=== PATIENT | female | born 1955 | race Caucasian/White ===

== ENCOUNTER 2016-05-19 16:46 | Observation (INO) | payer MEDICARE, MEDICAID ==
[~2016-05-19] VITALS: Ht 160 cm; Wt 57.5 kg
[~2016-05-19 16:46] MED LIST: AMLO10TA2 PO; CITA40TA4 PO; CYCL10TA PO; D 1010004 PO; DITR5TAB PO; FOLI1TAB2 PO; GABA-279 PO; HYDR-3713 PO; HYDR-3719 PO; HYDR25T PO; HYDR25TAB PO; K-TA10TA2 PO; LEVO75TA4 PO; LYRI100C10 PO; LYRI75CA PO; MELO15TA4 PO; NAPR500T2 PO; OMEP20CA3 PO; OXYC20TA2 PO; PROA1AER IN; ROBA750T4 PO; SIMV20TA2 PO; SIMV40TA2 PO; SYMB80INH INH; THIA100T PO; TIZA4CAP3 PO; TRAZ100T4 PO
[2016-05-19] MEDS ORDERED: ONDANSETRON 4MG/2ML VIAL (J2405) As Ordered ONE (17:46)
[2016-05-19] MEDS ORDERED: MORPHINE 2 MG/ML 1ML SYRINGE As Ordered ONE ×6 (17:47→21:12)
--- NOTE | 2016-05-19 17:56 | ECGEPIP ---
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
[2016-05-19 18:04] LABS: BASO % 0.4 % (0.0-1.0); EOS % 0.9 % (0.0-3.0); LARGE UNSTAINED CELL # 0.2 K/mm3 (0.0-0.4); LARGE UNSTAINED CELL % 2.5 % (0.0-4.0); LYMPH # 1.2 K/mm3 (1.5-4.5); LYMPH % 20.9 % (24.0-44.0); MEAN CORPUSCULAR HEMOGLOBIN 30.4 pg (27.0-33.0); MEAN CORPUSCULAR HGB CONC 33.8 g/dl (32.0-36.5); MEAN CORPUSCULAR VOLUME 89.9 fl (80.0-96.0); MONO # 0.4 K/mm3 (0.0-0.8); MONO % 7.4 % (0.0-5.0); NEUTROPHILS % 67.9 % (36.0-66.0); PLATELET COUNT, AUTOMATED 173 k/mm3 (150-450); WHITE BLOOD COUNT 5.9 K/mm3 (4.0-10.0)
[2016-05-19 18:05] LABS: INR 0.9
[2016-05-19 18:23] LABS: ALBUMIN/GLOBULIN RATIO 1.21 (1.00-1.93); ALKALINE PHOSPHATASE 92 U/L (45-117); ALT/SGPT 31 U/L (12-78); AMYLASE 39 U/L (25-115); ANION GAP 12 MEQ/L (8-16); AST/SGOT 33 U/L (15-37); BILIRUBIN,DIRECT 0.1 MG/DL (0.0-0.2); BILIRUBIN,TOTAL 0.5 MG/DL (0.2-1.0); BLOOD UREA NITROGEN 11 MG/DL (7-18); CALCIUM LEVEL 9.2 MG/DL (8.8-10.2); CARBON DIOXIDE LEVEL 22 MEQ/L (21-32); CHLORIDE LEVEL 105 MEQ/L (98-107); CREATININE FOR GFR 0.68 MG/DL (0.55-1.02); GLOMERULAR FILTRATION RATE > 60.0 (>45); GLUCOSE, FASTING 88 MG/DL (80-110); POTASSIUM SERUM 3.7 MEQ/L (3.5-5.1); SODIUM LEVEL 139 MEQ/L (136-145); TOTAL PROTEIN 7.3 GM/DL (6.4-8.2)
--- NOTE | 2016-05-19 18:35 | REP ---
CHEST, ONE VIEW: HISTORY: Shortness of breath. COMPARISON: 02/15/2016 A minimal increase in interstitial markings is present lower lobes consistent with chronic interstitial fibrosis. The heart is normal in size. The pulmonary vasculature is normal in appearance. IMPRESSION: Bibasilar chronic interstitial fibrosis. Signed by Nikunj Felipe MD 05/19/2016 06:41 P
[2016-05-19] MEDS ORDERED: ISOVUE-370 76% 100ML VIAL (Q9967) As Ordered ONE (18:52)
[2016-05-19] MEDS ORDERED: ASPIRIN 81 MG CHEW TABLET As Ordered ONE (18:55)
--- NOTE | 2016-05-19 20:00 | REPUSA ---
CT of the abdomen and pelvis with contrast Clinical statement: Pain. Technique: Multiple axial CT images were obtained from the base of the lungs through the floor of the pelvis utilizing 5 mm axial slices after administration of oral and nonionic intravenous contrast. C oronal and sagittal reconstructions were also obtained. Comparison: 02/18/2016. Findings: Chest: The visualized lung bases are clear. Abdomen: The spleen, pancreas, kidneys, and adrenal glands are unremarkable. Diffuse low attenuation of the liver is appreciated. The patient is status post cholecystectomy. The aorta is within normal l imits. There is no evidence of abdominal lymphadenopathy or ascites. Pelvis: The bowel is unremarkable, with no obstructive or inflammatory changes. The urinary bladder i s within normal limits. The other pelvic structures appear grossly intact. There is no evidence of pe lvic lymphadenopathy or ascites. Bones: There are no suspicious osseous abnormalities seen. Moderate degenerative disc disease is appr eciated at L5/S1. Impression: 1. No acute findings to explain the patient's pain. 2. No obstructive or inflammatory bowel changes. 3. New fatty infiltration of the liver. 4. Moderate degenerative disc disease at L5/S1.
--- NOTE | 2016-05-19 20:10 | REPUSA ---
CT angiogram of the chest Clinical statement: Chest pain and shortness of breath. Technique: Multiple axial CT images were obtained from the thoracic inlet through the upper abdomen a fter a bolus administration of nonionic intravenous contrast. Coronal and sagittal reconstructions we re also obtained. No comparison is available. Findings: The pulmonary arteries are well-opacified with contrast, with no intraluminal filling defec ts to suggest embolism. The thoracic aorta is unremarkable. Thyroid gland is within normal limits. Th ere is no thoracic lymphadenopathy. There are no pericardial or pleural effusions. The lungs are eli r. Limited imaging of the upper abdomen is unremarkable. There are no suspicious osseous lesions. Impression: Unremarkable CT examination of the chest. No evidence of pulmonary embolism.
[2016-05-19] MEDS ORDERED: AMLO10TA2 PO (20:19)
[2016-05-19] MEDS ORDERED: PREG50CA PO (20:19)
[2016-05-19] MEDS ORDERED: ALBU17IN INH (20:19)
[2016-05-19] MEDS ORDERED: FERA1TAB PO (20:19)
--- NOTE | 2016-05-19 22:08 | ECGEPIP ---
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
[2016-05-19] MEDS ORDERED: ALBUTEROL 90 MCG/ACT 8GM HFA INHALER INH PRN (22:45)
[2016-05-20] VITALS (8 sets, daily range): BP systolic 90–146; BP diastolic 58–75; PULSE 54–87
[2016-05-20] MEDS ORDERED: tiZANidine 4 MG TAB As Ordered ONE (00:23)
[2016-05-20] MEDS ORDERED: traZODone 50 MG TAB As Ordered ONE (00:23)
[2016-05-20] MEDS ORDERED: OMEPRAZOLE 20 MG CAP As Ordered ONE (00:23)
[2016-05-20] MEDS ORDERED: oxyCODONE 5MG TAB As Ordered ONE ×2 (00:23→09:34)
[2016-05-20] MEDS ORDERED: ONDANSETRON 4MG/2ML VIAL (J2405) As Ordered ONE ×4 (00:23→17:01)
[2016-05-20] MEDS: SIMVASTATIN 20 MG TAB PO SCH ×2 (00:29→21:19)
[2016-05-20] MEDS: OMEPRAZOLE 20 MG CAP PO SCH ×4 (00:29→21:20)
[2016-05-20] MEDS: PREGABALIN 50 MG CAP (LYRICA) PO SCH ×4 (00:29→21:19)
[2016-05-20] MEDS: tiZANidine 4 MG TAB PO SCH ×2 (00:29→21:20)
[2016-05-20] MEDS: ONDANSETRON 4MG/2ML VIAL (J2405) IV SCH ×5 (00:30→23:02)
[2016-05-20] MEDS: oxyCODONE 5MG TAB PO PRN ×3 (00:30→18:30)
[2016-05-20] MEDS ORDERED: traZODone 100 MG TAB As Ordered ONE (00:32)
[2016-05-20] MEDS: traZODone 100 MG TAB PO SCH ×2 (00:35→23:02)
--- NOTE | 2016-05-20 00:46 | HPEPDOC ---
General Date of Admission May 19, 2016 at 22:39 Chief Complaint The patient is a 61-year-old female admitted with a reason for visit of Elevated Troponin. Source: Patient Exam Limitations: No limitations History of Present Illness Ms. Dumont is a 61-year-old female who presented to the ED with complaints of left-sided chest pain, abdominal pain, and black stools for the past few days. In the emergency department her cardiac enzymes were noted to be elevated, Dr. Flowers was called, and he recommended waiting until a repeat set of labs, and if they worsened she should be sent to [facility] for cardiac catheterization, if there remain the same she should stay for observation. Her enzymes upon repeat were essentially the same, therefore we will keep her here. She states that her left-sided chest pain has been present since Thursday, and it is worse when palpated, but otherwise nothing has really made the pain better or worse. EKG in the ED shows sinus rhythm with nonspecific ST and T wave changes, unchanged from prior EKG. Upon further questioning it appears that her abdominal pain is chronic in nature , and not significantly worse than usual. She did have a colonoscopy and EGD performed by Dr. Pearce 02/18/2016 which were essentially unremarkable, a small polyp was snared during the colonoscopy. As regarding her black stools, she is taking iron supplementation for her chronic iron deficiency anemia. She remarks that she knows that iron can make her stools looked black, but she thinks that they look a little bit different now. Her blood pressure is stable , she is not anemic, we will check a repeat stool occult for blood. Of note, she ordered and ate Kyler Salo while here in the ED. Home Medications Scheduled (Ferate) 27 Mg Tab 27 MG PO DAILY (Reported) Amlodipine Besylate (Amlodipine Besylate) 10 Mg Tab 10 MG PO DAILY (Reported) Budesonide/Formoterol (Symbicort 80-4.5 Mcg/Act) 60 Puff/Inhaler Aers 2 PUFF INH BID (Reported) Cholecalciferol (D 1000) 1,000 Unit Cap 1,000 UNIT PO DAILY (Reported) Citalopram Hydrobromide (Citalopram Hydrobromide) 40 Mg Tab 40 MG PO DAILY ( Reported) Folic Acid (Folic Acid) 1 Mg Tab 1 MG PO DAILY (Reported) Hydroxyzine HCl (Hydroxyzine HCl) 25 Mg Tab 25 MG PO DAILY (Reported) Levothyroxine Sodium (Synthroid) 75 Mcg Tab 75 MCG PO DAILY (Reported) Omeprazole (Omeprazole) 20 Mg Cap 20 MG PO BID (Reported) Oxybutynin Chloride (Ditropan Xl) 5 Mg Tab 5 MG PO DAILY (Reported) Pregabalin (Lyrica) 50 Mg Cap 50 MG PO TID (Reported) Simvastatin (Simvastatin) 20 Mg Tab 20 MG PO QHS (Reported) Thiamine HCl (Thiamine HCl) 100 Mg Tab 100 MG PO DAILY (Reported) Tizanidine Hydrochloride (Tizanidine HCl) 4 Mg Cap 4 MG PO QHS (Reported) Trazodone HCl (Trazodone HCl) 100 Mg Tab 100 MG PO QHS (Reported) Scheduled PRN Albuterol Sulfate (Ventolin Hfa) 200 Puff/8 Gm Aers 2 PUFF INH Q4H PRN PRN SHORTNESS OF BREATH (Reported) Oxycodone Hcl (Oxycodone HCl) 20 Mg Tab 20 MG PO Q8H PRN PRN PAIN (Reported) Allergies Coded Allergies: Codeine (Verified Allergy, Unknown, 07/27/12) Propoxyphene (Verified Allergy, Unknown, 07/27/12) Sulfa Drugs (Verified Allergy, Unknown, 07/27/12) Sulfa Drugs Cross Reactors (Verified Allergy, Unknown, 07/27/12) Tetracyclines (Verified Allergy, Unknown, 07/27/12) Past Medical History Medical History COPD Chronic bronchitis Chronic abdominal pain Hyperlipidemia Hypertension Vitamin D deficiency Anxiety and depression Hypothyroidism Surgical History Cholecystectomy Tonsillectomy Hysterectomy Carpal tunnel repair Meniscus bilateral repair Neck surgery Knee arthroscopic bilateral Family History Significant Family History: No pertinent family hx Social History * Smoker: current smoker (about one pack per day) Alcohol: denies Drugs: denies Recent Travel/Sick Contacts: Denies: Recent travel Review of Symptoms Constitutional: Denies: Chills, Fever, Night Sweats ENT: Denies: Dysphagia, Ear Pain, Head Aches Skin: Denies: Breakdown, Lesions, Rash Pulmonary: Denies: Cough, Dyspnea Cardiovascular: Reports: Chest Pain, Denies: Edema, Lt Headedness, Orthopnea, Palpitations, Paroxysmal Noc. Dyspnea Gastrointestinal: Reports: Abdominal Pain, Constipation (chronic), Melena (as described in the HPI), Nausea, Denies: Diarrhea, Vomiting Genitourinary: Denies: Dysuria, Frequency, Incontinence, Retention Hematologic: Denies: Bleeding Excessively, Bruising Neurological: Denies: Change in speech, Confusion, Numbness, Weakness Psych: Reports: Mood Normal, Denies: Depression, Memory Issues Physical Examination General Exam: Positive: Alert, Cooperative, No Acute Distress Eye Exam: Positive: Conjunctiva & lids normal, EOMI, Negative: Sclera icteric ENT Exam: Positive: Atraumatic, Mucous membr. moist/pink, Pharynx Normal Neck Exam: Positive: Supple, Negative: JVD, thyromegaly Chest Exam: Positive: Clear to auscultation, Normal air movement Heart Exam: Positive: Normal S1, Normal S2, Rate Normal, Regular Rhythm, Negative: Murmurs, Rubs Telemetry: Positive: No significant arrhythmia Abdomen Exam: Positive: Normal bowel sounds, Soft, Tenderness (throughout, even to soft palpation), Negative: Hepatospenomegaly Female Exam: Negative: Discharge, Lesions, Odor, Tenderness Extremity Exam: Positive: Normal pulses, Negative: Clubbing, Cyanosis, Edema Skin Exam: Positive: Nl turgor and temperature, Negative: Breakdown, Lesion Psych Exam: Positive: Memory Intact, Mental status NL, Mood NL, Oriented x 3, Negative: Anxiety Vital Signs Blood pressure 125/65, pulse 82, respirations 16, temperature 98.8, pulse ox 98 % on room air, weight 56 kg, height 5 feet 3 inches, BMI 22 Laboratory Data Labs 24H Laboratory Tests 2 05/19/16 17:31: Activated Partial Thromboplast Time 26.9, Aspartate Amino Transf (AST/SGOT) 33, Alanine Aminotransferase (ALT/SGPT) 31, Alkaline Phosphatase 92, Total Bilirubin 0.5, Direct Bilirubin 0.1, Albumin 4.0, Albumin/Globulin Ratio 1.21, Amylase Level 39, Anion Gap 12, White Blood Count 5.9, Red Blood Count 5.02, Hemoglobin 15.2, Hematocrit 45.1, Mean Corpuscular Volume 89.9, Mean Corpuscular Hemoglobin 30.4, Mean Corpuscular Hemoglobin Concent 33.8, Red Cell Distribution Width 18.0H, Platelet Count 173, Neutrophils (%) (Auto) 67.9H, Lymphocytes (%) (Auto) 20.9L, Monocytes (%) (Auto) 7.4H, Eosinophils (%) (Auto) 0.9, Basophils (%) (Auto) 0.4, Neutrophils # (Auto) 4.0, Lymphocytes # (Auto) 1.2L, Monocytes # (Auto) 0.4, Eosinophils # (Auto) 0.0, Basophils # (Auto) 0.0, Calcium Level 9.2, Creatine Kinase MB 2.9, Creatine Kinase MB Relative Index 4.20H, Glomerular Filtration Rate > 60.0, Large Unclassified Cells # 0.2, Large Unclassified Cells % 2.5, Lipase 178, Prothromb Time International Ratio 0.90, Prothrombin Time 12.3, Total Creatine Kinase 69, Total Protein 7.3, Troponin I 0.46H 05/19/16 21:25: Creatine Kinase MB 3.5, Creatine Kinase MB Relative Index 4.48H, Total Creatine Kinase 78, Troponin I 0.55H CBC/BMP Laboratory Tests 05/19/16 17:31 Red Blood Count 5.02, Mean Corpuscular Volume 89.9, Mean Corpuscular Hemoglobin 30.4, Mean Corpuscular Hemoglobin Concent 33.8, Red Cell Distribution Width 18.0 H, Neutrophils (%) (Auto) 67.9 H, Lymphocytes (%) (Auto) 20.9 L, Monocytes (%) (Auto) 7.4 H, Eosinophils (%) (Auto) 0.9, Basophils (%) (Auto) 0.4, Neutrophils # (Auto) 4.0, Lymphocytes # (Auto) 1.2 L, Monocytes # (Auto) 0.4, Eosinophils # (Auto) 0.0, Basophils # (Auto) 0.0 Assessment/Plan Problems: (1) Elevated troponin Status: Acute (2) Chest pain Status: Acute (3) Abdominal pain Status: Chronic (4) Iron deficiency anemia Status: Chronic (5) Hypertension Status: Chronic (6) Vitamin D deficiency Status: Chronic (7) Anxiety Status: Chronic (8) Depression Status: Chronic (9) Hypothyroidism Status: Chronic (10) COPD (chronic obstructive pulmonary disease) Status: Chronic Plan / VTE VTE Prophylaxis Ordered?: Yes (Lovenox) Plan Plan We will admit the patient for observation as the patient does have an elevated troponins and chest pain. She has had multiple cardiac marker panel also ordered in the past, all of which have been within normal limits, therefore this is a change from her baseline, she does not have any history of heart disease, and she does not have any evidence of acute kidney injury. Her chest pain has been present since last Thursday, and it is worse when palpating along the left side of her sternum, and she has no EKG changes at this time, and her repeat troponins are approximately the same as her first, therefore we will keep her here at [facility] rather than transferring at this time. She has had no events on monitor thus far, and she has had 2 EKGs in the ED both of which showing sinus rhythm. We will continue to cycle her cardiac enzymes, order a repeat EKG in the morning, and perform an echocardiogram. Regarding her abdominal pain, we will continue her on her usual home regimen, it appears that it is sufficiently under control as she has ordered food from [email or web address] at this time that her family brought her in the ED. A stool for fecal occult and a UA has been ordered. CT of the abdomen and pelvis with contrast shows no acute findings to explain her pain, nonobstructive or inflammatory bowel changes, but she may have some new fatty infiltration of the liver and moderate degenerative disc disease L5/S1. Otherwise, we will continue her on her usual regimen of home medications for her chronic conditions. LAMONT CADENA DO May 20, 2016 00:46
[2016-05-20] MEDS: LEVOTHYROXINE 0.075 MG TAB (75 MCG) PO SCH (06:15)
[2016-05-20 07:55] LABS: MEAN CORPUSCULAR HEMOGLOBIN 29.5 pg (27.0-33.0); MEAN CORPUSCULAR VOLUME 92.1 fl (80.0-96.0); RED CELL DISTRIBUTION WIDTH 17.7 % (11.5-14.5); WHITE BLOOD COUNT 5.6 K/mm3 (4.0-10.0)
[2016-05-20 08:09] LABS: ANION GAP 7 MEQ/L (8-16); BLOOD UREA NITROGEN 11 MG/DL (7-18); CALCIUM LEVEL 8.8 MG/DL (8.8-10.2); CARBON DIOXIDE LEVEL 27 MEQ/L (21-32); CHLORIDE LEVEL 107 MEQ/L (98-107); CREATININE FOR GFR 0.76 MG/DL (0.55-1.02); GLOMERULAR FILTRATION RATE > 60.0 (>45); GLUCOSE, FASTING 82 MG/DL (80-110); SODIUM LEVEL 141 MEQ/L (136-145)
[2016-05-20] MEDS ORDERED: amLODIPine 10 MG TAB PO SCH (09:00)
[2016-05-20] MEDS: NICOTINE 7 MG/24 HR TRANSDERMAL TD SCH (09:00)
[2016-05-20] MEDS ORDERED: ENTER DRUG NAME HERE (PATIENT'S OWN MED) PO SCH (09:00)
[2016-05-20] MEDS ORDERED: ENOXAPARIN 40 MG/0.4 ML SYRINGE (J1650) As Ordered ONE (09:39)
[2016-05-20] MEDS: CitaloPRAM (CeleXA) 20 MG TAB PO SCH (09:42)
[2016-05-20] MEDS: hydrOXYzine 25 MG TAB PO SCH (09:42)
[2016-05-20] MEDS: ENOXAPARIN 40 MG/0.4 ML SYRINGE (J1650) SC SCH (09:42)
[2016-05-20] MEDS: THIAMINE 100 MG TAB PO SCH (09:43)
[2016-05-20] MEDS: oxyBUTYnin *DITROPAN XL* 5 MG TABCR PO SCH (09:43)
[2016-05-20] MEDS: FOLIC ACID 1 MG TAB PO SCH (09:43)
[2016-05-20] MEDS: VITAMIN D 1,000 INTERNATIONAL UNITS TABLET PO SCH (09:43)
[2016-05-20] MEDS: SYMBICORT 80/4.5MCG INHALER 6GM INH SCH ×2 (10:19→20:59)
[2016-05-20] MEDS ORDERED: NITROGLYCERIN 0.4 MG SUBL TABLET SL PRN (11:45)
[2016-05-20] MEDS ORDERED: GI COCKTAIL 50ML BTL(HYOSCYAMINE/MAALOX/LIDOCAINE VISCOUS)(1:3:1) PO ONE (12:00)
--- NOTE | 2016-05-20 12:22 | IPN ---
DATE: 05/20/2016 Patient seen and examined at the bedside. Chart reviewed. This morning patient continues to complain of left-sided chest pain radiating to her neck. No diaphoresis, palpitations, lightheadedness, shortness of breath. Describes it as sharp with radiation on and off and constant since 2 days ago. No bright red blood per rectum, melena, or coffee ground emesis. Pleuritic in nature. CT chest shows no pulmonary embolism. Lungs are clear. No other issues per nursing. Vital signs: Temperature 97.7, pulse 57, respiratory rate 18, blood pressure 90/58 to 120/70. Patient's cardiovascular risk factors include hypertension, hyperlipidemia, active smoking, perimenopausal state, increase in psychosocial issues, patient had a recent stressor at home and states "I was very upset and fighting at home." VITAL SIGNS: Temperature 97.8, pulse 61, respiratory rate 18, blood pressure 120/70, 95% on room air. LUNGS: Clear to auscultation. No wheezing, rales, or rhonchi. HEART: S1, S2, sinus rhythm. ABDOMEN: Soft, nontender, nondistended. Normoactive bowel sounds. EXTREMITIES: No cyanosis, clubbing, or pitting edema. EKG sinus rhythm, ventricular rate of 72, HI interval 162, QT 419, QTc 459. LABORATORY DATA: Has been reviewed. CBC: White count 5.6, hemoglobin 13, hematocrit 43, platelet count 173. Sodium 141, potassium 4, chloride 107, bicarbonate 27, BUN 11, creatinine 0.76, glucose 82, troponin 0.23 from previous 0.55, relative index 4.1, total CK 95. ASSESSMENT AND PLAN: This is a 61-year-old female with history of hypertension, hyperlipidemia, active smoking, chronic obstructive pulmonary disease (COPD), chronic bronchitis, vitamin D deficiency, anxiety, depression, hypothyroidism, presented to the emergency room with ongoing chest pain since Thursday. Patient's troponin has remained elevated. CURRENT ISSUES: 1. Chest pain with positive troponins. Patient troponin has not increased but has decreased. She will be provided with supportive care with aspirin, tobacco cessation counseling, nitroglycerin. Patient's blood pressure does not permit beta blockade. She will be started on statins. CT chest was negative for pulmonary embolism (PE), pleural effusion, consolidation, infiltrate, pneumonia. Check a 12-lead EKG and continue with full supportive care. Carafate for atypical chest pain. Continue with proton pump inhibitor (PPI), changed to twice a day dosing at 40 mg. 2. History of healed duodenal ulcer. No active gastrointestinal (GI) bleed. No acute indication for red blood cell transfusion. Changed to Prilosec 40 twice a day, Carafate, and gastrointestinal (GI) cocktail. 3. Hypertension. Current blood pressure was 100 at the highest. 4. Hyperlipidemia. Start on Lipitor. 5. History of anxiety and depression, chronic. 6. Deep venous thrombosis (DVT) prophylaxis with compression stockings and Lovenox. MTDD
[2016-05-20] MEDS ORDERED: ASPIRIN 81 MG CHEW TABLET As Ordered ONE (12:32)
[2016-05-20] MEDS ORDERED: GI COCKTAIL 50ML BTL(HYOSCYAMINE/MAALOX/LIDOCAINE VISCOUS)(1:3:1) As Ordered ONE (12:32)
[2016-05-20] MEDS: ASPIRIN 81 MG CHEW TABLET PO SCH (12:39)
[2016-05-20] MEDS: NS 1,000 ML IV SCH ×2 (12:40→21:20)
[2016-05-20] MEDS: SUCRALFATE SUSP 1GM/10ML UD PO SCH ×3 (14:49→21:19)
[2016-05-20] MEDS ORDERED: PREGABALIN 25 MG CAP (LYRICA) As Ordered ONE (17:00)
[2016-05-20] MEDS ORDERED: GI COCKTAIL 50ML BTL(HYOSCYAMINE/MAALOX/LIDOCAINE VISCOUS)(1:3:1) PO PRN (18:00)
--- NOTE | 2016-05-20 18:04 | EDDOCDS ---
Physician Documentation [facility] Name: Gauri Dumont Age: 61 yrs Sex: Female : 1955 Arrival Date: 05/19/2016 Time: 16:46 Bed Admit Hold Private MD: Disposition: 05/19/16 20:52 Hospitalization ordered by Lico Herzog for Inpatient Admission. Preliminary diagnosis are Abdominal and pelvic pain, Chest pain, unspecified. - Bed requested for PCU. - Status is Inpatient Admission. aa3 - Condition is Stable. - Problem is an ongoing problem. - Symptoms have improved. Historical: - Allergies: Erythromycin; TETRACYCLINES; SULFA (SULFONAMIDES); - Home Meds: 1. albuterol sulfate 90 mcg/actuation Inhl HFAA 2 puffs as needed 2. amlodipine 10 mg Oral tab 1 tab once daily 3. cholecalciferol (vitamin D3) 2,000 unit oral cap 4. citalopram 40 mg Oral tab 1 tab once daily 5. hydroxyzine HCl 25 mg Oral tab 1 tab daily 6. levothyroxine 75 mcg Oral tab 1 tab once daily 7. folic acid 1 mg Oral tab 1 tab once daily 8. oxybutynin chloride 5 mg Oral tr24 1 tab once daily 9. Lyrica 75 mg Oral 1 cap 3 times per day 10. omeprazole 20 mg Oral cpDR 1 cap 2 times per day 11. oxycodone 20 mg Oral tab every 8 hours 12. Symbicort 160-4.5 mcg/actuation inhalation HFAA 2 puffs 2 times per day 13. simvastatin 40 mg Oral tab 0.5 tab nightly 14. thiamine HCl 100 mg Oral tab daily 15. tizanidine 4 mg oral tab 1 tab nightly 16. trazodone 100 mg Oral tab 1 tab daily 17. albuterol sulfate 90 mcg/actuation Inhl HFAA 2 puffs as needed - PMHx: Hypothyroidism; Hypertension; Hypercholesterolemia; Depression; GERD; Anxiety; COPD; - PSHx: Tonsillectomy; meniscus repair bilaterally; carpal tunnel repair bilateral; Hysterectomy; teeth extraction; Cholecystectomy; knee arthroscopy bilateral; - Social history: No barriers to communication noted, The patient speaks fluent [place]er, Speaks appropriately for age, Smoking status: Patient uses tobacco products, current every day smoker. - Family history: Not pertinent. - : The pt / caregiver states he / she is not on anticoagulants. Home medication list is obtained from the patient, [employer] import data. - Exposure Risk Screening:: None identified. Vital Signs: 05/19 17:09 Resp 18; Temp 98.8(TE); Weight 56.25 kg / 124.01 lbs (R); Height 5 ft. 3 in. (160.02 ead cm) (R); Pain 9/10; 17:19 BP 134 / 85 (auto/); ead 17:19 Pulse 84 MON; Pulse Ox 97% ; ead 17:34 Pulse 104 MON; Pulse Ox 97% ; cf2 17:34 BP 126 / 77 (auto/); cf2 17:49 Pulse 82 MON; Pulse Ox 97% ; cf2 17:49 BP 113 / 72 (auto/); cf2 18:04 Pulse 82 MON; Pulse Ox 95% ; cf2 18:04 BP 113 / 74 (auto/); cf2 18:30 BP 125 / 65; Pulse 82; Resp 16; Pulse Ox 98% on R/A; Pain 8/10; rs3 18:33 Pulse 82 MON; Pulse Ox 96% ; cf2 18:34 BP 121 / 79 (auto/); cf2 18:35 Pulse 80 MON; Pulse Ox 96% ; cf2 18:38 Pulse 74 MON; Pulse Ox 96% ; cf2 18:41 Pulse 70 MON; Pulse Ox 96% ; cf2 18:45 Pulse 98 MON; Pulse Ox 94% ; cf2 18:48 Pulse 82 MON; Pulse Ox 95% ; cf2 17:09 Body Mass Index 21.97 (56.25 kg, 160.02 cm) ead MDM: 17:05 ECG WITH READING ER PHYS+CARDIAG ordered. EDMS 17:16 IV Saline Lock ordered. ml 17:16 Bolt Cutter/Pulse Ox/q 15 min VS ordered. ml 17:16 Rhythm Strip to chart ordered. ml 17:16 Vital Signs ordered. ml 17:17 CBC with Diff Ordered. EDMS 17:17 MED Profile Ordered. EDMS 17:17 NS 0.9% 1000 ml IV at 250 mL/hr continuous ordered. ml 17:17 Ondansetron 4 mg IVP once ordered. ml 17:17 morphine 2 mg IVP once ordered. ml 17:17 CIP Ordered. EDMS 17:17 Troponin Ordered. EDMS 17:17 Liver Profile Ordered. EDMS 17:17 Lipase Ordered. EDMS 17:17 Amylase Ordered. EDMS 17:17 PT/INR Ordered. EDMS 17:17 PTT Ordered. EDMS 17:17 Type & Screen Ordered. EDMS 17:17 Chest, 1 View Ordered. EDMS 18:43 CBC with Diff Reviewed. ml 18:43 CIP Reviewed. ml 18:43 Troponin Reviewed. ml 18:43 MED Profile Reviewed. ml 18:43 Liver Profile Reviewed. ml 18:43 Lipase Reviewed. ml 18:43 Amylase Reviewed. ml 18:43 Type & Screen Reviewed. ml 18:43 PT/INR Reviewed. ml 18:43 PTT Reviewed. ml 18:43 EKG-ADULT Reviewed. ml 18:46 CT ABD & PELVIS: IV Contrast Only Ordered. EDMS 18:46 CT Chest Angio R/O PE Ordered. EDMS 18:54 morphine 2 mg IVP once ordered. rs3 18:54 Aspirin 324 mg PO once ordered. rs3 18:58 morphine 2 mg IVP every 5 minutes; Document pain score/vitals after each dose (Hold if ml SBP < 90mmHg) x5 ordered. 19:19 Chest, 1 View Reviewed. ml 19:40 Repeat EKG (put time details section) ordered. ml 19:40 Redraw CIP &Troponin (put time in details section) ordered. ml 19:42 BED REQUEST+ADM ordered. EDMS 19:48 Redraw CIP &Troponin (put time in details section) complete. tmm1 19:48 Repeat EKG (put time details section) complete. tmm1 19:48 CARDIAC MARKER PANEL Ordered. EDMS 19:49 ECG WITH READING ER PHYS ordered. EDMS 19:58 Financial registration complete. zo 20:24 [facility] [place] Agreement was scanned into [employer] and attached to record. zo 20:48 CT ABD & PELVIS: IV Contrast Only Reviewed. cs11 20:48 CT Chest Angio R/O PE Reviewed. cs11 22:14 CARDIAC MARKER PANEL Reviewed. dm18 22:41 Admission / Observation Status ordered. EDMS 22:55 ECHOCARD,DOPPLER/COLOR FLOW ordered. EDMS 22:55 ELECTROCARDIOGRAM ADULT ordered. EDMS 22:55 REGULAR DIET ordered. EDMS 22:56 URINALYSIS Ordered. EDMS 22:56 BASIC METABOLIC PROFILE Ordered. EDMS 22:56 COMPLETE BLOOD COUNT Ordered. EDMS 22:56 CARDIAC MARKER PANEL Ordered. EDMS 22:56 CARDIAC MARKER PANEL Ordered. EDMS 22:56 CARDIAC MARKER PANEL Ordered. EDMS 05/20 07:41 Attending Doctor Change: ordered. EDMS 09:30 T-Sheet-- Draft Copy was scanned into [employer] and attached to record. gb 09:30 ECG/EKG was scanned into [employer] and attached to record. gb 11:15 REGULAR DIET ordered. EDMS 11:44 ELECTROCARDIOGRAM ADULT ordered. EDMS Administered Medications: 05/19 17:54 Drug: morphine 2 mg [morphine 2 mg/mL intravenous cartridge (1 mL)] Route: IVP; Site: rs3 left antecubital; 18:30 Follow up: BP 125 / 65; Pulse 82 bpm; Resp 16 bpm; Pulse Ox 98% RA; Pain 8/10 Adult rs3 17:55 Drug: NS 0.9% 1000 ml [sodium chloride 0.9 % intravenous solution] Route: IV; Rate: 250 rs3 mL/hr; Site: left antecubital; 17:55 Drug: Ondansetron 4 mg [ondansetron HCl 2 mg/mL intravenous solution (2 mL)] Route: rs3 IVP; Site: left antecubital; 19:00 Not Given (Duplicate Order): morphine 2 mg IVP once rs3 19:00 Drug: Aspirin 324 mg [aspirin 81 mg chewable tablet (4 tabs)] Route: PO; rs3 19:00 Drug: morphine 2 mg [morphine 2 mg/mL intravenous cartridge (1 mL)] Route: IVP; Site: rs3 left antecubital; 19:20 Drug: morphine 2 mg [morphine 2 mg/mL intravenous cartridge (1 mL)] Route: IVP; Site: cf2 left antecubital; 20:00 Drug: morphine 2 mg [morphine 2 mg/mL intravenous cartridge (1 mL)] Route: IVP; Site: cf2 left antecubital; 20:37 Drug: morphine 2 mg [morphine 2 mg/mL intravenous cartridge (1 mL)] Route: IVP; Site: cf2 left antecubital; 21:09 Drug: morphine 2 mg [morphine 2 mg/mL intravenous cartridge (1 mL)] Route: IVP; Site: cf2 left antecubital; Signatures: Dispatcher [facility]WA Jose Shahid MD MD ml Barnhardt, Gloria, Reg Reg gb Irving, Medina Jennings,RN RN rs3 Addison Nunez, DO DO cs11 McLear, Monica, LOGGING EQUIPMENT MECHANIC LOGGING EQUIPMENT MECHANIC tmm1 Emeli Abraham,RN RN aa3 Brittani BrownRN RN Ankur Wiseman, DO DO dm18 Alyssa Spencer,RN RN cf2 The chart was reviewed and I authenticate all verbal orders and agree with the evaluation and treatment provided.Corrections: (The following items were deleted from the chart) 17:38 17:34 Home Meds: hydrochlorothiazide 25 mg Oral tab 1 tab once daily; ead ead 17:38 17:34 Home Meds: potassium chloride 10 mEq Oral cpER 1 cap once daily; ead ead Attachments: 20:24 [facility] Payment Agreement zo 05/20 09:30 T-Sheet-- Draft Copy gb 09:30 ECG/EKG gb MTDD
--- NOTE | 2016-05-20 18:04 | EDDOCDS ---
Nurse's Notes [facility] Name: Stephan Dickinson Age: 61 yrs Sex: Female : 1955 Arrival Date: 05/19/2016 Time: 16:46 Bed Admit Hold Private MD: Diagnosis: Abdominal and pelvic pain;Chest pain, unspecified Presentation: 05/19 17:00 Presenting complaint: Patient states: Pt c/o RLQ pain and epigastric pain. Pt rating at ead 9/10. Pt reported to EMS black, loose stools over the weekend. Pt also c/o left sided chest pain, 5/10. Presenting complaint: EMS states: 20 gauge to left AC per EMS. Transition of care: patient was not received from another setting of care. Care prior to arrival: See EMS report. Saline lock initiated. Glucose check. 91. 17:00 Acuity: ANGIE Level 3 ead 17:00 Method Of Arrival: Ambulance ead 23:20 Adult Sepsis Screening: The patient does not have new or worsening altered mentation. cf2 Patient's respiratory rate is less than 22. Systolic blood pressure is greater than 100. Patient has a qSOFA score of 0- Negative Sepsis Screen. Suicide/Homicide risk assessment- the patient denies having any suicidal and/or homicidal ideations and does not present with any other emotional, behavioral or mental health complaints. Status: Patient is not a immigration services officer or dependent. Triage Assessment: 17:08 General: Appears in no apparent distress, Behavior is appropriate for age, cooperative. ead Pain: Location: chest and abdomen Pain currently is 9 out of 10 on a pain scale. HIV screening NA for this visit Offered previously. The patient is triaged at the bedside. See Assessment in Nurses Notes section of ED record. Neurological: Level of Consciousness is awake, alert, Oriented to person, place, time. Cardiovascular: Chest pain is described as Pain is 5 out of 10 on a pain scale. Respiratory: Airway is patent Respiratory effort is even, unlabored. GI: Reports lower abdominal pain. Derm: Skin is pink, warm & dry. Historical: - Allergies: Erythromycin; TETRACYCLINES; SULFA (SULFONAMIDES); - Home Meds: 1. albuterol sulfate 90 mcg/actuation Inhl HFAA 2 puffs as needed 2. amlodipine 10 mg Oral tab 1 tab once daily 3. cholecalciferol (vitamin D3) 2,000 unit oral cap 4. citalopram 40 mg Oral tab 1 tab once daily 5. hydroxyzine HCl 25 mg Oral tab 1 tab daily 6. levothyroxine 75 mcg Oral tab 1 tab once daily 7. folic acid 1 mg Oral tab 1 tab once daily 8. oxybutynin chloride 5 mg Oral tr24 1 tab once daily 9. Lyrica 75 mg Oral 1 cap 3 times per day 10. omeprazole 20 mg Oral cpDR 1 cap 2 times per day 11. oxycodone 20 mg Oral tab every 8 hours 12. Symbicort 160-4.5 mcg/actuation inhalation HFAA 2 puffs 2 times per day 13. simvastatin 40 mg Oral tab 0.5 tab nightly 14. thiamine HCl 100 mg Oral tab daily 15. tizanidine 4 mg oral tab 1 tab nightly 16. trazodone 100 mg Oral tab 1 tab daily 17. albuterol sulfate 90 mcg/actuation Inhl HFAA 2 puffs as needed - PMHx: Hypothyroidism; Hypertension; Hypercholesterolemia; Depression; GERD; Anxiety; COPD; - PSHx: Tonsillectomy; meniscus repair bilaterally; carpal tunnel repair bilateral; Hysterectomy; teeth extraction; Cholecystectomy; knee arthroscopy bilateral; - Social history: No barriers to communication noted, The patient speaks fluent Setswana, Speaks appropriately for age, Smoking status: Patient uses tobacco products, current every day smoker. - Family history: Not pertinent. - : The pt / caregiver states he / she is not on anticoagulants. Home medication list is obtained from the patient, Close import data. - Exposure Risk Screening:: None identified. Screenin:47 Infection Control. deg 17:34 Screening information is obtained from the patient. Fall risk: No risks identified. cf2 Assistance ADL's: requires no assistance with activities of daily living. Abuse/DV Screen: The patient / caregiver reports he/she is: not in a situation that causes fear, pain or injury. Nutritional screening: No deficits noted. Advance Directives: Further advance directive information is declined. home support is adequate. Assessment: 16:48 General: see triage assessment. rs3 17:55 General: Appears in no apparent distress, Behavior is appropriate for age, cooperative, rs3 ordered pain medicine given. Pain: Location: abdomen and chest. Neurological: Level of Consciousness is awake, alert, Oriented to person, place, time. Cardiovascular: Capillary refill < 3 seconds Heart tones S1 S2 present. Respiratory: Airway is patent Respiratory effort is even, unlabored. GI: Abdomen is non- distended Bowel sounds present X 4 quads. Abd is soft and non tender X 4 quads. Derm: Skin is pink, warm & dry. 18:40 General: Appears in no apparent distress, Behavior is appropriate for age, cooperative, rs3 attending provider with patient. L side chest pain 8/10. ordered pain med given. Vital Signs: 17:09 Resp 18; Temp 98.8(TE); Weight 56.25 kg (R); Height 5 ft. 3 in. (160.02 cm) (R); Pain ead 9/10; 17:19 BP 134 / 85 (auto/); ead 17:19 Pulse 84 MON; Pulse Ox 97% ; ead 17:34 Pulse 104 MON; Pulse Ox 97% ; cf2 17:34 BP 126 / 77 (auto/); cf2 17:49 Pulse 82 MON; Pulse Ox 97% ; cf2 17:49 BP 113 / 72 (auto/); cf2 18:04 Pulse 82 MON; Pulse Ox 95% ; cf2 18:04 BP 113 / 74 (auto/); cf2 18:30 BP 125 / 65; Pulse 82; Resp 16; Pulse Ox 98% on R/A; Pain 8/10; rs3 18:33 Pulse 82 MON; Pulse Ox 96% ; cf2 18:34 BP 121 / 79 (auto/); cf2 18:35 Pulse 80 MON; Pulse Ox 96% ; cf2 18:38 Pulse 74 MON; Pulse Ox 96% ; cf2 18:41 Pulse 70 MON; Pulse Ox 96% ; cf2 18:45 Pulse 98 MON; Pulse Ox 94% ; cf2 18:48 Pulse 82 MON; Pulse Ox 95% ; cf2 17:09 Body Mass Index 21.97 (56.25 kg, 160.02 cm) ead Vitals: 16:46 Log In Time N/A - ambulance arrival. ead ED Course: 16:47 Patient visited by Geri Roa, [employer]. deg 16:47 Patient moved to Waiting deg 16:48 Medina Ann,RN is Primary Nurse. deg 16:48 Patient moved to 7 deg 17:03 Triage Initiated ead 17:06 Jose Shahid MD is Attending Physician. ml 17:06 Patient visited by Jose Shahid MD. ml 17:21 EKG done. (by ED staff). Reviewed by Jose Shahid MD. ct3 17:23 Patient visited by Lissa Miller PCA. ct3 17:34 The patient / caregiver is instructed regarding the plan of care and ED course. Patient cf2 has correct armband on for positive identification. Placed in gown. Bed in low position. Call light in reach. Side rails up X 1. Side rails up X2. Adult w/ patient. radiation monitor on. Pulse ox on. NIBP on. Property :Personal belongings accompany Pt. Door closed. Noise minimized. Visitors limited. Lights dimmed. Moved to private room. Verbal reassurance given. Warm blanket given. Pillow given. Head of bed elevated. Diet: Patient is NPO. Patient given ice chips. 17:34 No procedures done that require assistance. cf2 17:39 Patient visited by Brittani Brown RN. ead 17:57 Maintain field IV. Dressing intact. Good blood return noted. Site clean & dry. rs3 18:11 Patient visited by Landon Kiser PCA. jlf 18:31 EKG-ADULT Returned. EDMS 18:53 Patient visited by Medina Ann RN. rs3 19:16 Chest, 1 View Returned. EDMS 19:26 Primary Nurse role handed off by Medina Ann RN cf2 19:26 Alyssa Spencer,NATE is Primary Nurse. cf2 19:26 Patient visited by Alyssa Spencer,NATE. cf2 19:33 Patient visited by Alyssa Spencer,NATE. cf2 19:45 Attending Physician role handed off by Jose Shahid MD cs11 19:45 Addison Nunez DO is Attending Physician. cs11 20:09 Patient visited by Alyssa Spencer,NATE. cf2 20:16 Patient visited by Alyssa Spencer,NAET. cf2 20:24 [facility] Payment Agreement was scanned into [employer] and attached to record. zo 20:34 Patient visited by Alyssa Spencer RN. cf2 20:36 Patient visited by Alyssa Spencer RN. cf2 20:41 CT ABD & PELVIS: IV Contrast Only Returned. EDMS 20:41 CT Chest Angio R/O PE Returned. EDMS 20:42 Patient visited by Alyssa Spencer RN. cf2 20:52 Lico Herzog MD is Hospitalizing Provider. cs11 20:57 Patient moved to Admit Hold tmm1 21:07 Patient visited by Bethany Sanchez PCA. marilynn 21:07 EKG done. (by ED staff). Reviewed by Addison Nunez DO. marilynn 22:01 Patient visited by Alyssa Spencer RN. cf2 22:56 Patient visited by Alyssa Spencer RN. cf2 22:56 ECG WITH READING ER PHYS Returned. EDMS 23:16 Patient visited by Alyssa Spencer RN. cf2 23:23 Patient visited by Alyssa Spencer RN. cf2 23:24 Patient visited by Alyssa Spencer RN. cf2 05/20 09:30 T-Sheet-- Draft Copy was scanned into [employer] and attached to record. gb 09:30 ECG/EKG was scanned into [employer] and attached to record. gb Administered Medications: 05/19 17:54 Drug: morphine 2 mg [morphine 2 mg/mL intravenous cartridge (1 mL)] Route: IVP; Site: rs3 left antecubital; 18:30 Follow up: BP 125 / 65; Pulse 82 bpm; Resp 16 bpm; Pulse Ox 98% RA; Pain 8/10 Adult rs3 17:55 Drug: NS 0.9% 1000 ml [sodium chloride 0.9 % intravenous solution] Route: IV; Rate: 250 rs3 mL/hr; Site: left antecubital; 17:55 Drug: Ondansetron 4 mg [ondansetron HCl 2 mg/mL intravenous solution (2 mL)] Route: rs3 IVP; Site: left antecubital; 19:00 Not Given (Duplicate Order): morphine 2 mg IVP once rs3 19:00 Drug: Aspirin 324 mg [aspirin 81 mg chewable tablet (4 tabs)] Route: PO; rs3 19:00 Drug: morphine 2 mg [morphine 2 mg/mL intravenous cartridge (1 mL)] Route: IVP; Site: rs3 left antecubital; 19:20 Drug: morphine 2 mg [morphine 2 mg/mL intravenous cartridge (1 mL)] Route: IVP; Site: cf2 left antecubital; 20:00 Drug: morphine 2 mg [morphine 2 mg/mL intravenous cartridge (1 mL)] Route: IVP; Site: cf2 left antecubital; 20:37 Drug: morphine 2 mg [morphine 2 mg/mL intravenous cartridge (1 mL)] Route: IVP; Site: cf2 left antecubital; 21:09 Drug: morphine 2 mg [morphine 2 mg/mL intravenous cartridge (1 mL)] Route: IVP; Site: cf2 left antecubital; Order Results: Lab Order: CBC with Diff; SPEC'M 05/19/16 17:31 Test: WHITE BLOOD COUNT; Value: 5.9; Range: 4.0-10.0; Units: K/mm3; Status: F Test: RED BLOOD COUNT; Value: 5.02; Range: 4.00-5.40; Units: M/mm3; Status: F Test: HEMOGLOBIN; Value: 15.2; Range: 12.0-16.0; Units: g/dl; Status: F Test: HEMATOCRIT; Value: 45.1; Range: 36.0-47.0; Units: %; Status: F Test: MEAN CORPUSCULAR VOLUME; Value: 89.9; Range: 80.0-96.0; Units: fl; Status: F Test: MEAN CORPUSCULAR HEMOGLOBIN; Value: 30.4; Range: 27.0-33.0; Units: pg; Status: F Test: MEAN CORPUSCULAR HGB CONC; Value: 33.8; Range: 32.0-36.5; Units: g/dl; Status: F Test: RED CELL DISTRIBUTION WIDTH; Value: 18.0; Range: 11.5-14.5; Abnormal: Above high normal; Units: %; Status: F Test: PLATELET COUNT, AUTOMATED; Value: 173; Range: 150-450; Units: k/mm3; Status: F Test: NEUTROPHILS %; Value: 67.9; Range: 36.0-66.0; Abnormal: Above high normal; Units: %; Status: F Test: LYMPH %; Value: 20.9; Range: 24.0-44.0; Abnormal: Below low normal; Units: %; Status: F Test: MONO %; Value: 7.4; Range: 0.0-5.0; Abnormal: Above high normal; Units: %; Status: F Test: EOS %; Value: 0.9; Range: 0.0-3.0; Units: %; Status: F Test: BASO %; Value: 0.4; Range: 0.0-1.0; Units: %; Status: F Test: LARGE UNSTAINED CELL %; Value: 2.5; Range: 0.0-4.0; Units: %; Status: F Test: NEUTROPHILS #; Value: 4.0; Range: 1.8-7.7; Units: K/mm3; Status: F Test: LYMPH #; Value: 1.2; Range: 1.5-4.5; Abnormal: Below low normal; Units: K/mm3; Status: F Test: MONO #; Value: 0.4; Range: 0.0-0.8; Units: K/mm3; Status: F Test: EOS #; Value: 0.0; Range: 0.0-0.50; Units: K/mm3; Status: F Test: BASO #; Value: 0.0; Range: 0.0-0.2; Units: K/mm3; Status: F Test: LARGE UNSTAINED CELL #; Value: 0.2; Range: 0.0-0.4; Units: K/mm3; Status: F Lab Order: [facility]; SPEC'M 05/19/16 17:31 Test: GLUCOSE, FASTING; Value: 88; Range: 80-110; Units: MG/DL; Status: F Test: BLOOD UREA NITROGEN; Value: 11; Range: 7-18; Units: MG/DL; Status: F Test: CREATININE FOR GFR; Value: 0.68; Range: 0.55-1.02; Units: MG/DL; Status: F Test: GLOMERULAR FILTRATION RATE; Value: > 60.0; Range: >45; Status: F Test: SODIUM LEVEL; Value: 139; Range: 136-145; Units: MEQ/L; Status: F Test: POTASSIUM SERUM; Value: 3.7; Range: 3.5-5.1; Units: MEQ/L; Status: F Test: CHLORIDE LEVEL; Value: 105; Range: 98-107; Units: MEQ/L; Status: F Test: CARBON DIOXIDE LEVEL; Value: 22; Range: 21-32; Units: MEQ/L; Status: F Test: ANION GAP; Value: 12; Range: 8-16; Units: MEQ/L; Status: F Test: CALCIUM LEVEL; Value: 9.2; Range: 8.8-10.2; Units: MG/DL; Status: F Test Note: ; Units are mL/min/1.73 m2 Chronic Kidney Disease Staging per NKF: Stage I & II GFR >=60 Normal to Mildly Decreased Stage III GFR 30-59 Moderately Decreased Stage IV GFR 15-29 Severely Decreased Stage V GFR <15 Very Little GFR Left ESRD GFR <15 on MILLINERY TEACHER Lab Order: CIP; SPEC'M 05/19/16 17:31 Test: CPK CREATINE PHOSPHOKINASE; Value: 69; Range: 26-192; Units: U/L; Status: F Test: CK-MB VALUE MASS; Value: 2.9; Range: 0.0-3.6; Units: NG/ML; Status: F Test: MB/CK RELATIVE INDEX; Value: 4.20; Range: < OR =4; Abnormal: Above high normal; Status: F Test Note: ; DIAGNOSIS CRITERIA MMB ng/ml Relative Index (RI) NON-AMI < or = 5 N/A SORIANO ZONE > 5 < or = 4 AMI > 5 > 4 Lab Order: Troponin; SPEC'M 05/19/16 17:31 Test: TROPONIN I; Value: 0.46; Range: < 0.10; Abnormal: Above high normal; Units: NG/ML; Status: F Test Note: ; Troponin I Reference Interval for Confabb LOCI: 99th Percentile= 0.00-0.045 ng/ml Risk Stratification: <= 0.10 ng/ml Decreased Risk for Adverse Clinical Events. 0.10-1.50 ng/ml Increased Risk for Adverse Clinical Events. Evaluation of additional criterion and/or repeat testing in 2-6 hours is suggested to rule out myocardial damage. >= 1.50 ng/ml Indicative of Myocardial Injury. Lab Order: Liver Profile; SPEC'M 05/19/16 17:31 Test: AST/SGOT; Value: 33; Range: 15-37; Units: U/L; Status: F Test: ALT/SGPT; Value: 31; Range: 12-78; Units: U/L; Status: F Test: ALKALINE PHOSPHATASE; Value: 92; Range: 45-117; Units: U/L; Status: F Test: BILIRUBIN,TOTAL; Value: 0.5; Range: 0.2-1.0; Units: MG/DL; Status: F Test: BILIRUBIN,DIRECT; Value: 0.1; Range: 0.0-0.2; Units: MG/DL; Status: F Test: TOTAL PROTEIN; Value: 7.3; Range: 6.4-8.2; Units: GM/DL; Status: F Test: ALBUMIN; Value: 4.0; Range: 3.2-5.2; Units: GM/DL; Status: F Test: ALBUMIN/GLOBULIN RATIO; Value: 1.21; Range: 1.00-1.93; Status: F Lab Order: Lipase; [facility] 05/19/16 17:31 Test: LIPASE; Value: 178; Range: 73-393; Units: U/L; Status: F Lab Order: Amylase; [facility] 05/19/16 17:31 Test: AMYLASE; Value: 39; Range: 25-115; Units: U/L; Status: F Lab Order: Type & Screen; [facility] 05/19/16 17: Test: BLOOD TYPE; Value: A POS; Status: F Test: AB SCREEN (INDIRECT HOLLIE)GEL; Value: NEGATIVE; Status: F Lab Order: PT/INR; [facility] 05/19/16 17:31 Test: PROTHROMBIN TIME; Value: 12.3; Range: 12.3-14.5; Units: SECONDS; Status: F Test: INR; Value: 0.90; Status: F Test Note: ; THERAPUTIC HUMAN INR VALUES INDICATIONS NORMAL RANGES PROPHYLAXIS/TREATMENT OF: VENOUS THROMBOSIS 2.0-3.0 PULMONARY EMBOLISM 2.0-3.0 PREVENTION OF SYSTEMIC EMBOLISM FROM: TISSUE HEART VALVES 2.0-3.0 ACUTE MYOCARDIAL INFARCTION 2.0-3.0 VALVULAR HEART DISEASE 2.0-3.0 ATRIAL FIBRILLATION 2.0-3.0 MECHANICAL VALVES(HIGH RISK) 2.5-3.5 RECURRENT MYOCARDIAL INFARCTION 2.5-3.5 Lab Order: PTT; [facility] 05/19/16 17:31 Test: PARTIAL THROMBOPLASTIN TIME; Value: 26.9; Range: 26.6-37.1; Units: SECONDS; Status: F Lab Order: CARDIAC MARKER PANEL; [facility] 05/19/16 21:25 Test: CPK CREATINE PHOSPHOKINASE; Value: 78; Range: 26-192; Units: U/L; Status: F Test: CK-MB VALUE MASS; Value: 3.5; Range: 0.0-3.6; Units: NG/ML; Status: F Test: MB/CK RELATIVE INDEX; Value: 4.48; Range: < OR =4; Abnormal: Above high normal; Status: F Test: TROPONIN I; Value: 0.55; Range: < 0.10; Abnormal: Above high normal; Units: NG/ML; Status: F Test Note: ; DIAGNOSIS CRITERIA MMB ng/ml Relative Index (RI) NON-AMI < or = 5 N/A SORIANO ZONE > 5 < or = 4 AMI > 5 > 4 Lab Order: BASIC METABOLIC PROFILE; [facility] 05/20/16 07:28 Test: GLUCOSE, FASTING; Value: 82; Range: 80-110; Units: MG/DL; Status: F Test: BLOOD UREA NITROGEN; Value: 11; Range: 7-18; Units: MG/DL; Status: F Test: CREATININE FOR GFR; Value: 0.76; Range: 0.55-1.02; Units: MG/DL; Status: F Test: GLOMERULAR FILTRATION RATE; Value: > 60.0; Range: >45; Status: F Test: SODIUM LEVEL; Value: 141; Range: 136-145; Units: MEQ/L; Status: F Test: POTASSIUM SERUM; Value: 4.0; Range: 3.5-5.1; Units: MEQ/L; Status: F Test: CHLORIDE LEVEL; Value: 107; Range: 98-107; Units: MEQ/L; Status: F Test: CARBON DIOXIDE LEVEL; Value: 27; Range: 21-32; Units: MEQ/L; Status: F Test: ANION GAP; Value: 7; Range: 8-16; Abnormal: Below low normal; Units: MEQ/L; Status: F Test: CALCIUM LEVEL; Value: 8.8; Range: 8.8-10.2; Units: MG/DL; Status: F Test Note: ; Units are mL/min/1.73 m2 Chronic Kidney Disease Staging per NKF: Stage I & II GFR >=60 Normal to Mildly Decreased Stage III GFR 30-59 Moderately Decreased Stage IV GFR 15-29 Severely Decreased Stage V GFR <15 Very Little GFR Left ESRD GFR <15 on [employer]IN[employer] TEACHER Lab Order: COMPLETE BLOOD COUNT; SPEC'05/20/16 07:28 Test: WHITE BLOOD COUNT; Value: 5.6; Range: 4.0-10.0; Units: K/mm3; Status: F Test: RED BLOOD COUNT; Value: 4.67; Range: 4.00-5.40; Units: M/mm3; Status: F Test: HEMOGLOBIN; Value: 13.8; Range: 12.0-16.0; Units: g/dl; Status: F Test: HEMATOCRIT; Value: 43.0; Range: 36.0-47.0; Units: %; Status: F Test: MEAN CORPUSCULAR VOLUME; Value: 92.1; Range: 80.0-96.0; Units: fl; Status: F Test: MEAN CORPUSCULAR HEMOGLOBIN; Value: 29.5; Range: 27.0-33.0; Units: pg; Status: F Test: MEAN CORPUSCULAR HGB CONC; Value: 32.0; Range: 32.0-36.5; Units: g/dl; Status: F Test: RED CELL DISTRIBUTION WIDTH; Value: 17.7; Range: 11.5-14.5; Abnormal: Above high normal; Units: %; Status: F Test: PLATELET COUNT, AUTOMATED; Value: 173; Range: 150-450; Units: k/mm3; Status: F Lab Order: CARDIAC MARKER PANEL; SPEC05/20/16 07:28 Test: CPK CREATINE PHOSPHOKINASE; Value: 95; Range: 26-192; Units: U/L; Status: F Test: CK-MB VALUE MASS; Value: 3.9; Range: 0.0-3.6; Abnormal: Above high normal; Units: NG/ML; Status: F Test: MB/CK RELATIVE INDEX; Value: 4.10; Range: < OR =4; Abnormal: Above high normal; Status: F Test: TROPONIN I; Value: 0.23; Range: < 0.10; Abnormal: High; Units: NG/ML; Status: F Test Note: ; DIAGNOSIS CRITERIA MMB ng/ml Relative Index (RI) NON-AMI < or = 5 N/A SORIANO ZONE > 5 < or = 4 AMI > 5 > 4 Lab Order: CARDIAC MARKER PANEL; SPEC'M 05/20/16 13:51 Test: CPK CREATINE PHOSPHOKINASE; Value: 88; Range: 26-192; Units: U/L; Status: F Test: CK-MB VALUE MASS; Value: 3.6; Range: 0.0-3.6; Units: NG/ML; Status: F Test: MB/CK RELATIVE INDEX; Value: 4.09; Range: < OR =4; Abnormal: Above high normal; Status: F Test: TROPONIN I; Value: 0.15; Range: < 0.10; Abnormal: High; Units: NG/ML; Status: F Test Note: ; DIAGNOSIS CRITERIA MMB ng/ml Relative Index (RI) NON-AMI < or = 5 N/A SORIANO ZONE > 5 < or = 4 AMI > 5 > 4 Radiology Order: EKG-ADULT Test: EKG-ADULT REASON FOR EXAMINATION: Chest Pain; Stationary ECG Study; [facility] - ED; ; Test Date: 2016-05-19; Pat Name: STEPHAN DICKINSON Department:; Room: -; Gender: 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 The heart is normal in size. The pulmonary; vasculature is normal in appearance.; ; IMPRESSION:; ; Bibasilar chronic interstitial fibrosis.; ; ; Signed by; Nikunj Felipe MD 05/19/2016 06:41 P; Radiology Order: CT ABD & PELVIS: IV Contrast Only Test: CT ABD & PELVIS: IV Contrast Only REASON FOR EXAMINATION: rlq pain, epigastric pain; ; CT of the abdomen and pelvis with contrast; Clinical statement: Pain.; Technique: Multiple axial CT images were obtained from the base of the lungs through the floor of the; pelvis utilizing 5 mm axial slices after administration of oral and nonionic intravenous contrast. C; oronal and sagittal reconstructions were also obtained.; Comparison: 02/18/2016.; Findings:; Chest: The visualized lung bases are clear.; Abdomen: The spleen, pancreas, kidneys, and adrenal glands are unremarkable. Diffuse low attenuation; of the liver is appreciated. The patient is status post cholecystectomy. The aorta is within normal l; imits. There is no evidence of abdominal lymphadenopathy or ascites.; Pelvis: The bowel is unremarkable, with no obstructive or inflammatory changes. The urinary bladder i; s within normal limits. The other pelvic structures appear grossly intact. There is no evidence of pe; lvic lymphadenopathy or ascites.; Bones: There are no suspicious osseous abnormalities seen. Moderate degenerative disc disease is appr; eciated at L5/S1.; Impression:; 1. No acute findings to explain the patient's pain.; 2. No obstructive or inflammatory bowel changes.; 3. New fatty infiltration of the liver.; 4. Moderate degenerative disc disease at L5/S1.; ; Radiology Order: CT Chest Angio R/O PE Test: CT Chest Angio R/O PE REASON FOR EXAMINATION: epigastric pain, abdl pain; ; CT angiogram of the chest; Clinical statement: Chest pain and shortness of breath.; Technique: Multiple axial CT images were obtained from the thoracic inlet through the upper abdomen a; fter a bolus administration of nonionic intravenous contrast. Coronal and sagittal reconstructions we; re also obtained.; No comparison is available.; Findings: The pulmonary arteries are well-opacified with contrast, with no intraluminal filling defec; ts to suggest embolism. The thoracic aorta is unremarkable. Thyroid gland is within normal limits. Th; ere is no thoracic lymphadenopathy. There are no pericardial or pleural effusions. The lungs are eli; r. Limited imaging of the upper abdomen is unremarkable. There are no suspicious osseous lesions.; Impression: Unremarkable CT examination of the chest. 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 The following High Risk cf2 Discharge criteria are identified: None. Admitted Condition: stable Condition: improved. CT Study completed. Admission hand-off: Report called to ER Hold nurse. 20:52 Decision to Hospitalize by Provider. cs11 05/20 18:02 Patient left the ED. aa3 Signatures: Dispatcher [employer] EDMS Jose Shahid MD MD ml Murray, Denise, [employer] deg Lakia Oakley, Reg Reg gb Dharmesh Villatoro Rosemary,RN RN rs3 Bethany Sanchez, HEALTH UNIT COORDINATOR HEALTH UNIT COORDINATOR marilynn Lissa Miller, HEALTH UNIT COORDINATOR HEALTH UNIT COORDINATOR ct3 Addison Nunez DO DO cs11 Monica Cevallos, HEALTH UNIT COORDINATOR HEALTH UNIT COORDINATOR tmm1 Emeli Abraham,RN RN aa3 Landon Kiser, HEALTH UNIT COORDINATOR HEALTH UNIT COORDINATOR jemalf Brittani Brown,RN RN Alyssa Cordero,RN RN cf2 Corrections: (The following items were deleted from the chart) 05/19 17:38 17:34 Home Meds: hydrochlorothiazide 25 mg Oral tab 1 tab once daily; ead ead 17:34 Home Meds: potassium chloride 10 mEq Oral cpER 1 cap once daily; ead ead 17:55 General: Appears in no apparent distress, Behavior is appropriate for age, rs3 cooperative, rs3 MTDD
--- NOTE | 2016-05-20 19:50 | ECHO ---
DATE OF PROCEDURE: 05/20/2016 REFERRING PHYSICIAN: Ankur Frye DO INDICATION: Chest pain. HEIGHT: 160 cm WEIGHT: 56 kg. DIMENSIONS: IVS: 1.0 LV: 3.9 LVPW: 1.0 LA: 2.5 Aorta: 3.1 IVC: 2.2 FINDINGS: The study is of good technical quality. Left ventricle is normal size and contractility with estimated ejection fraction around 65%. No segmental wall motion abnormalities are appreciated. Right ventricle is also normal size and systolic function. Both atria appear normal. Aortic, mitral, tricuspid, and pulmonic valves all appear normal. No pericardial effusion is noted. Inferior vena cava is dilated but has partial collapse with respiration, which is suggestive of at least mildly elevated central venous pressure. Aortic root and aortic arch appear normal. Abdominal aorta was not well seen. Doppler interrogation reveals no aortic stenosis or insufficiency. There is trace mitral insufficiency and trace tricuspid insufficiency. Calculated pulmonary artery pressure is within normal limits. Pulmonic valve is functionally competent. Mitral inflow pattern and tissue Doppler imaging of mitral annulus reveal grade 2 diastolic dysfunction. CONCLUSIONS: 1. Study is of good technical quality. 2. Normal left ventricle (LV) size and systolic function, probably grade 2 diastolic dysfunction. 3. No significant valvular disease. 4. Likely elevated central venous pressure (CVP) but probably normal pulmonary artery pressure. COMMENTS: Subacute bacterial endocarditis (SBE) prophylaxis is not recommended. MTDD
[2016-05-20] MEDS ORDERED: ATORVASTATIN 20 MG TAB PO SCH (21:00)
[2016-05-20] MEDS ORDERED: CARV6.25 PO (22:49)
[2016-05-20] MEDS ORDERED: OMEP20CA3 PO (22:49)
[2016-05-20] MEDS ORDERED: CAND4TAB PO (22:49)
[2016-05-20] MEDS ORDERED: ASPI81TA PO (22:49)
[2016-05-20] MEDS ORDERED: SUCR1SUS PO (22:49)
[2016-05-20] MEDS ORDERED: NICO7PA TD (22:49)
[2016-05-20] MEDS ORDERED: NITR0.4S14 SL (22:51)
[2016-05-21] VITALS (10 sets, daily range): BP systolic 98–153; BP diastolic 58–86; PULSE 51–72
[2016-05-21] MEDS: oxyCODONE 5MG TAB PO PRN ×2 (03:02→13:11)
[2016-05-21] MEDS: LEVOTHYROXINE 0.075 MG TAB (75 MCG) PO SCH (05:45)
[2016-05-21] MEDS: ONDANSETRON 4MG/2ML VIAL (J2405) IV SCH ×2 (05:45→11:12)
[2016-05-21 06:26] LABS: MEAN CORPUSCULAR HEMOGLOBIN 29.4 pg (27.0-33.0); MEAN CORPUSCULAR HGB CONC 32.1 g/dl (32.0-36.5); MEAN CORPUSCULAR VOLUME 91.6 fl (80.0-96.0); RED CELL DISTRIBUTION WIDTH 17.4 % (11.5-14.5); WHITE BLOOD COUNT 4.8 K/mm3 (4.0-10.0)
[2016-05-21 06:34] LABS: ANION GAP 6 MEQ/L (8-16); BLOOD UREA NITROGEN 12 MG/DL (7-18); CALCIUM LEVEL 8.5 MG/DL (8.8-10.2); CARBON DIOXIDE LEVEL 30 MEQ/L (21-32); CHLORIDE LEVEL 109 MEQ/L (98-107); CHOLESTEROL LEVEL 194 MG/DL (<200); CREATININE FOR GFR 0.78 MG/DL (0.55-1.02); GLOMERULAR FILTRATION RATE > 60.0 (>45); GLUCOSE, FASTING 101 MG/DL (80-110); SODIUM LEVEL 145 MEQ/L (136-145); TRIGLYCERIDES LEVEL 59 MG/DL (<150)
[2016-05-21] MEDS: SYMBICORT 80/4.5MCG INHALER 6GM INH SCH (07:38)
[2016-05-21] MEDS ORDERED: NITROGLYCERIN 0.4 MG SUBL TABLET SL STA (08:26)
[2016-05-21] MEDS: SUCRALFATE SUSP 1GM/10ML UD PO SCH ×2 (08:52→12:30)
[2016-05-21] MEDS ORDERED: CLOPIDOGREL 75 MG TAB PO STA (08:54)
[2016-05-21] MEDS ORDERED: MORPHINE 2 MG/ML 1ML SYRINGE As Ordered ONE (09:00)
[2016-05-21] MEDS ORDERED: CARVedilol 6.25 MG TAB PO SCH (09:00)
[2016-05-21] MEDS ORDERED: GI COCKTAIL 50ML BTL(HYOSCYAMINE/MAALOX/LIDOCAINE VISCOUS)(1:3:1) PO ONE (09:00)
[2016-05-21] MEDS ORDERED: SODIUM CHLORIDE 0.9% 1000 ML IV ONE (09:00)
[2016-05-21] MEDS ORDERED: CANDESARTAN 4MG TABLET PO SCH (09:00)
[2016-05-21] MEDS ORDERED: MORPHINE 2 MG/ML 1ML SYRINGE IV ONE (09:15)
[2016-05-21] MEDS: OMEPRAZOLE 20 MG CAP PO SCH (10:44)
[2016-05-21] MEDS: PREGABALIN 50 MG CAP (LYRICA) PO SCH (10:44)
[2016-05-21] MEDS: CitaloPRAM (CeleXA) 20 MG TAB PO SCH (10:45)
[2016-05-21] MEDS: oxyBUTYnin *DITROPAN XL* 5 MG TABCR PO SCH (10:45)
[2016-05-21] MEDS: THIAMINE 100 MG TAB PO SCH (10:45)
[2016-05-21] MEDS: VITAMIN D 1,000 INTERNATIONAL UNITS TABLET PO SCH (10:45)
[2016-05-21] MEDS: hydrOXYzine 25 MG TAB PO SCH (10:45)
[2016-05-21] MEDS: FOLIC ACID 1 MG TAB PO SCH (10:45)
[2016-05-21] MEDS: ASPIRIN 81 MG CHEW TABLET PO SCH (10:45)
[2016-05-21] MEDS: NICOTINE 7 MG/24 HR TRANSDERMAL TD SCH ×2 (10:46→10:49)
[2016-05-21] MEDS: ENOXAPARIN 40 MG/0.4 ML SYRINGE (J1650) SC SCH (10:46)
[2016-05-21] MEDS ORDERED: NITR0.4S14 SL (13:11)
--- NOTE | 2016-05-21 17:56 | ECGEPIP ---
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
--- NOTE | 2016-05-21 18:17 | ECGEPIP ---
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
--- NOTE | 2016-05-21 18:29 | ECGEPIP ---
Stationary ECG Study 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
--- NOTE | 2016-05-21 18:39 | ECGEPIP ---
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
--- NOTE | 2016-05-21 20:29 | DSES ---
DATE OF ADMISSION: 05/19/2016 DATE OF DISCHARGE: 05/21/2016 The patient is transferred to [facility] for cardiac catheterization. DISCHARGE DIAGNOSES: 1. Unstable angina. 2. Atypical chest pain. 3. History of duodenal ulcer. 4. Hypertension. 5. Hyperlipidemia. 6. Active smoking, greater than 30 pack year history of smoking. 7. Anxiety and depression. ACCEPTING PHYSICIAN: Dr. Maurice Banks. REASON FOR TRANSFER: Catheterization due to ongoing chest pain and peaked Q waves on EKG with normal potassium. DISCHARGE MEDICATIONS: - aspirin 81 mg daily - candesartan 2 mg daily - Coreg 6.25 mg twice a day - nitroglycerin 0.4 mg sublingually every 5 minutes as needed for chest pain - Prilosec 40 mg twice a day - Carafate 1 gram by mouth before food and nightly - nicotine patch one patch 7 mg daily - albuterol as needed every four hours - Symbicort 80/4.5 two puffs twice a day - cholecalciferol 1000 units daily - citalopram 40 mg daily - folic acid 1 mg daily - hydroxyzine 25 mg daily - Synthroid 75 mcg daily - Ditropan 5 mg= daily - oxycodone 20 mg every 8 - Lyrica 50 mg three times a day - simvastatin 20 mg at night - thiamine 100 mg daily - tizanidine 4 mg at night - trazodone 100 mg at night HOSPITAL COURSE: This is a 61-year-old female admitted on 05/19/2016 with complaint of left sided chest pain radiating to her neck, which started two days ago. Described as sharp, on and off. She denied any coffee ground emesis. She had a prior history of duodenal ulcer. Denies any nonsteroidal antiinflammatory drugs use, bright red blood per rectum or melena. The patient's pain was pleuritic. CT of the chest performed showed no pulmonary embolism. CT of the abdomen and pelvis was also negative due to complaints of right lower quadrant abdominal pain. The patient was admitted to telemetry. Initial EKG showed nonspecific ST-T wave changes. Initial set of cardiac markers showed a troponin of 0.46. The patient was admitted for observation to rule out unstable angina or acute coronary syndrome. The patient's total CK and MB fraction were normal. Relative index was 4.2. Cardiac markers were cycled with decreased troponin to 0.11, at which point the patient was to be discharged home with outpatient followup with Dr. Flowers at [facility] for an outpatient stress test. However, the patient complained of severe chest pain. Repeat EKG showed peaked T waves in the anterolateral leads. Due to cardiovascular risk factors of being a smoker, hypertension, hypercholesterolemia, the patient was transferred to [facility] for a catheterization. The patient's creatinine was normal at 0.78. She was given nitroglycerin with no significant relief. She was treated with Carafate, Prilosec twice a day, as well as GI cocktail with no significant relief. The patient denies any diaphoresis, nausea or vomiting, palpitations, lightheadedness, shortness of breath, near syncope with her ongoing chest pain. She was planned for an upper GI series as an outpatient; however, she did have a recent EGD by Dr. Lico Pearce two months ago in January 2016 when polypectomy was performed in the descending colon with sessile polyp on the pathology. She was encouraged to followup with Dr. Pearce should cardiac catheterization be negative. PHYSICAL EXAMINATION: On discharge: Temperature 95, pulse 51, respiratory rate 18, blood pressure 140/86, 97% on 2 liters nasal cannula. GENERAL: Awake, alert, oriented times three. Answering questions appropriately. LUNGS: Clear to auscultation. No wheezing, rales or rhonchi. HEART: S1, S2. Sinus bradycardia. ABDOMEN: Soft, nontender, nondistended. Normoactive bowel sounds. No hepatosplenomegaly. EXTREMITIES: No pitting edema. LABORATORY DATA: On discharge: White count 4.8, hemoglobin 13, hematocrit 40, platelet count of 150. Sodium 145, potassium 4, chloride 109, bicarbonate 30, BUN 12, creatinine 0.78, glucose of 101, A1/c of 4.8. Troponin 0.11, MB 4, MB fraction 3.5, total CK of 112. EKG showed anterolateral peaked T waves. CT of the chest with no acute pulmonary embolism. Lungs are clear. No evidence of pulmonary disease. CT of the abdomen and pelvis showed no acute findings. Time spent on discharge: 40 minutes. MTDD
--- NOTE | 2016-05-22 19:04 | EDDOCDS ---
Physician Documentation [facility] Name: Gauri Dumont Age: 61 yrs Sex: Female : 1955 Arrival Date: 05/19/2016 Time: 16:46 Bed Admit Hold Private MD: Disposition: 05/19/16 20:52 Hospitalization ordered by Lico Herzog for Inpatient Admission. Preliminary diagnosis are Abdominal and pelvic pain, Chest pain, unspecified. - Bed requested for PCU. - Status is Inpatient Admission. aa3 - Condition is Stable. - Problem is an ongoing problem. - Symptoms have improved. Historical: - Allergies: Erythromycin; TETRACYCLINES; SULFA (SULFONAMIDES); - Home Meds: 1. albuterol sulfate 90 mcg/actuation Inhl HFAA 2 puffs as needed 2. amlodipine 10 mg Oral tab 1 tab once daily 3. cholecalciferol (vitamin D3) 2,000 unit oral cap 4. citalopram 40 mg Oral tab 1 tab once daily 5. hydroxyzine HCl 25 mg Oral tab 1 tab daily 6. levothyroxine 75 mcg Oral tab 1 tab once daily 7. folic acid 1 mg Oral tab 1 tab once daily 8. oxybutynin chloride 5 mg Oral tr24 1 tab once daily 9. Lyrica 75 mg Oral 1 cap 3 times per day 10. omeprazole 20 mg Oral cpDR 1 cap 2 times per day 11. oxycodone 20 mg Oral tab every 8 hours 12. Symbicort 160-4.5 mcg/actuation inhalation HFAA 2 puffs 2 times per day 13. simvastatin 40 mg Oral tab 0.5 tab nightly 14. thiamine HCl 100 mg Oral tab daily 15. tizanidine 4 mg oral tab 1 tab nightly 16. trazodone 100 mg Oral tab 1 tab daily 17. albuterol sulfate 90 mcg/actuation Inhl HFAA 2 puffs as needed - PMHx: Hypothyroidism; Hypertension; Hypercholesterolemia; Depression; GERD; Anxiety; COPD; - PSHx: Tonsillectomy; meniscus repair bilaterally; carpal tunnel repair bilateral; Hysterectomy; teeth extraction; Cholecystectomy; knee arthroscopy bilateral; - Social history: No barriers to communication noted, The patient speaks fluent Serbian, Speaks appropriately for age, Smoking status: Patient uses tobacco products, current every day smoker. - Family history: Not pertinent. - : The pt / caregiver states he / she is not on anticoagulants. Home medication list is obtained from the patient, [employer] import data. - Exposure Risk Screening:: None identified. Vital Signs: 05/19 17:09 Resp 18; Temp 98.8(TE); Weight 56.25 kg / 124.01 lbs (R); Height 5 ft. 3 in. (160.02 ead cm) (R); Pain 9/10; 17:19 BP 134 / 85 (auto/); ead 17:19 Pulse 84 MON; Pulse Ox 97% ; ead 17:34 Pulse 104 MON; Pulse Ox 97% ; cf2 17:34 BP 126 / 77 (auto/); cf2 17:49 Pulse 82 MON; Pulse Ox 97% ; cf2 17:49 BP 113 / 72 (auto/); cf2 18:04 Pulse 82 MON; Pulse Ox 95% ; cf2 18:04 BP 113 / 74 (auto/); cf2 18:30 BP 125 / 65; Pulse 82; Resp 16; Pulse Ox 98% on R/A; Pain 8/10; rs3 18:33 Pulse 82 MON; Pulse Ox 96% ; cf2 18:34 BP 121 / 79 (auto/); cf2 18:35 Pulse 80 MON; Pulse Ox 96% ; cf2 18:38 Pulse 74 MON; Pulse Ox 96% ; cf2 18:41 Pulse 70 MON; Pulse Ox 96% ; cf2 18:45 Pulse 98 MON; Pulse Ox 94% ; cf2 18:48 Pulse 82 MON; Pulse Ox 95% ; cf2 17:09 Body Mass Index 21.97 (56.25 kg, 160.02 cm) ead MDM: 17:05 ECG WITH READING ER PHYS+CARDIAG ordered. EDMS 17:16 IV Saline Lock ordered. ml 17:16 Radiologic Technologist Chief/Pulse Ox/q 15 min VS ordered. ml 17:16 Rhythm Strip to chart ordered. ml 17:16 Vital Signs ordered. ml 17:17 CBC with Diff Ordered. EDMS 17:17 MED Profile Ordered. EDMS 17:17 NS 0.9% 1000 ml IV at 250 mL/hr continuous ordered. ml 17:17 Ondansetron 4 mg IVP once ordered. ml 17:17 morphine 2 mg IVP once ordered. ml 17:17 CIP Ordered. EDMS 17:17 Troponin Ordered. EDMS 17:17 Liver Profile Ordered. EDMS 17:17 Lipase Ordered. EDMS 17:17 Amylase Ordered. EDMS 17:17 PT/INR Ordered. EDMS 17:17 PTT Ordered. EDMS 17:17 Type & Screen Ordered. EDMS 17:17 Chest, 1 View Ordered. EDMS 18:43 CBC with Diff Reviewed. ml 18:43 CIP Reviewed. ml 18:43 Troponin Reviewed. ml 18:43 MED Profile Reviewed. ml 18:43 Liver Profile Reviewed. ml 18:43 Lipase Reviewed. ml 18:43 Amylase Reviewed. ml 18:43 Type & Screen Reviewed. ml 18:43 PT/INR Reviewed. ml 18:43 PTT Reviewed. ml 18:43 EKG-ADULT Reviewed. ml 18:46 CT ABD & PELVIS: IV Contrast Only Ordered. EDMS 18:46 CT Chest Angio R/O PE Ordered. EDMS 18:54 morphine 2 mg IVP once ordered. rs3 18:54 Aspirin 324 mg PO once ordered. rs3 18:58 morphine 2 mg IVP every 5 minutes; Document pain score/vitals after each dose (Hold if ml SBP < 90mmHg) x5 ordered. 19:19 Chest, 1 View Reviewed. ml 19:40 Repeat EKG (put time details section) ordered. ml 19:40 Redraw CIP &Troponin (put time in details section) ordered. ml 19:42 BED REQUEST+ADM ordered. EDMS 19:48 Redraw CIP &Troponin (put time in details section) complete. tmm1 19:48 Repeat EKG (put time details section) complete. tmm1 19:48 CARDIAC MARKER PANEL Ordered. EDMS 19:49 ECG WITH READING ER PHYS ordered. EDMS 19:58 Financial registration complete. zo 20:24 [facility] was scanned into [employer] and attached to record. zo 20:48 CT ABD & PELVIS: IV Contrast Only Reviewed. cs11 20:48 CT Chest Angio R/O PE Reviewed. cs11 22:14 CARDIAC MARKER PANEL Reviewed. dm18 22:41 Admission / Observation Status ordered. EDMS 22:55 ECHOCARD,DOPPLER/COLOR FLOW ordered. EDMS 22:55 ELECTROCARDIOGRAM ADULT ordered. EDMS 22:55 REGULAR DIET ordered. EDMS 22:56 URINALYSIS Ordered. EDMS 22:56 BASIC METABOLIC PROFILE Ordered. EDMS 22:56 COMPLETE BLOOD COUNT Ordered. EDMS 22:56 CARDIAC MARKER PANEL Ordered. EDMS 22:56 CARDIAC MARKER PANEL Ordered. EDMS 22:56 CARDIAC MARKER PANEL Ordered. EDMS 05/20 07:41 Attending Doctor Change: ordered. EDMS 09:30 T-Sheet-- Draft Copy was scanned into [employer] and attached to record. gb 09:30 ECG/EKG was scanned into [employer] and attached to record. gb 11:15 REGULAR DIET ordered. EDMS 11:44 ELECTROCARDIOGRAM ADULT ordered. EDMS 05/21 13:22 ECG/EKG was scanned into [employer] and attached to record. gb 13:23 Radiology Report was scanned into [employer] and attached to record. gb Administered Medications: 05/19 17:54 Drug: morphine 2 mg [morphine 2 mg/mL intravenous cartridge (1 mL)] Route: IVP; Site: rs3 left antecubital; 18:30 Follow up: BP 125 / 65; Pulse 82 bpm; Resp 16 bpm; Pulse Ox 98% RA; Pain 8/10 Adult rs3 17:55 Drug: NS 0.9% 1000 ml [sodium chloride 0.9 % intravenous solution] Route: IV; Rate: 250 rs3 mL/hr; Site: left antecubital; 17:55 Drug: Ondansetron 4 mg [ondansetron HCl 2 mg/mL intravenous solution (2 mL)] Route: rs3 IVP; Site: left antecubital; 19:00 Not Given (Duplicate Order): morphine 2 mg IVP once rs3 19:00 Drug: Aspirin 324 mg [aspirin 81 mg chewable tablet (4 tabs)] Route: PO; rs3 19:00 Drug: morphine 2 mg [morphine 2 mg/mL intravenous cartridge (1 mL)] Route: IVP; Site: rs3 left antecubital; 19:20 Drug: morphine 2 mg [morphine 2 mg/mL intravenous cartridge (1 mL)] Route: IVP; Site: cf2 left antecubital; 20:00 Drug: morphine 2 mg [morphine 2 mg/mL intravenous cartridge (1 mL)] Route: IVP; Site: cf2 left antecubital; 20:37 Drug: morphine 2 mg [morphine 2 mg/mL intravenous cartridge (1 mL)] Route: IVP; Site: cf2 left antecubital; 21:09 Drug: morphine 2 mg [morphine 2 mg/mL intravenous cartridge (1 mL)] Route: IVP; Site: cf2 left antecubital; Signatures: Dispatcher [employer] EDJose Vang MD MD ml Barnhardt, Gloria, Maxwell Reg Dharmesh Gomez Rosemary,RN RN rs3 Addison Nunez, DO DO cs11 McLear, Monica, TRUSS PULLER HELPER TRUSS PULLER HELPER tmm1 Emeli Abraham RN RN aa3 Brittani Brown RN RN eaAnkur Lim, DO DO dm18 Alyssa Spencer RN RN cf2 The chart was reviewed and I authenticate all verbal orders and agree with the evaluation and treatment provided.Corrections: (The following items were deleted from the chart) 17:38 17:34 Home Meds: hydrochlorothiazide 25 mg Oral tab 1 tab once daily; ead ead 17:38 17:34 Home Meds: potassium chloride 10 mEq Oral cpER 1 cap once daily; ead ead Attachments: 20:24 [facility] Payment Agreement zo 05/20 09:30 T-Sheet-- Draft Copy gb 09:30 ECG/EKG gb 05/21 13:22 ECG/EKG gb Chart Complete MTDD
--- NOTE | 2016-05-22 19:04 | EDDOCDS ---
Physician Documentation [facility] Name: Gauri Dumont Age: 61 yrs Sex: Female : 1955 Arrival Date: 05/19/2016 Time: 16:46 Bed Admit Hold Private MD: Disposition: 05/19/16 20:52 Hospitalization ordered by Lico Herzog for Inpatient Admission. Preliminary diagnosis are Abdominal and pelvic pain, Chest pain, unspecified. - Bed requested for PCU. - Status is Inpatient Admission. aa3 - Condition is Stable. - Problem is an ongoing problem. - Symptoms have improved. Historical: - Allergies: Erythromycin; TETRACYCLINES; SULFA (SULFONAMIDES); - Home Meds: 1. albuterol sulfate 90 mcg/actuation Inhl HFAA 2 puffs as needed 2. amlodipine 10 mg Oral tab 1 tab once daily 3. cholecalciferol (vitamin D3) 2,000 unit oral cap 4. citalopram 40 mg Oral tab 1 tab once daily 5. hydroxyzine HCl 25 mg Oral tab 1 tab daily 6. levothyroxine 75 mcg Oral tab 1 tab once daily 7. folic acid 1 mg Oral tab 1 tab once daily 8. oxybutynin chloride 5 mg Oral tr24 1 tab once daily 9. Lyrica 75 mg Oral 1 cap 3 times per day 10. omeprazole 20 mg Oral cpDR 1 cap 2 times per day 11. oxycodone 20 mg Oral tab every 8 hours 12. Symbicort 160-4.5 mcg/actuation inhalation HFAA 2 puffs 2 times per day 13. simvastatin 40 mg Oral tab 0.5 tab nightly 14. thiamine HCl 100 mg Oral tab daily 15. tizanidine 4 mg oral tab 1 tab nightly 16. trazodone 100 mg Oral tab 1 tab daily 17. albuterol sulfate 90 mcg/actuation Inhl HFAA 2 puffs as needed - PMHx: Hypothyroidism; Hypertension; Hypercholesterolemia; Depression; GERD; Anxiety; COPD; - PSHx: Tonsillectomy; meniscus repair bilaterally; carpal tunnel repair bilateral; Hysterectomy; teeth extraction; Cholecystectomy; knee arthroscopy bilateral; - Social history: No barriers to communication noted, The patient speaks fluent [place], Speaks appropriately for age, Smoking status: Patient uses tobacco products, current every day smoker. - Family history: Not pertinent. - : The pt / caregiver states he / she is not on anticoagulants. Home medication list is obtained from the patient, [employer] import data. - Exposure Risk Screening:: None identified. Vital Signs: 05/19 17:09 Resp 18; Temp 98.8(TE); Weight 56.25 kg / 124.01 lbs (R); Height 5 ft. 3 in. (160.02 ead cm) (R); Pain 9/10; 17:19 BP 134 / 85 (auto/); ead 17:19 Pulse 84 MON; Pulse Ox 97% ; ead 17:34 Pulse 104 MON; Pulse Ox 97% ; cf2 17:34 BP 126 / 77 (auto/); cf2 17:49 Pulse 82 MON; Pulse Ox 97% ; cf2 17:49 BP 113 / 72 (auto/); cf2 18:04 Pulse 82 MON; Pulse Ox 95% ; cf2 18:04 BP 113 / 74 (auto/); cf2 18:30 BP 125 / 65; Pulse 82; Resp 16; Pulse Ox 98% on R/A; Pain 8/10; rs3 18:33 Pulse 82 MON; Pulse Ox 96% ; cf2 18:34 BP 121 / 79 (auto/); cf2 18:35 Pulse 80 MON; Pulse Ox 96% ; cf2 18:38 Pulse 74 MON; Pulse Ox 96% ; cf2 18:41 Pulse 70 MON; Pulse Ox 96% ; cf2 18:45 Pulse 98 MON; Pulse Ox 94% ; cf2 18:48 Pulse 82 MON; Pulse Ox 95% ; cf2 17:09 Body Mass Index 21.97 (56.25 kg, 160.02 cm) ead MDM: 17:05 ECG WITH READING ER PHYS+CARDIAG ordered. EDMS 17:16 IV Saline Lock ordered. ml 17:16 [employer]/Pulse Ox/q 15 min VS ordered. ml 17:16 Rhythm Strip to chart ordered. ml 17:16 Vital Signs ordered. ml 17:17 CBC with Diff Ordered. EDMS 17:17 MED Profile Ordered. EDMS 17:17 NS 0.9% 1000 ml IV at 250 mL/hr continuous ordered. ml 17:17 Ondansetron 4 mg IVP once ordered. ml 17:17 morphine 2 mg IVP once ordered. ml 17:17 CIP Ordered. EDMS 17:17 Troponin Ordered. EDMS 17:17 Liver Profile Ordered. EDMS 17:17 Lipase Ordered. EDMS 17:17 Amylase Ordered. EDMS 17:17 PT/INR Ordered. EDMS 17:17 PTT Ordered. EDMS 17:17 Type & Screen Ordered. EDMS 17:17 Chest, 1 View Ordered. EDMS 18:43 CBC with Diff Reviewed. ml 18:43 CIP Reviewed. ml 18:43 Troponin Reviewed. ml 18:43 MED Profile Reviewed. ml 18:43 Liver Profile Reviewed. ml 18:43 Lipase Reviewed. ml 18:43 Amylase Reviewed. ml 18:43 Type & Screen Reviewed. ml 18:43 PT/INR Reviewed. ml 18:43 PTT Reviewed. ml 18:43 EKG-ADULT Reviewed. ml 18:46 CT ABD & PELVIS: IV Contrast Only Ordered. EDMS 18:46 CT Chest Angio R/O PE Ordered. EDMS 18:54 morphine 2 mg IVP once ordered. rs3 18:54 Aspirin 324 mg PO once ordered. rs3 18:58 morphine 2 mg IVP every 5 minutes; Document pain score/vitals after each dose (Hold if ml SBP < 90mmHg) x5 ordered. 19:19 Chest, 1 View Reviewed. ml 19:40 Repeat EKG (put time details section) ordered. ml 19:40 Redraw CIP &Troponin (put time in details section) ordered. ml 19:42 BED REQUEST+ADM ordered. EDMS 19:48 Redraw CIP &Troponin (put time in details section) complete. tmm1 19:48 Repeat EKG (put time details section) complete. tmm1 19:48 CARDIAC MARKER PANEL Ordered. EDMS 19:49 ECG WITH READING ER PHYS ordered. EDMS 19:58 Financial registration complete. zo 20:24 [facility] Payment Agreement was scanned into [employer] and attached to record. zo 20:48 CT ABD & PELVIS: IV Contrast Only Reviewed. cs11 20:48 CT Chest Angio R/O PE Reviewed. cs11 22:14 CARDIAC MARKER PANEL Reviewed. dm18 22:41 Admission / Observation Status ordered. EDMS 22:55 ECHOCARD,DOPPLER/COLOR FLOW ordered. EDMS 22:55 ELECTROCARDIOGRAM ADULT ordered. EDMS 22:55 REGULAR DIET ordered. EDMS 22:56 URINALYSIS Ordered. EDMS 22:56 BASIC METABOLIC PROFILE Ordered. EDMS 22:56 COMPLETE BLOOD COUNT Ordered. EDMS 22:56 CARDIAC MARKER PANEL Ordered. EDMS 22:56 CARDIAC MARKER PANEL Ordered. EDMS 22:56 CARDIAC MARKER PANEL Ordered. EDMS 05/20 07:41 Attending Doctor Change: ordered. EDMS 09:30 T-Sheet-- Draft Copy was scanned into [employer] and attached to record. gb 09:30 ECG/EKG was scanned into [employer] and attached to record. gb 11:15 REGULAR DIET ordered. EDMS 11:44 ELECTROCARDIOGRAM ADULT ordered. EDMS 05/21 13:22 ECG/EKG was scanned into [employer] and attached to record. gb 13:23 Radiology Report was scanned into [employer] and attached to record. gb Administered Medications: 05/19 17:54 Drug: morphine 2 mg [morphine 2 mg/mL intravenous cartridge (1 mL)] Route: IVP; Site: rs3 left antecubital; 18:30 Follow up: BP 125 / 65; Pulse 82 bpm; Resp 16 bpm; Pulse Ox 98% RA; Pain 8/10 Adult rs3 17:55 Drug: NS 0.9% 1000 ml [sodium chloride 0.9 % intravenous solution] Route: IV; Rate: 250 rs3 mL/hr; Site: left antecubital; 17:55 Drug: Ondansetron 4 mg [ondansetron HCl 2 mg/mL intravenous solution (2 mL)] Route: rs3 IVP; Site: left antecubital; 19:00 Not Given (Duplicate Order): morphine 2 mg IVP once rs3 19:00 Drug: Aspirin 324 mg [aspirin 81 mg chewable tablet (4 tabs)] Route: PO; rs3 19:00 Drug: morphine 2 mg [morphine 2 mg/mL intravenous cartridge (1 mL)] Route: IVP; Site: rs3 left antecubital; 19:20 Drug: morphine 2 mg [morphine 2 mg/mL intravenous cartridge (1 mL)] Route: IVP; Site: cf2 left antecubital; 20:00 Drug: morphine 2 mg [morphine 2 mg/mL intravenous cartridge (1 mL)] Route: IVP; Site: cf2 left antecubital; 20:37 Drug: morphine 2 mg [morphine 2 mg/mL intravenous cartridge (1 mL)] Route: IVP; Site: cf2 left antecubital; 21:09 Drug: morphine 2 mg [morphine 2 mg/mL intravenous cartridge (1 mL)] Route: IVP; Site: cf2 left antecubital; Signatures: Dispatcher [employer] EDJose Vang MD MD ml Barnhardt, Gloria, Maxwell Reg Dharmesh Gomez Rosemary,RN RN rs3 Addison Nunez, DO DO cs11 McLear, Monica, [facility] tmm1 Emeli Abraham RN RN aa3 Brittani Brown RN RN eaAnkur Lim, DO DO dm18 Alyssa Spencer RN RN cf2 The chart was reviewed and I authenticate all verbal orders and agree with the evaluation and treatment provided.Corrections: (The following items were deleted from the chart) 17:38 17:34 Home Meds: hydrochlorothiazide 25 mg Oral tab 1 tab once daily; ead ead 17:38 17:34 Home Meds: potassium chloride 10 mEq Oral cpER 1 cap once daily; ead ead Attachments: 20:24 [facility] Payment Agreement zo 05/20 09:30 T-Sheet-- Draft Copy gb 09:30 ECG/EKG gb 05/21 13:22 ECG/EKG gb Chart Complete MTDD
--- NOTE | 2016-05-22 19:04 | EDDOCDS ---
Nurse's Notes [facility] Name: Stephan Dickinson Age: 61 yrs Sex: Female : 1955 Arrival Date: 05/19/2016 Time: 16:46 Bed Admit Hold Private MD: Diagnosis: Abdominal and pelvic pain;Chest pain, unspecified Presentation: 05/19 17:00 Presenting complaint: Patient states: Pt c/o RLQ pain and epigastric pain. Pt rating at ead 9/10. Pt reported to EMS black, loose stools over the weekend. Pt also c/o left sided chest pain, 5/10. Presenting complaint: EMS states: 20 gauge to left AC per EMS. Transition of care: patient was not received from another setting of care. Care prior to arrival: See EMS report. Saline lock initiated. Glucose check. 91. 17:00 Acuity: ANGIE Level 3 ead 17:00 Method Of Arrival: Ambulance ead 23:20 Adult Sepsis Screening: The patient does not have new or worsening altered mentation. cf2 Patient's respiratory rate is less than 22. Systolic blood pressure is greater than 100. Patient has a qSOFA score of 0- Negative Sepsis Screen. Suicide/Homicide risk assessment- the patient denies having any suicidal and/or homicidal ideations and does not present with any other emotional, behavioral or mental health complaints. Status: Patient is not a manager administrative services or dependent. Triage Assessment: 17:08 General: Appears in no apparent distress, Behavior is appropriate for age, cooperative. ead Pain: Location: chest and abdomen Pain currently is 9 out of 10 on a pain scale. HIV screening NA for this visit Offered previously. The patient is triaged at the bedside. See Assessment in Nurses Notes section of ED record. Neurological: Level of Consciousness is awake, alert, Oriented to person, place, time. Cardiovascular: Chest pain is described as Pain is 5 out of 10 on a pain scale. Respiratory: Airway is patent Respiratory effort is even, unlabored. GI: Reports lower abdominal pain. Derm: Skin is pink, warm & dry. Historical: - Allergies: Erythromycin; TETRACYCLINES; SULFA (SULFONAMIDES); - Home Meds: 1. albuterol sulfate 90 mcg/actuation Inhl HFAA 2 puffs as needed 2. amlodipine 10 mg Oral tab 1 tab once daily 3. cholecalciferol (vitamin D3) 2,000 unit oral cap 4. citalopram 40 mg Oral tab 1 tab once daily 5. hydroxyzine HCl 25 mg Oral tab 1 tab daily 6. levothyroxine 75 mcg Oral tab 1 tab once daily 7. folic acid 1 mg Oral tab 1 tab once daily 8. oxybutynin chloride 5 mg Oral tr24 1 tab once daily 9. Lyrica 75 mg Oral 1 cap 3 times per day 10. omeprazole 20 mg Oral cpDR 1 cap 2 times per day 11. oxycodone 20 mg Oral tab every 8 hours 12. Symbicort 160-4.5 mcg/actuation inhalation HFAA 2 puffs 2 times per day 13. simvastatin 40 mg Oral tab 0.5 tab nightly 14. thiamine HCl 100 mg Oral tab daily 15. tizanidine 4 mg oral tab 1 tab nightly 16. trazodone 100 mg Oral tab 1 tab daily 17. albuterol sulfate 90 mcg/actuation Inhl HFAA 2 puffs as needed - PMHx: Hypothyroidism; Hypertension; Hypercholesterolemia; Depression; GERD; Anxiety; COPD; - PSHx: Tonsillectomy; meniscus repair bilaterally; carpal tunnel repair bilateral; Hysterectomy; teeth extraction; Cholecystectomy; knee arthroscopy bilateral; - Social history: No barriers to communication noted, The patient speaks fluent Mongolian, Speaks appropriately for age, Smoking status: Patient uses tobacco products, current every day smoker. - Family history: Not pertinent. - : The pt / caregiver states he / she is not on anticoagulants. Home medication list is obtained from the patient, [employer] import data. - Exposure Risk Screening:: None identified. Screenin:47 Infection Control. deg 17:34 Screening information is obtained from the patient. Fall risk: No risks identified. cf2 Assistance ADL's: requires no assistance with activities of daily living. Abuse/DV Screen: The patient / caregiver reports he/she is: not in a situation that causes fear, pain or injury. Nutritional screening: No deficits noted. Advance Directives: Further advance directive information is declined. home support is adequate. Assessment: 16:48 General: see triage assessment. rs3 17:55 General: Appears in no apparent distress, Behavior is appropriate for age, cooperative, rs3 ordered pain medicine given. Pain: Location: abdomen and chest. Neurological: Level of Consciousness is awake, alert, Oriented to person, place, time. Cardiovascular: Capillary refill < 3 seconds Heart tones S1 S2 present. Respiratory: Airway is patent Respiratory effort is even, unlabored. GI: Abdomen is non- distended Bowel sounds present X 4 quads. Abd is soft and non tender X 4 quads. Derm: Skin is pink, warm & dry. 18:40 General: Appears in no apparent distress, Behavior is appropriate for age, cooperative, rs3 attending provider with patient. L side chest pain 8/10. ordered pain med given. Vital Signs: 17:09 Resp 18; Temp 98.8(TE); Weight 56.25 kg (R); Height 5 ft. 3 in. (160.02 cm) (R); Pain ead 9/10; 17:19 BP 134 / 85 (auto/); ead 17:19 Pulse 84 MON; Pulse Ox 97% ; ead 17:34 Pulse 104 MON; Pulse Ox 97% ; cf2 17:34 BP 126 / 77 (auto/); cf2 17:49 Pulse 82 MON; Pulse Ox 97% ; cf2 17:49 BP 113 / 72 (auto/); cf2 18:04 Pulse 82 MON; Pulse Ox 95% ; cf2 18:04 BP 113 / 74 (auto/); cf2 18:30 BP 125 / 65; Pulse 82; Resp 16; Pulse Ox 98% on R/A; Pain 8/10; rs3 18:33 Pulse 82 MON; Pulse Ox 96% ; cf2 18:34 BP 121 / 79 (auto/); cf2 18:35 Pulse 80 MON; Pulse Ox 96% ; cf2 18:38 Pulse 74 MON; Pulse Ox 96% ; cf2 18:41 Pulse 70 MON; Pulse Ox 96% ; cf2 18:45 Pulse 98 MON; Pulse Ox 94% ; cf2 18:48 Pulse 82 MON; Pulse Ox 95% ; cf2 17:09 Body Mass Index 21.97 (56.25 kg, 160.02 cm) ead Vitals: 16:46 Log In Time N/A - ambulance arrival. ead ED Course: 16:47 Patient visited by Geri Roa, Hot Dog Vendor. deg 16:47 Patient moved to Waiting deg 16:48 Medina Ann,RN is Primary Nurse. deg 16:48 Patient moved to 7 deg 17:03 Triage Initiated ead 17:06 Jose Shahid MD is Attending Physician. ml 17:06 Patient visited by Jose Shahid MD. ml 17:21 EKG done. (by ED staff). Reviewed by Jose Shahid MD. ct3 17:23 Patient visited by Lissa Miller PCA. ct3 17:34 The patient / caregiver is instructed regarding the plan of care and ED course. Patient cf2 has correct armband on for positive identification. Placed in gown. Bed in low position. Call light in reach. Side rails up X 1. Side rails up X2. Adult w/ patient. teletypesetter monitor on. Pulse ox on. NIBP on. Property :Personal belongings accompany Pt. Door closed. Noise minimized. Visitors limited. Lights dimmed. Moved to private room. Verbal reassurance given. Warm blanket given. Pillow given. Head of bed elevated. Diet: Patient is NPO. Patient given ice chips. 17:34 No procedures done that require assistance. cf2 17:39 Patient visited by Brittani Brown RN. ead 17:57 Maintain field IV. Dressing intact. Good blood return noted. Site clean & dry. rs3 18:11 Patient visited by Landon Kiser PCA. jlf 18:31 EKG-ADULT Returned. EDMS 18:53 Patient visited by Medina Ann RN. rs3 19:16 Chest, 1 View Returned. EDMS 19:26 Primary Nurse role handed off by Medina Ann RN cf2 19:26 Alyssa Spencer,NATE is Primary Nurse. cf2 19:26 Patient visited by Alyssa Spencer,NATE. cf2 19:33 Patient visited by Alyssa Spencer,NATE. cf2 19:45 Attending Physician role handed off by Jose Shahid MD cs11 19:45 Addison Nunez DO is Attending Physician. cs11 20:09 Patient visited by Alyssa Spencer,NATE. cf2 20:16 Patient visited by Alyssa Spencer,NATE. cf2 20:24 [facility] Payment Agreement was scanned into [employer] and attached to record. zo 20:34 Patient visited by Alyssa Spencer RN. cf2 20:36 Patient visited by Alyssa Spencer RN. cf2 20:41 CT ABD & PELVIS: IV Contrast Only Returned. EDMS 20:41 CT Chest Angio R/O PE Returned. EDMS 20:42 Patient visited by Alyssa Spencer RN. cf2 20:52 Lico Herzog MD is Hospitalizing Provider. cs11 20:57 Patient moved to Admit Hold tmm1 21:07 Patient visited by Bethany Sanchez PCA. marilynn 21:07 EKG done. (by ED staff). Reviewed by Addison Nunez DO. marilynn 22:01 Patient visited by Alyssa Spencer RN. cf2 22:56 Patient visited by Alyssa Spencer RN. cf2 22:56 ECG WITH READING ER PHYS Returned. EDMS 23:16 Patient visited by Alyssa Spencer RN. cf2 23:23 Patient visited by Alyssa Spencer RN. cf2 23:24 Patient visited by Alyssa Spencer RN. cf2 05/20 09:30 T-Sheet-- Draft Copy was scanned into [employer] and attached to record. gb 09:30 ECG/EKG was scanned into [employer] and attached to record. gb 05/21 13:22 ECG/EKG was scanned into [employer] and attached to record. gb 13:23 Radiology Report was scanned into [employer] and attached to record. gb Administered Medications: 05/19 17:54 Drug: morphine 2 mg [morphine 2 mg/mL intravenous cartridge (1 mL)] Route: IVP; Site: rs3 left antecubital; 18:30 Follow up: BP 125 / 65; Pulse 82 bpm; Resp 16 bpm; Pulse Ox 98% RA; Pain 8/10 Adult rs3 17:55 Drug: NS 0.9% 1000 ml [sodium chloride 0.9 % intravenous solution] Route: IV; Rate: 250 rs3 mL/hr; Site: left antecubital; 17:55 Drug: Ondansetron 4 mg [ondansetron HCl 2 mg/mL intravenous solution (2 mL)] Route: rs3 IVP; Site: left antecubital; 19:00 Not Given (Duplicate Order): morphine 2 mg IVP once rs3 19:00 Drug: Aspirin 324 mg [aspirin 81 mg chewable tablet (4 tabs)] Route: PO; rs3 19:00 Drug: morphine 2 mg [morphine 2 mg/mL intravenous cartridge (1 mL)] Route: IVP; Site: rs3 left antecubital; 19:20 Drug: morphine 2 mg [morphine 2 mg/mL intravenous cartridge (1 mL)] Route: IVP; Site: cf2 left antecubital; 20:00 Drug: morphine 2 mg [morphine 2 mg/mL intravenous cartridge (1 mL)] Route: IVP; Site: cf2 left antecubital; 20:37 Drug: morphine 2 mg [morphine 2 mg/mL intravenous cartridge (1 mL)] Route: IVP; Site: cf2 left antecubital; 21:09 Drug: morphine 2 mg [morphine 2 mg/mL intravenous cartridge (1 mL)] Route: IVP; Site: cf2 left antecubital; Order Results: Lab Order: CBC with Diff; SPEC'M 05/19/16 17:31 Test: WHITE BLOOD COUNT; Value: 5.9; Range: 4.0-10.0; Units: K/mm3; Status: F Test: RED BLOOD COUNT; Value: 5.02; Range: 4.00-5.40; Units: M/mm3; Status: F Test: HEMOGLOBIN; Value: 15.2; Range: 12.0-16.0; Units: g/dl; Status: F Test: HEMATOCRIT; Value: 45.1; Range: 36.0-47.0; Units: %; Status: F Test: MEAN CORPUSCULAR VOLUME; Value: 89.9; Range: 80.0-96.0; Units: fl; Status: F Test: MEAN CORPUSCULAR HEMOGLOBIN; Value: 30.4; Range: 27.0-33.0; Units: pg; Status: F Test: MEAN CORPUSCULAR HGB CONC; Value: 33.8; Range: 32.0-36.5; Units: g/dl; Status: F Test: RED CELL DISTRIBUTION WIDTH; Value: 18.0; Range: 11.5-14.5; Abnormal: Above high normal; Units: %; Status: F Test: PLATELET COUNT, AUTOMATED; Value: 173; Range: 150-450; Units: k/mm3; Status: F Test: NEUTROPHILS %; Value: 67.9; Range: 36.0-66.0; Abnormal: Above high normal; Units: %; Status: F Test: LYMPH %; Value: 20.9; Range: 24.0-44.0; Abnormal: Below low normal; Units: %; Status: F Test: MONO %; Value: 7.4; Range: 0.0-5.0; Abnormal: Above high normal; Units: %; Status: F Test: EOS %; Value: 0.9; Range: 0.0-3.0; Units: %; Status: F Test: BASO %; Value: 0.4; Range: 0.0-1.0; Units: %; Status: F Test: LARGE UNSTAINED CELL %; Value: 2.5; Range: 0.0-4.0; Units: %; Status: F Test: NEUTROPHILS #; Value: 4.0; Range: 1.8-7.7; Units: K/mm3; Status: F Test: LYMPH #; Value: 1.2; Range: 1.5-4.5; Abnormal: Below low normal; Units: K/mm3; Status: F Test: MONO #; Value: 0.4; Range: 0.0-0.8; Units: K/mm3; Status: F Test: EOS #; Value: 0.0; Range: 0.0-0.50; Units: K/mm3; Status: F Test: BASO #; Value: 0.0; Range: 0.0-0.2; Units: K/mm3; Status: F Test: LARGE UNSTAINED CELL #; Value: 0.2; Range: 0.0-0.4; Units: K/mm3; Status: F Lab Order: MED Profile; SPEC'M 05/19/16 17:31 Test: GLUCOSE, FASTING; Value: 88; Range: 80-110; Units: MG/DL; Status: F Test: BLOOD UREA NITROGEN; Value: 11; Range: 7-18; Units: MG/DL; Status: F Test: CREATININE FOR GFR; Value: 0.68; Range: 0.55-1.02; Units: MG/DL; Status: F Test: GLOMERULAR FILTRATION RATE; Value: > 60.0; Range: >45; Status: F Test: SODIUM LEVEL; Value: 139; Range: 136-145; Units: MEQ/L; Status: F Test: POTASSIUM SERUM; Value: 3.7; Range: 3.5-5.1; Units: MEQ/L; Status: F Test: CHLORIDE LEVEL; Value: 105; Range: 98-107; Units: MEQ/L; Status: F Test: CARBON DIOXIDE LEVEL; Value: 22; Range: 21-32; Units: MEQ/L; Status: F Test: ANION GAP; Value: 12; Range: 8-16; Units: MEQ/L; Status: F Test: CALCIUM LEVEL; Value: 9.2; Range: 8.8-10.2; Units: MG/DL; Status: F Test Note: ; Units are mL/min/1.73 m2 Chronic Kidney Disease Staging per NKF: Stage I & II GFR >=60 Normal to Mildly Decreased Stage III GFR 30-59 Moderately Decreased Stage IV GFR 15-29 Severely Decreased Stage V GFR <15 Very Little GFR Left ESRD GFR <15 on METAL REED TUNER Lab Order: CIP; SPEC'M 05/19/16 17:31 Test: CPK CREATINE PHOSPHOKINASE; Value: 69; Range: 26-192; Units: U/L; Status: F Test: CK-MB VALUE MASS; Value: 2.9; Range: 0.0-3.6; Units: NG/ML; Status: F Test: MB/CK RELATIVE INDEX; Value: 4.20; Range: < OR =4; Abnormal: Above high normal; Status: F Test Note: ; DIAGNOSIS CRITERIA MMB ng/ml Relative Index (RI) NON-AMI < or = 5 N/A SORIANO ZONE > 5 < or = 4 AMI > 5 > 4 Lab Order: Troponin; SPEC'M 05/19/16 17:31 Test: TROPONIN I; Value: 0.46; Range: < 0.10; Abnormal: Above high normal; Units: NG/ML; Status: F Test Note: ; Troponin I Reference Interval for [email or web address] LOCI: 99th Percentile= 0.00-0.045 ng/ml Risk Stratification: <= 0.10 ng/ml Decreased Risk for Adverse Clinical Events. 0.10-1.50 ng/ml Increased Risk for Adverse Clinical Events. Evaluation of additional criterion and/or repeat testing in 2-6 hours is suggested to rule out myocardial damage. >= 1.50 ng/ml Indicative of Myocardial Injury. Lab Order: Liver Profile; [facility] 05/19/16 17:31 Test: AST/SGOT; Value: 33; Range: 15-37; Units: U/L; Status: F Test: ALT/SGPT; Value: 31; Range: 12-78; Units: U/L; Status: F Test: ALKALINE PHOSPHATASE; Value: 92; Range: 45-117; Units: U/L; Status: F Test: BILIRUBIN,TOTAL; Value: 0.5; Range: 0.2-1.0; Units: MG/DL; Status: F Test: BILIRUBIN,DIRECT; Value: 0.1; Range: 0.0-0.2; Units: MG/DL; Status: F Test: TOTAL PROTEIN; Value: 7.3; Range: 6.4-8.2; Units: GM/DL; Status: F Test: ALBUMIN; Value: 4.0; Range: 3.2-5.2; Units: GM/DL; Status: F Test: ALBUMIN/GLOBULIN RATIO; Value: 1.21; Range: 1.00-1.93; Status: F Lab Order: Lipase; [facility] 05/19/16 17:31 Test: LIPASE; Value: 178; Range: 73-393; Units: U/L; Status: F Lab Order: Amylase; [facility] 05/19/16 17:31 Test: AMYLASE; Value: 39; Range: 25-115; Units: U/L; Status: F Lab Order: Type & Screen; [facility] 05/19/16 17:31 Test: BLOOD TYPE; Value: A POS; Status: F Test: AB SCREEN (INDIRECT HOLLIE)GEL; Value: NEGATIVE; Status: F Lab Order: PT/INR; [facility] 05/19/16 17:31 Test: PROTHROMBIN TIME; Value: 12.3; Range: 12.3-14.5; Units: SECONDS; Status: F Test: INR; Value: 0.90; Status: F Test Note: ; THERAPUTIC HUMAN INR VALUES INDICATIONS NORMAL RANGES PROPHYLAXIS/TREATMENT OF: VENOUS THROMBOSIS 2.0-3.0 PULMONARY EMBOLISM 2.0-3.0 PREVENTION OF SYSTEMIC EMBOLISM FROM: TISSUE HEART VALVES 2.0-3.0 ACUTE MYOCARDIAL INFARCTION 2.0-3.0 VALVULAR HEART DISEASE 2.0-3.0 ATRIAL FIBRILLATION 2.0-3.0 MECHANICAL VALVES(HIGH RISK) 2.5-3.5 RECURRENT MYOCARDIAL INFARCTION 2.5-3.5 Lab Order: PTT; [facility] 05/19/16 17:31 Test: PARTIAL THROMBOPLASTIN TIME; Value: 26.9; Range: 26.6-37.1; Units: SECONDS; Status: F Lab Order: CARDIAC MARKER PANEL; [facility] 05/19/16 21:25 Test: CPK CREATINE PHOSPHOKINASE; Value: 78; Range: 26-192; Units: U/L; Status: F Test: CK-MB VALUE MASS; Value: 3.5; Range: 0.0-3.6; Units: NG/ML; Status: F Test: MB/CK RELATIVE INDEX; Value: 4.48; Range: < OR =4; Abnormal: Above high normal; Status: F Test: TROPONIN I; Value: 0.55; Range: < 0.10; Abnormal: Above high normal; Units: NG/ML; Status: F Test Note: ; DIAGNOSIS CRITERIA MMB ng/ml Relative Index (RI) NON-AMI < or = 5 N/A SORIANO ZONE > 5 < or = 4 AMI > 5 > 4 Lab Order: BASIC METABOLIC PROFILE; [facility] 05/20/16 07:28 Test: GLUCOSE, FASTING; Value: 82; Range: 80-110; Units: MG/DL; Status: F Test: BLOOD UREA NITROGEN; Value: 11; Range: 7-18; Units: MG/DL; Status: F Test: CREATININE FOR GFR; Value: 0.76; Range: 0.55-1.02; Units: MG/DL; Status: F Test: GLOMERULAR FILTRATION RATE; Value: > 60.0; Range: >45; Status: F Test: SODIUM LEVEL; Value: 141; Range: 136-145; Units: MEQ/L; Status: F Test: POTASSIUM SERUM; Value: 4.0; Range: 3.5-5.1; Units: MEQ/L; Status: F Test: CHLORIDE LEVEL; Value: 107; Range: 98-107; Units: MEQ/L; Status: F Test: CARBON DIOXIDE LEVEL; Value: 27; Range: 21-32; Units: MEQ/L; Status: F Test: ANION GAP; Value: 7; Range: 8-16; Abnormal: Below low normal; Units: MEQ/L; Status: F Test: CALCIUM LEVEL; Value: 8.8; Range: 8.8-10.2; Units: MG/DL; Status: F Test Note: ; Units are mL/min/1.73 m2 Chronic Kidney Disease Staging per NKF: Stage I & II GFR >=60 Normal to Mildly Decreased Stage III GFR 30-59 Moderately Decreased Stage IV GFR 15-29 Severely Decreased Stage V GFR <15 Very Little GFR Left ESRD GFR <15 on METAL REED TUNER Lab Order: COMPLETE BLOOD COUNT; SPEC'M 05/20/16 07:28 Test: WHITE BLOOD COUNT; Value: 5.6; Range: 4.0-10.0; Units: K/mm3; Status: F Test: RED BLOOD COUNT; Value: 4.67; Range: 4.00-5.40; Units: M/mm3; Status: F Test: HEMOGLOBIN; Value: 13.8; Range: 12.0-16.0; Units: g/dl; Status: F Test: HEMATOCRIT; Value: 43.0; Range: 36.0-47.0; Units: %; Status: F Test: MEAN CORPUSCULAR VOLUME; Value: 92.1; Range: 80.0-96.0; Units: fl; Status: F Test: MEAN CORPUSCULAR HEMOGLOBIN; Value: 29.5; Range: 27.0-33.0; Units: pg; Status: F Test: MEAN CORPUSCULAR HGB CONC; Value: 32.0; Range: 32.0-36.5; Units: g/dl; Status: F Test: RED CELL DISTRIBUTION WIDTH; Value: 17.7; Range: 11.5-14.5; Abnormal: Above high normal; Units: %; Status: F Test: PLATELET COUNT, AUTOMATED; Value: 173; Range: 150-450; Units: k/mm3; Status: F Lab Order: CARDIAC MARKER PANEL; SPEC'M 05/20/16 07:28 Test: CPK CREATINE PHOSPHOKINASE; Value: 95; Range: 26-192; Units: U/L; Status: F Test: CK-MB VALUE MASS; Value: 3.9; Range: 0.0-3.6; Abnormal: Above high normal; Units: NG/ML; Status: F Test: MB/CK RELATIVE INDEX; Value: 4.10; Range: < OR =4; Abnormal: Above high normal; Status: F Test: TROPONIN I; Value: 0.23; Range: < 0.10; Abnormal: High; Units: NG/ML; Status: F Test Note: ; DIAGNOSIS CRITERIA MMB ng/ml Relative Index (RI) NON-AMI < or = 5 N/A SORIANO ZONE > 5 < or = 4 AMI > 5 > 4 Lab Order: CARDIAC MARKER PANEL; SPEC'M 05/20/16 13:51 Test: CPK CREATINE PHOSPHOKINASE; Value: 88; Range: 26-192; Units: U/L; Status: F Test: CK-MB VALUE MASS; Value: 3.6; Range: 0.0-3.6; Units: NG/ML; Status: F Test: MB/CK RELATIVE INDEX; Value: 4.09; Range: < OR =4; Abnormal: Above high normal; Status: F Test: TROPONIN I; Value: 0.15; Range: < 0.10; Abnormal: High; Units: NG/ML; Status: F Test Note: ; DIAGNOSIS CRITERIA MMB ng/ml Relative Index (RI) NON-AMI < or = 5 N/A SORIANO ZONE > 5 < or = 4 AMI > 5 > 4 Radiology Order: EKG-ADULT Test: EKG-ADULT REASON FOR EXAMINATION: Chest Pain; Stationary ECG Study; [facility] [place] - ED; ; Test Date: 2016-05-19; Pat Name: STEPHAN DICKINSON Department:; Room: -; Gender: F 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 The heart is normal in size. The pulmonary; vasculature is normal in appearance.; ; IMPRESSION:; ; Bibasilar chronic interstitial fibrosis.; ; ; Signed by; Nikunj Felipe MD 05/19/2016 06:41 P; Radiology Order: CT ABD & PELVIS: IV Contrast Only Test: CT ABD & PELVIS: IV Contrast Only REASON FOR EXAMINATION: rlq pain, epigastric pain; ; CT of the abdomen and pelvis with contrast; Clinical statement: Pain.; Technique: Multiple axial CT images were obtained from the base of the lungs through the floor of the; pelvis utilizing 5 mm axial slices after administration of oral and nonionic intravenous contrast. C; oronal and sagittal reconstructions were also obtained.; Comparison: 02/18/2016.; Findings:; Chest: The visualized lung bases are clear.; Abdomen: The spleen, pancreas, kidneys, and adrenal glands are unremarkable. Diffuse low attenuation; of the liver is appreciated. The patient is status post cholecystectomy. The aorta is within normal l; imits. There is no evidence of abdominal lymphadenopathy or ascites.; Pelvis: The bowel is unremarkable, with no obstructive or inflammatory changes. The urinary bladder i; s within normal limits. The other pelvic structures appear grossly intact. There is no evidence of pe; lvic lymphadenopathy or ascites.; Bones: There are no suspicious osseous abnormalities seen. Moderate degenerative disc disease is appr; eciated at L5/S1.; Impression:; 1. No acute findings to explain the patient's pain.; 2. No obstructive or inflammatory bowel changes.; 3. New fatty infiltration of the liver.; 4. Moderate degenerative disc disease at L5/S1.; ; Radiology Order: CT Chest Angio R/O PE Test: CT Chest Angio R/O PE REASON FOR EXAMINATION: epigastric pain, abdl pain; ; CT angiogram of the chest; Clinical statement: Chest pain and shortness of breath.; Technique: Multiple axial CT images were obtained from the thoracic inlet through the upper abdomen a; fter a bolus administration of nonionic intravenous contrast. Coronal and sagittal reconstructions we; re also obtained.; No comparison is available.; Findings: The pulmonary arteries are well-opacified with contrast, with no intraluminal filling defec; ts to suggest embolism. The thoracic aorta is unremarkable. Thyroid gland is within normal limits. Th; ere is no thoracic lymphadenopathy. There are no pericardial or pleural effusions. The lungs are eli; r. Limited imaging of the upper abdomen is unremarkable. There are no suspicious osseous lesions.; Impression: Unremarkable CT examination of the chest. 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 The following High Risk cf2 Discharge criteria are identified: None. Admitted Condition: stable Condition: improved. CT Study completed. Admission hand-off: Report called to ER Hold nurse. 20:52 Decision to Hospitalize by Provider. cs11 05/20 18:02 Patient left the ED. aa3 Signatures: Dispatcher [employer] EDMS Jose Shahid MD MD ml Murray, Denise, Hot Dog Vendor Unit deg Lakia Oakley, Reg Reg Dharmesh Gomez Rosemary, RN RN rs3 Daniel, Bethany, APPARATUS ENGINEERING TECHNOLOGIST APPARATUS ENGINEERING TECHNOLOGIST marilynn Miller, Lissa, APPARATUS ENGINEERING TECHNOLOGIST APPARATUS ENGINEERING TECHNOLOGIST ct3 Addison Nunez DO DO cs11 McLear, Monica, APPARATUS ENGINEERING TECHNOLOGIST APPARATUS ENGINEERING TECHNOLOGIST tmm1 Emeli Abraham,RN RN aa3 Landon Kiser, APPARATUS ENGINEERING TECHNOLOGIST APPARATUS ENGINEERING TECHNOLOGIST jemalf Brittani BrownRN RN ead Alyssa SpencerRN RN cf2 Corrections: (The following items were deleted from the chart) 05/19 17:38 17:34 Home Meds: hydrochlorothiazide 25 mg Oral tab 1 tab once daily; ead ead 17: 17:34 Home Meds: potassium chloride 10 mEq Oral cpER 1 cap once daily; ead ead 17:55 General: Appears in no apparent distress, Behavior is appropriate for age, rs3 cooperative, rs3 Chart Complete MTDD
== END 2016-05-21 13:16 | disposition short-term general hospital (02) ==
LOC: M ED 16:46 → M ED INP 22:39 → M PCU 05-20 18:11
PROVIDERS: ADMIT Internal Medicine; ATTEND General Practice
DX: I20.0 Unstable angina (principal); R07.89 Other chest pain; K26.9 Duodenal ulcer, unspecified as acute or chronic, without hemorrhage or perforation; I10 Essential (primary) hypertension; E78.4 Other hyperlipidemia; F17.210 Nicotine dependence, cigarettes, uncomplicated; F32.9 Major depressive disorder, single episode, unspecified; F41.9 Anxiety disorder, unspecified; Z79.82 Long term (current) use of aspirin; Z79.899 Other long term (current) drug therapy; Z79.02 Long term (current) use of antithrombotics/antiplatelets; Z88.2 Allergy status to sulfonamides; Z88.1 Allergy status to other antibiotic agents
CPT/HCPCS: 36415; 71010; 71275; 74177; 80048; 80061; 80076; 81001; 82150; 82550; 82553; 83036; 83690; 84484; 85025; 85027; 85610; 85730; 86850; 86900; 86901; 93005; 93041; 93306; 94640; 94664; 94760; 96374; 96375; 96376; 99285; G0378; J1650; J2405; Q9967

== ENCOUNTER → 2016-06-17 | Outpatient (CLI) | payer MEDICARE, MEDICAID ==
[~2016-06-17] MED LIST changes: +ALBU17IN INH; +ASPI81TA PO; +CAND4TAB PO; +CARV6.25 PO; +FERA1TAB PO; +NICO7PA TD; +NITR0.4S14 SL; +PREG50CA PO; +SUCR1SUS PO
--- NOTE | 2016-06-20 00:04 | ECWPNPC ---
PATIENT NAME: STEPHAN DICKINSON : 1955 GENDER: FEMALE VISIT DATE: 06/17/2016 DISCHARGE DATE: 06/17/16 1500 VISIT LOCKED DATE TIME: PHYSICIAN: ROCK MANZANO RESOURCE: ROCK MANZANO REASON FOR APPOINTMENT 1. CHRONIC PAIN HISTORY OF PRESENT ILLNESS HISTORY OF PRESENT ILLNESS: PAIN THE PATIENT DESCRIBES THE PAIN... FALL RISK SCREENING: SCREENING :NO FALLS IN THE PAST YEAR TODAY'S VISIT: NOTES: RATES PAIN LEVEL TODAY 7-8/10. DESCRIBES PAIN CONSTANT, ACHING SHARP AND STABBING, AND SHOOTING. NOTES PAIN IS CENTERED IN BASE OF NECK, LOW BACK, KNEES AND LEFT FOOT.. CURRENT MEDICATIONS TAKING SYMBICORT 160-4.5 MCG/ACT AEROSOL 2 PUFFS INHALATION TWICE A DAY TAKING COMBIVENT RESPIMAT 20-100 MCG/ACT AEROSOL SOLUTION 1 PUFF INHALATION TWICE DAILY TAKING VITAMIN D3 1000 UNIT TABLET 2 TABLET ORALLY ONCE A DAY TAKING CITALOPRAM HYDROBROMIDE 40 MG TABLET 1/2 TABLET ORALLY ONCE A DAY TAKING LEVOTHYROXINE SODIUM 75 MCG TABLET 1 TABLET ORALLY ONCE A DAY TAKING OMEPRAZOLE 20 MG CAPSULE DELAYED RELEASE 1 CAPSULE ORALLY ONCE A DAY TAKING THIAMINE HCL 100 MG TABLET 1 TABLET ORALLY ONCE A DAY TAKING SIMVASTATIN 40 MG TABLET 1 TABLET IN THE EVENING ORALLY ONCE A DAY TAKING HYDROCORTISONE 1 % CREAM 1 APPLICATION TO AFFECTED AREA EXTERNALLY TWICE DAILY NEEDED TAKING ALBUTEROL SULFATE HFA 108 (90 BASE) MCG/ACT AEROSOL SOLUTION 2 PUFFS NEEDED INHALATION FOUR TIMES DAILY NEEDED TAKING TESSALON PERLES 100 MG CAPSULE 1 CAPSULE NEEDED FOR COUGH ORALLY THREE TIMES A DAY TAKING FERROUS GLUCONATE 240 (27 FE) MG TABLET DIRECTED ORALLY ONCE A DAY TAKING GABAPENTIN 100 MG CAPSULE DIRECTED ORALLY THREE TIMES DAILY TAKING OXYCODONE HCL 20 MG TABLET 1 TABLE ORALLY EVERY 8 HRS PRN PAIN MDD=3 TAKING LYRICA 50 MG CAPSULE 1 CAPSULE ORALLY Q 8 HOURS MDD=3 TAKING ASPIR-81 81 MG TABLET DELAYED RELEASE 1 TABLET ORALLY ONCE A DAY NOT-TAKING CYCLOBENZAPRINE HCL 10 MG TABLET 1 TABLET ORALLY AT BEDTIME NEEDED NOT-TAKING NICORETTE 2 MG GUM 1 PIECE NEEDED MOUTH/THROAT 24 TIME(S) A DAY NOT-TAKING BUDESONIDE-FORMOTEROL FUMARATE 160-4.5 MCG/ACT AEROSOL 2 PUFFS INHALATION TWICE A DAY UNKNOWN MIRALAX POWDER ORALLY MEDICATION LIST REVIEWED AND RECONCILED WITH THE PATIENT PAST MEDICAL HISTORY COPD FIBROMYALGIA HYPERLIPIDEMIA HYPERTENSION CHRONIC LOW BACK PAIN - PREVIOUSLY ON OPIATE MEDICATIONS - DC'D DUE TO URINE TOX INCONSISTENCIES ANXIETY AND DEPRESSION HYPOTHYROIDISM FOLLOWS WITH THE [facility] FOR ROUTINE LABS 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 CHEST PAIN ALLERGIES CODEINE PHOSPHATE: NAUSEA/VOMITING: ALLERGY TETRACYCLINE HCL: PT UNSURE: ALLERGY SULFA (FOR ALLERGY USE ONLY): PT UNSURE: ALLERGY NSAIDS: GI BLEED: CONTRAINDICATION EES: RASH: ALLERGY SURGICAL HISTORY GALL BLADDER KIDNEY STONE HYSTERECTOMY CARPAL TUNNEL RELEASE X2 KNEE SURGERY X 4 TONSILLECTOMY LEFT FOOT BUNIONECTOMY, BRIT IN TOES 2016 CARDIAC CATH 04/2016 SOCIAL HISTORY GENERAL: TOBACCO USE ARE YOU A:CURRENT SMOKER HOW MANY CIGARETTES A DAY DO YOU SMOKE?6-10 HOW SOON AFTER YOU WAKE UP DO YOU SMOKE YOUR FIRST CIGARETTE?AFTER 60 MIN HOW OFTEN DO YOU SMOKE CIGARETTES?EVERY DAY PATIENT COUNSELED ON THE DANGERS OF TOBACCO USE AND URGED TO QUIT: COUNCELLED ON THE IMPORTANCE OF QUITTING ARE YOU INTERESTED IN QUITTING?NOT READY TO QUIT LEARNING BARRIERS / SPECIAL NEEDS ORIENTED TO PLAN OF CARE: PATIENT, PAIN MANAGEMENT PATIENT, ORIENTED TO PLAN OF CARE: PATIENT, PAIN MANAGEMENT PATIENT. NEW PATIENT PAIN DIARY TODAY'S VISITNOTES FROM 0-10, WHAT LEVEL IS YOUR PAIN TODAY?0 PAIN CLINIC PFS, CLERGY, PUBLIC HEALTH REFERRALS PFS REFERRAL NEEDED?NO CLERGY REFERRAL NEEDED?NO PUBLIC HEALTH REFERRAL NEEDED?NO WAS THE PROVIDER NOTIFIED OF ANY PERTINENT INFO?NO PFS REFERRAL NEEDED?NO CLERGY REFERRAL NEEDED?NO PUBLIC HEALTH REFERRAL NEEDED?NO WAS THE PROVIDER NOTIFIED OF ANY PERTINENT INFO?NO HOSPITALIZATION/MAJOR DIAGNOSTIC PROCEDURE SURGERY CHILDBIRTH X3 ANEMIA 02/18/2016 CHEST PAIN 04/2016 REVIEW OF SYSTEMS CONSTITUTIONAL: ANY CHANGE IN YOUR MEDICAL CONDITION? YES, 04/2016 ADMITTED FOR CHEST PAIN, TRANSFERRED TO [facility] FOR CARDIAC CATH. -- NO DIFINATIVE FINDINGS . CHILLS NO . FEVER NO . INFECTION: DO YOU HAVE NEW INFECTIONS? NO . DO YOU HAVE HISTORY OF MRSA? NO . MUSCULOSKELETAL: ANY NEW PATTERNS OF PAIN OR NUMBNESS? YES, LEFT GREAT TOE NUMB . GASTROENTEROLOGY: ANY NEW CHANGE IN BOWEL CONTROL? NO . GENITOURINARY: ANY NEW CHANGE IN BLADDER CONTROL? NO . IS THERE A CHANCE YOU COULD BE ? NO . HEMATOLOGY/LYMPH: DO YOU TAKE ANY BLOOD THINNERS? (FOR EXAMPLE- COUMADIN, PLAVIX, AGGRENOX, PLATEL, PRADAXA, OR XARELTO) NO . WHEN WAS YOUR LAST DOSE? DATE: TIME: . NEUROLOGY: HAVE YOU FALLEN IN THE PAST 6 MONTHS? NO . ANY NEW EXTREMITY NUMBNESS OR WEAKNESS? NO . CARDIOLOGY: DO YOU HAVE A PACEMAKER OR DEFIBRILLATOR? NO . 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 NO CHEST PAIN SINCE. . RESPIRATORY: HAVE YOU BEEN SICK IN THE PAST WEEK? NO . FEVER NO . FLU LIKE SYMPTOMS? NO . COUGH NO . INTEGUMENTARY: DO YOU HAVE ANY RASHES OR OPEN SORES? NO . ALLERGIC/IMMUNO: ARE YOU ALLERGIC TO SHELLFISH OR IV DYE? NO . ANY NEW ALLERGIES? NO . PSYCHIATRIC: DO YOU HAVE THOUGHTS OF HURTING YOURSELF OR SOMEONE ELSE? NO . ARE YOU ABUSED, NEGLECTED, OR IN AN UNSAFE ENVIRONMENT? NO . ENDOCRINOLOGY: ARE YOU DIABETIC? NO . OTHER: DO YOU NEED ANY PRESCRIPTIONS? YES, OXYCODONE & LYRICA . IF YES, PLEASE LIST: ____ . ANY NEW PROBLEMS WITH YOUR MEDICATIONS? NO . WHEN DID YOU LAST EAT? ____ . WHEN DID YOU LAST DRINK? ____ . WHAT DID YOU LAST DRINK? ____ . NAME OF PERSON DRIVING YOU HOME? ____ . DO YOU HAVE ANY OTHER QUESTIONS OR CONCERNS NO . REVIEWED BY: PROVIDER: . VITAL SIGNS WT 129.2 LBS, HT 5'2 1/2", BMI 23.25 INDEX, BP 153/88 MM HG, HR 98 /MIN, RR 18 /MIN, TEMP 97.9 F, OXYGEN SAT % 94%, NA INITIALS SC 13:56, REVIEWED BY: AD. EXAMINATION GENERAL EXAMINATION: PSYCHALERT , ORIENTED X 3 , TEARFUL. LUNGS:CLEAR TO AUSCULTATION BILATERALLY. HEART:HEART RATE REGULAR. ABDOMEN:SOFT, BOWEL SOUNDS PRESENT, TENDER LEFT LOWER QUADRANT. MUSCULOSKELETAL:MUSCLE STRENGTH TESTING 5/5 BILATERAL UPPER AND LOWER EXTREMITIES, TRIGGER POINTS:, ELICITED WITH PALPATION OVER LUMBAR PARAVERTEBRAL MUSCLES AND INTO THE SECRUM. RESTRICTION OF ROM IN THIS AREA. ASSESSMENTS MYALGIA - M79.1 (PRIMARY) JOINT PAIN - M25.50 FIBROMYALGIA - M79.7 CHRONICALLY ON OPIATE THERAPY - Z79.899 TREATMENT MYALGIA REFILL OXYCODONE HCL TABLET, 20 MG, 1 TABLE, ORALLY, EVERY 8 HRS PRN PAIN MDD=3, 30 DAY(S), 90, REFILLS 0 REFILL LYRICA CAPSULE, 50 MG, 1 CAPSULE, ORALLY, Q 8 HOURS MDD=3, 30 DAY(S), 90, REFILLS 0 NOTES: MAKE APPOINTMENT WITH CARDIOLOGY AND PRIMARY CARE DISCUSSION HELD WITH PATIENT REGARDING ALCOHOL USE. PATIENT STATES THAT SHE HAS DRUNK ONLY ONE BEER. I REMINDED HER SHE MUST NOT DRINK ANY ALCOHOL. TOXICOLOGY AT HER NEXT VISIT IN 2-3 WEEKS AND I WILL SCREEN FOR ALCOHOL AT THAT TIME, # 226 TOBACCO USE SCREENING/INTERVENTION: PATIENT CURRENTLY USED TOBACCO. WAS OFFERED SMOKING CESSATION FOR GUIDANCE IN QUITTING THROUGH THE [facility] QUITS PROGRAM AND THE [facility] CESSATION PROGRAM. , FALLS CARE PLAN: 1. RECOMMEND REMOVING ALL THROW RUGS. 2. RECOMMEND NIGHT LIGHTS 3. RECOMMEND WEARING RUBBER SOLED SHOES AND TO NOT GO BAREFOOT. 4.. ADVISED TO CHANGE POSITION SLOWLY FROM SUPINE TO STANDING TO AVOID DIZZINESS. 5. ADVISED TO USE ASSISTIVE DEVICE SUCH CANE OR WALKER 6. USE LIFELINE SERVICES OR KEEP PORTABLE PHONE READILY AVAILABLE. CLINICAL NOTES: ISTOP REGISTRY REVIEWED AND DEMNOSTRATES COMPLLIANCE. BRINGS IN MEDICATIONS WHICH IS APPROPRIATE FOR WHAT WAS DISPENSED. RECENT URINE TOXICOLOGY REVIEWED. NO UNAUTHORIZED MEDICATIONS. NO ILLICIT SUBSTANCES AND PRESCRIBED MEDICATIONS WERE PRESENT. PROCEDURE CODES FA211 ESTABILISHED PATIENT [facility] FACILITY CHARGE G8783 BP SCR PRFRM RCMDD DEFIND SCR INTVL G8730 PAIN ASSESS POS TOOL F/U PLAN DOC 3016F PT SCRND UNHLTHY OH USE 1124F ACP DISCUSS-NO [id number] DOCD 0518F FALL PLAN OF CARE DOCD G8427 DOC MEDS VERIFIED W/PT OR RE G8420 BMI<30 AND >=22 CALC & DOCU 3288F FALL RISK ASSESSMENT DOCD 4004F PT TOBACCO SCREEN RCVD TLK DISPOSITION & COMMUNICATION FOLLOW UP 1 MONTH ELECTRONICALLY SIGNED BY ELADIO KRAFT ON 06/19/2016 AT 01:25 PM EST DISCLAIMER : THIS IS A VISIT SUMMARY EXTRACTED FROM THE Room 77 CHART. IT IS NOT A COPY OF THE Room 77 PROGRESS NOTE. MTDD
== END ==
LOC: M PAIN 14:00
PROVIDERS: ATTEND Nurse Practitioner Family
DX: M79.1 Myalgia (principal); M25.50 Pain in unspecified joint; Z79.899 Other long term (current) drug therapy; Z79.891 Long term (current) use of opiate analgesic; D50.8 Other iron deficiency anemias; F17.200 Nicotine dependence, unspecified, uncomplicated; Z79.82 Long term (current) use of aspirin; Z88.2 Allergy status to sulfonamides; Z88.5 Allergy status to narcotic agent

== ENCOUNTER 2016-08-18 17:42 | Emergency (ER) | payer MEDICAID, MEDICARE ==
[~2016-08-18] VITALS: Ht 162.6 cm; Wt 59.9 kg
[2016-08-18] MEDS ORDERED: AMLO10TA2 PO (18:02)
[2016-08-18] MEDS ORDERED: SERT50TA PO (18:02)
[2016-08-18] MEDS ORDERED: MORPHINE 4 MG/ML 1ML SYRINGE IV ONE (19:30)
[2016-08-18 20:01] LABS: BASO % 0.6 % (0.0-1.0); EOS # 0.2 K/mm3 (0.0-0.50); EOS % 3.9 % (0.0-3.0); LARGE UNSTAINED CELL # 0.1 K/mm3 (0.0-0.4); LARGE UNSTAINED CELL % 1.5 % (0.0-4.0); LYMPH # 1.1 K/mm3 (1.5-4.5); LYMPH % 21.9 % (24.0-44.0); MEAN CORPUSCULAR HEMOGLOBIN 32.1 pg (27.0-33.0); MEAN CORPUSCULAR HGB CONC 33.3 g/dl (32.0-36.5); MEAN CORPUSCULAR VOLUME 96.4 fl (80.0-96.0); MONO # 0.4 K/mm3 (0.0-0.8); NEUTROPHILS # 3.1 K/mm3 (1.8-7.7); NEUTROPHILS % 63.1 % (36.0-66.0); PLATELET COUNT, AUTOMATED 217 k/mm3 (150-450); RED CELL DISTRIBUTION WIDTH 13.7 % (11.5-14.5); WHITE BLOOD COUNT 4.9 K/mm3 (4.0-10.0)
[2016-08-18 20:20] LABS: ANION GAP 7 MEQ/L (8-16); BLOOD UREA NITROGEN 4 MG/DL (7-18); CALCIUM LEVEL 8.9 MG/DL (8.8-10.2); CARBON DIOXIDE LEVEL 28 MEQ/L (21-32); CHLORIDE LEVEL 106 MEQ/L (98-107); CREATININE FOR GFR 0.56 MG/DL (0.55-1.02); GLOMERULAR FILTRATION RATE > 60.0 (>45); GLUCOSE, FASTING 87 MG/DL (80-110); POTASSIUM SERUM 3.6 MEQ/L (3.5-5.1); SODIUM LEVEL 141 MEQ/L (136-145)
[2016-08-18 20:41] VITALS: BP 127/76
--- NOTE | 2016-08-18 21:11 | REP ---
LUMBOSACRAL SPINE: Five views of the lumbosacral spine are performed. There is no compression fracture or malalignment with normal lumbar lordosis. There is mild spurring of L4 through S1. There is mild disc space narrowing at L3-4 and L4-5 with moderate narrowing at L5-S1 with subchondral sclerosis as well as sclerosis at the posterior facets at that level. The posterior elements are intact. IMPRESSION: Degenerative changes. No fracture or dislocation. Signed by Ankur Whitehead MD 08/19/2016 05:23 P
== END 2016-08-18 20:43 | disposition home or self-care (01) ==
LOC: EDBD 17:42 → M ED 18:59
DX: M54.5 Low back pain (principal); I10 Essential (primary) hypertension; M79.7 Fibromyalgia; K21.9 Gastro-esophageal reflux disease without esophagitis; F33.9 Major depressive disorder, recurrent, unspecified; Z79.899 Other long term (current) drug therapy; Z79.82 Long term (current) use of aspirin; Z88.1 Allergy status to other antibiotic agents; Z88.2 Allergy status to sulfonamides; Z88.5 Allergy status to narcotic agent; F17.210 Nicotine dependence, cigarettes, uncomplicated

== ENCOUNTER → 2016-08-20 | Outpatient (CLI) | payer MEDICARE, MEDICAID ==
[~2016-08-20] MED LIST changes: +SERT50TA PO
--- NOTE | 2016-09-09 01:45 | ECWPNPC ---
PATIENT NAME: STEPHAN DICKINSON : 1955 GENDER: FEMALE VISIT DATE: 08/20/2016 DISCHARGE DATE: 08/20/16 1650 VISIT LOCKED DATE TIME: PHYSICIAN: ROCK MANZANO RESOURCE: ROCK MANZANO REASON FOR APPOINTMENT 1. FOLLOW UP HISTORY OF PRESENT ILLNESS HISTORY OF PRESENT ILLNESS: PAIN THE PATIENT DESCRIBES THE PAIN... FALL RISK SCREENING: SCREENING :NO FALLS IN THE PAST YEAR TODAY'S VISIT: NOTES: RATES PAIN TODAY 02/03. LAST VISIT HERE WAS MAY. TO SEE PCP GIULIANA AT [facility] TOMORROW. HAS BEEN HAVING INCREASED PAIN IN LOW BACK OVER LAST 2 WEEKS. PAIN IS RADIATED OVER BOTH LEGS ANT THIGH. WAS BENT OVER AND HEARD POP IN LOW BACK AND HAD INCREASED PAIN IN BACK, WENT TO ER ON 08/18/16 - XRAYS DONE. . CURRENT MEDICATIONS TAKING SYMBICORT 160-4.5 MCG/ACT AEROSOL 2 PUFFS INHALATION TWICE A DAY TAKING COMBIVENT RESPIMAT 20-100 MCG/ACT AEROSOL SOLUTION 1 PUFF INHALATION TWICE DAILY TAKING VITAMIN D3 1000 UNIT TABLET 2 TABLET ORALLY ONCE A DAY TAKING CITALOPRAM HYDROBROMIDE 40 MG TABLET 1 TABLET ORALLY ONCE A DAY TAKING LEVOTHYROXINE SODIUM 75 MCG TABLET 1 TABLET ORALLY ONCE A DAY TAKING OMEPRAZOLE 20 MG CAPSULE DELAYED RELEASE 1 CAPSULE ORALLY TWICE A DAY TAKING THIAMINE HCL 100 MG TABLET 1 TABLET ORALLY ONCE A DAY TAKING SIMVASTATIN 40 MG TABLET 1/2 TABLET IN THE EVENING ORALLY ONCE A DAY TAKING HYDROCORTISONE 1 % CREAM 1 APPLICATION TO AFFECTED AREA EXTERNALLY TWICE DAILY NEEDED TAKING ALBUTEROL SULFATE HFA 108 (90 BASE) MCG/ACT AEROSOL SOLUTION 2 PUFFS NEEDED INHALATION FOUR TIMES DAILY NEEDED TAKING TESSALON PERLES 100 MG CAPSULE 1 CAPSULE NEEDED FOR COUGH ORALLY THREE TIMES A DAY TAKING FERROUS GLUCONATE 240 (27 FE) MG TABLET DIRECTED ORALLY ONCE A DAY TAKING GABAPENTIN 100 MG CAPSULE DIRECTED ORALLY THREE TIMES DAILY TAKING ASPIR-81 81 MG TABLET DELAYED RELEASE 1 TABLET ORALLY ONCE A DAY TAKING OXYCODONE HCL 20 MG TABLET 1 TABLE ORALLY EVERY 8 HRS PRN PAIN MDD=3 TAKING LYRICA 50 MG CAPSULE 1 CAPSULE ORALLY Q 8 HOURS MDD=3 NOT-TAKING CYCLOBENZAPRINE HCL 10 MG TABLET 1 TABLET ORALLY AT BEDTIME NEEDED NOT-TAKING BUDESONIDE-FORMOTEROL FUMARATE 160-4.5 MCG/ACT AEROSOL 2 PUFFS INHALATION TWICE A DAY DISCONTINUED NICORETTE 2 MG GUM 1 PIECE NEEDED MOUTH/THROAT 24 TIME(S) A DAY UNKNOWN MIRALAX POWDER ORALLY MEDICATION LIST REVIEWED AND RECONCILED WITH THE PATIENT PAST MEDICAL HISTORY COPD FIBROMYALGIA HYPERLIPIDEMIA HYPERTENSION CHRONIC LOW BACK PAIN - PREVIOUSLY ON OPIATE MEDICATIONS - DC'D DUE TO URINE TOX INCONSISTENCIES ANXIETY AND DEPRESSION HYPOTHYROIDISM FOLLOWS WITH THE [facility] FOR ROUTINE LABS 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 CHEST PAIN ALLERGIES CODEINE PHOSPHATE: NAUSEA/VOMITING: ALLERGY TETRACYCLINE HCL: PT UNSURE: ALLERGY SULFA (FOR ALLERGY USE ONLY): PT UNSURE: ALLERGY NSAIDS: GI BLEED: CONTRAINDICATION EES: RASH: ALLERGY SOCIAL HISTORY GENERAL: PAIN CLINIC PFS, CLERGY, PUBLIC HEALTH REFERRALS CLERGY REFERRAL NEEDED?NO WAS THE PROVIDER NOTIFIED OF ANY PERTINENT INFO?NO PFS REFERRAL NEEDED?NO PUBLIC HEALTH REFERRAL NEEDED?NO PATIENT: ____. REVIEW OF SYSTEMS CONSTITUTIONAL: ANY CHANGE IN YOUR MEDICAL CONDITION? NO . CHILLS NO . FEVER NO . INFECTION: DO YOU HAVE NEW INFECTIONS? NO . DO YOU HAVE HISTORY OF MRSA? NO . MUSCULOSKELETAL: ANY NEW PATTERNS OF PAIN OR NUMBNESS? YES, DISC OUT IN LOWER BACK. GOING TO NEW PCP TOMORROW. . GASTROENTEROLOGY: ANY NEW CHANGE IN BOWEL CONTROL? NO . GENITOURINARY: ANY NEW CHANGE IN BLADDER CONTROL? NO . IS THERE A CHANCE YOU COULD BE ? NO . HEMATOLOGY/LYMPH: DO YOU TAKE ANY BLOOD THINNERS? (FOR EXAMPLE- COUMADIN, PLAVIX, AGGRENOX, PLATEL, PRADAXA, OR XARELTO) NO . WHEN WAS YOUR LAST DOSE? DATE: TIME: . NEUROLOGY: HAVE YOU FALLEN IN THE PAST 6 MONTHS? NO . ANY NEW EXTREMITY NUMBNESS OR WEAKNESS? NO . CARDIOLOGY: DO YOU HAVE A PACEMAKER OR DEFIBRILLATOR? NO . CHEST PAIN PATIENT DENIES ANY RECENT . RESPIRATORY: HAVE YOU BEEN SICK IN THE PAST WEEK? NO . FEVER NO . FLU LIKE SYMPTOMS? NO . SHORTNESS OF BREATH ON EXERTION DENIES BUT IS VISIBLL SHORT OF BREATH . COUGH NO . INTEGUMENTARY: DO YOU HAVE ANY RASHES OR OPEN SORES? NO . ALLERGIC/IMMUNO: ARE YOU ALLERGIC TO SHELLFISH OR IV DYE? NO . ANY NEW ALLERGIES? NO . PSYCHIATRIC: DO YOU HAVE THOUGHTS OF HURTING YOURSELF OR SOMEONE ELSE? NO . ARE YOU ABUSED, NEGLECTED, OR IN AN UNSAFE ENVIRONMENT? NO . ENDOCRINOLOGY: ARE YOU DIABETIC? NO . OTHER: DO YOU NEED ANY PRESCRIPTIONS? YES . IF YES, PLEASE LIST: OXYCODONE . ANY NEW PROBLEMS WITH YOUR MEDICATIONS? NO . WHEN DID YOU LAST EAT? ____ . WHEN DID YOU LAST DRINK? ____ . WHAT DID YOU LAST DRINK? ____ . NAME OF PERSON DRIVING YOU HOME? ____ . DO YOU HAVE ANY OTHER QUESTIONS OR CONCERNS NO . REVIEWED BY: PROVIDER: ROCK GALVAN . VITAL SIGNS WT 126.6 LBS, HT 5'2 1/2", BMI 22.78 INDEX, BP 128/75 MM HG, HR 84 /MIN, RR 18 /MIN, TEMP 96.3 F, OXYGEN SAT % 96%, NA INITIALS SC 14:50, REVIEWED BY: CM. EXAMINATION GENERAL EXAMINATION: PSYCHALERT , ORIENTED X 3 , TEARFUL. LUNGS:CLEAR TO AUSCULTATION BILATERALLY. HEART:HEART RATE REGULAR. ABDOMEN:SOFT, BOWEL SOUNDS PRESENT, TENDER LEFT LOWER QUADRANT. MUSCULOSKELETAL:MUSCLE STRENGTH TESTING 5/5 BILATERAL UPPER AND LOWER EXTREMITIES, TRIGGER POINTS:, ELICITED WITH PALPATION OVER LUMBAR PARAVERTEBRAL MUSCLES AND INTO THE SACRUM. RESTRICTION OF ROM IN THIS AREA. POINT TENDERNESS OVER LUMBAR SPINOUS PROCESSES.. ASSESSMENTS MYALGIA - M79.1 (PRIMARY) FIBROMYALGIA - M79.7 CHRONICALLY ON OPIATE THERAPY - Z79.899 LUMBAR FACET ARTHROPATHY - M12.88 TREATMENT MYALGIA NOTES: UTOX TODAY .CALL WHEN SCRIPTS DUE,FACET JOINT INJECTION: YOUR EXPERIENCE MATERIAL WAS PRINTED. LUMBAR FACET ARTHROPATHY STOP LYRICA CAPSULE, 50 MG, 1 CAPSULE, ORALLY, Q 8 HOURS MDD=3 START LYRICA CAPSULE, 100 MG, 1 CAPSULE, ORALLY, TWICE A DAY, 30 DAY(S), 60 CAPSULE, REFILLS 2 INJECTION FACET JOINT/NERVE LUMBAR/SACRALROCK MANZANO 08/20/2016 3:22:39 PM > BILATERAL THERAPEUTIC LUMBAR FACETS - L$-5, L5-S1 PROCEDURE CODES FA211 ESTABILISHED PATIENT [facility] FACILITY CHARGE G8730 PAIN ASSESS POS TOOL F/U PLAN DOC G8427 DOC MEDS VERIFIED W/PT OR RE DISPOSITION & COMMUNICATION FOLLOW UP 2 WEEKS AFTER INJECTION (REASON: CHECK AUTH FOR BILATERAL THERAPEUTIC LACET BLOCK L4-5 AND L5-S1) ELECTRONICALLY SIGNED BY ELADIO KRAFT ON 09/08/2016 AT 02:24 PM EDT DISCLAIMER : THIS IS A VISIT SUMMARY EXTRACTED FROM THE [employer] CHART. IT IS NOT A COPY OF THE [employer] PROGRESS NOTE. RHETT
== END ==
LOC: M PAIN 14:20
PROVIDERS: ATTEND Nurse Practitioner Family
DX: M79.1 Myalgia (principal); M12.88 Other specific arthropathies, not elsewhere classified, other specified site; D50.8 Other iron deficiency anemias; J44.9 Chronic obstructive pulmonary disease, unspecified; E78.5 Hyperlipidemia, unspecified; M54.5 Low back pain; G89.29 Other chronic pain; Z79.82 Long term (current) use of aspirin; Z79.891 Long term (current) use of opiate analgesic; Z79.899 Other long term (current) drug therapy; Z88.5 Allergy status to narcotic agent; Z88.2 Allergy status to sulfonamides; Z88.8 Allergy status to other drugs, medicaments and biological substances; Z88.1 Allergy status to other antibiotic agents

== ENCOUNTER → 2016-09-03 | Outpatient (CLI) | payer MEDICARE, MEDICAID ==
[~2016-09-03] MED LIST changes: +BUPIVACAINE HCL 0.25% 30 ML VIAL As Ordered ONE; +ISOVUE-M 300 61% 15ML VIAL (Q9967) As Ordered ONE; +LIDOCAINE 1% SDV INJ 30 ML VIAL As Ordered ONE; +TRIAMCINOLONE ACETONIDE SUSP 40 MG/ML VIAL (J3301) As Ordered ONE; +diazePAM 5 MG TAB As Ordered ONE; +oxyCODONE 5MG TAB As Ordered ONE
--- NOTE | 2016-09-04 09:53 | REP ---
Partial lumbar spine series: Two views. History: Injection procedure for pain. 13 seconds of fluoroscopy time is reported. Findings: A sequence of two fluoroscopically obtained last image hold spot radiographs of the lumbar spine document various needle positions and contrast injections associated with lumbar spine facet injection procedure. Signed by Daniel Horton MD 09/04/2016 12:54 P
--- NOTE | 2016-09-13 23:40 | ECWPNPC ---
PATIENT NAME: STEPHAN DICKINSON : 1955 GENDER: FEMALE VISIT DATE: 09/03/2016 DISCHARGE DATE: 09/03/16 1325 VISIT LOCKED DATE TIME: PHYSICIAN: GIO HERNANDEZ RESOURCE: GIO HERNANDEZ REASON FOR APPOINTMENT 1. ANN FACET BLOCK HISTORY OF PRESENT ILLNESS HISTORY OF PRESENT ILLNESS: PAIN THE PATIENT DESCRIBES THE PAIN... FALL RISK SCREENING: SCREENING :NO FALLS IN THE PAST YEAR CURRENT MEDICATIONS TAKING SYMBICORT 160-4.5 MCG/ACT AEROSOL 2 PUFFS INHALATION TWICE A DAY, NOTES: 82909/03/16 TAKING COMBIVENT RESPIMAT 20-100 MCG/ACT AEROSOL SOLUTION 1 PUFF INHALATION TWICE DAILY, NOTES: 82909/03/16 TAKING VITAMIN D3 1000 UNIT TABLET 2 TABLET ORALLY ONCE A DAY, NOTES: 121909/02/16 TAKING CITALOPRAM HYDROBROMIDE 40 MG TABLET 1 TABLET ORALLY ONCE A DAY, NOTES: 119909/02/16 TAKING LEVOTHYROXINE SODIUM 75 MCG TABLET 1 TABLET ORALLY ONCE A DAY, NOTES: 119909/02/16 TAKING OMEPRAZOLE 20 MG CAPSULE DELAYED RELEASE 1 CAPSULE ORALLY TWICE A DAY, NOTES: 119909/02/16 TAKING THIAMINE HCL 100 MG TABLET 1 TABLET ORALLY ONCE A DAY, NOTES: 119909/02/16 TAKING SIMVASTATIN 40 MG TABLET 1/2 TABLET IN THE EVENING ORALLY ONCE A DAY, NOTES: 119909/02/16 TAKING HYDROCORTISONE 1 % CREAM 1 APPLICATION TO AFFECTED AREA EXTERNALLY TWICE DAILY NEEDED TAKING ALBUTEROL SULFATE HFA 108 (90 BASE) MCG/ACT AEROSOL SOLUTION 2 PUFFS NEEDED INHALATION FOUR TIMES DAILY NEEDED TAKING TESSALON PERLES 100 MG CAPSULE 1 CAPSULE NEEDED FOR COUGH ORALLY THREE TIMES A DAY, NOTES: 119909/02/16 TAKING FERROUS GLUCONATE 240 (27 FE) MG TABLET DIRECTED ORALLY ONCE A DAY, NOTES: 119909/02/16 TAKING GABAPENTIN 100 MG CAPSULE DIRECTED ORALLY THREE TIMES DAILY, NOTES: 219909/02/16 TAKING ASPIR-81 81 MG TABLET DELAYED RELEASE 1 TABLET ORALLY ONCE A DAY, NOTES: 119909/02/16 TAKING OXYCODONE HCL 20 MG TABLET 1 TABLE ORALLY EVERY 8 HRS PRN PAIN MDD=3, NOTES: 232909/02/16 TAKING LYRICA 100 MG CAPSULE 1 CAPSULE ORALLY TWICE A DAY, NOTES: 229909/02/16 NOT-TAKING CYCLOBENZAPRINE HCL 10 MG TABLET 1 TABLET ORALLY AT BEDTIME NEEDED NOT-TAKING BUDESONIDE-FORMOTEROL FUMARATE 160-4.5 MCG/ACT AEROSOL 2 PUFFS INHALATION TWICE A DAY UNKNOWN MIRALAX POWDER ORALLY MEDICATION LIST REVIEWED AND RECONCILED WITH THE PATIENT PAST MEDICAL HISTORY COPD FIBROMYALGIA HYPERLIPIDEMIA HYPERTENSION CHRONIC LOW BACK PAIN - PREVIOUSLY ON OPIATE MEDICATIONS - DC'D DUE TO URINE TOX INCONSISTENCIES ANXIETY AND DEPRESSION HYPOTHYROIDISM FOLLOWS WITH THE [facility] FOR ROUTINE LABS 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 CHEST PAIN ALLERGIES CODEINE PHOSPHATE: NAUSEA/VOMITING: ALLERGY TETRACYCLINE HCL: PT UNSURE: ALLERGY SULFA (FOR ALLERGY USE ONLY): PT UNSURE: ALLERGY NSAIDS: GI BLEED: CONTRAINDICATION EES: RASH: ALLERGY REVIEW OF SYSTEMS CONSTITUTIONAL: ANY CHANGE IN YOUR MEDICAL CONDITION? NO . CHILLS NO . FEVER NO . INFECTION: DO YOU HAVE NEW INFECTIONS? NO . DO YOU HAVE HISTORY OF MRSA? NO . MUSCULOSKELETAL: ANY NEW PATTERNS OF PAIN OR NUMBNESS? NO . GASTROENTEROLOGY: ANY NEW CHANGE IN BOWEL CONTROL? NO . GENITOURINARY: ANY NEW CHANGE IN BLADDER CONTROL? NO . IS THERE A CHANCE YOU COULD BE ? NO . HEMATOLOGY/LYMPH: DO YOU TAKE ANY BLOOD THINNERS? (FOR EXAMPLE- COUMADIN, PLAVIX, AGGRENOX, PLATEL, PRADAXA, OR XARELTO) NO . WHEN WAS YOUR LAST DOSE? DATE: TIME: . NEUROLOGY: HAVE YOU FALLEN IN THE PAST 6 MONTHS? NO . ANY NEW EXTREMITY NUMBNESS OR WEAKNESS? NO . CARDIOLOGY: DO YOU HAVE A PACEMAKER OR DEFIBRILLATOR? NO . RESPIRATORY: HAVE YOU BEEN SICK IN THE PAST WEEK? NO . FEVER NO . FLU LIKE SYMPTOMS? NO . COUGH NO . INTEGUMENTARY: DO YOU HAVE ANY RASHES OR OPEN SORES? NO . ALLERGIC/IMMUNO: ARE YOU ALLERGIC TO SHELLFISH OR IV DYE? NO . ANY NEW ALLERGIES? NO . PSYCHIATRIC: DO YOU HAVE THOUGHTS OF HURTING YOURSELF OR SOMEONE ELSE? NO . ARE YOU ABUSED, NEGLECTED, OR IN AN UNSAFE ENVIRONMENT? NO . ENDOCRINOLOGY: ARE YOU DIABETIC? NO . OTHER: DO YOU NEED ANY PRESCRIPTIONS? NO . IF YES, PLEASE LIST: ____ . ANY NEW PROBLEMS WITH YOUR MEDICATIONS? NO . WHEN DID YOU LAST EAT? LAST NIGHT . WHEN DID YOU LAST DRINK? 0830 AM . WHAT DID YOU LAST DRINK? WATER . NAME OF PERSON DRIVING YOU HOME? ADRIAN . DO YOU HAVE ANY OTHER QUESTIONS OR CONCERNS NO . REVIEWED BY: PROVIDER: . VITAL SIGNS WT 126.6 LBS, HT 5'2 1/2", BMI 22.78 INDEX, BP 163/88 MM HG, HR 88 /MIN, RR 16 /MIN, TEMP 98.4 F, OXYGEN SAT % 94%, NA INITIALS TL 1120, REVIEWED BY: NLBLOOD PRESSURE ELEVATED DUE TO RIDE BEING LATE / WORRIED ON WAY IN TO HERE. ASSESSMENTS SPONDYLOSIS WITHOUT MYELOPATHY OR RADICULOPATHY, LUMBAR REGION - M47.816 (PRIMARY) SPONDYLOSIS WITHOUT MYELOPATHY OR RADICULOPATHY, LUMBOSACRAL REGION - M47.817 PROCEDURES PN LUMBAR FACET BLOCK THERAPEUTIC PRE PROCEDURE DIAGNOSIS LUMBAR SPONDYLOSIS, LUMBOSACRAL SPONDYLOSIS POST PROCEDURE DIAGNOSIS LUMBAR SPONDYLOSIS, LUMBOSACRAL SPONDYLOSIS PROCEDURE BILATERAL L4-L5 AND BILATERAL L5-S1 LUMBAR FACET THERAPEUTIC BLOCK SURGEON DR. GIO HERNANDEZ ARMATURE WINDER REPAIR HELPER NONE ANESTHESIA LOCAL PRE PROCEDURE NOTE THE PATIENT HAS A HISTORY OF CHRONIC LOW BACK PAIN. I EVALUATE THE PATIENT AND REVIEWED THE CHART. I WENT OVER THE RISKS, ALTERNATIVES, AND BENEFITS ASSOCIATED WITH THIS PROCEDURE. THE PATIENT WOULD LIKE TO PROCEED AND GIVE CONSENT TO PERFORMED THE PROCEDURE. THE PATIENT DENIES UNEXPLAINABLE WEIGHT LOSS, FEVER, CHILLS, OR NEW CHANGES IN URINARY OR BOWEL CONTROL DESCRIPTION OF PROCEDURE THE PATIENT WAS BROUGHT TO THE PROCEDURE ROOM AND PLACED IN THE PRONE POSITION. THE LUMBOSACRAL AREA WAS CLEANED WITH CHLORAPREP SOLUTION AND DRAPED ASEPTICALLY. THE PROCEDURE WAS DONE UNDER STERILE CONDITIONS. I CHECKED LATERALITY AND THE LEVEL WHERE THE PROCEDURE WAS GOING TO BE PERFORMED WITH THE PATIENT AND THE SUPPORTING STAFF AT THE MOMENT OF THE TIME OUT IN THE PROCEDURE ROOM. UNDER FLUOROSCOPIC GUIDANCE, THE TARGET POINT WAS SELECTED AT THE RIGHT AND LEFT L4-L5 AND RIGHT AND LEFT L5-S1 FACET JOINT. TARGET POINT WAS SELECTED AFTER LATERAL ROTATION AND TILT OF THE MAGNIFIER OF THE C-ARM. LIDOCAINE 0.5% WAS USED TO NUMB THE SKIN AND THE SUBCUTANEOUS TISSUE BELOW IT. SPINAL NEEDLES, 22-GAUGE, WERE ADVANCED UNDER FLUOROSCOPIC GUIDANCE AND FOLLOWING PATIENT FEEDBACK UNTIL THE TARGETS WERE TOUCHED. THE POSITION OF THE NEEDLES WAS VERIFIED WITH AP AND LATERAL VIEWS. AFTER PROPER POSITION OF THE NEEDLES WAS ACHIEVED, ISOVUE-M DYE 30% 0.1 ML WAS INJECTED SHOWING ADEQUATE SPREAD OF THE DYE. THEN A SOLUTION OF 1.9 ML OF BUPIVACAINE 0.125% OF KENALOG 10 MG WAS INJECTED AT EACH SITE. THERE WAS NO EVIDENCE OF BLOOD, PARESTHESIA OR CEREBROSPINAL FLUID DURING THE PROCEDURE. THE PATIENT WAS SENT TO THE RECOVERY ROOM. THE PATIENT WAS MOVING THE EXTREMITIES AND DOING WELL. THERE WAS NO COMPLICATION DURING THE PROCEDURE. FLUOROSCOPY TIME WAS 13 SECONDS POST PROCEDURE NOTE THE PATIENT WILL BE SEEN IN A FOLLOW UP IN THE NEXT FEW WEEKS. INSTRUCTIONS WERE GIVEN, QUESTIONS WERE ANSWERED, AND THE PATIENT EXPRESSED UNDERSTANDING AND AGREES WITH THE PLAN. I, MI GARCIAS, DOCUMENTED THE ABOVE INFORMATION ACTING A SCRIBE FOR DR. HERNANDEZ. I HAVE REVIEWED THE ABOVE DOCUMENT, WRITTEN BY MI GARCIAS SCRIBE AND I VERIFY THAT IT IS [facility] FACET BLOCK (PAIN)[id number] PROCEDURE CODES 81315 INJ PARAVERT F JNT L/S 1 LEV 35045 INJ PARAVERT F JNT L/S 2 LEV 6045F RADXPS IN END [id number] PXD DISPOSITION & COMMUNICATION FOLLOW UP 3 WEEKS ELECTRONICALLY SIGNED BY GIO HERNANDEZ MD ON 09/13/2016 AT 06:49 PM EDT DISCLAIMER : THIS IS A VISIT SUMMARY EXTRACTED FROM THE [employer] CHART. IT IS NOT A COPY OF THE [employer] PROGRESS NOTE. MTDD
== END ==
LOC: M PAIN 11:00
PROVIDERS: ATTEND Anesthesiology
DX: G89.29 Other chronic pain (principal); M47.816 Spondylosis without myelopathy or radiculopathy, lumbar region; M47.817 Spondylosis without myelopathy or radiculopathy, lumbosacral region; J44.9 Chronic obstructive pulmonary disease, unspecified; M79.7 Fibromyalgia; E78.5 Hyperlipidemia, unspecified; I10 Essential (primary) hypertension; F41.9 Anxiety disorder, unspecified; F32.9 Major depressive disorder, single episode, unspecified; E03.9 Hypothyroidism, unspecified; Z88.5 Allergy status to narcotic agent; Z88.1 Allergy status to other antibiotic agents; Z88.2 Allergy status to sulfonamides; Z88.6 Allergy status to analgesic agent; Z79.82 Long term (current) use of aspirin; Z79.891 Long term (current) use of opiate analgesic; Z79.899 Other long term (current) drug therapy
CPT/HCPCS: 64493; 64494; J3301; Q9967

== ENCOUNTER → 2016-10-06 | Outpatient (CLI) | payer MEDICARE, MEDICAID ==
[~2016-10-06] MED LIST changes: -BUPIVACAINE HCL 0.25% 30 ML VIAL As Ordered ONE; -ISOVUE-M 300 61% 15ML VIAL (Q9967) As Ordered ONE; -LIDOCAINE 1% SDV INJ 30 ML VIAL As Ordered ONE; -TRIAMCINOLONE ACETONIDE SUSP 40 MG/ML VIAL (J3301) As Ordered ONE; -diazePAM 5 MG TAB As Ordered ONE; -oxyCODONE 5MG TAB As Ordered ONE
[2016-10-06 18:30] LABS: ALBUMIN 2.9 GM/DL (3.2-5.2); ALBUMIN/GLOBULIN RATIO 0.73 (1.00-1.93); ALKALINE PHOSPHATASE 118 U/L (45-117); ALT/SGPT 42 U/L (12-78); ANION GAP 10 MEQ/L (8-16); AST/SGOT 67 U/L (15-37); BILIRUBIN,TOTAL 0.2 MG/DL (0.2-1.0); BLOOD UREA NITROGEN 7 MG/DL (7-18); CALCIUM LEVEL 8.5 MG/DL (8.8-10.2); CARBON DIOXIDE LEVEL 24 MEQ/L (21-32); CHLORIDE LEVEL 103 MEQ/L (98-107); CREATININE FOR GFR 0.62 MG/DL (0.55-1.02); FERRITIN 113 NG/ML (8-252); GLOMERULAR FILTRATION RATE > 60.0 (>45); GLUCOSE, FASTING 108 MG/DL (80-110); PERCENT SATURATION 19.5 % (13.2-37.4); SODIUM LEVEL 137 MEQ/L (136-145); TOTAL IRON BINDING CAPACITY 277 UG/DL (250-450); TOTAL PROTEIN 6.9 GM/DL (6.4-8.2)
[2016-10-06 19:28] LABS: MEAN CORPUSCULAR HEMOGLOBIN 31.4 pg (27.0-33.0); MEAN CORPUSCULAR HGB CONC 32.7 g/dl (32.0-36.5); MEAN CORPUSCULAR VOLUME 96.2 fl (80.0-96.0); RED CELL DISTRIBUTION WIDTH 12.4 % (11.5-14.5); WHITE BLOOD COUNT 6.5 K/mm3 (4.0-10.0)
[2016-10-06 19:29] LABS: INR 0.97
== END ==
LOC: M WUC 13:27
PROVIDERS: ATTEND Student in an Organized Health Care Education/Training Program
DX: Z87.19 Personal history of other diseases of the digestive system (principal); K76.89 Other specified diseases of liver; M35.3 Polymyalgia rheumatica

== ENCOUNTER → 2016-10-13 | Outpatient (CLI) | payer MEDICARE, MEDICAID | LOC: M WUC 16:05 | PROVIDERS: ATTEND Internal Medicine Cardiovascular Disease | DX: M79.1 Myalgia (principal); E03.9 Hypothyroidism, unspecified ==

== ENCOUNTER → 2016-10-14 | Outpatient (CLI) | payer MEDICARE, MEDICAID ==
[~2016-10-14] MED LIST changes: +COMBAER6 PO; -FOLI1TAB2 PO; +FOLI1TAB4 PO; +HYDR-3363 PO; -HYDR25T PO; -LYRI100C10 PO; -NAPR500T2 PO; +NAPR500T3 PO; +NUCY100T11 PO; +OXYC10TA12 PO; +OXYC1TAB23 PO; +PREG100CA PO; -PROA1AER IN; +PROAAER10 IN; +PROAAER10 PO; -THIA100T PO; +THIA100T6 PO; +TRAZ-136 PO; -TRAZ100T4 PO
--- NOTE | 2016-11-04 01:18 | ECWPNPC ---
PATIENT NAME: STEPHAN DICKINSON : 1955 GENDER: FEMALE VISIT DATE: 10/14/2016 DISCHARGE DATE: 10/14/16 1533 VISIT LOCKED DATE TIME: PHYSICIAN: ROCK MANZANO RESOURCE: ROCK MANZANO REASON FOR APPOINTMENT 1. CHRONIC PAIN HISTORY OF PRESENT ILLNESS HISTORY OF PRESENT ILLNESS: PAIN THE PATIENT DESCRIBES THE PAIN... FALL RISK SCREENING: SCREENING :NO FALLS IN THE PAST YEAR TODAY'S VISIT: NOTES: S/P BILATERAL THERAPEUTIC FACET BLOCK COMPLETED ON 09/13/16 WITH NEAR COMPETE RELIEF OF LOW BACK PAIN. IS NOW EXPERIENCING PAIN ACROSS SHOULDER BLADES AND AT LEFT SHOULD. HAS DIFFICULTY WITH ANY MOVEMENT AT LEFT SHOULDER. IS NOTING PAIN IN POSTERIOR THIGHS.. CURRENT MEDICATIONS TAKING SYMBICORT 160-4.5 MCG/ACT AEROSOL 2 PUFFS INHALATION TWICE A DAY, NOTES: 82909/03/16 TAKING COMBIVENT RESPIMAT 20-100 MCG/ACT AEROSOL SOLUTION 1 PUFF INHALATION TWICE DAILY, NOTES: 82909/03/16 TAKING VITAMIN D3 1000 UNIT TABLET 2 TABLET ORALLY ONCE A DAY, NOTES: 12209/02/16 TAKING CITALOPRAM HYDROBROMIDE 40 MG TABLET 1 TABLET ORALLY ONCE A DAY, NOTES: 119909/02/16 TAKING LEVOTHYROXINE SODIUM 75 MCG TABLET 1 TABLET ORALLY ONCE A DAY, NOTES: 119909/02/16 TAKING OMEPRAZOLE 20 MG CAPSULE DELAYED RELEASE 1 CAPSULE ORALLY TWICE A DAY, NOTES: 119909/02/16 TAKING THIAMINE HCL 100 MG TABLET 1 TABLET ORALLY ONCE A DAY, NOTES: 119909/02/16 TAKING SIMVASTATIN 40 MG TABLET 1/2 TABLET IN THE EVENING ORALLY ONCE A DAY TAKING HYDROCORTISONE 1 % CREAM 1 APPLICATION TO AFFECTED AREA EXTERNALLY TWICE DAILY NEEDED TAKING ALBUTEROL SULFATE HFA 108 (90 BASE) MCG/ACT AEROSOL SOLUTION 2 PUFFS NEEDED INHALATION FOUR TIMES DAILY NEEDED TAKING TESSALON PERLES 100 MG CAPSULE 1 CAPSULE NEEDED FOR COUGH ORALLY THREE TIMES A DAY TAKING FERROUS GLUCONATE 240 (27 FE) MG TABLET DIRECTED ORALLY ONCE A DAY TAKING MUCINEX 600 MG TABLET EXTENDED RELEASE 12 HOUR 1 TABLET NEEDED ORALLY EVERY 12 HRS TAKING ASPIR-81 81 MG TABLET DELAYED RELEASE 1 TABLET ORALLY ONCE A DAY TAKING LYRICA 100 MG CAPSULE 1 CAPSULE ORALLY TWICE A DAY TAKING GABAPENTIN 100 MG CAPSULE DIRECTED ORALLY THREE TIMES DAILY TAKING OXYCODONE HCL 20 MG TABLET 1 TABLE ORALLY EVERY 8 HRS PRN PAIN MDD=3 NOT-TAKING CYCLOBENZAPRINE HCL 10 MG TABLET 1 TABLET ORALLY AT BEDTIME NEEDED NOT-TAKING BUDESONIDE-FORMOTEROL FUMARATE 160-4.5 MCG/ACT AEROSOL 2 PUFFS INHALATION TWICE A DAY UNKNOWN MIRALAX POWDER ORALLY MEDICATION LIST REVIEWED AND RECONCILED WITH THE PATIENT PAST MEDICAL HISTORY COPD FIBROMYALGIA HYPERLIPIDEMIA HYPERTENSION CHRONIC LOW BACK PAIN - PREVIOUSLY ON OPIATE MEDICATIONS - DC'D DUE TO URINE TOX INCONSISTENCIES ANXIETY AND DEPRESSION HYPOTHYROIDISM FOLLOWS WITH THE [facility] FOR ROUTINE LABS AND YEARLY ROLL SCALE MAN EXAMS. CHEST PAIN GERD ALLERGIES CODEINE PHOSPHATE: NAUSEA/VOMITING: ALLERGY TETRACYCLINE HCL: PT UNSURE: ALLERGY SULFA (FOR ALLERGY USE ONLY): PT UNSURE: ALLERGY NSAIDS: GI BLEED: CONTRAINDICATION SOCIAL HISTORY GENERAL: TOBACCO USE ARE YOU A:CURRENT SMOKER HOW MANY CIGARETTES A DAY DO YOU SMOKE?- HOW SOON AFTER YOU WAKE UP DO YOU SMOKE YOUR FIRST CIGARETTE?31-60 MIN HOW OFTEN DO YOU SMOKE CIGARETTES?EVERY DAY PATIENT COUNSELED ON THE DANGERS OF TOBACCO USE AND URGED TO QUIT:02/28/2016 ARE YOU INTERESTED IN QUITTING?THINKING ABOUT QUITTING COUNSELED THE PATIENT ON SMOKING CESSATION, EDUCATION [id number]/03/2016 SMOKING CESSATION INFORMATION GIVEN10/14/2016 ALCOHOL SCREENING DID YOU HAVE A DRINK CONTAINING ALCOHOL IN THE PAST YEAR?YES HOW OFTEN DID YOU HAVE SIX OR MORE DRINKS ON ONE OCCASION IN THE PAST YEAR?MONTHLY (2 POINTS) HOW MANY DRINKS DID YOU HAVE ON A TYPICAL DAY WHEN YOU WERE DRINKING IN THE PAST YEAR?3 OR 4 (1 POINT) HOW OFTEN DID YOU HAVE A DRINK CONTAINING ALCOHOL IN THE PAST YEAR?FOUR OR MORE TIMES A WEEK (4 POINTS) POINTS7 INTERPRETATIONPOSITIVE RECREATIONAL DRUG USE DRUG USE?NO OCCUPATION: DISABLED. LEARNING BARRIERS / SPECIAL NEEDS BARRIERS TO LEARNING?NO HEARING IMPAIRED?NO VISION IMPAIRED?YES COGNITIVELY IMPAIRED?NO :CORRECTIVE LENSES READINESS TO LEARN?YES LEARNING PREFERENCES?YES :DEMONSTRATION/VERBAL INSTRUCTION LEARNING CAPABILITIES PRESENT?YES EMOTIONAL BARRIERS?NO PAIN CLINIC PFS, CLERGY, PUBLIC HEALTH REFERRALS PFS REFERRAL NEEDED? NO , CLERGY REFERRAL NEEDED? NO , PUBLIC HEALTH REFERRAL NEEDED? NO , WAS THE PATIENT NOTIFIED OF ANY PERTINENT INFO? NO . ADVANCE DIRECTIVES HEALTH CARE PROXY?YES NAME OF HCP [facility] CONTACT # FOR HCP [phone] DO YOU HAVE A COPY WITH YOU?NO POWER OF OPTICAL DISPENSER?NO REVIEW OF SYSTEMS REVIEWED BY: PROVIDER: ROCK GALVAN . CONSTITUTIONAL: ANY CHANGE IN YOUR MEDICAL CONDITION? NO . PATIENT DENIES USE OF ANY ALCOHOL SINCE LAST VISIT . CHILLS NO . FEVER NO . INFECTION: DO YOU HAVE NEW INFECTIONS? NO . DO YOU HAVE HISTORY OF MRSA? NO . MUSCULOSKELETAL: ANY NEW PATTERNS OF PAIN OR NUMBNESS? NO . GASTROENTEROLOGY: ANY NEW CHANGE IN BOWEL CONTROL? NO . GENITOURINARY: ANY NEW CHANGE IN BLADDER CONTROL? NO . IS THERE A CHANCE YOU COULD BE ? NO . HEMATOLOGY/LYMPH: DO YOU TAKE ANY BLOOD THINNERS? (FOR EXAMPLE- COUMADIN, PLAVIX, AGGRENOX, PLATEL, PRADAXA, OR XARELTO) NO . WHEN WAS YOUR LAST DOSE? DATE: TIME: . NEUROLOGY: HAVE YOU FALLEN IN THE PAST 6 MONTHS? NO . ANY NEW EXTREMITY NUMBNESS OR WEAKNESS? NO . CARDIOLOGY: DO YOU HAVE A PACEMAKER OR DEFIBRILLATOR? NO . RESPIRATORY: HAVE YOU BEEN SICK IN THE PAST WEEK? NO . FEVER NO . FLU LIKE SYMPTOMS? NO . COUGH NO . INTEGUMENTARY: DO YOU HAVE ANY RASHES OR OPEN SORES? NO . ALLERGIC/IMMUNO: ARE YOU ALLERGIC TO SHELLFISH OR IV DYE? NO . ANY NEW ALLERGIES? NO . PSYCHIATRIC: DO YOU HAVE THOUGHTS OF HURTING YOURSELF OR SOMEONE ELSE? NO . ARE YOU ABUSED, NEGLECTED, OR IN AN UNSAFE ENVIRONMENT? NO . ENDOCRINOLOGY: ARE YOU DIABETIC? NO . OTHER: DO YOU NEED ANY PRESCRIPTIONS? NO . IF YES, PLEASE LIST: ____ . ANY NEW PROBLEMS WITH YOUR MEDICATIONS? NO . WHEN DID YOU LAST EAT? ____ . WHEN DID YOU LAST DRINK? ____ . WHAT DID YOU LAST DRINK? ____ . NAME OF PERSON DRIVING YOU HOME? ____ . DO YOU HAVE ANY OTHER QUESTIONS OR CONCERNS NO . VITAL SIGNS WT 124.2 LBS, HT 5'2 1/2", BMI 22.35 INDEX, BP 137/84 MM HG, HR 90 /MIN, RR 18 /MIN, TEMP 97.5 F, OXYGEN SAT % 94%, NA INITIALS SC 14:51, REVIEWED BY: KG. EXAMINATION GENERAL EXAMINATION: PSYCHALERT , ORIENTED X 3 , TEARFUL. LUNGS:CLEAR TO AUSCULTATION BILATERALLY. HEART:HEART RATE REGULAR. ABDOMEN:SOFT, BOWEL SOUNDS PRESENT, TENDER LEFT LOWER QUADRANT. MUSCULOSKELETAL:MUSCLE STRENGTH TESTING 5/5 BILATERAL UPPER AND LOWER EXTREMITIES, TRIGGER POINTS:, ELICITED WITH PALPATION OVER LUMBAR PARAVERTEBRAL MUSCLES AND INTO THE SACRUM. TRIGGER POINTS ALSO IDENTIFIED OVER BILATERAL TRAPEZIUS MUSCLES. RESTRICTION OF NECK FLEXION, EXTENSIONS AND ROTATION NOTED RESTRICTION OF ROM IN THIS AREA. NO TENDERNESS OVER LUMBAR SPINOUS PROCESSES.. ASSESSMENTS FACET ARTHROPATHY, CERVICAL - M12.88 (PRIMARY) FIBROMYALGIA - M79.7 MYALGIA - M79.1 CHRONICALLY ON OPIATE THERAPY - Z79.899 LUMBAR FACET ARTHROPATHY - M12.88 TREATMENT FACET ARTHROPATHY, CERVICAL START NUCYNTA TABLET, 75 MG, 1 TABLET, ORALLY, EVERY 6- 8 HRS PRN PAIN MDD=3, 30 DAY(S), 90, REFILLS 0 CERVICAL FACET JOINT ROCK CORTEZ 10/14/2016 3:12:41 PM > NEEDS ORAL OR IV SEDATION ROCK MANZANO 10/14/2016 3:12:41 PM > NEEDS ORAL OR IV SEDATION ROCK MANZANO 10/14/2016 3:16:36 PM > BILATERAL THERAPEUTIC NOTES: ONCE NUCYNTA COMES STOP OXYCODONE. CLINICAL NOTES: ISTOP REGISTRY REVIEWED AND DEMNOSTRATES COMPLLIANCE. BRINGS IN MEDICATIONS WHICH IS APPROPRIATE FOR WHAT WAS DISPENSED. RECENT URINE TOXICOLOGY REVIEWED. NO UNAUTHORIZED MEDICATIONS. NO ILLICIT SUBSTANCES AND PRESCRIBED MEDICATIONS WERE PRESENT. LUMBAR FACET ARTHROPATHY REFILL LYRICA CAPSULE, 100 MG, 1 CAPSULE, ORALLY, TWICE A DAY, 30 DAY(S), 60 CAPSULE, REFILLS 2 PROCEDURE CODES FA211 ESTABILISHED PATIENT [facility] FACILITY CHARGE G8730 PAIN ASSESS POS TOOL F/U PLAN DOC G8427 DOC MEDS VERIFIED W/PT OR RE DISPOSITION & COMMUNICATION FOLLOW UP 26-28 DAYS FOR MEDS (REASON: CHECK AUTH FOR BILATERAL CERVICAL FACET BLOCK WITH SEDATION) ELECTRONICALLY SIGNED BY ELADIO KRAFT ON 11/03/2016 AT 08:25 AM EDT DISCLAIMER : THIS IS A VISIT SUMMARY EXTRACTED FROM THE [employer] CHART. IT IS NOT A COPY OF THE [employer] PROGRESS NOTE. RHETT
== END ==
LOC: M PAIN 14:40
PROVIDERS: ATTEND Nurse Practitioner Family
DX: M12.88 Other specific arthropathies, not elsewhere classified, other specified site (principal); M79.7 Fibromyalgia; G89.29 Other chronic pain; Z79.899 Other long term (current) drug therapy; Z79.891 Long term (current) use of opiate analgesic; Z79.82 Long term (current) use of aspirin; F17.210 Nicotine dependence, cigarettes, uncomplicated; Z88.5 Allergy status to narcotic agent; Z88.2 Allergy status to sulfonamides; Z88.8 Allergy status to other drugs, medicaments and biological substances

== ENCOUNTER → 2016-11-27 | Outpatient (CLI) | payer MEDICARE, MEDICAID ==
[~2016-11-27] MED LIST changes: +BUPIVACAINE HCL 0.25% 30 ML VIAL As Ordered ONE; +ISOVUE-M 300 61% 15ML VIAL (Q9967) As Ordered ONE; +LIDOCAINE 1% SDV INJ 30 ML VIAL As Ordered ONE; +MIDAZOLAM INJ 2 MG/2 ML VIAL (J2250) As Ordered ONE; +TRIAMCINOLONE ACETONIDE SUSP 40 MG/ML VIAL (J3301) As Ordered ONE; +fentaNYL 100 MCG/2 ML INJECTION (J3010) As Ordered ONE
--- NOTE | 2016-11-27 17:46 | REP ---
FACET BLOCK: The images were reviewed with Dr. Burris. The patient has a history of neck pain. The portable C-Arm was provided in the OR for Dr. Reid for fluoroscopic guidance. Two intraoperative fluoroscopic spot films were obtained for needle placement verification for bilateral cervical facet injection. The films are on the PACs system and are available for review. 7 seconds of fluoroscopy time was utilized for this procedure. Reviewed by GENESIS Cintron 11/27/2016 05:48 PEdited and Signed by Garrett Burris MD 11/27/2016 06:51 P
--- NOTE | 2016-12-15 00:05 | ECWPNPC ---
PATIENT NAME: STEPHAN DICKINSON : 1955 GENDER: FEMALE VISIT DATE: 11/27/2016 DISCHARGE DATE: 11/27/16 1643 VISIT LOCKED DATE TIME: PHYSICIAN: GIO HERNANDEZ RESOURCE: GIO HERNANDEZ REASON FOR APPOINTMENT 1. BILATERAL CERVICAL FACET BLOCK WITH SEDATION HISTORY OF PRESENT ILLNESS HISTORY OF PRESENT ILLNESS: PAIN THE PATIENT DESCRIBES THE PAIN... FALL RISK SCREENING: SCREENING :NO FALLS IN THE PAST YEAR CURRENT MEDICATIONS TAKING SYMBICORT 160-4.5 MCG/ACT AEROSOL 2 PUFFS INHALATION TWICE A DAY, NOTES: 11/27/16 1000 TAKING COMBIVENT RESPIMAT 20-100 MCG/ACT AEROSOL SOLUTION 1 PUFF INHALATION TWICE DAILY, NOTES: 11/27/16 1000 TAKING VITAMIN D3 1000 UNIT TABLET 2 TABLET ORALLY ONCE A DAY, NOTES: 11/26/16 1400 TAKING CITALOPRAM HYDROBROMIDE 40 MG TABLET 1 TABLET ORALLY ONCE A DAY, NOTES: 11/26/16 TAKING LEVOTHYROXINE SODIUM 75 MCG TABLET 1 TABLET ORALLY ONCE A DAY, NOTES: 11/26/16 TAKING OMEPRAZOLE 20 MG CAPSULE DELAYED RELEASE 1 CAPSULE ORALLY TWICE A DAY, NOTES: 11/26/16 1400 TAKING THIAMINE HCL 100 MG TABLET 1 TABLET ORALLY ONCE A DAY, NOTES: 11/26/16 1400 TAKING SIMVASTATIN 40 MG TABLET 1/2 TABLET IN THE EVENING ORALLY ONCE A DAY, NOTES: 11/26/16 1400 TAKING HYDROCORTISONE 1 % CREAM 1 APPLICATION TO AFFECTED AREA EXTERNALLY TWICE DAILY NEEDED, NOTES: 11/26/16 1400 TAKING ALBUTEROL SULFATE HFA 108 (90 BASE) MCG/ACT AEROSOL SOLUTION 2 PUFFS NEEDED INHALATION FOUR TIMES DAILY NEEDED, NOTES: NOT IN A WHILE TAKING FERROUS GLUCONATE 240 (27 FE) MG TABLET DIRECTED ORALLY ONCE A DAY, NOTES: 11/26/16 1400 TAKING ASPIR-81 81 MG TABLET DELAYED RELEASE 1 TABLET ORALLY ONCE A DAY, NOTES: 11/26/16 1400 TAKING GABAPENTIN 100 MG CAPSULE DIRECTED ORALLY THREE TIMES DAILY, NOTES: 11/26/162299 TAKING LYRICA 100 MG CAPSULE 1 CAPSULE ORALLY TWICE A DAY, NOTES: 11/26/162299 TAKING NUCYNTA ER 100 MG TABLET EXTENDED RELEASE 12 HOUR 1 TABLET ORALLY EVERY 12 HRS CHRONIC PAIN MDD=2, NOTES: 11/26/162299 NOT-TAKING TESSALON PERLES 100 MG CAPSULE 1 CAPSULE NEEDED FOR COUGH ORALLY THREE TIMES A DAY NOT-TAKING MUCINEX 600 MG TABLET EXTENDED RELEASE 12 HOUR 1 TABLET NEEDED ORALLY EVERY 12 HRS NOT-TAKING OXYCODONE HCL 20 MG TABLET 1 TABLE ORALLY EVERY 8 HRS PRN PAIN MDD=3 NOT-TAKING NUCYNTA 75 MG TABLET 1 TABLET ORALLY EVERY 6- 8 HRS PRN PAIN MDD=3 NOT-TAKING CYCLOBENZAPRINE HCL 10 MG TABLET 1 TABLET ORALLY AT BEDTIME NEEDED NOT-TAKING BUDESONIDE-FORMOTEROL FUMARATE 160-4.5 MCG/ACT AEROSOL 2 PUFFS INHALATION TWICE A DAY UNKNOWN MIRALAX POWDER ORALLY MEDICATION LIST REVIEWED AND RECONCILED WITH THE PATIENT PAST MEDICAL HISTORY COPD FIBROMYALGIA HYPERLIPIDEMIA HYPERTENSION CHRONIC LOW BACK PAIN - PREVIOUSLY ON OPIATE MEDICATIONS - DC'D DUE TO URINE TOX INCONSISTENCIES ANXIETY AND DEPRESSION HYPOTHYROIDISM FOLLOWS WITH THE [facility] FOR ROUTINE LABS AND YEARLY HEALTH SERVICES COORDINATOR EXAMS. CHEST PAIN GERD ALLERGIES CODEINE PHOSPHATE: NAUSEA/VOMITING: ALLERGY TETRACYCLINE HCL: PT UNSURE: ALLERGY SULFA (FOR ALLERGY USE ONLY): PT UNSURE: ALLERGY NSAIDS: GI BLEED: CONTRAINDICATION SURGICAL HISTORY GALL BLADDER KIDNEY STONE HYSTERECTOMY CARPAL TUNNEL RELEASE X2 KNEE SURGERY X 4 TONSILLECTOMY LEFT FOOT BUNIONECTOMY, BRIT IN TOES 2016 CARDIAC CATH 04/2016 HOSPITALIZATION/MAJOR DIAGNOSTIC PROCEDURE SURGERY CHILDBIRTH X3 ANEMIA 02/18/2016 CHEST PAIN 04/2016 REVIEW OF SYSTEMS REVIEWED BY: PROVIDER: . CONSTITUTIONAL: ANY CHANGE IN YOUR MEDICAL CONDITION? NO . CHILLS NO . FEVER NO . INFECTION: DO YOU HAVE NEW INFECTIONS? NO . DO YOU HAVE HISTORY OF MRSA? NO . MUSCULOSKELETAL: ANY NEW PATTERNS OF PAIN OR NUMBNESS? YES, PAIN HAS WORSENED . GASTROENTEROLOGY: ANY NEW CHANGE IN BOWEL CONTROL? NO . GENITOURINARY: ANY NEW CHANGE IN BLADDER CONTROL? NO . IS THERE A CHANCE YOU COULD BE ? NO . HEMATOLOGY/LYMPH: DO YOU TAKE ANY BLOOD THINNERS? (FOR EXAMPLE- COUMADIN, PLAVIX, AGGRENOX, PLATEL, PRADAXA, OR XARELTO) NO . WHEN WAS YOUR LAST DOSE? DATE: TIME: . NEUROLOGY: HAVE YOU FALLEN IN THE PAST 6 MONTHS? NO . ANY NEW EXTREMITY NUMBNESS OR WEAKNESS? NO . CARDIOLOGY: DO YOU HAVE A PACEMAKER OR DEFIBRILLATOR? NO . RESPIRATORY: HAVE YOU BEEN SICK IN THE PAST WEEK? NO . FEVER NO . FLU LIKE SYMPTOMS? NO . COUGH NO . INTEGUMENTARY: DO YOU HAVE ANY RASHES OR OPEN SORES? NO . ALLERGIC/IMMUNO: ARE YOU ALLERGIC TO SHELLFISH OR IV DYE? NO . ANY NEW ALLERGIES? NO . PSYCHIATRIC: DO YOU HAVE THOUGHTS OF HURTING YOURSELF OR SOMEONE ELSE? NO . ARE YOU ABUSED, NEGLECTED, OR IN AN UNSAFE ENVIRONMENT? NO . ENDOCRINOLOGY: ARE YOU DIABETIC? NO . OTHER: DO YOU NEED ANY PRESCRIPTIONS? NO . IF YES, PLEASE LIST: ____ . ANY NEW PROBLEMS WITH YOUR MEDICATIONS? NO . WHEN DID YOU LAST EAT? 11/26/162344 . WHEN DID YOU LAST DRINK? 11/26/162344 . WHAT DID YOU LAST DRINK? TEA . NAME OF PERSON DRIVING YOU HOME? [facility] . DO YOU HAVE ANY OTHER QUESTIONS OR CONCERNS NO . VITAL SIGNS WT 118.8 LBS, HT 5'2 1/2", BMI 21.38 INDEX, BP 151/86 MM HG, HR 71 /MIN, RR 18 /MIN, TEMP 98.1 F, OXYGEN SAT % 96, NA INITIALS MP 1212. ASSESSMENTS SPONDYLOSIS WITHOUT MYELOPATHY OR RADICULOPATHY, CERVICAL REGION - M47.812 (PRIMARY) PROCEDURES PN CERVICAL FACET BLOCK LOW BILATERAL CERVICAL PRE PROCEDURE DIAGNOSIS CERVICAL SPONDYLOSIS POST PROCEDURE DIAGNOSIS CERVICAL SPONDYLOSIS PROCEDURE BILATERAL C4-C5 AND BILATERAL C5-C6 CERVICAL FACET BLOCK SURGEON DR. GIO HERNANDEZ DRY END TESTER NONE ANESTHESIA LOCAL WITH IV SEDATION PRE PROCEDURE NOTE THE PATIENT HAS HISTORY OF CHRONIC CERVICAL PAIN. I EVALUATE THE PATIENT AND REVIEWED THE CHART. I WENT OVER THE RISKS, ALTERNATIVES, AND BENEFITS ASSOCIATED WITH THIS PROCEDURE. PATIENT WOULD LIKE TO MOVE FORWARD WITH IV SEDATION DUE TO DISCOMFORT, PAIN AND ANXIETY ASSOCIATED WITH THE PROCEDURE. THE PATIENT WOULD LIKE TO PROCEED AND GIVE CONSENT TO PERFORMED THE PROCEDURE. THE PATIENT DENIES UNEXPLAINABLE WEIGHT LOSS, FEVER, CHILLS, OR NEW CHANGES IN URINARY OR BOWEL CONTROL. DESCRIPTION OF PROCEDURE THE PATIENT WAS BROUGHT TO THE PROCEDURE ROOM AND PLACED IN THE PRONE POSITION. THE CERVICOTHORACIC AREA WAS CLEANED WITH CHLORAPREP SOLUTION AND DRAPED ASEPTICALLY. THE PROCEDURE WAS DONE UNDER STERILE CONDITIONS. I CHECKED LATERALITY AND THE LEVEL WHERE THE PROCEDURE WAS GOING TO BE PERFORMED WITH THE PATIENT AND THE SUPPORTING STAFF AT THE MOMENT OF THE TIME OUT IN THE PROCEDURE ROOM. UNDER FLUOROSCOPIC GUIDANCE, TARGET POINT WAS SELECTED AT THE RIGHT AND LEFT C4-C5 AND RIGHT AND LEFT C5-C6 CERVICAL FACET JOINT. TARGET POINTS WERE SELECTED AFTER LATERAL ROTATION AND TILT OF THE MAGNIFIER OF THE C-ARM. LIDOCAINE 0.5% WAS USED TO NUMB THE SKIN AND THE SUBCUTANEOUS TISSUE BELOW IT. SPINAL NEEDLES, 22-GAUGE, WERE ADVANCED UNDER FLUOROSCOPIC GUIDANCE AND FOLLOWING PATIENT FEEDBACK UNTIL THE TARGETS WERE TOUCHED. THE POSITION OF THE NEEDLES WAS VERIFIED WITH AP AND LATERAL VIEWS. AFTER PROPER POSITION OF THE NEEDLES WAS ACHIEVED, ISOVUE M DYE 30, 0.1 ML WAS INJECTED SHOWING SPREAD OF THE DYE. THEN A SOLUTION OF 0.9 ML OF BUPIVACAINE 0.125% AND KENALOG 10 MG WAS INJECTED AT EACH SITE. PATIENT RECEIVED VERSED 2 MG AND FENTANYL 100 MCG IV DIVIDED DOSES THERE WAS NO EVIDENCE OF BLOOD, PARESTHESIA OR CEREBROSPINAL FLUID DURING THE PROCEDURE. THE PATIENT WAS SENT TO THE RECOVERY ROOM. THE PATIENT WAS MOVING THE EXTREMITIES AND DOING WELL. THERE WAS NO COMPLICATION DURING THE PROCEDURE. FLUOROSCOPY TIME WAS 7 SECONDS. FACE TO FACE TIME WAS 14 MINUTES. POST PROCEDURE NOTE THE PATIENT WILL BE SEEN IN A FOLLOW UP IN THE NEXT FEW WEEKS. INSTRUCTIONS WERE GIVEN, QUESTIONS WERE ANSWERED, AND THE PATIENT EXPRESSED UNDERSTANDING AND AGREES WITH THE PLAN. I, MI GARCIAS, DOCUMENTED THE ABOVE INFORMATION ACTING A SCRIBE FOR DR. HERNANDEZ. I HAVE REVIEWED THE ABOVE DOCUMENT, WRITTEN BY MI TRAVIS AND I VERIFY THAT IT IS ACCURATE DIAGNOSTIC [facility] FACET BLOCK (PAIN)[id number] PROCEDURE CODES 76574 INJ PARAVERT F JNT C/T 1 LEV 48739 INJ PARAVERT F JNT C/T 2 LEV 6045F RADXPS IN END [id number] PXD 45802 MOD SED SAME PHYS/QHP 5/>YRS DISPOSITION & COMMUNICATION FOLLOW UP 3 WEEKS ELECTRONICALLY SIGNED BY GIO HERNANDEZ MD ON 12/14/2016 AT 12:26 PM EDT DISCLAIMER : THIS IS A VISIT SUMMARY EXTRACTED FROM THE [employer] CHART. IT IS NOT A COPY OF THE [employer] PROGRESS NOTE. MTDD
== END ==
LOC: M PAIN 11:40
PROVIDERS: ATTEND Anesthesiology
DX: G89.29 Other chronic pain (principal); M47.812 Spondylosis without myelopathy or radiculopathy, cervical region; M25.50 Pain in unspecified joint; M79.7 Fibromyalgia; Z79.82 Long term (current) use of aspirin; Z79.899 Other long term (current) drug therapy; Z88.5 Allergy status to narcotic agent; Z88.2 Allergy status to sulfonamides; Z88.8 Allergy status to other drugs, medicaments and biological substances
CPT/HCPCS: 64490; 64491; 99152; J2250; J3010; J3301; Q9967

== ENCOUNTER → 2016-12-02 | Outpatient (CLI) | payer MEDICARE, MEDICAID ==
[~2016-12-02] MED LIST changes: -BUPIVACAINE HCL 0.25% 30 ML VIAL As Ordered ONE; -ISOVUE-M 300 61% 15ML VIAL (Q9967) As Ordered ONE; -LIDOCAINE 1% SDV INJ 30 ML VIAL As Ordered ONE; -MIDAZOLAM INJ 2 MG/2 ML VIAL (J2250) As Ordered ONE; -TRIAMCINOLONE ACETONIDE SUSP 40 MG/ML VIAL (J3301) As Ordered ONE; -fentaNYL 100 MCG/2 ML INJECTION (J3010) As Ordered ONE
--- NOTE | 2016-12-20 23:26 | ECWPNPC ---
PATIENT NAME: STEPHAN DICKINSON : 1955 GENDER: FEMALE VISIT DATE: 12/02/2016 DISCHARGE DATE: 12/02/16 1524 VISIT LOCKED DATE TIME: PHYSICIAN: ROCK MANZANO RESOURCE: ROCK MANZANO HISTORY OF PRESENT ILLNESS HISTORY OF PRESENT ILLNESS: PAIN THE PATIENT DESCRIBES THE PAIN... FALL RISK SCREENING: SCREENING :NO FALLS IN THE PAST YEAR TODAY'S VISIT: NOTES: IS S/P CERVICAL FACET BLOCK BILATERAL . HAD SIG PAIN IN LEFT UPPER ARM. NOTES IS SLEEPING BETTER. STILL HAS SIG PAIN BUT IS MOVING BETTER. PAIN AT LEFT AC JOINT. CURRENT MEDICATIONS TAKING SYMBICORT 160-4.5 MCG/ACT AEROSOL 2 PUFFS INHALATION TWICE A DAY TAKING COMBIVENT RESPIMAT 20-100 MCG/ACT AEROSOL SOLUTION 1 PUFF INHALATION TWICE DAILY TAKING VITAMIN D3 1000 UNIT TABLET 2 TABLET ORALLY ONCE A DAY TAKING CITALOPRAM HYDROBROMIDE 40 MG TABLET 1 TABLET ORALLY ONCE A DAY TAKING LEVOTHYROXINE SODIUM 75 MCG TABLET 1 TABLET ORALLY ONCE A DAY TAKING OMEPRAZOLE 20 MG CAPSULE DELAYED RELEASE 1 CAPSULE ORALLY TWICE A DAY TAKING THIAMINE HCL 100 MG TABLET 1 TABLET ORALLY ONCE A DAY TAKING SIMVASTATIN 40 MG TABLET 1/2 TABLET IN THE EVENING ORALLY ONCE A DAY TAKING HYDROCORTISONE 1 % CREAM 1 APPLICATION TO AFFECTED AREA EXTERNALLY TWICE DAILY NEEDED TAKING ALBUTEROL SULFATE HFA 108 (90 BASE) MCG/ACT AEROSOL SOLUTION 2 PUFFS NEEDED INHALATION FOUR TIMES DAILY NEEDED TAKING FERROUS GLUCONATE 240 (27 FE) MG TABLET DIRECTED ORALLY ONCE A DAY, NOTES: 11/26/16 1400 TAKING ASPIR-81 81 MG TABLET DELAYED RELEASE 1 TABLET ORALLY ONCE A DAY, NOTES: 11/26/16 1400 TAKING GABAPENTIN 100 MG CAPSULE DIRECTED ORALLY THREE TIMES DAILY, NOTES: 11/26/162299 TAKING LYRICA 100 MG CAPSULE 1 CAPSULE ORALLY TWICE A DAY, NOTES: 11/26/162299 TAKING NUCYNTA ER 100 MG TABLET EXTENDED RELEASE 12 HOUR 1 TABLET ORALLY EVERY 12 HRS CHRONIC PAIN MDD=2, NOTES: 11/26/162299 NOT-TAKING TESSALON PERLES 100 MG CAPSULE 1 CAPSULE NEEDED FOR COUGH ORALLY THREE TIMES A DAY NOT-TAKING MUCINEX 600 MG TABLET EXTENDED RELEASE 12 HOUR 1 TABLET NEEDED ORALLY EVERY 12 HRS NOT-TAKING OXYCODONE HCL 20 MG TABLET 1 TABLE ORALLY EVERY 8 HRS PRN PAIN MDD=3 NOT-TAKING NUCYNTA 75 MG TABLET 1 TABLET ORALLY EVERY 6- 8 HRS PRN PAIN MDD=3 NOT-TAKING CYCLOBENZAPRINE HCL 10 MG TABLET 1 TABLET ORALLY AT BEDTIME NEEDED NOT-TAKING BUDESONIDE-FORMOTEROL FUMARATE 160-4.5 MCG/ACT AEROSOL 2 PUFFS INHALATION TWICE A DAY UNKNOWN MIRALAX POWDER ORALLY MEDICATION LIST REVIEWED AND RECONCILED WITH THE PATIENT PAST MEDICAL HISTORY COPD FIBROMYALGIA HYPERLIPIDEMIA HYPERTENSION CHRONIC LOW BACK PAIN - PREVIOUSLY ON OPIATE MEDICATIONS - DC'D DUE TO URINE TOX INCONSISTENCIES ANXIETY AND DEPRESSION HYPOTHYROIDISM FOLLOWS WITH THE [place] FOR ROUTINE LABS AND YEARLY LIGHT BULB ASSEMBLER EXAMS. CHEST PAIN GERD ALLERGIES CODEINE PHOSPHATE: NAUSEA/VOMITING: ALLERGY TETRACYCLINE HCL: PT UNSURE: ALLERGY SULFA (FOR ALLERGY USE ONLY): PT UNSURE: ALLERGY NSAIDS: GI BLEED: CONTRAINDICATION REVIEW OF SYSTEMS REVIEWED BY: PROVIDER: ROCK GALVAN . CONSTITUTIONAL: ANY CHANGE IN YOUR MEDICAL CONDITION? NO . CHILLS NO . FEVER NO . INFECTION: DO YOU HAVE NEW INFECTIONS? NO . DO YOU HAVE HISTORY OF MRSA? NO . MUSCULOSKELETAL: ANY NEW PATTERNS OF PAIN OR NUMBNESS? NO . GASTROENTEROLOGY: ANY NEW CHANGE IN BOWEL CONTROL? NO . GENITOURINARY: ANY NEW CHANGE IN BLADDER CONTROL? NO . IS THERE A CHANCE YOU COULD BE ? NO . HEMATOLOGY/LYMPH: DO YOU TAKE ANY BLOOD THINNERS? (FOR EXAMPLE- COUMADIN, PLAVIX, AGGRENOX, PLATEL, PRADAXA, OR XARELTO) NO . WHEN WAS YOUR LAST DOSE? DATE: TIME: . NEUROLOGY: HAVE YOU FALLEN IN THE PAST 6 MONTHS? NO . ANY NEW EXTREMITY NUMBNESS OR WEAKNESS? NO . CARDIOLOGY: DO YOU HAVE A PACEMAKER OR DEFIBRILLATOR? NO . RESPIRATORY: HAVE YOU BEEN SICK IN THE PAST WEEK? NO . FEVER NO . FLU LIKE SYMPTOMS? NO . COUGH NO . INTEGUMENTARY: DO YOU HAVE ANY RASHES OR OPEN SORES? NO . ALLERGIC/IMMUNO: ARE YOU ALLERGIC TO SHELLFISH OR IV DYE? NO . ANY NEW ALLERGIES? NO . PSYCHIATRIC: DO YOU HAVE THOUGHTS OF HURTING YOURSELF OR SOMEONE ELSE? NO . ARE YOU ABUSED, NEGLECTED, OR IN AN UNSAFE ENVIRONMENT? NO . ENDOCRINOLOGY: ARE YOU DIABETIC? NO . OTHER: DO YOU NEED ANY PRESCRIPTIONS? NO . IF YES, PLEASE LIST: ____ . ANY NEW PROBLEMS WITH YOUR MEDICATIONS? NO . WHEN DID YOU LAST EAT? ____ . WHEN DID YOU LAST DRINK? ____ . WHAT DID YOU LAST DRINK? ____ . NAME OF PERSON DRIVING YOU HOME? ____ . DO YOU HAVE ANY OTHER QUESTIONS OR CONCERNS NO . VITAL SIGNS WT 120.2 LBS, HT 5'2 1/2", BMI 21.63 INDEX, BP 150/92 MM HG, HR 75 /MIN, RR 18 /MIN, TEMP 98.2 F, OXYGEN SAT % 97, NA INITIALS AW 1413, REVIEWED BY: KG. EXAMINATION GENERAL EXAMINATION: PSYCHALERT , ORIENTED X 3 , SMILING AND TALKATIVE. LUNGS:CLEAR TO AUSCULTATION BILATERALLY. HEART:HEART RATE REGULAR. ABDOMEN:SOFT, BOWEL SOUNDS PRESENT, TENDER LEFT LOWER QUADRANT. MUSCULOSKELETAL:MUSCLE STRENGTH TESTING 5/5 BILATERAL UPPER AND LOWER EXTREMITIES, TRIGGER POINTS ALSO IDENTIFIED OVER BILATERAL TRAPEZIUS MUSCLES. IMPROVEMENT IN NECK FLEXION, EXTENSIONS AND ROTATION NOTED . NO TENDERNESS OVER LUMBAR SPINOUS PROCESSES.. JOINTS:LEFT , SHOULDER , PAIN , WITH RANGE OF MOTION . ASSESSMENTS PAIN IN LEFT SHOULDER - M25.512 (PRIMARY) FACET ARTHROPATHY, CERVICAL - M12.88 FIBROMYALGIA - M79.7 MYALGIA - M79.1 CHRONICALLY ON OPIATE THERAPY - Z79.899 LUMBAR FACET ARTHROPATHY - M12.88 PAIN IN RIGHT SHOULDER - M25.511 OTHER CHRONIC PAIN - G89.29 TREATMENT PAIN IN LEFT SHOULDER START OXYCODONE HCL TABLET, 10 MG, 1 TABLET NEEDED, ORALLY, EVERY 6 HRS PRN PAIN MDD=2, 30 DAY(S), 60, REFILLS 0 SHOULDER [id number] PAIN IN RIGHT SHOULDER SHOULDER [id number] PROCEDURE CODES FA211 ESTABILISHED PATIENT [facility] FACILITY CHARGE [id number] PAIN ASSESS POS TOOL F/U PLAN DOC G8427 DOC MEDS VERIFIED W/PT OR RE DISPOSITION & COMMUNICATION FOLLOW UP 26-28 DAYS (REASON: NECK/SHOULDER PAIN) ELECTRONICALLY SIGNED BY ELADIO KRAFT ON 12/20/2016 AT 04:16 PM EDT DISCLAIMER : THIS IS A VISIT SUMMARY EXTRACTED FROM THE [employer] CHART. IT IS NOT A COPY OF THE [employer] PROGRESS NOTE. MTDD
== END ==
LOC: M PAIN 14:00
PROVIDERS: ATTEND Nurse Practitioner Family
DX: M25.512 Pain in left shoulder (principal); M12.88 Other specific arthropathies, not elsewhere classified, other specified site; M79.7 Fibromyalgia; Z79.899 Other long term (current) drug therapy; M25.511 Pain in right shoulder; G89.29 Other chronic pain; Z79.82 Long term (current) use of aspirin; Z79.891 Long term (current) use of opiate analgesic; Z88.5 Allergy status to narcotic agent; Z88.2 Allergy status to sulfonamides; Z88.1 Allergy status to other antibiotic agents; Z88.8 Allergy status to other drugs, medicaments and biological substances

== ENCOUNTER → 2017-01-01 | Outpatient (CLI) | payer MEDICARE, MEDICAID ==
--- NOTE | 2017-01-02 11:12 | REP ---
Clinical: Bilateral shoulder pain. Technique: Internal rotation, external rotation, and Y view of the right and left shoulder. Findings: Moderate bilateral osteoarthritic degenerative changes include cortical irregularity and spurring primarily involving the acromioclavicular joints (left greater than right) as well as cortical irregularity and blunting to the bilateral glenoid rims with inferior osteophyte along the right glenoid rim. No discrete periarticular calcifications are appreciated. Surrounding soft tissues are grossly unremarkable. Impression: Moderate bilateral osteoarthritic degenerative changes. Signed by Rupesh Kelley MD 01/02/2017 08:43 A
== END ==
LOC: M WUC 18:56
PROVIDERS: ATTEND Nurse Practitioner Family
DX: M19.011 Primary osteoarthritis, right shoulder (principal); M19.012 Primary osteoarthritis, left shoulder

== ENCOUNTER → 2017-01-05 | Outpatient (CLI) | payer MEDICARE ==
[2017-01-05 19:37] LABS: MEAN CORPUSCULAR HEMOGLOBIN 31.3 pg (27.0-33.0); MEAN CORPUSCULAR HGB CONC 33.4 g/dl (32.0-36.5); MEAN CORPUSCULAR VOLUME 93.7 fl (80.0-96.0); RED CELL DISTRIBUTION WIDTH 14.7 % (11.5-14.5)
[2017-01-05 19:50] LABS: ANION GAP 8 MEQ/L (8-16); BLOOD UREA NITROGEN 7 MG/DL (7-18); CALCIUM LEVEL 8.7 MG/DL (8.8-10.2); CARBON DIOXIDE LEVEL 27 MEQ/L (21-32); CHLORIDE LEVEL 105 MEQ/L (98-107); CREATININE FOR GFR 0.64 MG/DL (0.55-1.02); GLOMERULAR FILTRATION RATE > 60.0 (>45); GLUCOSE, FASTING 80 MG/DL (80-110); INR 0.91; POTASSIUM SERUM 4.2 MEQ/L (3.5-5.1); SODIUM LEVEL 140 MEQ/L (136-145)
== END ==
LOC: M WUC 15:43
PROVIDERS: ATTEND Family Medicine
DX: D64.9 Anemia, unspecified (principal); Z79.1 Long term (current) use of non-steroidal anti-inflammatories (NSAID)

== ENCOUNTER → 2017-01-08 | Outpatient (CLI) | payer MEDICARE, MEDICAID ==
--- NOTE | 2017-01-08 15:54 | REP ---
Clinical: Preoperative assessment. Technique: PA and lateral. Comparison: 05/19/2016. Findings: Mediastinum and cardiac silhouette are within normal limits and stable. Airway is patent and midline. The lung guerrero demonstrate diffuse chronic interstitial changes without obvious acute consolidation. No pneumothorax. Blunting of the right costophrenic angle and posterior sulci suggest acute versus chronic pleural reaction and should be correlated clinically. Skeletal structures are intact. Impression: 1. Chronic-appearing interstitial changes without acute consolidation. 2. Blunted appearance to the diaphragmatic surface may represent acute versus chronic pleural reaction. Signed by Rupesh Kelley MD 01/08/2017 03:44 P
== END ==
LOC: M WUC 15:29
PROVIDERS: ATTEND Family Medicine
DX: Z01.818 Encounter for other preprocedural examination (principal); R91.8 Other nonspecific abnormal finding of lung field

== ENCOUNTER 2017-01-28 08:54 | Day surgery (SDC) | payer MEDICARE, MEDICAID ==
[~2017-01-28] VITALS: Ht 162.6 cm; Wt 58.1 kg
[~2017-01-28 08:54] MED LIST changes: -OXYC1TAB23 PO
[2017-01-28] MEDS ORDERED: LR 1,000 ML IV SCH ×2 (09:15→14:30)
[2017-01-28] MEDS ORDERED: VANCOMYCIN HCL 1,000 MG, VIAL MATE ADAPTER 1 EACH in D5W 250 ML IV ONE (09:15)
[2017-01-28] MEDS ORDERED: LIDOCAINE 1% SDV INJ 30 ML VIAL As Ordered ONE ×2 (09:57→12:08)
[2017-01-28] MEDS ORDERED: BUPIVACAINE HCL 0.5% 30 ML VIAL As Ordered ONE (09:57)
[2017-01-28] MEDS ORDERED: dexameTHASONE 4 MG/ML 1ML VIAL (J1100) As Ordered ONE ×2 (09:57→11:54)
[2017-01-28] MEDS ORDERED: fentaNYL 100 MCG/2 ML INJECTION (J3010) As Ordered ONE ×4 (10:33→13:29)
[2017-01-28] MEDS ORDERED: MIDAZOLAM INJ 2 MG/2 ML VIAL (J2250) As Ordered ONE (10:33)
[2017-01-28] MEDS ORDERED: PROPOFOL 200 MG/20 ML VIAL As Ordered ONE ×3 (11:54→13:44)
[2017-01-28] MEDS ORDERED: ONDANSETRON 4MG/2ML VIAL (J2405) As Ordered ONE (11:54)
[2017-01-28] MEDS ORDERED: LIDOCAINE 2% INJ 100 MG/5 ML SDV (FOR ANES.) As Ordered ONE (11:54)
[2017-01-28] MEDS ORDERED: KETAMINE HCL 200 MG/20 ML VIAL As Ordered ONE (13:33)
[2017-01-28] MEDS ORDERED: OXYC1TAB23 PO (14:03)
[2017-01-28] MEDS ORDERED: MORPHINE 2 MG/ML 1ML SYRINGE As Ordered ONE (14:23)
[2017-01-28] MEDS ORDERED: PERCOCET 5MG/325MG TAB PO PRN (14:30)
[2017-01-28] MEDS ORDERED: oxyCODONE 5MG TAB PO PRN ×2 (14:30)
[2017-01-28] MEDS ORDERED: ONDANSETRON 4MG/2ML VIAL (J2405) IV PRN (14:30)
[2017-01-28] MEDS ORDERED: METOCLOPRAMIDE INJ 10MG/2ML VIAL (J2765) IV PRN (14:30)
[2017-01-28] MEDS: MORPHINE 2 MG/ML 1ML SYRINGE IV PRN ×4 (15:30→15:45)
[2017-01-28 15:45] VITALS: BP 122/67
--- NOTE | 2017-01-29 06:14 | RO ---
DATE OF PROCEDURE: 01/28/2017 PREPROCEDURE DIAGNOSES: Left foot hallux varus second metatarsal deformity second hammer toe, hammer toes four and five and painful retained screw. POSTPROCEDURE DIAGNOSES: Left foot hallux varus second metatarsal deformity second hammer toe, hammer toes four and five and painful retained screw. PROCEDURE: Left foot first metatarsal phalangeal joint fusion, screw removal, second metatarsal Killian osteotomy, hammer toe correction and flexor tenotomies four and five. SURGEON: Bhavesh Mckay DPM DIRECTOR OF PUPIL PERSONNEL PROGRAM: None. ANESTHESIA: Monitored anesthesia care with preoperative injection of 20 mL of 1: 1 mixture of 1% lidocaine plain and 0.5% Marcaine plain. ESTIMATED BLOOD LOSS: Minimal. MATERIALS: Arthrex 3.5 headless screw, Arthrex first metatarsal phalangeal joint plate with two 3.0 cortical screws and one 3.0 locking screw. Arthrex 2.5 headless screw. #3-0, #4-0 Vicryl. #4-0 Nylon. INJECTABLES: 6 mL of 1% lidocaine plain. COMPLICATIONS: None. CONDITION: Stable. Gauri Dumont is a 62-year-old female who presents to [facility] with complaints of painful hallux second metatarsal deformity and hammer toes fourth and fifth toes, presents today for surgical correction. The patient's site and side were identified and marked in the preoperative holding area. Consent was reviewed and obtained. All risks, complications and alternatives to the procedure were explained to the patient in detail. All questions were answered. DESCRIPTION OF PROCEDURE: The patient was brought to the operating room and placed on the operating room table in supine position. Monitored anesthesia care was delivered by the anesthesia team. Preoperative injection of 20 mL of 1:1 mixture of 1% lidocaine plain and 0.5% Marcaine plain were injected to the left foot. The patient received vancomycin preoperatively with a history of Methicillin-resistant staphylococcus aureus (MRSA). The foot was prepped and draped in a normal sterile fashion. Tourniquet was applied and inflated to 250 mmHg. Attention was first paid to the first metatarsal. A dorsal medial incision was drawn and carried through with a #15 blade. Dissection was carried down until the metatarsal phalangeal joint capsule was identified. A T-capsulotomy was performed exposing the metatarsal head. The screw was noted in the metatarsal neck. This was removed using the 3.5 screwdriver. Following this, the cartilage was removed from the metatarsal head and base of proximal phalanx using cup and cone reamer. Each side was drilled with the K wire to break through to cancellous bone. Next this was fixated with an Arthrex 3.5 headless screw and the first metatarsal phalangeal joint plate. There were two cortical screws and one locking screw used inside the plate. The site was irrigated with normal saline and capsular closure was performed with #3-0 Vicryl subcutaneous with #4-0 Vicryl and skin closure with #4-0 Nylon. Next attention was paid to the second toe. A dorsal incision was drawn over the metatarsal phalangeal joint and carried through with a #15 blade. Linear capsulotomy was performed exposing the second metatarsal head. McGlamry elevator was used to free plantar structures. An osteotomy was performed of the head transposing it proximally. This was fixated with an Arthrex 2.5 headless screw. Rongeur was used on remaining overlying bone ledge. Next, a K wire was used going from the distal aspect of the toe into the metatarsal head to hold the toe in a more lateral position. Subcutaneous closure was performed with #4-0 Vicryl and skin closure with #4-0 Nylon. Finally flexor tenotomies were performed to toes four and five. A stab incision was made at the plantar aspect of each toe and the flexor tendon was transected and permanent position of the toes were noted. Plantar incision was repaired with #3-0 Nylon. Tourniquet was deflated. Sterile dressings were applied. The patient was brought to post anesthesia care unit (PACU) with vital signs stable and neurovascular status intact. She will be partial weightbearing to the left foot. She will followup in the office in two days. RHETT
--- NOTE | 2017-01-29 07:48 | REP ---
Intraoperative fluoroscopic views for surgery of the great toe MTP and second digit MTP, total of five views: Fluoroscopic exposure time is 53 seconds. Fluoroscopic images are performed with last image hold technology. These images require no additional radiation. Signed by Ankur العراقي MD 01/29/2017 07:39 A
== END 2017-01-28 16:07 | disposition home or self-care (01) ==
LOC: M SDC 08:54
PROVIDERS: ATTEND Podiatrist Foot & Ankle Surgery
DX: M20.32 Hallux varus (acquired), left foot (principal); M20.42 Other hammer toe(s) (acquired), left foot; H40.9 Unspecified glaucoma; I10 Essential (primary) hypertension; E78.00 Pure hypercholesterolemia, unspecified; E03.9 Hypothyroidism, unspecified; K21.9 Gastro-esophageal reflux disease without esophagitis; R29.898 Other symptoms and signs involving the musculoskeletal system; M12.9 Arthropathy, unspecified; M51.9 Unspecified thoracic, thoracolumbar and lumbosacral intervertebral disc disorder; M79.7 Fibromyalgia; G47.00 Insomnia, unspecified; J44.9 Chronic obstructive pulmonary disease, unspecified; Z88.1 Allergy status to other antibiotic agents; Z88.2 Allergy status to sulfonamides; Z88.5 Allergy status to narcotic agent; Z79.899 Other long term (current) drug therapy; Z79.82 Long term (current) use of aspirin; Z72.0 Tobacco use; Z98.51 Tubal ligation status; Z87.442 Personal history of urinary calculi
CPT/HCPCS: 28010; 28308; 28750; 73630; 96372; 96374; 96375; 99282; C1776; J1100; J2250; J2405; J3010; J3370

== ENCOUNTER 2017-01-28 23:50 | Emergency (ER) | payer MEDICARE, MEDICAID ==
[~2017-01-28] VITALS: Ht 162.6 cm; Wt 59.1 kg
[~2017-01-28 23:50] MED LIST changes: +OXYC1TAB23 PO
[2017-01-29 00:04] VITALS: BP 107/54
[2017-01-29] MEDS ORDERED: MORPHINE 10 MG/ML 1ML VIAL IM ONE (00:45)
== END 2017-01-29 02:05 | disposition home or self-care (01) ==
LOC: M ED 23:50 → EDBD 23:50 → M ED 01-29 02:05
DX: G89.18 Other acute postprocedural pain (principal); J44.9 Chronic obstructive pulmonary disease, unspecified; G89.29 Other chronic pain; M54.5 Low back pain; K21.9 Gastro-esophageal reflux disease without esophagitis; E03.9 Hypothyroidism, unspecified; G43.909 Migraine, unspecified, not intractable, without status migrainosus; Z79.899 Other long term (current) drug therapy; Z79.82 Long term (current) use of aspirin; Z88.1 Allergy status to other antibiotic agents; Z88.2 Allergy status to sulfonamides; Z88.5 Allergy status to narcotic agent

== ENCOUNTER → 2017-09-09 | Outpatient (CLI) | payer MEDICARE, MEDICAID | LOC: M PAIN 13:45 | DX: M12.88 Other specific arthropathies, not elsewhere classified, other specified site (principal); M25.512 Pain in left shoulder; M79.7 Fibromyalgia; J44.9 Chronic obstructive pulmonary disease, unspecified; E78.5 Hyperlipidemia, unspecified; I10 Essential (primary) hypertension; F41.9 Anxiety disorder, unspecified; F32.9 Major depressive disorder, single episode, unspecified; E03.9 Hypothyroidism, unspecified; K21.9 Gastro-esophageal reflux disease without esophagitis; I25.10 Atherosclerotic heart disease of native coronary artery without angina pectoris; F10.10 Alcohol abuse, uncomplicated; F17.210 Nicotine dependence, cigarettes, uncomplicated; Z79.82 Long term (current) use of aspirin; Z79.891 Long term (current) use of opiate analgesic; Z79.899 Other long term (current) drug therapy; Z88.5 Allergy status to narcotic agent; Z88.2 Allergy status to sulfonamides; Z88.6 Allergy status to analgesic agent; Z88.8 Allergy status to other drugs, medicaments and biological substances; Z98.61 Coronary angioplasty status | CPT/HCPCS: G0463 ==

== ENCOUNTER 2017-09-20 16:29 | Emergency (ER) | payer MEDICARE, MEDICAID ==
[2017-09-20 17:22] LABS: BASO % 0.5 % (0.0-1.0); EOS # 0.3 10^3/uL (0.0-0.50); EOS % 4.9 % (0.0-3.0); HEMATOCRIT 39.5 % (36.0-47.0); HEMOGLOBIN 13.2 g/dl (12.0-15.5); IMMATURE GRANULOCYTE % 0.3 % (0-3.0); LYMPH # 1.9 10^3/uL (1.5-4.5); LYMPH % 31.6 % (24.0-44.0); MEAN CORPUSCULAR HEMOGLOBIN 30.6 pg (27.0-33.0); MEAN CORPUSCULAR HGB CONC 33.4 g/dl (32.0-36.5); MEAN CORPUSCULAR VOLUME 91.6 fl (80.0-96.0); MONO # 0.8 10^3/uL (0.0-0.8); MONO % 13.2 % (0.0-5.0); NEUTROPHILS # 2.9 10^3/uL (1.8-7.7); NEUTROPHILS % 49.5 % (36.0-66.0); PLATELET COUNT, AUTOMATED 178 10^3/uL (150-450); RED BLOOD COUNT 4.31 10^6/uL (4.00-5.40); RED CELL DISTRIBUTION WIDTH 13.2 % (11.5-14.5); WHITE BLOOD COUNT 5.9 10^3/uL (4.0-10.0)
[2017-09-20 17:26] LABS: INR 0.94; PROTHROMBIN TIME 12.7 SECONDS (12.4-14.5)
[2017-09-20 17:33] LABS: ALBUMIN 3.8 GM/DL (3.2-5.2); ALBUMIN/GLOBULIN RATIO 1.23 (1.00-1.93); ALKALINE PHOSPHATASE 156 U/L (45-117); ALT/SGPT 44 U/L (12-78); ANION GAP 8 MEQ/L (8-16); AST/SGOT 46 U/L (7-37); BILIRUBIN,DIRECT 0.1 MG/DL (0.0-0.2); BILIRUBIN,TOTAL 0.3 MG/DL (0.2-1.0); BLOOD UREA NITROGEN 9 MG/DL (7-18); CARBON DIOXIDE LEVEL 27 MEQ/L (21-32); CHLORIDE LEVEL 100 MEQ/L (98-107); CREATININE FOR GFR 0.69 MG/DL (0.55-1.30); GLOMERULAR FILTRATION RATE > 60.0 (>45); GLUCOSE, FASTING 79 MG/DL (70-100); LIPASE 78 U/L (73-393); POTASSIUM SERUM 3.5 MEQ/L (3.5-5.1); SODIUM LEVEL 135 MEQ/L (136-145); TOTAL PROTEIN 6.9 GM/DL (6.4-8.2)
[2017-09-20] MEDS: NS 1,000 ML IV (17:48)
[2017-09-20] MEDS: PANTOPRAZOLE 40MG INJ (PROTONIX) (C9113) IV (17:48)
[2017-09-20] MEDS: FUROSEMIDE 20 MG/2 ML VIAL (J1940) IV (19:25)
== END 2017-09-20 19:31 | disposition home or self-care (01) ==
LOC: M ED 16:29
DX: K64.4 Residual hemorrhoidal skin tags (principal); K64.8 Other hemorrhoids; I51.9 Heart disease, unspecified; Z87.19 Personal history of other diseases of the digestive system; K21.9 Gastro-esophageal reflux disease without esophagitis; E03.9 Hypothyroidism, unspecified; F17.200 Nicotine dependence, unspecified, uncomplicated; Z88.5 Allergy status to narcotic agent; Z88.1 Allergy status to other antibiotic agents; Z88.2 Allergy status to sulfonamides; Z88.8 Allergy status to other drugs, medicaments and biological substances; Z79.899 Other long term (current) drug therapy; Z79.82 Long term (current) use of aspirin
CPT/HCPCS: C9113

== ENCOUNTER → 2017-10-06 | Outpatient (CLI) | payer MEDICARE, MEDICAID | LOC: M PAIN 14:45 | DX: M12.88 Other specific arthropathies, not elsewhere classified, other specified site (principal); M25.512 Pain in left shoulder; M79.7 Fibromyalgia; J44.9 Chronic obstructive pulmonary disease, unspecified; E78.5 Hyperlipidemia, unspecified; I10 Essential (primary) hypertension; E03.9 Hypothyroidism, unspecified; K21.9 Gastro-esophageal reflux disease without esophagitis; D50.9 Iron deficiency anemia, unspecified; G89.29 Other chronic pain; F17.210 Nicotine dependence, cigarettes, uncomplicated; Z79.82 Long term (current) use of aspirin; Z79.891 Long term (current) use of opiate analgesic; Z79.899 Other long term (current) drug therapy; Z88.8 Allergy status to other drugs, medicaments and biological substances | CPT/HCPCS: G0463 ==

== ENCOUNTER → 2018-02-02 | Outpatient (CLI) | payer MEDICARE, MEDICAID | LOC: M PAIN 10:45 | DX: M79.7 Fibromyalgia (principal); M12.88 Other specific arthropathies, not elsewhere classified, other specified site; M25.512 Pain in left shoulder; J44.9 Chronic obstructive pulmonary disease, unspecified; E78.5 Hyperlipidemia, unspecified; I10 Essential (primary) hypertension; F41.9 Anxiety disorder, unspecified; F32.9 Major depressive disorder, single episode, unspecified; E03.9 Hypothyroidism, unspecified; K21.9 Gastro-esophageal reflux disease without esophagitis; D50.9 Iron deficiency anemia, unspecified; F10.10 Alcohol abuse, uncomplicated; F17.210 Nicotine dependence, cigarettes, uncomplicated; Z79.82 Long term (current) use of aspirin; Z79.891 Long term (current) use of opiate analgesic; Z79.899 Other long term (current) drug therapy; Z88.1 Allergy status to other antibiotic agents; Z88.2 Allergy status to sulfonamides; Z88.5 Allergy status to narcotic agent; Z88.6 Allergy status to analgesic agent; Z86.79 Personal history of other diseases of the circulatory system | CPT/HCPCS: G0463 ==

== ENCOUNTER → 2018-02-26 | Outpatient (CLI) | payer MEDICARE, MEDICAID | LOC: M PAIN 13:15 | DX: M12.88 Other specific arthropathies, not elsewhere classified, other specified site (principal); M25.512 Pain in left shoulder; M79.7 Fibromyalgia; J44.9 Chronic obstructive pulmonary disease, unspecified; E78.5 Hyperlipidemia, unspecified; I10 Essential (primary) hypertension; F41.9 Anxiety disorder, unspecified; F32.9 Major depressive disorder, single episode, unspecified; E03.9 Hypothyroidism, unspecified; K21.9 Gastro-esophageal reflux disease without esophagitis; F10.10 Alcohol abuse, uncomplicated; Z72.0 Tobacco use; Z79.82 Long term (current) use of aspirin; Z79.891 Long term (current) use of opiate analgesic; Z79.899 Other long term (current) drug therapy; Z88.1 Allergy status to other antibiotic agents; Z88.2 Allergy status to sulfonamides; Z88.5 Allergy status to narcotic agent; Z88.6 Allergy status to analgesic agent; Z86.79 Personal history of other diseases of the circulatory system | CPT/HCPCS: G0463 ==

== ENCOUNTER 2018-04-07 07:21 | Day surgery (SDC) | payer MEDICARE, MEDICAID ==
[~2018-04-07 07:21] MED LIST changes: -ALBU17IN INH; -AMLO10TA2 PO; -ASPI81TA PO; -CAND4TAB PO; -CARV6.25 PO; -CITA40TA4 PO; -COMBAER6 PO; -CYCL10TA PO; -D 1010004 PO; -DITR5TAB PO; -FERA1TAB PO; -FOLI1TAB4 PO; -GABA-279 PO; -HYDR-3363 PO; -HYDR-3713 PO; -HYDR-3719 PO; -HYDR25TAB PO; -K-TA10TA2 PO; -LEVO75TA4 PO; +LR 1,000 ML IV; -LYRI75CA PO; -MELO15TA4 PO; -NAPR500T3 PO; -NICO7PA TD; -NITR0.4S14 SL; -NUCY100T11 PO; -OMEP20CA3 PO; -OXYC10TA12 PO; -OXYC1TAB23 PO; -OXYC20TA2 PO; -PREG100CA PO; -PREG50CA PO; -PROAAER10 IN; -PROAAER10 PO; -ROBA750T4 PO; -SERT50TA PO; -SIMV20TA2 PO; -SIMV40TA2 PO; -SUCR1SUS PO; -SYMB80INH INH; -THIA100T6 PO; -TIZA4CAP3 PO; -TRAZ-136 PO; +VANCOMYCIN HCL 1,000 MG, VIAL MATE ADAPTER 1 EACH in D5W 250 ML IV
[2018-04-07] MEDS: LIDOCAINE 1% MDV 20ML VIAL As Ordered ×2 (08:00→08:45)
[2018-04-07] MEDS: LR 1,000 ML IV (08:04)
[2018-04-07] MEDS: BUPIVACAINE HCL 0.5% 10 ML VIAL As Ordered ×2 (08:15→08:40)
[2018-04-07] MEDS ORDERED: MIDAZOLAM INJ 2 MG/2 ML VIAL (J2250) As Ordered (08:51)
[2018-04-07] MEDS ORDERED: KETAMINE HCL 200 MG/20 ML VIAL As Ordered (08:51)
[2018-04-07] MEDS ORDERED: LIDOCAINE 2% INJ 100 MG/5 ML SDV (FOR ANES.) As Ordered (08:51)
[2018-04-07] MEDS ORDERED: ONDANSETRON 4MG/2ML VIAL (J2405) As Ordered (08:51)
[2018-04-07] MEDS ORDERED: PROPOFOL 200 MG/20 ML VIAL As Ordered (08:51)
[2018-04-07] MEDS ORDERED: fentaNYL 100 MCG/2 ML INJECTION (J3010) As Ordered (08:51)
[2018-04-07] MEDS: dexameTHASONE 4 MG/ML 1ML VIAL (J1100) As Ordered (08:57)
[2018-04-07] MEDS ORDERED: PERCOCET 5MG/325MG TAB PO (09:45)
[2018-04-07] MEDS ORDERED: LR 1,000 ML IV (09:45)
[2018-04-07] MEDS ORDERED: METOCLOPRAMIDE INJ 10MG/2ML VIAL (J2765) IV (09:45)
[2018-04-07] MEDS ORDERED: ONDANSETRON 4MG/2ML VIAL (J2405) IV (09:45)
== END 2018-04-07 14:10 | disposition home or self-care (01) ==
LOC: M SDC 07:21
DX: T84.84XA Pain due to internal orthopedic prosthetic devices, implants and grafts, initial encounter (principal); I10 Essential (primary) hypertension; H40.9 Unspecified glaucoma; E78.00 Pure hypercholesterolemia, unspecified; I49.9 Cardiac arrhythmia, unspecified; E03.9 Hypothyroidism, unspecified; K52.9 Noninfective gastroenteritis and colitis, unspecified; K21.9 Gastro-esophageal reflux disease without esophagitis; M12.9 Arthropathy, unspecified; M54.9 Dorsalgia, unspecified; M79.7 Fibromyalgia; F41.9 Anxiety disorder, unspecified; F32.9 Major depressive disorder, single episode, unspecified; G47.00 Insomnia, unspecified; J44.9 Chronic obstructive pulmonary disease, unspecified; Z88.1 Allergy status to other antibiotic agents; Z88.2 Allergy status to sulfonamides; Z88.5 Allergy status to narcotic agent; Z79.899 Other long term (current) drug therapy; Z86.2 Personal history of diseases of the blood and blood-forming organs and certain disorders involving the immune mechanism; Z86.14 Personal history of Methicillin resistant Staphylococcus aureus infection; Z72.0 Tobacco use; Z98.51 Tubal ligation status; Z87.442 Personal history of urinary calculi; Z78.0 Asymptomatic menopausal state
CPT/HCPCS: 20680

== ENCOUNTER 2018-08-21 13:10 | Emergency (ER) | payer MEDICARE, MEDICAID ==
[~2018-08-21 13:10] MED LIST changes: +ALBU17IN INH; +AMLO10TA5 PO; +ASPI81CH36 PO; +CAND4TAB PO; +CARV6.25 PO; +CITA40TA4 PO; +COMBAER6 PO; +CYCL10TA PO; +D 1010004 PO; +DITR5TAB PO; +FERA1TAB PO; +FERR240T PO; +FOLI1TAB11 PO; +GABA-1171 PO; +HYDR-2541 PO; +HYDR-3363 PO; +HYDR-3713 PO; +HYDR-3719 PO; +HYDR25TAB PO; +K-TA10TA2 PO; +LEVO75TA4 PO; -LR 1,000 ML IV; +LYRI150C PO; +LYRI75CA PO; +MELO15TA28 PO; +MILK140C2 PO; +NAPR-885 PO; +NICO7PA TD; +NITR0.4S14 SL; +NUCY100T11 PO; +OMEP20CA3 PO; +OXYC10TA12 PO; +OXYC1TAB23 PO; +OXYC20TA2 PO; +PREG100CA PO; +PREG50CA PO; +PROAAER10 IN; +PROAAER10 PO; +PROC1AER16 PR; +REGL10TA6 PO; +ROBA750T4 PO; +SERT-141 PO; +SIMV20TA2 PO; +SIMV40TA2 PO; +SUCR1SUS PO; +SYMB80INH INH; +THIA100T7 PO; +TIZA4CAP PO; +TRAZ-163 PO; -VANCOMYCIN HCL 1,000 MG, VIAL MATE ADAPTER 1 EACH in D5W 250 ML IV; +VITA50TA47 PO
[2018-08-21] MEDS ORDERED: MORPHINE 2 MG/ML 1ML SYRINGE (J2270) IV ONE (13:30)
[2018-08-21 13:57] LABS: BASO % 0.8 % (0.0-1.0); EOS # 0.1 10^3/uL (0.0-0.50); EOS % 2.3 % (0.0-3.0); HEMATOCRIT 44.6 % (36.0-47.0); HEMOGLOBIN 14.8 g/dl (12.0-15.5); LYMPH # 1.5 10^3/uL (1.5-4.5); LYMPH % 28.1 % (24.0-44.0); MEAN CORPUSCULAR HEMOGLOBIN 30.3 pg (27.0-33.0); MEAN CORPUSCULAR HGB CONC 33.2 g/dl (32.0-36.5); MEAN CORPUSCULAR VOLUME 91.4 fl (80.0-96.0); MONO # 0.7 10^3/uL (0.0-0.8); MONO % 12.6 % (0.0-5.0); NEUTROPHILS # 2.9 10^3/uL (1.8-7.7); NEUTROPHILS % 55.8 % (36.0-66.0); PLATELET COUNT, AUTOMATED 163 10^3/uL (150-450); RED BLOOD COUNT 4.88 10^6/uL (4.00-5.40); WHITE BLOOD COUNT 5.2 10^3/uL (4.0-10.0)
[2018-08-21 14:19] LABS: ERYTHROCYTE SEDIMENTATION RATE 2 mm/hr (0-30)
[2018-08-21 14:41] LABS: BLOOD UREA NITROGEN 8 MG/DL (7-18); C REACTIVE PROTEIN QUANTITATIV < 0.30 MG/DL (0.00-0.30); CALCIUM LEVEL 8.4 MG/DL (8.8-10.2); CARBON DIOXIDE LEVEL 28 MEQ/L (21-32); CHLORIDE LEVEL 107 MEQ/L (98-107); CREATININE FOR GFR 0.66 MG/DL (0.55-1.30); GLOMERULAR FILTRATION RATE > 60.0 (>45); GLUCOSE, FASTING 85 MG/DL (70-100); POTASSIUM SERUM 3.9 MEQ/L (3.5-5.1); SODIUM LEVEL 140 MEQ/L (136-145)
[2018-08-21] MEDS ORDERED: HYDROMORPHONE HCL 0.5 MG/ 0.5 ML SYRINGE (J1170 PER 1) IV PRN (15:00)
--- NOTE | 2018-08-21 15:10 | REP ---
PELVIS, ONE VIEW: HISTORY: Pain. There is no acute fracture or dislocation. There is minimal narrowing of the joint spaces. IMPRESSION: Degenerative change as described above. Electronically Signed by Nikunj Felipe MD 08/21/2018 03:15 P
--- NOTE | 2018-08-21 15:11 | REP ---
RIGHT KNEE, FOUR VIEWS: HISTORY: Pain. COMPARISON: 08/31/2007. There is no acute fracture or dislocation. There is moderate narrowing of the medial knee joint space. There is mild narrowing of the lateral knee joint space and patellofemoral joint space. Osteophytes are present on the femur, tibial and patella. Chondrocalcinosis is present. IMPRESSION: Degenerative change as described above. Electronically Signed by Nikunj Felipe MD 08/21/2018 03:16 P
--- NOTE | 2018-08-21 15:15 | REP ---
LUMBAR SPINE, FIVE VIEWS: HISTORY: Back pain. COMPARISON: 08/18/2016. There is no acute fracture or subluxation. The L3-4 through L5-S1 intervertebral discs are decreased in height. Vacuum phenomenon is present at the L5-S1 level. These findings are consistent with disc degeneration. Osteophytes are present on L3 through L5. There is narrowing of the right L4-5 and L5-S1 and left L5-S1 facet joints. IMPRESSION: Degenerative changes as described above. Electronically Signed by Nikunj Felipe MD 08/21/2018 03:17 P
[2018-08-21] MEDS ORDERED: KETOROLAC 30 MG/ML VIAL (J1885) IV ONE (15:30)
[2018-08-21] MEDS ORDERED: IBUP-1114 PO (17:18)
[2018-08-21] MEDS ORDERED: DILA2TAB6 PO (17:18)
[2018-08-21 17:21] VITALS: BP 129/76
== END 2018-08-21 17:40 | disposition home or self-care (01) ==
LOC: M ED 13:10 → EDBD 13:10 → M ED 17:40
DX: M25.561 Pain in right knee (principal); J45.909 Unspecified asthma, uncomplicated; I10 Essential (primary) hypertension; Z79.899 Other long term (current) drug therapy; Z79.82 Long term (current) use of aspirin; Z88.1 Allergy status to other antibiotic agents; Z88.5 Allergy status to narcotic agent; Z88.8 Allergy status to other drugs, medicaments and biological substances; F17.210 Nicotine dependence, cigarettes, uncomplicated
CPT/HCPCS: 36415; 72110; 72190; 73564; 80048; 84550; 85025; 85652; 86140; 96374; 96375; 99284; J1170; J1885; J2270

== ENCOUNTER 2018-08-25 05:46 | Day surgery (SDC) | payer MEDICARE, MEDICAID ==
[~2018-08-25] VITALS: Ht 162.6 cm; Wt 60.8 kg
[~2018-08-25 05:46] MED LIST changes: +DILA2TAB6 PO; +IBUP-1114 PO
[2018-08-25] MEDS ORDERED: LR 1,000 ML IV ONE (06:00)
[2018-08-25] MEDS ORDERED: VANCOMYCIN HCL 1,000 MG, VIAL MATE ADAPTER 1 EACH in D5W 250 ML IV ONE (06:00)
[2018-08-25] MEDS ORDERED: BUPIVACAINE HCL 0.5% 30 ML VIAL As Ordered ONE (07:14)
[2018-08-25] MEDS ORDERED: dexameTHASONE 4 MG/ML 1ML VIAL (J1100) As Ordered ONE (07:14)
[2018-08-25] MEDS ORDERED: LIDOCAINE 1% MDV 20ML VIAL As Ordered ONE (07:14)
[2018-08-25] MEDS ORDERED: fentaNYL 100 MCG/2 ML INJECTION (J3010) As Ordered ONE (07:15)
[2018-08-25] MEDS ORDERED: MIDAZOLAM INJ 2 MG/2 ML VIAL (J2250) As Ordered ONE (07:15)
[2018-08-25] MEDS ORDERED: LIDOCAINE 2% INJ 100 MG/5 ML SDV (FOR ANES.) As Ordered ONE (07:17)
[2018-08-25] MEDS ORDERED: PROPOFOL 200 MG/20 ML VIAL As Ordered ONE (07:17)
[2018-08-25] MEDS ORDERED: PHENYLephrine HCL 500 MCG/5 ML (100MCG/ML) SYRINGE (J2370) As Ordered ONE (07:46)
[2018-08-25] MEDS ORDERED: ONDANSETRON 4MG/2ML VIAL (J2405) As Ordered ONE (08:04)
[2018-08-25] MEDS ORDERED: ONDANSETRON 4MG/2ML VIAL (J2405) IV PRN (09:00)
[2018-08-25] MEDS: PERCOCET 5MG/325MG TAB PO PRN ×2 (09:25→10:10)
[2018-08-25] MEDS ORDERED: PERCOCET 5MG/325MG TAB As Ordered ONE (10:09)
[2018-08-25 12:05] VITALS: BP 136/80
--- NOTE | 2018-08-26 07:38 | RO ---
DATE OF PROCEDURE: 08/25/2018 PREPROCEDURE DIAGNOSIS: Right foot bunion. POSTPROCEDURE DIAGNOSIS: Right foot bunion. PROCEDURE: Right foot bunionectomy with first metatarsal osteotomy. SURGEON: Dr. Bhavesh Mckay DIRECTOR OF STRATEGIC INITIATIVES: None. ANESTHESIA: Monitored anesthesia care. Preoperative injection of 18 mL of 1:1 mixture of 1% lidocaine plain and 1/2% Marcaine plain. ESTIMATED BLOOD LOSS: Minimal. MATERIALS: Arthrex 3.5 headless compression screw. #3-0 and #4-0 Vicryl, #4-0 Monocryl. INJECTABLES: 1 mL of Decadron. COMPLICATIONS: None. CONDITION: Stable. DESCRIPTION OF PROCEDURE: Gauri Dumont is a 63-year-old female who presents to [facility] with complaints of painful bunion. She presents today for surgical correction. The patient site and side were identified and marked in the preoperative holding area. Consent was reviewed and obtained. The risks, complications and alternatives to the procedure were explained to the patient in detail and questions were answered. The patient was brought to the operating room and placed on the operating room in supine position. Monitored anesthesia care was provided by the anesthesia team. Preoperative injection of 18 mL of 1:1 mixture of 1% lidocaine plain and 0.25% Marcaine plain were injected to the right foot. The right foot was prepped and draped in normal sterile fashion. The patient received vancomycin preoperatively. The tourniquet was applied to the right ankle and inflated at 225 mmHg. A dorsal incision was drawn at the first metatarsal and carried through with #15 blade. Dissection was carried down to the first metatarsal phalangeal joint. Bovie was used to maintain hemostasis. T capsulotomy was performed exposing the metatarsal head. Following this, a lateral release was performed, releasing the lateral capsule, adductor tendons and sesamoidal ligaments. McGlamry elevator was used to free the plantar structures. Following this, the medial bunion was resected with sagittal saw and an osteotomy was performed of the metatarsal head transposing it laterally. This was fixated with 3.5 Arthrex compression screw. Remaining bone ledge was resected with sagittal saw and smoothed with a rasp. The site was irrigated with normal saline. A small wedge of capsule was removed from the medial capsule and was repaired with #3-0 Vicryl. Subcutaneous closure was repaired with #4-0 Vicryl and the skin closure with #4-0 nylon. 1 mL Decadron was injected. Sterile dressing was applied. The tourniquet was deflated. The patient was brought to the postanesthesia care unit (PACU) with vital signs stable and neurovascular status intact. She will be partial weight bearing to the right foot. She will follow up in the office in two days.
== END 2018-08-25 12:30 | disposition home or self-care (01) ==
LOC: M SDC 05:46
PROVIDERS: ATTEND Podiatrist Foot & Ankle Surgery
DX: M21.611 Bunion of right foot (principal); I12.9 Hypertensive chronic kidney disease with stage 1 through stage 4 chronic kidney disease, or unspecified chronic kidney disease; N18.9 Chronic kidney disease, unspecified; E78.00 Pure hypercholesterolemia, unspecified; E03.9 Hypothyroidism, unspecified; K52.9 Noninfective gastroenteritis and colitis, unspecified; K21.9 Gastro-esophageal reflux disease without esophagitis; K92.2 Gastrointestinal hemorrhage, unspecified; M12.9 Arthropathy, unspecified; M54.5 Low back pain; G89.29 Other chronic pain; M79.7 Fibromyalgia; F41.9 Anxiety disorder, unspecified; F32.9 Major depressive disorder, single episode, unspecified; R51 Headache; J44.9 Chronic obstructive pulmonary disease, unspecified; H40.9 Unspecified glaucoma; Z88.1 Allergy status to other antibiotic agents; Z88.2 Allergy status to sulfonamides; Z88.5 Allergy status to narcotic agent; Z79.899 Other long term (current) drug therapy; Z79.82 Long term (current) use of aspirin; Z72.0 Tobacco use; Z90.710 Acquired absence of both cervix and uterus; Z98.51 Tubal ligation status; Z87.442 Personal history of urinary calculi

== ENCOUNTER 2018-10-23 00:27 | Inpatient (IN) | payer MEDICARE, MEDICAID ==
[~2018-10-23] VITALS: Ht 160 cm; Wt 57.0 kg
[2018-10-23 01:06] LABS: BASO % 0.1 % (0.0-1.0); HEMATOCRIT 42.9 % (36.0-47.0); HEMOGLOBIN 14.5 g/dl (12.0-15.5); LYMPH # 1.5 10^3/uL (1.5-4.5); LYMPH % 11.7 % (24.0-44.0); MEAN CORPUSCULAR HGB CONC 33.8 g/dl (32.0-36.5); MEAN CORPUSCULAR VOLUME 91.9 fl (80.0-96.0); MONO # 1.3 10^3/uL (0.0-0.8); MONO % 10.3 % (0.0-5.0); NEUTROPHILS # 9.8 10^3/uL (1.8-7.7); NEUTROPHILS % 77.5 % (36.0-66.0); PLATELET COUNT, AUTOMATED 256 10^3/uL (150-450); RED BLOOD COUNT 4.67 10^6/uL (4.00-5.40); WHITE BLOOD COUNT 12.6 10^3/uL (4.0-10.0)
[2018-10-23 01:41] LABS: ALBUMIN 3.1 GM/DL (3.2-5.2); ALT/SGPT 64 U/L (12-78); BILIRUBIN,DIRECT 0.2 MG/DL (0.0-0.2); BILIRUBIN,TOTAL 0.4 MG/DL (0.2-1.0); BLOOD UREA NITROGEN 6 MG/DL (7-18); CALCIUM LEVEL 8.2 MG/DL (8.8-10.2); CARBON DIOXIDE LEVEL 25 MEQ/L (21-32); CHLORIDE LEVEL 99 MEQ/L (98-107); CK-MB VALUE MASS 1.2 NG/ML (<3.6); CPK CREATINE PHOSPHOKINASE 40 U/L (26-192); CREATININE FOR GFR 0.62 MG/DL (0.55-1.30); GLOMERULAR FILTRATION RATE > 60.0 (>45); GLUCOSE, FASTING 102 MG/DL (70-100); NT-PRO BNP 81 PG/ML (<125); POTASSIUM SERUM 3.2 MEQ/L (3.5-5.1); SODIUM LEVEL 134 MEQ/L (136-145); THYROXINE (T4) 5.6 UG/DL (4.5-12.0); TOTAL PROTEIN 6.8 GM/DL (6.4-8.2); TROPONIN I < 0.02 NG/ML (< 0.10)
[2018-10-23] MEDS ORDERED: cefTRIAXone SOD 1 GM in D5W MINI-BAG PLUS 50 ML IV ONE (01:45)
[2018-10-23] MEDS ORDERED: AZITHROMYCIN INJ 500 MG, VIAL MATE ADAPTER 1 EACH in D5W 250 ML IV ONE (01:45)
[2018-10-23] MEDS ORDERED: ACETAMINOPHEN 500 MG TAB PO ONE (01:45)
[2018-10-23] MEDS ORDERED: dexameTHASONE 20 MG/5 ML VIAL (J1100) IV ONE (01:45)
[2018-10-23] MEDS ORDERED: ASPI81CH33 PO (02:07)
[2018-10-23] MEDS ORDERED: OMEP-218 PO (02:07)
[2018-10-23] MEDS ORDERED: SYNT88TA2 PO (02:07)
[2018-10-23] MEDS ORDERED: FERR325T16 PO (02:07)
[2018-10-23] MEDS ORDERED: POTA10CA32 PO (02:09)
[2018-10-23] MEDS ORDERED: AUGM875T28 PO (02:09)
[2018-10-23] MEDS ORDERED: HYDR25TAB PO (02:09)
[2018-10-23] MEDS ORDERED: LEVALBUTEROL 1.25 MG/0.5 ML CONCENTRATE NEB INH PRN (02:45)
[2018-10-23] MEDS ORDERED: IPRATROPIUM 0.02% SOLN 0.5MG/2.5 ML NEB INH PRN (02:45)
[2018-10-23] MEDS ORDERED: POTASSIUM CHLORIDE 10 MEQ SR TABLET PO ONE ×2 (03:00→14:00)
--- NOTE | 2018-10-23 03:14 | HPEPDOC ---
[facility] Medical History & Physical Date of Admission Oct 23, 2018 Date of Service: Oct 23, 2018 History and Physical PCP: Dr. Ulloa at the [facility] CHIEF COMPLAINT: Shortness of breath HISTORY OF PRESENT ILLNESS: Patient is a 63-year-old female with long-standing COPD goal stage III who tells me that over the last several days she has noticed progressively worsening shortness of breath as well as cough associated with sputum. She went to see her doctor at the [facility] on Thursday she was provided with pr ednisone and amoxicillin she tells me this had no effect on her she attempted to call her doctor back today and got no answer and instead presented to the emergency room. She denies any recent travel or sick contacts she tells me that she was having hot flashes and shakes at home but denies alen fevers or chills. The patient tells me she is an active smoker however the last several days she has felt so ill she has been unable to even smoke. Patient tells me that she is feeling a little bit better breathing a little easier at this time but the nebulizer treatments make her shaky. She complains of burning in her chest associated with coughing Otherwise patient denies weight loss, hair loss, h eadache, visual changes, nausea, vomiting, diarrhea, abdominal pain, muscle aches, worsening arthritis, change in mood PAST MEDICAL HISTORY: 1. Hypothyroidism. 2. Coronary artery disease followed by Dr. Holbrook. 3. Iron deficiency anemia 4. gastroesophageal reflux disease 5. Tobacco abuse 6. GI bleed secondary to NSAID use 7. Anxiety depression 8. Chronic back pain 9. Dyslipidemia 10. Hypertension 11. Fibromyalgia 12. COPD goal stage III HOME MEDICATIONS: Please see below. ALLERGIES: Please see below PAST SURGICAL HISTORY: 1. Bunionectomy. 2. Cholecystectomy. 3. Procedure for nephrolithiasis 4. Hysterectomy 5. Carpal tunnel release 2 6. Knee surgery 4 7. Tonsillectomy 8. Cardiac cath 2017. 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 ETOH: Sixpack of beer per day, Illicit drug use: Denies, Tattoos done unprofessionally: Denies, CODE STATUS: DNR/DNI FAMILY HISTORY:Reviewed and noncontributory REVIEW OF SYSTEMS: 10 systems reviewed and negative other than HPI PHYSICAL EXAMINATION: VITAL SIGNS: Temperature 102.5, pulse 100, respiratory rate 20, blood pressure 115/65, pulse oximetry 97 % on 4 L nasal cannula GENERAL: [Pleasant woman lying in a stretcher awake alert oriented speaking in complete sentences with some breathlessness visibly tremulous HEENT: Mildly dry mucous membranes no elevation and CVP CARDIOVASCULAR: S1 S2 tachycardic no additional heart sounds appreciated. RESPIRATORY: Diffuse end expiratory wheeze prolonged expiratory phase and scattered rales in the right lower lobe area ABDOMINAL: Bowel sounds present abdomen soft and nontender EXTREMITIES: No clubbing cyanosis or edema NEUROLOGICAL: Spontaneously moves all 4 extremities cranial 2 through 12 grossly intact no gross focal deficits appreciated PSYCHOLOGICAL: Appropriate LABORATORY DATA: See below. MICROBIOLOGY: Please see below. IMAGING: Chest x-ray: Report pending ASSESSMENT & PLAN: This is a 63-year-old female with acute hypoxic respiratory failure secondary to community-acquired pneumonia in the setting of COPD PROBLEMS: 1. Acute hypoxic respiratory failure: Secondary to community-acquired pneumonia in the setting of underlying COPD. The patient has no baseline steroid her O2 requirement. Currently at this time she is requiring 3 L. I'll continue ceftriaxone and azithromycin started in the emergency room, I'll also provide her with nebulizer treatments and IV Solu-Medrol, will follow up her blood cultures and adjust antibiotic spectrum as appropriate. I will provide her with some gentle IV fluids as she is mildly hyponatremic I suspect secondary to hypovolemic hyponatremia she complains of some dry mucous membranes as well. I'll check a respiratory PCR panel, provided with an Acapella and Mucinex. She is tachycardic with leukocytosis 2. Hypovolemic hyponatremia: We'll provided with gentle IV fluids and monitor 3. Elevated AST: Patient provides a history of alcohol abuse, she is tremulous and tachycardic at this time but tells me this is only since initiation of nebulizer treatments and that she never has shakes with alcohol withdrawal. She denies any alcohol withdrawal seizures in the past. She is normally on thiamine and folic acid which I will continue I will also provide her with a multivitamin. Monitor for symptoms of alcohol withdrawal 4. Hypokalemia: We'll replete and recheck labs in a.m. 5. Hypertension: I will continue her amlodipine with holding parameter and hold her hydrochlorothiazide in the setting of hyponatremia and active infection 6. COPD: As outlined above may be playing an underlying role in her predisposition to respiratory failure 7. Gastroesophageal reflux disease: Continue with omeprazole 8. Chest burning: Likely costochondritis is secondary to coughing I will monitor her troponin and monitor her on telemetry however does not appear to be cardiac in etiology. We'll avoid NSAIDs in the setting of a history of GI bleed while on NSAIDs I'll provide her with Tylenol as needed 9. Iron deficiency anemia: Continue his iron supplementation 10. Fibromyalgia and mood disorder: Continue with sertraline and hydroxyzine 11. Dyslipidemia: Continue with simvastatin 12. Hypothyroidism: Continue with Synthroid, TSH mildly elevated consider rechecking on the outpatient setting after her acute medical illness has resolved 13. Ongoing tobacco use: Cessation counseling provided DVT PROPHYLAXIS:Lovenox DISPOSITION: And admitted to the progressive care unit prognosis guarded Vital Signs Vital Signs Date Time Temp Pulse Resp B/P (MAP) Pulse Ox O2 Delivery O2 Flow Rate FiO2 10/23/18 01:29 102.5 10/23/18 01:25 100 20 115/65 (82) 97 Nasal Cannula 4.0 Laboratory Data Labs 24H Laboratory Tests 2 10/23/18 00:52: Immature Granulocyte % (Auto) 0.4, White Blood Count 12.6H, Red Blood Count 4.67, Hemoglobin 14.5, Hematocrit 42.9, Mean Corpuscular Volume 91.9, Mean Corpuscular Hemoglobin 31.0, Mean Corpuscular Hemoglobin Concent 33.8, Red Cell Distribution Width 13.0, Platelet Count 256, Neutrophils (%) (Auto) 77.5H, Lymphocytes (%) (Auto) 11.7L, Monocytes (%) (Auto) 10.3H, Eosinophils (%) (Auto) 0.0, Basophils (%) (Auto) 0.1, Neutrophils # (Auto) 9.8H, Lymphocytes # (Auto) 1.5, Monocytes # (Auto) 1.3H, Eosinophils # (Auto) 0.0, Basophils # (Auto) 0.0, Nucleated Red Blood Cells % (auto) 0.0, Anion Gap 10, Glomerular Filtration Rate > 60.0, Lactic Acid Level 1.5, Calcium Level 8.2L, Aspartate Amino Transf (AST/SGOT) 59H, Alanine Aminotransferase (ALT/SGPT) 64, Alkaline Phosphatase 107, Total Bilirubin 0.4, Direct Bilirubin 0.2, Total Creatine Kinase 40, Creatine Kinase MB 1.2, Creatine Kinase MB Relative Index 3.00, Troponin I < 0.02, ZB-Dhw-S-Type Natriuretic Peptide 81, Total Protein 6.8, Albumin 3.1L, Albumin/Globulin Ratio 0.84L, Thyroid Stimulating Hormone (TSH) 5.650H, Thyroxine (T4) 5.6 10/23/18 01:07: POC pH (Misc Panel) 7.414, POC Base Excess (Misc Panel) -5.0L, POC Saturated Percent O2 (Misc) 90L, POC pO2 (Misc Panel) 56.0L, POC pCO2 (Misc Panel) 31.0L, POC HCO3 (Misc Panel) 19.9L, POC Total CO2 (Misc Panel) 21.0L CBC/BMP Laboratory Tests 10/23/18 00:52 Red Blood Count 4.67, Mean Corpuscular Volume 91.9, Mean Corpuscular Hemoglobin 31.0, Mean Corpuscular Hemoglobin Concent 33.8, Red Cell Distribution Width 13.0, Neutrophils (%) (Auto) 77.5 H, Lymphocytes (%) (Auto) 11.7 L, Monocytes (%) (Auto) 10.3 H, Eosinophils (%) (Auto) 0.0, Basophils (%) (Auto) 0.1, N eutrophils # (Auto) 9.8 H, Lymphocytes # (Auto) 1.5, Monocytes # (Auto) 1.3 H, Eosinophils # (Auto) 0.0, Basophils # (Auto) 0.0 Microbiology Microbiology 10/23/18 Blood Culture, Received Pending 10/23/18 Blood Culture, Received Pending Home Medications Scheduled Amlodipine Besylate (Amlodipine Besylate) 10 Mg Tab, 10 MG PO DAILY Amoxicillin/Potassium Clav (Augmentin 875-125 Tablet) 1 Each Tablet, 1 TAB PO Q12H Aspirin (Aspirin) 81 Mg Tab.chew, 81 MG PO DAILY Cholecalciferol (Vitamin D3) (Vitamin D3) 1,000 Unit Cap, 2,000 UNIT PO DAILY Ferrous Gluconate (Ferrous Gluconate) 324 Mg Tablet, 324 MG PO DAILY Folic Acid (Folic Acid) 1 Mg Tab, 1 MG PO DAILY Hydrochlorothiazide (Hydrochlorothiazide) 25 Mg Tablet, 25 MG PO DAILY Ipratropium/Albuterol Sulfate (Combivent Respimat 20-100 Mcg) 1 Aer Aer, 2 PUFFS PO BID Levothyroxine Sodium (Synthroid) 88 Mcg Tablet, 88 MCG PO DAILY Milk Thistle Seed Extract (Milk Thistle) 175 Mg Tablet, 175 MG PO DAILY Omeprazole (Omeprazole) 20 Mg Capsule.dr, 20 MG PO BID Potassium Chloride (Potassium Chloride) 10 Meq Capsule.er, 10 MEQ PO DAILY Sertraline Hcl (Sertraline HCl) 50 Mg Tab, 200 MG PO DAILY Simvastatin (Simvastatin) 20 Mg Tab, 40 MG PO QHS Thiamine HCl (Thiamine HCl) 100 Mg Tab, 100 MG PO DAILY Scheduled PRN Albuterol Sulfate (Proair Hfa) 108 Mcg/Act Aer, 1 PUFF PO QID PRN for WHEEZING Hydroxyzine HCl (Hydroxyzine HCl) 25 Mg Tab, 50 MG PO BID PRN for ANXIETY Allergies Coded Allergies: erythromycin base (Verified Allergy, Unknown, rash, 08/18/18) tetracycline (Verified Allergy, Unknown, 08/18/18) NSAIDS (Non-Steroidal Anti-Inflamma (Verified Adverse Reaction, Unknown, has ulcer, 08/21/18) Sulfa (Sulfonamide Antibiotics) (Verified Adverse Reaction, Unknown, NAUSEA, 08/18/18) codeine (Verified Adverse Reaction, Unknown, nausea, 08/18/18) propoxyphene (Verified Adverse Reaction, Unknown, nausea, 08/18/18) A-FIB/CHADSVASC A-FIB History Current/History of A-Fib/PAF?: PING Diane MD Oct 23, 2018 03:14
[2018-10-23 03:26] LABS: ETHYL ALCOHOL (ETHANOL) 0.033 % (0.000-0.010)
[2018-10-23 03:35] VITALS: BP 121/67
[2018-10-23] MEDS: NS 1,000 ML IV SCH (04:16)
[2018-10-23] MEDS: LEVOTHYROXINE 88MCG TABLET (0.088 MG) PO SCH (06:01)
[2018-10-23] MEDS: hydrOXYzine 50 MG TAB PO PRN (06:02)
[2018-10-23] MEDS: methylPREDNISolone INJ 125 MG/2 ML VIAL (J2930) IV SCH ×3 (06:02→22:11)
[2018-10-23 06:07] LABS: HEMATOCRIT 44.1 % (36.0-47.0); HEMOGLOBIN 14.8 g/dl (12.0-15.5); MEAN CORPUSCULAR HEMOGLOBIN 30.9 pg (27.0-33.0); MEAN CORPUSCULAR HGB CONC 33.6 g/dl (32.0-36.5); MEAN CORPUSCULAR VOLUME 92.1 fl (80.0-96.0); PLATELET COUNT, AUTOMATED 226 10^3/uL (150-450); RED BLOOD COUNT 4.79 10^6/uL (4.00-5.40); WHITE BLOOD COUNT 11.1 10^3/uL (4.0-10.0)
[2018-10-23 06:35] LABS: BLOOD UREA NITROGEN 7 MG/DL (7-18); CALCIUM LEVEL 8.5 MG/DL (8.8-10.2); CARBON DIOXIDE LEVEL 24 MEQ/L (21-32); CHLORIDE LEVEL 98 MEQ/L (98-107); CREATININE FOR GFR 0.86 MG/DL (0.55-1.30); GLOMERULAR FILTRATION RATE > 60.0 (>45); GLUCOSE, FASTING 294 MG/DL (70-100); POTASSIUM SERUM 3.1 MEQ/L (3.5-5.1); SODIUM LEVEL 133 MEQ/L (136-145); TROPONIN I < 0.02 NG/ML (< 0.10)
[2018-10-23 08:00] VITALS: BP 131/73
[2018-10-23] MEDS: LEVALBUTEROL 1.25 MG/0.5 ML CONCENTRATE NEB INH SCH ×4 (08:00→20:05)
[2018-10-23] MEDS: IPRATROPIUM 0.02% SOLN 0.5MG/2.5 ML NEB INH SCH ×4 (08:00→20:06)
[2018-10-23] MEDS: VITAMIN D 1,000 INTERNATIONAL UNITS TABLET PO SCH (10:08)
[2018-10-23] MEDS: THIAMINE 100 MG TAB PO SCH (10:08)
[2018-10-23] MEDS: MULTIVITAMINS/MINERALS THERAP 1 TAB PO SCH (10:08)
[2018-10-23] MEDS: ASPIRIN 81 MG CHEW TABLET PO SCH (10:10)
[2018-10-23] MEDS: FERROUS GLUCONATE 324 MG TAB PO SCH (10:10)
[2018-10-23] MEDS: FOLIC ACID 1 MG TAB PO SCH (10:10)
[2018-10-23] MEDS: amLODIPine 10 MG TAB PO SCH (10:10)
[2018-10-23] MEDS: POTASSIUM CHLORIDE 10 MEQ SR TABLET PO SCH (10:10)
[2018-10-23] MEDS: OMEPRAZOLE 20 MG CAP PO SCH ×2 (10:10→22:12)
[2018-10-23] MEDS: ENOXAPARIN 40 MG/0.4 ML SYRINGE (J1650) SC SCH (10:11)
[2018-10-23] MEDS: guaiFENesin ER 600 MG TAB PO SCH ×2 (10:11→22:11)
[2018-10-23] MEDS: SERTRALINE 100 MG TAB PO SCH (10:11)
--- NOTE | 2018-10-23 11:23 | ECGEPIP ---
[facility] - ED Test Date: 2018-10-23 Pat Name: STEPHAN DICKINSON Department: Room: [place] [address] Gender: Female Transplant Case Manager: SUNITHA : [id number] Requested By: AARON AZUL Order Number: [id number] Reading MD: Daphnie Rae Measurements Intervals [place] Rate: 98 P: 65 [place]: 161 QRS: 75 QRSD: 81 T: 64 QT: 355 QTc: 454 Interpretive Statements SINUS RHYTHM NSTTW abnormalities INCREASED RATE 09/20/17 Electronically Signed on 10-23-2018 11:22:38 EDT by Daphnie Rae
[2018-10-23 12:00] VITALS: BP 116/65
[2018-10-23] MEDS ORDERED: SYMB80INH INH (12:41)
[2018-10-23] MEDS ORDERED: NUCY100T11 PO (12:41)
[2018-10-23] MEDS ORDERED: LYRI150C PO (12:41)
[2018-10-23] MEDS ORDERED: OXYC10TA12 PO (12:41)
[2018-10-23 13:28] LABS: MAGNESIUM LEVEL 1.9 MG/DL (1.8-2.4)
[2018-10-23] MEDS: PREGABALIN 75 MG CAP(LYRICA) PO SCH ×2 (13:57→22:11)
[2018-10-23] MEDS: oxyCODONE 5MG TAB PO PRN (14:02)
--- NOTE | 2018-10-23 15:01 | REP ---
Clinical: Cough and dyspnea. Comparison: 01/08/2017 Findings: Right lower lobe infiltrate. Diffuse underlying chronic interstitial changes noted. Mediastinum and cardiac silhouette normal. Skeletal structures intact. Impression: Chronic changes with superimposed right lower lobe infiltrate. Electronically Signed by Rupesh Kelley MD 10/23/2018 07:12 A
[2018-10-23 16:00] VITALS: BP 126/69
[2018-10-23 20:00] VITALS: BP 120/76
[2018-10-23 22:00] VITALS: BP 117/72
[2018-10-23] MEDS: SIMVASTATIN 20 MG TAB PO SCH (22:11)
[2018-10-23] MEDS: cefTRIAXone SOD 1 GM in D5W MINI-BAG PLUS 50 ML IV SCH (22:11)
[2018-10-23] MEDS: ACETAMINOPHEN TAB 650MG DOSE (2X325MG) PO PRN (22:12)
[2018-10-24] VITALS (9 sets, daily range): BP systolic 110–135; BP diastolic 66–75
[2018-10-24] MEDS: NS 1,000 ML IV SCH (00:13)
[2018-10-24] MEDS: oxyCODONE 5MG TAB PO PRN ×3 (00:13→22:22)
[2018-10-24] MEDS: AZITHROMYCIN INJ 500 MG, VIAL MATE ADAPTER 1 EACH in D5W 250 ML IV SCH ×2 (00:14→22:21)
[2018-10-24 05:14] LABS: HEMATOCRIT 44.4 % (36.0-47.0); HEMOGLOBIN 14.5 g/dl (12.0-15.5); MEAN CORPUSCULAR HEMOGLOBIN 30.4 pg (27.0-33.0); MEAN CORPUSCULAR HGB CONC 32.7 g/dl (32.0-36.5); MEAN CORPUSCULAR VOLUME 93.1 fl (80.0-96.0); PLATELET COUNT, AUTOMATED 252 10^3/uL (150-450); RED BLOOD COUNT 4.77 10^6/uL (4.00-5.40); WHITE BLOOD COUNT 16.8 10^3/uL (4.0-10.0)
[2018-10-24 05:38] LABS: BLOOD UREA NITROGEN 10 MG/DL (7-18); CALCIUM LEVEL 8.6 MG/DL (8.8-10.2); CARBON DIOXIDE LEVEL 25 MEQ/L (21-32); CHLORIDE LEVEL 108 MEQ/L (98-107); CREATININE FOR GFR 0.72 MG/DL (0.55-1.30); GLOMERULAR FILTRATION RATE > 60.0 (>45); GLUCOSE, FASTING 137 MG/DL (70-100); POTASSIUM SERUM 4.2 MEQ/L (3.5-5.1); SODIUM LEVEL 140 MEQ/L (136-145)
[2018-10-24] MEDS: methylPREDNISolone INJ 125 MG/2 ML VIAL (J2930) IV SCH (06:41)
[2018-10-24] MEDS: LEVOTHYROXINE 88MCG TABLET (0.088 MG) PO SCH (06:41)
[2018-10-24] MEDS: IPRATROPIUM 0.02% SOLN 0.5MG/2.5 ML NEB INH SCH ×4 (07:15→20:04)
[2018-10-24] MEDS: LEVALBUTEROL 1.25 MG/0.5 ML CONCENTRATE NEB INH SCH ×4 (07:15→20:04)
[2018-10-24] MEDS: FERROUS GLUCONATE 324 MG TAB PO SCH (09:50)
[2018-10-24] MEDS: guaiFENesin ER 600 MG TAB PO SCH ×2 (09:50→20:47)
[2018-10-24] MEDS: SERTRALINE 100 MG TAB PO SCH (09:50)
[2018-10-24] MEDS: VITAMIN D 1,000 INTERNATIONAL UNITS TABLET PO SCH (09:51)
[2018-10-24] MEDS: ASPIRIN 81 MG CHEW TABLET PO SCH (09:51)
[2018-10-24] MEDS: OMEPRAZOLE 20 MG CAP PO SCH ×2 (09:51→20:47)
[2018-10-24] MEDS: MULTIVITAMINS/MINERALS THERAP 1 TAB PO SCH (09:51)
[2018-10-24] MEDS: amLODIPine 10 MG TAB PO SCH (09:51)
[2018-10-24] MEDS: PREGABALIN 75 MG CAP(LYRICA) PO SCH ×2 (09:52→20:47)
[2018-10-24] MEDS: POTASSIUM CHLORIDE 10 MEQ SR TABLET PO SCH (09:52)
[2018-10-24] MEDS: THIAMINE 100 MG TAB PO SCH (09:52)
[2018-10-24] MEDS: FOLIC ACID 1 MG TAB PO SCH (09:54)
[2018-10-24] MEDS: ENOXAPARIN 40 MG/0.4 ML SYRINGE (J1650) SC SCH (09:54)
--- NOTE | 2018-10-24 11:22 | IPNPDOC ---
Subjective Date Seen The patient was seen on 10/24/18. Subjective Chief Complaint/HPI Patient seen and examined at the bedside. Reports her respiratory status is continuing to improve. Objective Physical Examination General Exam: Positive: Alert, Cooperative, No Acute Distress ENT Exam: Positive: Atraumatic, Mucous membr. moist/pink Neck Exam: Negative: JVD Chest Exam: Positive: Diminished; Negative: Rales Heart Exam: Positive: Rate Normal, Normal S1, Normal S2 Abdomen Exam: Positive: Soft; Negative: Tenderness Extremity Exam: Negative: Tenderness, Swelling Psych Exam: Positive: Oriented x 3 Assessment /Plan Plan/VTE VTE Prophylaxis Ordered?: Yes Plan Community-acquired pneumonia in the setting of underlying COPD. Patient titrated off of supplemental oxygen Cont ceftriaxone and azithromycin--will transition to PO Abx over the next 24 hrs Cont serial nebulizer treatments, IV Solu-Medrol transitioned to PO Prednisone We will cont to monitor the patient's respiratory status Hypovolemic hyponatremia, resolved s/p IVF Hydration Hypertension Cont regimen as ordered COPD Continue therapy as ordered above Gastroesophageal reflux disease Continue with omeprazole Iron deficiency anemia Continue iron supplementation Fibromyalgia and mood disorder Continue with sertraline and hydroxyzine Dyslipidemia Continue simvastatin Hypothyroidism Continue with Synthroid Ongoing tobacco use Cessation counseling provided DVT prophylaxis Lovenox Disposition-anticipate discharge home in 24-48 hours pending continued clinical improvement. VS, I&O, 24H, Fishbone Vital Signs/I&O Vital Signs Date Time Temp Pulse Resp B/P (MAP) Pulse Ox O2 Delivery O2 Flow Rate FiO2 10/24/18 09:53 18 10/24/18 09:51 91 132/74 10/24/18 08:00 98.6 91 10/23/18 20:07 Room Air 10/23/18 03:10 3.0 I&O- Last 24 Hours up to 6 AM 10/24/18 06:00 Intake Total 2295 ml Output Total 2000 ml Balance 295 ml Laboratory Data 24H LABS Laboratory Tests 2 10/24/18 04:50: Nucleated Red Blood Cells % (auto) 0.0, Anion Gap 7L, Glomerular Filtration Rate > 60.0, Blood Urea Nitrogen 10, Creatinine 0.72, Sodium Level 140#, Potassium Level 4.2#, Chloride Level 108H, Carbon Dioxide Level 25, Calcium Level 8.6L CBC/BMP Laboratory Tests 10/24/18 04:50 Red Blood Count 4.77, Mean Corpuscular Volume 93.1, Mean Corpuscular Hemoglobin 30.4, Mean Corpuscular Hemoglobin Concent 32.7, Red Cell Distribution Width 13.0, Calcium Level 8.6 L Microbiology Microbiology 10/23/18 Blood Culture - Preliminary, Resulted No growth after 24 hours . All specim... 10/23/18 Blood Culture - Preliminary, Resulted No growth after 24 hours . All specim... TOÑA FU MD Oct 24, 2018 11:22
[2018-10-24] MEDS ORDERED: SLF 3 ML SYR IV PRN (16:45)
[2018-10-24] MEDS: cefTRIAXone SOD 1 GM in D5W MINI-BAG PLUS 50 ML IV SCH (20:47)
[2018-10-24] MEDS: SIMVASTATIN 20 MG TAB PO SCH (20:48)
[2018-10-24] MEDS: ACETAMINOPHEN TAB 650MG DOSE (2X325MG) PO PRN (20:51)
[2018-10-24] MEDS: hydrOXYzine 50 MG TAB PO PRN (22:21)
[2018-10-24] MEDS: SLF 3 ML SYR IV SCH (22:23)
[2018-10-25] VITALS: BP 132/74
[2018-10-25] MEDS: LORazepam 0.5 MG TAB PO PRN (03:01)
[2018-10-25] MEDS: ACETAMINOPHEN TAB 650MG DOSE (2X325MG) PO PRN ×3 (03:06→23:44)
[2018-10-25 04:45] VITALS: BP 143/76
[2018-10-25 05:58] LABS: HEMATOCRIT 41.6 % (36.0-47.0); HEMOGLOBIN 13.6 g/dl (12.0-15.5); MEAN CORPUSCULAR HEMOGLOBIN 30.4 pg (27.0-33.0); MEAN CORPUSCULAR HGB CONC 32.7 g/dl (32.0-36.5); MEAN CORPUSCULAR VOLUME 93.1 fl (80.0-96.0); PLATELET COUNT, AUTOMATED 237 10^3/uL (150-450); RED BLOOD COUNT 4.47 10^6/uL (4.00-5.40); WHITE BLOOD COUNT 11.6 10^3/uL (4.0-10.0)
[2018-10-25] MEDS: LEVOTHYROXINE 88MCG TABLET (0.088 MG) PO SCH (06:02)
[2018-10-25] MEDS: SLF 3 ML SYR IV SCH ×3 (06:02→22:15)
[2018-10-25 06:23] LABS: BLOOD UREA NITROGEN 9 MG/DL (7-18); CALCIUM LEVEL 8.3 MG/DL (8.8-10.2); CARBON DIOXIDE LEVEL 26 MEQ/L (21-32); CHLORIDE LEVEL 108 MEQ/L (98-107); CREATININE FOR GFR 0.58 MG/DL (0.55-1.30); GLOMERULAR FILTRATION RATE > 60.0 (>45); GLUCOSE, FASTING 110 MG/DL (70-100); POTASSIUM SERUM 3.5 MEQ/L (3.5-5.1); SODIUM LEVEL 141 MEQ/L (136-145)
[2018-10-25 08:00] VITALS: BP 133/76
[2018-10-25] MEDS: LEVALBUTEROL 1.25 MG/0.5 ML CONCENTRATE NEB INH SCH ×4 (08:03→20:24)
[2018-10-25] MEDS: IPRATROPIUM 0.02% SOLN 0.5MG/2.5 ML NEB INH SCH ×4 (08:03→20:22)
[2018-10-25] MEDS: predniSONE 20 MG TAB PO SCH (08:27)
[2018-10-25] MEDS: POTASSIUM CHLORIDE 10 MEQ SR TABLET PO SCH (08:27)
[2018-10-25] MEDS: OMEPRAZOLE 20 MG CAP PO SCH ×2 (08:28→20:06)
[2018-10-25] MEDS: VITAMIN D 1,000 INTERNATIONAL UNITS TABLET PO SCH (08:31)
[2018-10-25] MEDS: amLODIPine 10 MG TAB PO SCH (08:31)
[2018-10-25] MEDS: oxyCODONE 5MG TAB PO PRN ×2 (08:31→20:07)
[2018-10-25] MEDS: FOLIC ACID 1 MG TAB PO SCH (08:31)
[2018-10-25] MEDS: SERTRALINE 100 MG TAB PO SCH (08:31)
[2018-10-25] MEDS: ASPIRIN 81 MG CHEW TABLET PO SCH ×2 (08:31→08:50)
[2018-10-25] MEDS: PREGABALIN 75 MG CAP(LYRICA) PO SCH ×2 (08:32→20:07)
[2018-10-25] MEDS: MULTIVITAMINS/MINERALS THERAP 1 TAB PO SCH (08:32)
[2018-10-25] MEDS: guaiFENesin ER 600 MG TAB PO SCH ×2 (08:32→20:07)
[2018-10-25] MEDS: ENOXAPARIN 40 MG/0.4 ML SYRINGE (J1650) SC SCH (08:32)
[2018-10-25] MEDS: FERROUS GLUCONATE 324 MG TAB PO SCH (08:32)
[2018-10-25] MEDS: THIAMINE 100 MG TAB PO SCH (08:32)
[2018-10-25 12:00] VITALS: BP 138/78
--- NOTE | 2018-10-25 13:03 | IPNPDOC ---
Subjective Date Seen The patient was seen on 10/25/18. Subjective Chief Complaint/HPI Patient seen and examined at bedside. Reports that she had an episode of shortness of breath and coughing overnight which required nebulizer therapy. Thereafter, the patient states that she has been feeling better, but still has some shortness of breath with wheezing. Denies any complaints of chest pain, palpitations, abdominal pain, or any nausea/vomiting/diarrhea. Objective Physical Examination General Exam: Positive: Alert, Cooperative, No Acute Distress ENT Exam: Positive: Atraumatic, Mucous membr. moist/pink Neck Exam: Negative: JVD Chest Exam: Positive: Diminished; Negative: Rales Heart Exam: Positive: Rate Normal, Normal S1, Normal S2 Abdomen Exam: Positive: Soft; Negative: Tenderness Extremity Exam: Negative: Tenderness, Swelling Psych Exam: Positive: Oriented x 3 Assessment /Plan Plan/VTE VTE Prophylaxis Ordered?: Yes Plan Community-acquired pneumonia in the setting of underlying COPD. Patient back on 2L of supplemental oxygen this AM Cont ceftriaxone and azithromycin--will transition to PO Abx over the next 24- 48hrs pending improvement of clinical condition. Cont serial nebulizer treatments, IV Solu-Medrol transitioned to PO Prednisone We will cont to monitor the patient's respiratory status Hypovolemic hyponatremia, resolved s/p IVF Hydration Hypertension Cont regimen as ordered COPD Continue therapy as ordered above Gastroesophageal reflux disease Continue with omeprazole Iron deficiency anemia Continue iron supplementation Fibromyalgia and mood disorder Continue with sertraline and hydroxyzine Dyslipidemia Continue simvastatin Hypothyroidism Continue with Synthroid Ongoing tobacco use Cessation counseling provided DVT prophylaxis Lovenox Disposition-anticipate discharge home in 24-48 hours pending continued clinical improvement. VS, I&O, 24H, Fishbone Vital Signs/I&O Vital Signs Date Time Temp Pulse Resp B/P (MAP) Pulse Ox O2 Delivery O2 Flow Rate FiO2 10/25/18 08:31 20 90 2.0 10/25/18 08:31 99 133/76 10/25/18 08:00 98.9 10/23/18 20:07 Room Air I&O- Last 24 Hours up to 6 AM 10/25/18 06:00 Intake Total 1270 ml Output Total 1500 ml Balance -230 ml Laboratory Data 24H LABS Laboratory Tests 2 10/25/18 05:35: Nucleated Red Blood Cells % (auto) 0.0, Anion Gap 7L, Glomerular Filtration Rate > 60.0, Blood Urea Nitrogen 9, Creatinine 0.58, Sodium Level 141, Potassium Level 3.5, Chloride Level 108H, Carbon Dioxide Level 26, Calcium Level 8.3L CBC/BMP Laboratory Tests 10/25/18 05:35 Red Blood Count 4.47, Mean Corpuscular Volume 93.1, Mean Corpuscular Hemoglobin 30.4, Mean Corpuscular Hemoglobin Concent 32.7, Red Cell Distribution Width 13.2, Calcium Level 8.3 L Microbiology Microbiology 10/23/18 Blood Culture - Preliminary, Resulted No Growth after 48 hours. All Specime... 10/23/18 Blood Culture - Preliminary, Resulted No Growth after 48 hours. All Specime... TOÑA FU MD Oct 25, 2018 13:03
[2018-10-25 20:00] VITALS: BP 127/78
[2018-10-25] MEDS: cefTRIAXone SOD 1 GM in D5W MINI-BAG PLUS 50 ML IV SCH (20:06)
[2018-10-25] MEDS: SIMVASTATIN 20 MG TAB PO SCH (20:06)
[2018-10-25] MEDS: AZITHROMYCIN INJ 500 MG, VIAL MATE ADAPTER 1 EACH in D5W 250 ML IV SCH (22:15)
[2018-10-26] VITALS (7 sets, daily range): BP systolic 118–140; BP diastolic 56–76
[2018-10-26 05:58] LABS: HEMATOCRIT 41.8 % (36.0-47.0); HEMOGLOBIN 13.6 g/dl (12.0-15.5); MEAN CORPUSCULAR HEMOGLOBIN 29.7 pg (27.0-33.0); MEAN CORPUSCULAR HGB CONC 32.5 g/dl (32.0-36.5); MEAN CORPUSCULAR VOLUME 91.3 fl (80.0-96.0); PLATELET COUNT, AUTOMATED 235 10^3/uL (150-450); RED BLOOD COUNT 4.58 10^6/uL (4.00-5.40)
[2018-10-26] MEDS: LEVOTHYROXINE 88MCG TABLET (0.088 MG) PO SCH (06:24)
[2018-10-26] MEDS: SLF 3 ML SYR IV SCH ×3 (06:25→21:17)
[2018-10-26 06:27] LABS: BLOOD UREA NITROGEN 8 MG/DL (7-18); CALCIUM LEVEL 8.2 MG/DL (8.8-10.2); CARBON DIOXIDE LEVEL 27 MEQ/L (21-32); CHLORIDE LEVEL 106 MEQ/L (98-107); CREATININE FOR GFR 0.51 MG/DL (0.55-1.30); GLOMERULAR FILTRATION RATE > 60.0 (>45); GLUCOSE, FASTING 102 MG/DL (70-100); POTASSIUM SERUM 3.5 MEQ/L (3.5-5.1); SODIUM LEVEL 141 MEQ/L (136-145)
[2018-10-26] MEDS: IPRATROPIUM 0.02% SOLN 0.5MG/2.5 ML NEB INH SCH ×4 (08:14→19:26)
[2018-10-26] MEDS: LEVALBUTEROL 1.25 MG/0.5 ML CONCENTRATE NEB INH SCH ×4 (08:14→19:26)
[2018-10-26] MEDS: ASPIRIN 81 MG CHEW TABLET PO SCH (09:00)
[2018-10-26] MEDS: MULTIVITAMINS/MINERALS THERAP 1 TAB PO SCH (09:12)
[2018-10-26] MEDS: THIAMINE 100 MG TAB PO SCH (09:12)
[2018-10-26] MEDS: FERROUS GLUCONATE 324 MG TAB PO SCH (09:12)
[2018-10-26] MEDS: POTASSIUM CHLORIDE 10 MEQ SR TABLET PO SCH (09:13)
[2018-10-26] MEDS: OMEPRAZOLE 20 MG CAP PO SCH ×2 (09:13→21:16)
[2018-10-26] MEDS: VITAMIN D 1,000 INTERNATIONAL UNITS TABLET PO SCH (09:13)
[2018-10-26] MEDS: SERTRALINE 100 MG TAB PO SCH (09:13)
[2018-10-26] MEDS: PREGABALIN 75 MG CAP(LYRICA) PO SCH ×2 (09:13→21:16)
[2018-10-26] MEDS: predniSONE 20 MG TAB PO SCH (09:13)
[2018-10-26] MEDS: FOLIC ACID 1 MG TAB PO SCH (09:14)
[2018-10-26] MEDS: guaiFENesin ER 600 MG TAB PO SCH ×2 (09:14→21:17)
[2018-10-26] MEDS: amLODIPine 10 MG TAB PO SCH (09:15)
[2018-10-26] MEDS: ENOXAPARIN 40 MG/0.4 ML SYRINGE (J1650) SC SCH (09:16)
[2018-10-26] MEDS: oxyCODONE 5MG TAB PO PRN ×2 (09:24→21:17)
[2018-10-26] MEDS: ACETAMINOPHEN TAB 650MG DOSE (2X325MG) PO PRN (12:31)
--- NOTE | 2018-10-26 14:17 | IPNPDOC ---
Text Note Date of Service The patient was seen on 10/26/18. NOTE Subjective: Patient was seen and examined at the bedside. Patient had noted some wheezing and SOB this morning. Mild cough. Denied CP or palpitations. Denies nausea, vomiting, abdominal pain, constipation, diarrhea, or urinary discomfort. Objective: Vitals (See below) General: Lying in bed, no acute distress, comfortable, AAOx3 HEENT: NC, AT CVS: +S1S2 Lungs: Fair air entry b/l, expiratory wheezing can be appreciated bilaterally Abdomen: Soft, ND, NT Extremities: - Edema, - Calf tenderness Assessment and plan: Community-acquired pneumonia in the setting of underlying COPD - Clinically has had improvement in her breathing - Still remains on supplemental oxygen - Leukocytosis - likely /2 corticosteroids - CXR 10/23: Chronic changes with superimposed right lower lobe infiltrate. - c/w Ceftriaxone and Azithromycin (Day #4); will transition to PO medications today - c/w Prednisone - will taper upon discharge s/p Hypovolemic hyponatremia Hypertension - BP well controlled - c/w Amlodipine COPD - c/w inhaled therapy as ordered Dyslipidemia - Continue simvastatin Hypothyroidism - Continue with Synthroid Iron deficiency anemia - Continue iron supplementation Fibromyalgia and mood disorder - Continue with sertraline and hydroxyzine Ongoing tobacco use - Cessation counseling provided GERD - c/w Omeprazole DVT prophylaxis - c/w Lovenox Disposition: - Anticipate discharge within 24-48 hours once off supplemental oxygen VS,Fishbone, I+O VS, Fishbone, I+O Laboratory Tests 10/26/18 05:31 Red Blood Count 4.58, Mean Corpuscular Volume 91.3, Mean Corpuscular Hemoglobin 29.7, Mean Corpuscular Hemoglobin Concent 32.5, Red Cell Distribution Width 13.3, Calcium Level 8.2 L Vital Signs Date Time Temp Pulse Resp B/P (MAP) Pulse Ox O2 Delivery O2 Flow Rate FiO2 10/26/18 12:00 98.0 92 20 119/62 (81) 90 1.0 10/23/18 20:07 Room Air I&O- Last 24 Hours up to 6 AM 10/26/18 05:59 Intake Total 960 ml Output Total 1351 ml Balance -391 ml XU CHAN MD Oct 26, 2018 14:17
[2018-10-26] MEDS ORDERED: AZITHROMYCIN 250 MG TAB PO SCH (21:00)
[2018-10-26] MEDS ORDERED: CEFDINIR 300 MG CAP (OMNICEF) PO SCH (21:00)
[2018-10-26] MEDS: CEFDINIR 300 MG CAP (OMNICEF) PO SCH (21:17)
[2018-10-26] MEDS: SIMVASTATIN 20 MG TAB PO SCH (21:17)
[2018-10-26] MEDS: LORazepam 0.5 MG TAB PO PRN (21:22)
[2018-10-26] MEDS ORDERED: ONDANSETRON 4MG/2ML VIAL (J2405) IV SCH (23:00)
[2018-10-27] VITALS (7 sets, daily range): BP systolic 105–131; BP diastolic 58–74
[2018-10-27] MEDS: hydrOXYzine 50 MG TAB PO PRN ×2 (00:01→23:46)
[2018-10-27] MEDS ORDERED: ONDANSETRON 4MG/2ML VIAL (J2405) IV PRN (01:30)
[2018-10-27] MEDS: ACETAMINOPHEN TAB 650MG DOSE (2X325MG) PO PRN ×2 (01:38→12:44)
[2018-10-27] MEDS: LEVOTHYROXINE 88MCG TABLET (0.088 MG) PO SCH (05:39)
[2018-10-27] MEDS: SLF 3 ML SYR IV SCH ×3 (05:40→21:21)
[2018-10-27 06:15] LABS: HEMATOCRIT 42.1 % (36.0-47.0); HEMOGLOBIN 13.5 g/dl (12.0-15.5); MEAN CORPUSCULAR HEMOGLOBIN 30.5 pg (27.0-33.0); MEAN CORPUSCULAR HGB CONC 32.1 g/dl (32.0-36.5); MEAN CORPUSCULAR VOLUME 95.2 fl (80.0-96.0); PLATELET COUNT, AUTOMATED 250 10^3/uL (150-450); RED BLOOD COUNT 4.42 10^6/uL (4.00-5.40); WHITE BLOOD COUNT 11.8 10^3/uL (4.0-10.0)
[2018-10-27 06:43] LABS: BLOOD UREA NITROGEN 10 MG/DL (7-18); CALCIUM LEVEL 8.2 MG/DL (8.8-10.2); CARBON DIOXIDE LEVEL 26 MEQ/L (21-32); CHLORIDE LEVEL 107 MEQ/L (98-107); CREATININE FOR GFR 0.52 MG/DL (0.55-1.30); GLOMERULAR FILTRATION RATE > 60.0 (>45); GLUCOSE, FASTING 96 MG/DL (70-100); POTASSIUM SERUM 3.8 MEQ/L (3.5-5.1); SODIUM LEVEL 140 MEQ/L (136-145)
[2018-10-27] MEDS: IPRATROPIUM 0.02% SOLN 0.5MG/2.5 ML NEB INH SCH ×4 (07:59→20:43)
[2018-10-27] MEDS: LEVALBUTEROL 1.25 MG/0.5 ML CONCENTRATE NEB INH SCH ×4 (08:00→20:43)
[2018-10-27] MEDS: ASPIRIN 81 MG CHEW TABLET PO SCH ×2 (09:00→09:26)
[2018-10-27] MEDS ORDERED: AZITHROMYCIN 250 MG TAB PO SCH (09:00)
[2018-10-27] MEDS: ENOXAPARIN 40 MG/0.4 ML SYRINGE (J1650) SC SCH (09:25)
[2018-10-27] MEDS: SERTRALINE 100 MG TAB PO SCH (09:26)
[2018-10-27] MEDS: OMEPRAZOLE 20 MG CAP PO SCH ×2 (09:26→21:20)
[2018-10-27] MEDS: amLODIPine 10 MG TAB PO SCH (09:26)
[2018-10-27] MEDS: CEFDINIR 300 MG CAP (OMNICEF) PO SCH ×2 (09:26→21:21)
[2018-10-27] MEDS: predniSONE 20 MG TAB PO SCH (09:28)
[2018-10-27] MEDS: PREGABALIN 75 MG CAP(LYRICA) PO SCH ×2 (09:28→21:21)
[2018-10-27] MEDS: oxyCODONE 5MG TAB PO PRN ×2 (09:28→21:20)
[2018-10-27] MEDS: VITAMIN D 1,000 INTERNATIONAL UNITS TABLET PO SCH (09:28)
[2018-10-27] MEDS: FOLIC ACID 1 MG TAB PO SCH (09:29)
[2018-10-27] MEDS: MULTIVITAMINS/MINERALS THERAP 1 TAB PO SCH (09:29)
[2018-10-27] MEDS: FERROUS GLUCONATE 324 MG TAB PO SCH (09:29)
[2018-10-27] MEDS: THIAMINE 100 MG TAB PO SCH (09:29)
[2018-10-27] MEDS: POTASSIUM CHLORIDE 10 MEQ SR TABLET PO SCH (09:29)
--- NOTE | 2018-10-27 09:40 | REP ---
Clinical: Shortness of breath. Technique: PA and lateral. Comparison: 10/23/2018. Findings: Mediastinum and cardiac silhouette are normal. Chronic changes are appreciated with subtle suspected bibasilar atelectasis and possible early alveolar infiltrate. No effusion. No pneumothorax. Skeletal structures intact. Impression: Chronic changes with suspected subtle superimposed bibasilar atelectasis/early infiltrate. Electronically Signed by Rupesh Kelley MD 10/27/2018 09:32 A
[2018-10-27] MEDS: guaiFENesin ER 600 MG TAB PO SCH ×2 (11:04→21:20)
--- NOTE | 2018-10-27 11:26 | IPNPDOC ---
Text Note Date of Service The patient was seen on 10/27/18. NOTE Subjective: Patient was seen and examined at the bedside. Patient reports that they're still experiencing shortness of breath. Patient denies any wheezing but does report a cough. He denied chest pain or palpitations. They deny nausea, vomiting, abdominal pain, constipation or diarrhea. Denies any urinary discomfort. Objective: Vitals (See below) General: Lying in bed, no acute distress, comfortable, AAOx3 HEENT: NC, AT CVS: +S1S2 Lungs: Fair air entry b/l, no appreciable rhonchi, rales or wheezing Abdomen: Soft, nondistended, without tenderness Extremities: No evidence of lower extremity edema, - Calf tenderness Assessment and plan: Community-acquired pneumonia in the setting of underlying COPD - Clinically has had improvement in her breathing - Still remains on supplemental oxygen - Leukocytosis - likely 2/2 corticosteroids - CXR 10/23: Chronic changes with superimposed right lower lobe infiltrate. - CXR 10/27: Chronic changes with suspected subtle superimposed bibasilar atelectasis/early infiltrate. - c/w Cefdinir; will DC Azithromycin (Day #5); s/p Ceftriaxone - c/w Prednisone; will continue with current dose and begin tapering and neck 2 days - Will start incentive spirometry and Acapella s/p Hypovolemic hyponatremia Hypertension - BP well controlled - c/w Amlodipine COPD - c/w inhaled therapy as ordered Dyslipidemia - Continue simvastatin Hypothyroidism - Continue with Synthroid Iron deficiency anemia - Continue iron supplementation Fibromyalgia and mood disorder - Continue with sertraline and hydroxyzine Ongoing tobacco use - Cessation counseling provided GERD - c/w Omeprazole DVT prophylaxis - c/w Lovenox Disposition: - Anticipate discharge within 24-48 hours - May require supplemental oxygen upon discharge VS,Fishbone, I+O VS, Fishbone, I+O Laboratory Tests 10/27/18 05:37 Red Blood Count 4.42, Mean Corpuscular Volume 95.2, Mean Corpuscular Hemoglobin 30.5, Mean Corpuscular Hemoglobin Concent 32.1, Red Cell Distribution Width 13.3, Calcium Level 8.2 L Vital Signs Date Time Temp Pulse Resp B/P (MAP) Pulse Ox O2 Delivery O2 Flow Rate FiO2 10/27/18 09:28 20 2.0 10/27/18 09:26 87 131/74 7/3/19 08:00 97.5 92 10/23/18 20:07 Room Air I&O- Last 24 Hours up to 6 AM 10/27/18 06:00 Intake Total 810 ml Output Total 1075 ml Balance -265 ml XU CHAN MD Oct 27, 2018 11:26
[2018-10-27] MEDS: SIMVASTATIN 20 MG TAB PO SCH (21:21)
[2018-10-28] VITALS: BP 123/66
[2018-10-28 04:00] VITALS: BP 119/68
[2018-10-28 05:32] LABS: HEMATOCRIT 40.6 % (36.0-47.0); MEAN CORPUSCULAR HEMOGLOBIN 29.9 pg (27.0-33.0); MEAN CORPUSCULAR VOLUME 93.3 fl (80.0-96.0); PLATELET COUNT, AUTOMATED 265 10^3/uL (150-450); RED BLOOD COUNT 4.35 10^6/uL (4.00-5.40); WHITE BLOOD COUNT 11.1 10^3/uL (4.0-10.0)
[2018-10-28] MEDS: SLF 3 ML SYR IV SCH ×2 (05:39→14:00)
[2018-10-28] MEDS: LEVOTHYROXINE 88MCG TABLET (0.088 MG) PO SCH (05:39)
[2018-10-28] MEDS: ACETAMINOPHEN TAB 650MG DOSE (2X325MG) PO PRN (05:39)
[2018-10-28 05:50] LABS: BLOOD UREA NITROGEN 9 MG/DL (7-18); CALCIUM LEVEL 8.3 MG/DL (8.8-10.2); CARBON DIOXIDE LEVEL 29 MEQ/L (21-32); CHLORIDE LEVEL 108 MEQ/L (98-107); CREATININE FOR GFR 0.52 MG/DL (0.55-1.30); GLOMERULAR FILTRATION RATE > 60.0 (>45); GLUCOSE, FASTING 149 MG/DL (70-100); POTASSIUM SERUM 3.8 MEQ/L (3.5-5.1); SODIUM LEVEL 144 MEQ/L (136-145)
[2018-10-28] MEDS: LEVALBUTEROL 1.25 MG/0.5 ML CONCENTRATE NEB INH SCH ×2 (07:44→11:39)
[2018-10-28] MEDS: IPRATROPIUM 0.02% SOLN 0.5MG/2.5 ML NEB INH SCH ×2 (07:44→11:39)
[2018-10-28 08:00] VITALS: BP 124/66
[2018-10-28] MEDS ORDERED: CEFD300CAP PO (08:19)
[2018-10-28] MEDS ORDERED: PRED10TA2 PO (08:19)
[2018-10-28] MEDS ORDERED: ALBU83IN NEB (08:19)
[2018-10-28] MEDS ORDERED: PROAAER10 PO (08:19)
[2018-10-28] MEDS ORDERED: OXYC10TA12 PO (08:19)
[2018-10-28] MEDS: ASPIRIN 81 MG CHEW TABLET PO SCH (09:00)
[2018-10-28] MEDS: ENOXAPARIN 40 MG/0.4 ML SYRINGE (J1650) SC SCH (09:34)
[2018-10-28] MEDS: predniSONE 20 MG TAB PO SCH (09:34)
[2018-10-28] MEDS: OMEPRAZOLE 20 MG CAP PO SCH (09:34)
[2018-10-28] MEDS: SERTRALINE 100 MG TAB PO SCH (09:35)
[2018-10-28] MEDS: FERROUS GLUCONATE 324 MG TAB PO SCH (09:35)
[2018-10-28] MEDS: POTASSIUM CHLORIDE 10 MEQ SR TABLET PO SCH (09:35)
[2018-10-28] MEDS: guaiFENesin ER 600 MG TAB PO SCH (09:36)
[2018-10-28] MEDS: VITAMIN D 1,000 INTERNATIONAL UNITS TABLET PO SCH (09:36)
[2018-10-28] MEDS: CEFDINIR 300 MG CAP (OMNICEF) PO SCH (09:36)
[2018-10-28] MEDS: oxyCODONE 5MG TAB PO PRN (09:36)
[2018-10-28] MEDS: MULTIVITAMINS/MINERALS THERAP 1 TAB PO SCH (09:36)
[2018-10-28 09:37] VITALS: BP 124/66
[2018-10-28] MEDS: FOLIC ACID 1 MG TAB PO SCH (09:37)
[2018-10-28] MEDS: PREGABALIN 75 MG CAP(LYRICA) PO SCH (09:37)
[2018-10-28] MEDS: THIAMINE 100 MG TAB PO SCH (09:37)
[2018-10-28] MEDS: amLODIPine 10 MG TAB PO SCH (09:37)
--- NOTE | 2018-10-28 10:44 | DS.PDOC ---
Discharge Summary General Date of Admission Oct 23, 2018 at 02:40 Date of Discharge 10/28/2018 Discharge Summary PROCEDURES PERFORMED DURING STAY: [None]. ADMITTING DIAGNOSES / DISCHARGE DIAGNOSES: Community-acquired pneumonia in the setting of underlying COPD s/p Hypovolemic hyponatremia Hypertension COPD Dyslipidemia Hypothyroidism Iron deficiency anemia Fibromyalgia and mood disorder Ongoing tobacco use GERD DVT prophylaxis COMPLICATIONS/CHIEF COMPLAINT: Pneumonia. HISTORY OF PRESENT ILLNESS: Patient is a 63-year-old female with a past medical history of COPD, hypothyroidism, coronary disease and deficiency anemia, GERD, ongoing tobacco abuse, anxiety, depression, chronic back pain, dyslipidemia, hypertension, fibromyalgia, who presented to the emergency room with complaints of shortness of breath associated with a cough and production of sputum. In the emergency room, patient was suspected of having a COPD exacerbation as well as an ongoing pneumonia and was admitted to the hospitalist service for further evaluation and treatment HOSPITAL COURSE: Community-acquired pneumonia in the setting of underlying COPD - Clinically has had improvement in her breathing - Still remains on supplemental oxygen - Leukocytosis - likely 2/2 corticosteroids - CXR 10/23: Chronic changes with superimposed right lower lobe infiltrate. - CXR 10/27: Chronic changes with suspected subtle superimposed bibasilar atelectasis/early infiltrate. - c/w Cefdinir; will DC Azithromycin (Day #6); s/p Ceftriaxone - will complete antibiotic course as an outpatient - c/w Prednisone - will provide taper on discharge - c/w incentive spirometry and Acapella s/p Hypovolemic hyponatremia Hypertension - BP well controlled - c/w Amlodipine COPD - c/w inhaled therapy as ordered Dyslipidemia - Continue simvastatin Hypothyroidism - Continue with Synthroid Iron deficiency anemia - Continue iron supplementation Fibromyalgia and mood disorder - Continue with sertraline and hydroxyzine Ongoing tobacco use - Smoking cessation counseling provided GERD - c/w Omeprazole DVT prophylaxis - c/w Lovenox DISCHARGE MEDICATIONS: Please see below. ALLERGIES: Please see below. PHYSICAL EXAMINATION ON DISCHARGE: Vitals (See below) General: Lying in bed, no acute distress, comfortable, AAOx3 HEENT: NC, AT CVS: +S1S2 Lungs: Fair air entry b/l, there are no appreciable rhonchi, rales or wheezing Abdomen: Abdomen is soft without distention or tenderness Extremities: Lower extremities are free of any edema, - Calf tenderness LABORATORY DATA: Please see below. ACTIVITY: [As tolerated]. DISCHARGE PLAN: Follow up with Dr. Jimmy Lynn and Pulmonary within 7 days Remain compliant with treatment plan and medications Return to the ER if you experience any problems DISPOSITION: Home with services DISCHARGE CONDITION: [Stable]. TIME SPENT ON DISCHARGE: 37 minutes Vital Signs/I&Os Vital Signs Date Time Temp Pulse Resp B/P (MAP) Pulse Ox O2 Delivery O2 Flow Rate FiO2 10/28/18 09:37 72 124/66 10/28/18 09:36 20 2.0 10/28/18 08:00 98.2 94 10/23/18 20:07 Room Air I&O- Last 24 Hours up to 6 AM 10/28/18 06:00 Intake Total 1980 ml Output Total 1150 ml Balance 830 ml Laboratory Data Labs 24H Laboratory Tests 2 10/28/18 05:17: Nucleated Red Blood Cells % (auto) 0.0, Anion Gap 7L, Glomerular Filtration Rate > 60.0, Blood Urea Nitrogen 9, Creatinine 0.52L, Sodium Level 144, Potassium Level 3.8, Chloride Level 108H, Carbon Dioxide Level 29, Calcium Level 8.3L CBC/BMP Laboratory Tests 10/28/18 05:17 Red Blood Count 4.35, Mean Corpuscular Volume 93.3, Mean Corpuscular Hemoglobin 29.9, Mean Corpuscular Hemoglobin Concent 32.0, Red Cell Distribution Width 13.2, Calcium Level 8.3 L Microbiology Microbiology 10/23/18 Blood Culture - Final, Complete NO GROWTH AFTER 5 DAYS 10/23/18 Blood Culture - Final, Complete NO GROWTH AFTER 5 DAYS Discharge Medications Scheduled Amlodipine Besylate (Amlodipine Besylate) 10 Mg Tab, 10 MG PO DAILY, (Reported) Aspirin (Aspirin) 81 Mg Tab.chew, 81 MG PO DAILY, (Reported) Budesonide/Formoterol (Symbicort 80-4.5 Mcg Inhaler) 6.9 Gm Hfa.aer.ad, 2 PUFF INH BID, (Reported) Cefdinir (Cefdinir) 300 Mg Capsule, 300 MG PO BID Cholecalciferol (Vitamin D3) (Vitamin D3) 1,000 Unit Cap, 2,000 UNIT PO DAILY, (Reported) Ferrous Gluconate (Ferrous Gluconate) 324 Mg Tablet, 324 MG PO DAILY, (Reported) Folic Acid (Folic Acid) 1 Mg Tab, 1 MG PO DAILY, (Reported) Hydrochlorothiazide (Hydrochlorothiazide) 25 Mg Tablet, 25 MG PO DAILY, (Reported) Ipratropium/Albuterol Sulfate (Combivent Respimat 20-100 Mcg) 1 Aer Aer, 2 PUFFS PO BID, (Reported) Levothyroxine Sodium (Synthroid) 88 Mcg Tablet, 88 MCG PO DAILY, (Reported) Milk Thistle Seed Extract (Milk Thistle) 175 Mg Tablet, 175 MG PO DAILY, (Reported) Omeprazole (Omeprazole) 20 Mg Capsule.dr, 20 MG PO BID, (Reported) Potassium Chloride (Potassium Chloride) 10 Meq Capsule.er, 10 MEQ PO DAILY, (Reported) Prednisone (Prednisone) 10 Mg Tablet, 10 MG PO TAPER Take 4 tabs daily x 3 days, then 3 tabs daily x 3 days, then 2 tabs daily x 3 days, then 1 tab daily x 3 days and stop Pregabalin (Lyrica) 150 Mg Capsule, 150 MG PO BID, (Reported) Sertraline Hcl (Sertraline HCl) 50 Mg Tab, 200 MG PO DAILY, (Reported) Simvastatin (Simvastatin) 20 Mg Tab, 40 MG PO QHS, (Reported) Tapentadol HCl (Nucynta ER) 100 Mg Tab.er.12h, 100 MG PO BID, (Reported) Thiamine HCl (Thiamine HCl) 100 Mg Tab, 100 MG PO DAILY, (Reported) Scheduled PRN Albuterol Sulf (Albuterol Sulfate) 2.5 Mg/3 Ml Vial.neb, 1 VIAL NEB Q4HP PRN for wheezing Albuterol Sulfate (Proair Hfa) 108 Mcg/Act Aer, 1 PUFF PO QID PRN for WHEEZING Hydroxyzine HCl (Hydroxyzine HCl) 25 Mg Tab, 50 MG PO BID PRN for ANXIETY, (Reported) Oxycodone HCl (Oxycodone HCl) 10 Mg Tablet, 10 MG PO BID PRN for PAIN Allergies Coded Allergies: erythromycin base (Verified Allergy, Unknown, rash, 08/18/18) tetracycline (Verified Allergy, Unknown, 08/18/18) NSAIDS (Non-Steroidal Anti-Inflamma (Verified Adverse Reaction, Unknown, has ulcer, 08/21/18) Sulfa (Sulfonamide Antibiotics) (Verified Adverse Reaction, Unknown, NAUSEA, 08/18/18) codeine (Verified Adverse Reaction, Unknown, nausea, 08/18/18) propoxyphene (Verified Adverse Reaction, Unknown, nausea, 08/18/18) XU CHAN MD Oct 28, 2018 10:44
== END 2018-10-28 14:40 | disposition home health service (06) | DRG 194 ==
LOC: M ED 00:27 → M ED INP 02:40 → M PCU 03:35
PROVIDERS: ADMIT Internal Medicine; ATTEND Internal Medicine
DX: J18.9 Pneumonia, unspecified organism (principal); J44.0 Chronic obstructive pulmonary disease with (acute) lower respiratory infection; E87.1 Hypo-osmolality and hyponatremia; E03.9 Hypothyroidism, unspecified; I25.10 Atherosclerotic heart disease of native coronary artery without angina pectoris; D50.9 Iron deficiency anemia, unspecified; K21.9 Gastro-esophageal reflux disease without esophagitis; F41.9 Anxiety disorder, unspecified; Z66 Do not resuscitate; F32.9 Major depressive disorder, single episode, unspecified; M94.0 Chondrocostal junction syndrome [Tietze]; E78.5 Hyperlipidemia, unspecified; I10 Essential (primary) hypertension; M79.7 Fibromyalgia; Z87.442 Personal history of urinary calculi; Z90.49 Acquired absence of other specified parts of digestive tract; Z90.710 Acquired absence of both cervix and uterus

== ENCOUNTER → 2018-12-07 | Outpatient (CLI) | payer MEDICARE, MEDICAID ==
[~2018-12-07] MED LIST changes: +ALBU83IN NEB; +ASPI81CH33 PO; +AUGM875T28 PO; +CEFD300CAP PO; +FERR325T16 PO; +OMEP-218 PO; -OMEP20CA3 PO; +OMEP20CA4 PO; +POTA10CA32 PO; +PRED10TA2 PO; +SYNT88TA2 PO
--- NOTE | 2018-12-08 23:55 | ECWPNPC ---
PATIENT NAME: STEPHAN DICKINSON : 1955 GENDER: FEMALE VISIT DATE: 12/07/2018 DISCHARGE DATE: 12/07/18 1038 VISIT LOCKED DATE TIME: PHYSICIAN: ZIA KNOX RESOURCE: ZIA KNOX REASON FOR APPOINTMENT 1. SW PT/BACK PAIN HISTORY OF PRESENT ILLNESS HISTORY OF PRESENT ILLNESS: PAIN THE PATIENT DESCRIBES THE PAIN... 63 YEAR OLD FEMALE IN FOR CHRONIC PAIN FOLLOW UP. SHE RATES HER PAIN AT A 9/10 CURRENTLY AND DESCRIBES IT ACHING, SHARP, SORE, SHOOTING, AND TINGLING. SHE FEELS THE MEDICATIONS ARE WORKING WELL AND DENIES MED SIDE EFFECTS. FALL RISK SCREENING: SCREENING :NO FALLS REPORTED IN THE LAST YEAR CURRENT MEDICATIONS TAKING VITAMIN D3 1000 UNIT TABLET 2 TABLET ORALLY ONCE A DAY TAKING CITALOPRAM HYDROBROMIDE 40 MG TABLET 1 TABLET ORALLY ONCE A DAY TAKING OMEPRAZOLE 20 MG CAPSULE DELAYED RELEASE 1 CAPSULE ORALLY TWICE A DAY TAKING THIAMINE HCL 100 MG TABLET 1 TABLET ORALLY ONCE A DAY TAKING HYDROCORTISONE 1 % CREAM 1 APPLICATION TO AFFECTED AREA EXTERNALLY TWICE DAILY NEEDED TAKING ALBUTEROL SULFATE HFA 108 (90 BASE) MCG/ACT AEROSOL SOLUTION 2 PUFFS NEEDED INHALATION FOUR TIMES DAILY NEEDED TAKING FERROUS GLUCONATE 240 (27 FE) MG TABLET DIRECTED ORALLY ONCE A DAY TAKING SYMBICORT 160-4.5 MCG/ACT AEROSOL 2 PUFFS INHALATION TWICE A DAY TAKING COMBIVENT RESPIMAT 20-100 MCG/ACT AEROSOL SOLUTION 1 PUFF INHALATION TWICE DAILY TAKING LEVOTHYROXINE SODIUM 75 MCG TABLET 1 TABLET ORALLY ONCE A DAY TAKING SIMVASTATIN 40 MG TABLET 1/2 TABLET IN THE EVENING ORALLY ONCE A DAY TAKING ASPIR-81 81 MG TABLET DELAYED RELEASE 1 TABLET ORALLY ONCE A DAY TAKING LYRICA 150 MG CAPSULE 1 CAPSULE ORALLY TWICE A DAY MDD2 TAKING NUCYNTA ER 100 MG TABLET EXTENDED RELEASE 12 HOUR 1 TABLET ORALLY EVERY 12 HRS CHRONIC PAIN MDD=2 TAKING OXYCODONE HCL 10 MG TABLET 1 TABLET NEEDED ORALLY BID PRN PAIN MDD=2 TAKING SERTRALINE HCL 25 MG TABLET 2 TABS ORALLY ONCE A DAY MEDICATION LIST REVIEWED AND RECONCILED WITH THE PATIENT PAST MEDICAL HISTORY SEVERE COPD BRONCHITIS, GOLD 3, SPIROMETRY 12/25/16 FIBROMYALGIA HYPERLIPIDEMIA HYPERTENSION CHRONIC LOW BACK PAIN - PREVIOUSLY ON OPIATE MEDICATIONS - DC'D DUE TO URINE TOX INCONSISTENCIES ANXIETY AND DEPRESSION HYPOTHYROIDISM [facility] AND YEARLY [employer]PER[employer]ESS[employer] EXAMS. CHEST PAIN GERD CAD S/P PCI FOLLOWS DR. HIGGINBOTHAM IRON DEFICIENCY ANEMIA FOLLOWS [facility] BLEED ANEMIA SMOKING HX OF ALCOHOL ABUSE PNEUMONIA 10/23/18 ALLERGIES CODEINE PHOSPHATE: NAUSEA/VOMITING - ALLERGY TETRACYCLINE HCL: PT UNSURE - ALLERGY SULFA (FOR ALLERGY USE ONLY): PT UNSURE - ALLERGY NSAIDS: GI BLEED - CONTRAINDICATION SURGICAL HISTORY GALL BLADDER KIDNEY STONE HYSTERECTOMY CARPAL TUNNEL RELEASE X2 KNEE SURGERY X 4 TONSILLECTOMY LEFT FOOT BUNIONECTOMY, BRIT IN TOES 2016 CARDIAC CATH 04/2016 RIGHT FOOT BUNIONECTOMY 04/2018 FAMILY HISTORY FATHER: , STROKE MOTHER: , COPD 1 SISTER(S) - HEALTHY. 1DAUGHTER(S) - HEALTHY. SOCIAL HISTORY GENERAL: TOBACCO USE ARE YOU A:CURRENT SMOKER ARE YOU INTERESTED IN QUITTING?THINKING ABOUT QUITTING WOULD LIKE TO QUIT IF SHE COULD GET THE PATCHES PATIENT IS TRYING TO QUIT COUNSELED THE PATIENT ON SMOKING CESSATION, EDUCATION [id number] HOW MANY CIGARETTES A DAY DO YOU SMOKE?6-10 PATIENT COUNSELED ON THE DANGERS OF TOBACCO USE AND URGED TO QUIT:12/07/2018 PAIN CLINIC PFS, CLERGY, PUBLIC HEALTH REFERRALS PFS REFERRAL NEEDED?NO CLERGY REFERRAL NEEDED?NO PUBLIC HEALTH REFERRAL NEEDED?NO , WAS THE PATIENT NOTIFIED OF ANY PERTINENT INFO? NO HAS THE PATIENT BEEN EDUCATED REGARDING HIS/HER PLAN OF CARE?YES HAS THE PATIENT BEEN EDUCATED REGARDING PAIN, THE RISK FOR PAIN, THE IMPORTANCE OF EFFECTIVE PAIN MANAGEMENT, AND THE PAIN ASSESSMENT PROCESS?YES ADVANCE DIRECTIVE ADVANCE DIRECTIVE DISCUSSED WITH PATIENT:YES DECLINED TEM[place] [id number] [employer]DAEISM LANGUAGE LANGUAGES SPOKEN:EMIRATI ALCOHOL SCREENING DID YOU HAVE A DRINK CONTAINING ALCOHOL IN THE PAST YEAR?YES HOW OFTEN DID YOU HAVE A DRINK CONTAINING ALCOHOL IN THE PAST YEAR?FOUR OR MORE TIMES A WEEK (4 POINTS) HOW MANY DRINKS DID YOU HAVE ON A TYPICAL DAY WHEN YOU WERE DRINKING IN THE PAST YEAR?3 OR 4 (1 POINT) HOW OFTEN DID YOU HAVE SIX OR MORE DRINKS ON ONE OCCASION IN THE PAST YEAR?MONTHLY (2 POINTS) POINTS7 INTERPRETATIONPOSITIVE RECREATIONAL DRUG USE DRUG USE?NO OCCUPATION: DISABLED. LEARNING BARRIERS / SPECIAL NEEDS BARRIERS TO LEARNING?NO HEARING IMPAIRED?NO VISION IMPAIRED?YES :CORRECTIVE LENSES COGNITIVELY IMPAIRED?NO READINESS TO LEARN?YES LEARNING PREFERENCES?YES :DEMONSTRATION/VERBAL INSTRUCTION LEARNING CAPABILITIES PRESENT?YES EMOTIONAL BARRIERS?NO REVIEWED WITH PATIENT 12/07/18 0937 [facility]. HOSPITALIZATION/MAJOR DIAGNOSTIC PROCEDURE SURGERY CHILDBIRTH X3 ANEMIA 02/18/2016 CHEST PAIN 04/2016 PNEUMONIA 10/23/18-10/28/18 REVIEW OF SYSTEMS REVIEWED BY: PROVIDER: HILLARY HENDRICKS . CONSTITUTIONAL: ANY CHANGE IN YOUR MEDICAL CONDITION? YES- PNEUMONIA 10/23/18 HOSPITALIZED UNITL 10/28/18 CURRENTY WEARING O2 2LNC . CHILLS NO . FEVER NO . INFECTION: DO YOU HAVE NEW INFECTIONS? YES- PNEUMONIA- 10/23/18 . DO YOU HAVE HISTORY OF MRSA? YES- PATIENT STATES DURING HOSPITAL ADMISSION FOR FOOT SURGERY SHE WAS TOLS SHE HAS MRSA, BUT DR. URIBE TOLD HER SHE DOES NOT . MUSCULOSKELETAL: ANY NEW PATTERNS OF PAIN OR NUMBNESS? YES- LEFT SIDE STARTING AT EAR, DOWN NECK AND SHOULDER INTO ARM HAS PAIN AND TINGLING, STATES SHE HAS SEVERE PAIN IN NECK THAT IS CONSTANT . GASTROENTEROLOGY: ANY NEW CHANGE IN BOWEL CONTROL? NO . GENITOURINARY: ANY NEW CHANGE IN BLADDER CONTROL? NO . IS THERE A CHANCE YOU COULD BE ? NO . HEMATOLOGY/LYMPH: DO YOU TAKE ANY BLOOD THINNERS? (FOR EXAMPLE- COUMADIN, PLAVIX, AGGRENOX, PLATEL, PRADAXA, OR XARELTO) NO . WHEN WAS YOUR LAST DOSE? DATE: TIME: . NEUROLOGY: HAVE YOU FALLEN IN THE PAST 12 MONTHS? YES- FELL DURING THE WINTER 2017, HAD A MILD CONCUSSION WAS SEEN IN [facility] ER . ANY NEW EXTREMITY NUMBNESS OR WEAKNESS? YES- TINGLING DOWN LEFT ARM . CARDIOLOGY: DO YOU HAVE A PACEMAKER OR DEFIBRILLATOR? NO . RESPIRATORY: HAVE YOU BEEN SICK IN THE PAST WEEK? NO . FEVER NO . FLU LIKE SYMPTOMS? NO . COUGH NO . INTEGUMENTARY: DO YOU HAVE ANY RASHES OR OPEN SORES? NO . ALLERGIC/IMMUNO: ARE YOU ALLERGIC TO IV DYE? NO . ANY NEW ALLERGIES? NO . PSYCHIATRIC: DO YOU HAVE THOUGHTS OF HURTING YOURSELF OR SOMEONE ELSE? NO . ARE YOU ABUSED, NEGLECTED, OR IN AN UNSAFE ENVIRONMENT? NO . ENDOCRINOLOGY: ARE YOU DIABETIC? NO . OTHER: DO YOU NEED ANY PRESCRIPTIONS? NO . IF YES, PLEASE LIST: ____ . ANY NEW PROBLEMS WITH YOUR MEDICATIONS? NO . WHEN DID YOU LAST EAT? ____ . WHEN DID YOU LAST DRINK? ____ . WHAT DID YOU LAST DRINK? ____ . NAME OF PERSON DRIVING YOU HOME? ____ . DO YOU HAVE ANY OTHER QUESTIONS OR CONCERNS NO . VITAL SIGNS WT 126 LBS, HT 5'2 1/2", BMI 22.68 INDEX, BP 125/67 MM HG, HR 84 /MIN, RR 18 /MIN, TEMP 97.1 F, OXYGEN SAT % 95%, SAFE IN ENV? (Y/N) YES, NA INITIALS UT 09:41, REVIEWED BY: JAMES. EXAMINATION GENERAL EXAMINATION: GENERALNO ACUTE DISTRESS, WELL NOURISHED AND HYDRATED. PSYCHAPPROPRIATE MOOD AND AFFECT . LUNGS:CLEAR TO AUSCULTATION BILATERALLY, NO WHEEZES, RHONCHI, RALES. HEART:NO MURMURS, REGULAR RATE AND RHYTHM. ASSESSMENTS SPONDYLOSIS WITHOUT MYELOPATHY OR RADICULOPATHY, LUMBOSACRAL REGION - M47.817 (PRIMARY) TREATMENT SPONDYLOSIS WITHOUT MYELOPATHY OR RADICULOPATHY, LUMBOSACRAL REGION CLINICAL NOTES: 63 YEAR OLD FEMALE IN FOR CHRONIC PAIN FOLLOW UP. SHE HAD ADMITTED TO SOME NEW EAR AND NECK PAIN AND WAS ENCOURAGED TO DISCUSS THIS WITH HER PCP. GIVEN PRESENTING SYMPTOMS AND RESULTS OF PHYSICAL EXAMINATION RECOMMENDED CONTINUATION OF CURRENT MEDICATION REGIMEN WITH FOLLOW UP IN 3 MONTHS. PATIENT HAS EXPRESSED UNDERSTANDING OF AND WAS IN AGREEMENT WITH TREATMENT PLAN. GIVEN TIME TO ASK QUESTIONS AND EXPRESS CONCERNS. , ISTOP REGISTRY REVIEWED AND DEMONSTRATES COMPLLIANCE. (REF # ) BRINGS IN MEDICATIONS WHICH IS APPROPRIATE FOR WHAT WAS DISPENSED. RECENT URINE TOXICOLOGY REVIEWED. NO UNAUTHORIZED MEDICATIONS. NO ILLICIT SUBSTANCES AND PRESCRIBED MEDICATIONS WERE PRESENT. , RISKS AND BENEFITS OF NARCOTIC/OPIOD MEDICATIONS WERE REVIEWED WITH PATIENT - THIS INCLUDES BUT IS NOT LIMITED TO RISK OF DEPENDANCE/DEVELOPMENT OF ADDICTION, MOOD DISTURBANCE AND DEPRESSION, OSTEOPOROSIS, HORMONAL AND LABIDAL CHANGES, RESPIRATORY DEPRESSION AND . PATIENT IS ADVISED NOT TO DRIVE OR DRINK ALCOHOL WHILE ON THESE MEDICATIONS. PROCEDURE CODES [id number] ESTABILISHED PATIENT [facility] CHARGE DISPOSITION & COMMUNICATION FOLLOW UP 3 MONTHS (REASON: CHRONIC PAIN ) ELECTRONICALLY SIGNED BY COLE LUCERO ON 12/08/2018 AT 10:25 AM EDT DISCLAIMER : THIS IS A VISIT SUMMARY EXTRACTED FROM THE [employer] CHART. IT IS NOT A COPY OF THE [employer] PROGRESS NOTE. RHETT
== END ==
LOC: M PAIN 09:30
PROVIDERS: ATTEND Family Medicine
DX: M47.817 Spondylosis without myelopathy or radiculopathy, lumbosacral region (principal); G89.29 Other chronic pain; J44.9 Chronic obstructive pulmonary disease, unspecified; M79.7 Fibromyalgia; E78.5 Hyperlipidemia, unspecified; I10 Essential (primary) hypertension; Z86.59 Personal history of other mental and behavioral disorders; E03.9 Hypothyroidism, unspecified; K21.9 Gastro-esophageal reflux disease without esophagitis; D50.9 Iron deficiency anemia, unspecified; F17.210 Nicotine dependence, cigarettes, uncomplicated; Z88.1 Allergy status to other antibiotic agents; Z88.2 Allergy status to sulfonamides; Z88.5 Allergy status to narcotic agent; Z88.6 Allergy status to analgesic agent; Z86.14 Personal history of Methicillin resistant Staphylococcus aureus infection; Z79.82 Long term (current) use of aspirin; Z79.899 Other long term (current) drug therapy

== ENCOUNTER 2018-12-19 20:56 | Emergency (ER) | payer MEDICARE, MEDICAID ==
[~2018-12-19] VITALS: Ht 160 cm; Wt 62.0 kg
[2018-12-19] MEDS ORDERED: ACETAMINOPHEN *IV* 650 MG in APPROPRIATE DILUENT 1 EA IV ONE (21:45)
[2018-12-19] MEDS ORDERED: ACETAMINOPHEN *IV* 1,000 MG in APPROPRIATE DILUENT 1 EA IV ONE (22:15)
[2018-12-19 23:55] VITALS: BP 118/56
--- NOTE | 2018-12-21 08:45 | REP ---
Clinical: Trauma. Technique: AP view of the pelvis with neutral and frog lateral views of the left hip. Findings: Age-related degenerative changes to the pelvis and bilateral hips noted. No acute fracture or dislocation. Surgical clips noted in the left cher pelvis. Small phleboliths identified. Impression: Age-related degenerative changes to the pelvis and hips. No obvious acute fracture or dislocation. Electronically Signed by Rupesh Kelley MD 12/20/2018 01:24 A
== END 2018-12-19 23:58 | disposition home or self-care (01) ==
LOC: M ED 20:56
DX: M25.552 Pain in left hip (principal); I10 Essential (primary) hypertension; J44.9 Chronic obstructive pulmonary disease, unspecified; I25.10 Atherosclerotic heart disease of native coronary artery without angina pectoris; G89.29 Other chronic pain; Z79.899 Other long term (current) drug therapy; Z79.890 Hormone replacement therapy; Z79.82 Long term (current) use of aspirin; Z88.1 Allergy status to other antibiotic agents; Z88.2 Allergy status to sulfonamides; Z88.5 Allergy status to narcotic agent; Z88.8 Allergy status to other drugs, medicaments and biological substances; F17.210 Nicotine dependence, cigarettes, uncomplicated
CPT/HCPCS: 73502; 96374; 99284; J0131

== ENCOUNTER → 2019-03-10 | Outpatient (CLI) | payer MEDICARE, MEDICAID ==
[~2019-03-10] MED LIST changes: +OMEP-172 PO; -OMEP20CA4 PO; -SIMV20TA2 PO; +SIMV20TA22 PO; -SIMV40TA2 PO; +SIMV40TA20 PO
--- NOTE | 2019-04-30 02:22 | ECWPNPC ---
PATIENT NAME: STEPHAN DICKINSON : 1955 GENDER: FEMALE VISIT DATE: 03/10/2019 DISCHARGE DATE: 03/10/19 1233 VISIT LOCKED DATE TIME: PHYSICIAN: ZIA KNOX RESOURCE: ZIA KNOX REASON FOR APPOINTMENT 1. CHRONIC PAIN HISTORY OF PRESENT ILLNESS HISTORY OF PRESENT ILLNESS: PAIN THE PATIENT DESCRIBES THE PAIN... 64-YEAR-OLD FEMALE IN FOR CHRONIC PAIN FOLLOW-UP. SHE DOES ADMIT TO INCREASED PAIN IN HER NECK. SHE RATES HER PAIN CURRENTLY AT AN 8 OUT OF 10 AND DESCRIBES IT ACHING, SHARP, BURNING, STABBING, SORE, SHOOTING, AND TENDER. SHE DOES FEELS THE MEDICATIONS HELP BUT DUE TO THE INCREASED PAIN SHE IS QUESTIONING A NEW MEDICATION. FALL RISK SCREENING: SCREENING :NO FALLS REPORTED IN THE LAST YEAR CURRENT MEDICATIONS TAKING VITAMIN D3 1000 UNIT TABLET 2 TABLET ORALLY ONCE A DAY TAKING CITALOPRAM HYDROBROMIDE 40 MG TABLET 1 TABLET ORALLY ONCE A DAY TAKING OMEPRAZOLE 20 MG CAPSULE DELAYED RELEASE 1 CAPSULE ORALLY TWICE A DAY TAKING THIAMINE HCL 100 MG TABLET 1 TABLET ORALLY ONCE A DAY TAKING HYDROCORTISONE 1 % CREAM 1 APPLICATION TO AFFECTED AREA EXTERNALLY TWICE DAILY NEEDED TAKING ALBUTEROL SULFATE HFA 108 (90 BASE) MCG/ACT AEROSOL SOLUTION 2 PUFFS NEEDED INHALATION FOUR TIMES DAILY NEEDED TAKING FERROUS GLUCONATE 240 (27 FE) MG TABLET DIRECTED ORALLY ONCE A DAY TAKING SYMBICORT 160-4.5 MCG/ACT AEROSOL 2 PUFFS INHALATION TWICE A DAY TAKING COMBIVENT RESPIMAT 20-100 MCG/ACT AEROSOL SOLUTION 1 PUFF INHALATION TWICE DAILY TAKING LEVOTHYROXINE SODIUM 75 MCG TABLET 1 TABLET ORALLY ONCE A DAY TAKING SIMVASTATIN 40 MG TABLET 1/2 TABLET IN THE EVENING ORALLY ONCE A DAY TAKING ASPIR-81 81 MG TABLET DELAYED RELEASE 1 TABLET ORALLY ONCE A DAY TAKING LYRICA 150 MG CAPSULE 1 CAPSULE ORALLY TWICE A DAY MDD2 TAKING SERTRALINE HCL 25 MG TABLET 2 TABS ORALLY ONCE A DAY TAKING NUCYNTA ER 100 MG TABLET EXTENDED RELEASE 12 HOUR 1 TABLET ORALLY EVERY 12 HRS CHRONIC PAIN MDD=2 TAKING OXYCODONE HCL 10 MG TABLET 1 TABLET NEEDED ORALLY BID PRN PAIN MDD=2 MEDICATION LIST REVIEWED AND RECONCILED WITH THE PATIENT PAST MEDICAL HISTORY SEVERE COPD BRONCHITIS, GOLD 3, SPIROMETRY 12/25/16 FIBROMYALGIA HYPERLIPIDEMIA HYPERTENSION CHRONIC LOW BACK PAIN - PREVIOUSLY ON OPIATE MEDICATIONS - DC'D DUE TO URINE TOX INCONSISTENCIES ANXIETY AND DEPRESSION HYPOTHYROIDISM [facility] WITH [facility] FOR [facility]S AND YEARLY MOLDER EXAMS. CHEST PAIN GERD CAD S/P PCI FOLLOWS DR. HIGGINBOTHAM IRON DEFICIENCY ANEMIA FOLLOWS [place] GI BLEED ANEMIA SMOKING HX OF ALCOHOL ABUSE PNEUMONIA 10/23/18 ALLERGIES CODEINE PHOSPHATE: NAUSEA/VOMITING - ALLERGY TETRACYCLINE HCL: PT UNSURE - ALLERGY SULFA (FOR ALLERGY USE ONLY): PT UNSURE - ALLERGY NSAIDS: GI BLEED - CONTRAINDICATION SURGICAL HISTORY GALL BLADDER KIDNEY STONE HYSTERECTOMY CARPAL TUNNEL RELEASE X2 KNEE SURGERY X 4 TONSILLECTOMY LEFT FOOT BUNIONECTOMY, BRIT IN TOES 2016 CARDIAC CATH 04/2016 RIGHT FOOT BUNIONECTOMY 04/2018 FAMILY HISTORY FATHER: , STROKE MOTHER: , COPD 1 SISTER(S) - HEALTHY. 1DAUGHTER(S) - HEALTHY. SOCIAL HISTORY GENERAL: TOBACCO USE ARE YOU A:CURRENT SMOKER ARE YOU INTERESTED IN QUITTING?THINKING ABOUT QUITTING WOULD LIKE TO QUIT IF SHE COULD GET THE PATCHES PATIENT IS TRYING TO QUIT COUNSELED THE PATIENT ON SMOKING CESSATION, EDUCATION [id number]/14/2019 HOW MANY CIGARETTES A DAY DO YOU SMOKE?6-10 PATIENT COUNSELED ON THE DANGERS OF TOBACCO USE AND URGED TO QUIT:03/10/2019 PAIN CLINIC PFS, CLERGY, PUBLIC HEALTH REFERRALS PFS REFERRAL NEEDED?NO CLERGY REFERRAL NEEDED?NO PUBLIC HEALTH REFERRAL NEEDED?NO , WAS THE PATIENT NOTIFIED OF ANY PERTINENT INFO? NO HAS THE PATIENT BEEN EDUCATED REGARDING HIS/HER PLAN OF CARE?YES HAS THE PATIENT BEEN EDUCATED REGARDING PAIN, THE RISK FOR PAIN, THE IMPORTANCE OF EFFECTIVE PAIN MANAGEMENT, AND THE PAIN ASSESSMENT PROCESS?YES LATEX QUESTIONNAIRE LATEX ALLERGY : HAVE YOU EVER DEVELOPED ANY TYPE OF REACTION AFTER HANDLING LATEX PRODUCTS SUCH RUBBER GLOVES, CONDOMS, DIAPHRAGMS, BALLOONS, SOCKS, OR UNDERWEAR?NO LATEX ALLERGY : HAVE YOU EVER DEVELOPED ANY TYPE OF REACTION DURING OR AFTER DENTAL APPOINTMENT, VAGINAL/RECTAL EXAMINATION, SURGICAL PROCEDURE, OR ANY OTHER EXPOSURE?NO LATEX RISK : HAVE YOU EVER HAD ANY DIFFICULTY BREATHING OR HIVES AFTER EATING OR HANDLING ANY FRUITS, OR VEGETABLES; SUCH KIWI, BANANAS, STONE FRUITS, OR CHESTNUTSNO LATEX RISK : DO YOU HAVE A PREVIOUS PERSONAL HISTORY OF MORE THAN NINE SURGERIES, SPINA BIFIDA, OR REPEATED CATHERIZATIONS? NO LATEX RISK : ARE YOU FREQUENTLY EXPOSED TO LATEX PRODUCTS IN YOUR OCCUPATION?NO DATE ASKED : 03/10/2019 ADVANCE DIRECTIVE ADVANCE DIRECTIVE DISCUSSED WITH PATIENT:YES HCP - DAUGHTER MELITON EPISCOPAL [id number] VOODOO LANGUAGE LANGUAGES SPOKEN:MAORI ALCOHOL SCREENING DID YOU HAVE A DRINK CONTAINING ALCOHOL IN THE PAST YEAR?YES HOW OFTEN DID YOU HAVE SIX OR MORE DRINKS ON ONE OCCASION IN THE PAST YEAR?MONTHLY (2 POINTS) HOW MANY DRINKS DID YOU HAVE ON A TYPICAL DAY WHEN YOU WERE DRINKING IN THE PAST YEAR?3 OR 4 (1 POINT) HOW OFTEN DID YOU HAVE A DRINK CONTAINING ALCOHOL IN THE PAST YEAR?FOUR OR MORE TIMES A WEEK (4 POINTS) POINTS7 INTERPRETATIONPOSITIVE RECREATIONAL DRUG USE DRUG USE?NO OCCUPATION: DISABLED. LEARNING BARRIERS / SPECIAL NEEDS BARRIERS TO LEARNING?NO HEARING IMPAIRED?NO VISION IMPAIRED?YES COGNITIVELY IMPAIRED?NO :CORRECTIVE LENSES READINESS TO LEARN?YES LEARNING PREFERENCES?YES :DEMONSTRATION/VERBAL INSTRUCTION LEARNING CAPABILITIES PRESENT?YES EMOTIONAL BARRIERS?NO REVIEWED WITH PATIENT 12/07/18 0937 NLJREVIEWED WITH PATIENT 03/10/19 1154 JS. HOSPITALIZATION/MAJOR DIAGNOSTIC PROCEDURE SURGERY CHILDBIRTH X3 ANEMIA 02/18/2016 CHEST PAIN 04/2016 PNEUMONIA 10/23/18-10/28/18 REVIEW OF SYSTEMS REVIEWED BY: PROVIDER: HILLARY HENDRICKS . CONSTITUTIONAL: ANY CHANGE IN YOUR MEDICAL CONDITION? NO . CHILLS NO . FEVER NO . INFECTION: DO YOU HAVE NEW INFECTIONS? NO . DO YOU HAVE HISTORY OF MRSA? NO . MUSCULOSKELETAL: ANY NEW PATTERNS OF PAIN OR NUMBNESS? YES, STATES INCREASED PAIN IN NECK AND BACK . GASTROENTEROLOGY: ANY NEW CHANGE IN BOWEL CONTROL? NO . GENITOURINARY: ANY NEW CHANGE IN BLADDER CONTROL? NO . IS THERE A CHANCE YOU COULD BE ? NO . HEMATOLOGY/LYMPH: DO YOU TAKE ANY BLOOD THINNERS? (FOR EXAMPLE- COUMADIN, PLAVIX, AGGRENOX, PLATEL, PRADAXA, OR XARELTO) NO . WHEN WAS YOUR LAST DOSE? DATE: TIME: . NEUROLOGY: HAVE YOU FALLEN IN THE PAST 12 MONTHS? YES, STATES PRIOR TO LAST VISIT, DISCUSSED AT PREVIOUS VISIT . ANY NEW EXTREMITY NUMBNESS OR WEAKNESS? NO . CARDIOLOGY: DO YOU HAVE A PACEMAKER OR DEFIBRILLATOR? NO . RESPIRATORY: HAVE YOU BEEN SICK IN THE PAST WEEK? NO . FEVER NO . FLU LIKE SYMPTOMS? NO . COUGH NO . INTEGUMENTARY: DO YOU HAVE ANY RASHES OR OPEN SORES? NO . ALLERGIC/IMMUNO: ARE YOU ALLERGIC TO IV DYE? NO . ANY NEW ALLERGIES? NO . PSYCHIATRIC: DO YOU HAVE THOUGHTS OF HURTING YOURSELF OR SOMEONE ELSE? NO . ARE YOU ABUSED, NEGLECTED, OR IN AN UNSAFE ENVIRONMENT? NO . ENDOCRINOLOGY: ARE YOU DIABETIC? NO . OTHER: DO YOU NEED ANY PRESCRIPTIONS? NO . IF YES, PLEASE LIST: ____ . ANY NEW PROBLEMS WITH YOUR MEDICATIONS? NO . WHEN DID YOU LAST EAT? ____ . WHEN DID YOU LAST DRINK? ____ . WHAT DID YOU LAST DRINK? ____ . NAME OF PERSON DRIVING YOU HOME? ____ . DO YOU HAVE ANY OTHER QUESTIONS OR CONCERNS FLU VACCINE SOON . VITAL SIGNS WT 140.4 LBS, HT 5'2 1/2", BMI 25.27 INDEX, BP 131/79 MM HG, HR 86 /MIN, RR 18 /MIN, TEMP 97.8 F, OXYGEN SAT % 95%, SAFE IN ENV? (Y/N) YES, NA INITIALS AW 1143, REVIEWED BY: KRUNAL. EXAMINATION GENERAL EXAMINATION: GENERALNO ACUTE DISTRESS, WELL NOURISHED AND HYDRATED. PSYCHAPPROPRIATE MOOD AND AFFECT . NECK:POINT TENDER C4-C5 C5-C6, SURROUNDING SKIN SHOWS NO ERYTHEMA, ECCHYMOSIS, INCREASED WARMTH, AND/OR SKIN ERUPTIONS NOTED. PATIENT DOES ENDORSE INCREASED CERVICAL PAIN WHEN LIFTING ARMS TO RESISTANCE. . LUNGS:CLEAR TO AUSCULTATION BILATERALLY, NO WHEEZES, RHONCHI, RALES. HEART:NO MURMURS, REGULAR RATE AND RHYTHM. ASSESSMENTS CERVICAL DISC DISORDER WITH RADICULOPATHY - M50.10 (PRIMARY) TREATMENT CERVICAL DISC DISORDER WITH RADICULOPATHY START TIZANIDINE HCL TABLET, 4 MG, 1 TABLET NEEDED, ORALLY, THREE TIMES A DAY, 30 DAYS, 90 TABLET [facility] MRI SPINE, CERVICAL WITHOUT [id number] CLINICAL NOTES: 64-YEAR-OLD FEMALE IN FOR CHRONIC PAIN FOLLOW-UP. GIVEN PRESENTING SYMPTOMS AND RESULTS PHYSICAL EXAMINATION RECOMMENDED TIZANIDINE 4 MG 3 TIMES A DAY NEEDED, FURTHER RECOMMENDED UPDATING MRI FOR POTENTIAL CERVICAL EPIDURAL. PATIENT EXPRESSED UNDERSTANDING OF AND WAS IN AGREEMENT WITH TREATMENT PLAN. GIVEN TIME TO ASK QUESTIONS AND EXPRESS CONCERNS., ISTOP REGISTRY REVIEWED AND DEMONSTRATES COMPLLIANCE. (REF # [id number] ) BRINGS IN MEDICATIONS WHICH IS APPROPRIATE FOR WHAT WAS DISPENSED. RECENT URINE TOXICOLOGY REVIEWED. NO UNAUTHORIZED MEDICATIONS. NO ILLICIT SUBSTANCES AND PRESCRIBED MEDICATIONS WERE PRESENT. PREVENTIVE MEDICINE PAIN CLINIC TEACHING: MEDICATIONS PRINTED AND REVIEWED INFORMATION ON NEW MEDICATION, TIZANIDINE, WITH PATIENT. PATIENT VERBALIZED AN UNDERSTANDING. SANIA LUCERO 03/10/2019 12:28:43 PM > . PROCEDURE CODES FA211 ESTABILISHED PATIENT [facility] CHARGE DISPOSITION & COMMUNICATION FOLLOW UP FOLLOW-UP POST IMAGING (REASON: CERVICAL SPINE MRI) ELECTRONICALLY SIGNED BY COLE LUCERO ON 04/29/2019 AT 03:47 PM EST DISCLAIMER : THIS IS A VISIT SUMMARY EXTRACTED FROM THE [employer] CHART. IT IS NOT A COPY OF THE [employer] PROGRESS NOTE. RHETT
== END ==
LOC: M PAIN 11:00
PROVIDERS: ATTEND Family Medicine
DX: G89.29 Other chronic pain (principal); M50.10 Cervical disc disorder with radiculopathy, unspecified cervical region; I10 Essential (primary) hypertension; F17.210 Nicotine dependence, cigarettes, uncomplicated; Z79.82 Long term (current) use of aspirin; Z79.891 Long term (current) use of opiate analgesic; Z79.899 Other long term (current) drug therapy; Z88.1 Allergy status to other antibiotic agents; Z88.2 Allergy status to sulfonamides; Z88.5 Allergy status to narcotic agent; Z88.8 Allergy status to other drugs, medicaments and biological substances

== ENCOUNTER → 2019-03-11 | Outpatient (CLI) | payer MEDICARE, MEDICAID ==
[~2019-03-11] MED LIST changes: -OMEP-172 PO; +OMEP20CA4 PO; +SIMV20TA2 PO; -SIMV20TA22 PO; +SIMV40TA2 PO; -SIMV40TA20 PO
== END ==
LOC: M OUTALCOH 13:51
PROVIDERS: ATTEND Psychiatry & Neurology Psychiatry
DX: Z03.89 Encounter for observation for other suspected diseases and conditions ruled out (principal)

== ENCOUNTER → 2019-03-16 | Outpatient (CLI) | payer MEDICARE, MEDICAID ==
--- NOTE | 2019-03-16 15:17 | REP ---
MRI cervical spine: 03/16/2019. Indication: Cervical radiculopathy. Comparison: 05/24/2014. Technique: Multiplanar short and long TR sequences of the cervical spine were obtained without IV Gadolinium. Findings: Image quality is degraded by patient motion. There is reversal of the cervical lordosis. Disc desiccation and disc space narrowing are present throughout most pronounced at C4/C5, C5/C6 and C6/C7. Endplate degenerative signal changes are present most pronounced at C6/C7. No worrisome marrow signal is detected. No abnormal cord signal is detected. The vertebral flow voids are unremarkable. C2/C3: There is no disc herniation or significant spinal canal / neural foraminal narrowing. C3/C4: There is a tiny posterior central disc protrusion superimposed on a diffuse disc bulge. Predominantly left-sided uncovertebral proliferation is present. Left greater than right facet arthropathy is present. There is overall mild narrowing of the spinal canal. Severe left-sided neural foraminal narrowing is present. C4/C5: Diffuse disc osteophyte complex and mild facet arthropathy bilaterally are present with moderate left and mild to moderate right neural foraminal narrowing. There is mild narrowing of the spinal canal. C5/C6: There is an asymmetric disc osteophyte complex more pronounced on the right with minimal flattening of the ventral cord. There is moderate left and severe right neural foraminal narrowing. C6/C7: There is an asymmetric disc osteophyte complex more pronounced on the left with left-sided facet arthropathy. There is mild narrowing of the spinal canal. Moderate to severe left neural foraminal narrowing is present. C7/T1: New very tiny posterior central disc protrusion is present without significant spinal canal or neural foraminal narrowing. Impression: Multilevel degenerative sequelae of the cervical spine as described most pronounced on the left at C3/C4. Electronically Signed by Yvon Romero DO 03/16/2019 03:08 P
== END ==
LOC: M RAD 12:30
PROVIDERS: ATTEND Family Medicine
DX: M50.10 Cervical disc disorder with radiculopathy, unspecified cervical region (principal)

== ENCOUNTER 2019-03-22 13:59 | Outpatient (RCR) | payer MEDICARE, MEDICAID ==
[~2019-03-22 13:59] MED LIST changes: -SIMV20TA2 PO; +SIMV20TA22 PO; -SIMV40TA2 PO; +SIMV40TA20 PO
== END 2019-03-26 ==
LOC: M OUTALCOH 13:59
PROVIDERS: ATTEND Psychiatry & Neurology Psychiatry
DX: Z03.89 Encounter for observation for other suspected diseases and conditions ruled out (principal); F17.200 Nicotine dependence, unspecified, uncomplicated

== ENCOUNTER → 2019-04-26 | Outpatient (RCR) | payer MEDICARE, MEDICAID ==
[~2019-04-26] MED LIST changes: +OMEP-172 PO; -OMEP20CA4 PO
== END ==
LOC: M OUTALCOH 04-11 09:47
PROVIDERS: ATTEND Psychiatry & Neurology Psychiatry
DX: Z03.89 Encounter for observation for other suspected diseases and conditions ruled out (principal); F17.200 Nicotine dependence, unspecified, uncomplicated

== ENCOUNTER → 2019-05-19 | Outpatient (CLI) | payer MEDICARE, MEDICAID ==
[~2019-05-19] MED LIST changes: +ASPI81CH32 PO; -ASPI81CH36 PO; -OMEP-172 PO; +OMEP1CAP73 PO; +SUCR1ORA PO; -SUCR1SUS PO; -TRAZ-163 PO; +TRAZ-257 PO
--- NOTE | 2019-05-20 23:33 | ECWPNPC ---
PATIENT NAME: STEPHAN DICKINSON : 1955 GENDER: FEMALE VISIT DATE: 05/19/2019 DISCHARGE DATE: 05/19/19 1441 VISIT LOCKED DATE TIME: PHYSICIAN: ZIA KNOX RESOURCE: ZIA KNOX REASON FOR APPOINTMENT 1. MRI FOLLOW UP HISTORY OF PRESENT ILLNESS HISTORY OF PRESENT ILLNESS: PAIN THE PATIENT DESCRIBES THE PAIN... 64-YEAR-OLD FEMALE IN FOR CHRONIC PAIN FOLLOW-UP AN MRI REVIEW. SHE RATES HER PAIN CURRENTLY AT A 9 OUT OF 10 AND DESCRIBES IT ACHING, SHARP, BURNING, STABBING, SORE, SHOOTING, AND TENDER. FALL RISK SCREENING: SCREENING :NO FALLS REPORTED IN THE LAST YEAR CURRENT MEDICATIONS TAKING VITAMIN D3 1000 UNIT TABLET 2 TABLET ORALLY ONCE A DAY TAKING CITALOPRAM HYDROBROMIDE 40 MG TABLET 1 TABLET ORALLY ONCE A DAY TAKING OMEPRAZOLE 20 MG CAPSULE DELAYED RELEASE 1 CAPSULE ORALLY TWICE A DAY TAKING THIAMINE HCL 100 MG TABLET 1 TABLET ORALLY ONCE A DAY TAKING HYDROCORTISONE 1 % CREAM 1 APPLICATION TO AFFECTED AREA EXTERNALLY TWICE DAILY NEEDED TAKING ALBUTEROL SULFATE HFA 108 (90 BASE) MCG/ACT AEROSOL SOLUTION 2 PUFFS NEEDED INHALATION FOUR TIMES DAILY NEEDED TAKING FERROUS GLUCONATE 240 (27 FE) MG TABLET DIRECTED ORALLY ONCE A DAY TAKING SYMBICORT 160-4.5 MCG/ACT AEROSOL 2 PUFFS INHALATION TWICE A DAY TAKING COMBIVENT RESPIMAT 20-100 MCG/ACT AEROSOL SOLUTION 1 PUFF INHALATION TWICE DAILY TAKING LEVOTHYROXINE SODIUM 75 MCG TABLET 1 TABLET ORALLY ONCE A DAY TAKING SIMVASTATIN 40 MG TABLET 1/2 TABLET IN THE EVENING ORALLY ONCE A DAY TAKING ASPIR-81 81 MG TABLET DELAYED RELEASE 1 TABLET ORALLY ONCE A DAY TAKING SERTRALINE HCL 25 MG TABLET 2 TABS ORALLY ONCE A DAY TAKING TIZANIDINE HCL 4 MG TABLET 1 TABLET NEEDED ORALLY THREE TIMES A DAY TAKING LYRICA 150 MG CAPSULE 1 CAPSULE ORALLY TWICE A DAY MDD2 TAKING OXYCODONE HCL 10 MG TABLET 1 TABLET NEEDED ORALLY BID PRN PAIN MDD=2 TAKING NUCYNTA ER 100 MG TABLET EXTENDED RELEASE 12 HOUR 1 TABLET ORALLY EVERY 12 HRS CHRONIC PAIN MDD=2 MEDICATION LIST REVIEWED AND RECONCILED WITH THE PATIENT PAST MEDICAL HISTORY SEVERE COPD BRONCHITIS, GOLD 3, SPIROMETRY 12/25/16 FIBROMYALGIA HYPERLIPIDEMIA HYPERTENSION CHRONIC LOW BACK PAIN - PREVIOUSLY ON OPIATE MEDICATIONS - DC'D DUE TO URINE TOX INCONSISTENCIES ANXIETY AND DEPRESSION HYPOTHYROIDISM FOLLOWS WITH THE CT FOR ROUTINE LABS AND 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 CHEST PAIN GERD CAD S/P PCI FOLLOWS DR. HIGGINBOTHAM IRON DEFICIENCY ANEMIA FOLLOWS CT GI BLEED ANEMIA SMOKING HX OF ALCOHOL ABUSE PNEUMONIA 10/23/18 ALLERGIES CODEINE PHOSPHATE: NAUSEA/VOMITING - ALLERGY TETRACYCLINE HCL: PT UNSURE - ALLERGY SULFA (FOR ALLERGY USE ONLY): PT UNSURE - ALLERGY NSAIDS: GI BLEED - CONTRAINDICATION SURGICAL HISTORY GALL BLADDER KIDNEY STONE HYSTERECTOMY CARPAL TUNNEL RELEASE X2 KNEE SURGERY X 4 TONSILLECTOMY LEFT FOOT BUNIONECTOMY, BRIT IN TOES 2016 CARDIAC CATH 04/2016 RIGHT FOOT BUNIONECTOMY 04/2018 FAMILY HISTORY FATHER: , STROKE MOTHER: , COPD 1 SISTER(S) - HEALTHY. 1DAUGHTER(S) - HEALTHY. SOCIAL HISTORY GENERAL: TOBACCO USE ARE YOU A:CURRENT SMOKER ARE YOU INTERESTED IN QUITTING?NOT READY TO QUIT WOULD LIKE TO QUIT IF SHE COULD GET THE PATCHES PATIENT IS TRYING TO QUIT HOW MANY CIGARETTES A DAY DO YOU SMOKE?6-10 PATIENT COUNSELED ON THE DANGERS OF TOBACCO USE AND URGED TO QUIT:05/19/2019 PAIN CLINIC PFS, CLERGY, PUBLIC HEALTH REFERRALS PFS REFERRAL NEEDED?NO CLERGY REFERRAL NEEDED?NO PUBLIC HEALTH REFERRAL NEEDED?NO , WAS THE PATIENT NOTIFIED OF ANY PERTINENT INFO? NO HAS THE PATIENT BEEN EDUCATED REGARDING HIS/HER PLAN OF CARE?YES HAS THE PATIENT BEEN EDUCATED REGARDING PAIN, THE RISK FOR PAIN, THE IMPORTANCE OF EFFECTIVE PAIN MANAGEMENT, AND THE PAIN ASSESSMENT PROCESS?YES LATEX QUESTIONNAIRE LATEX ALLERGY : HAVE YOU EVER DEVELOPED ANY TYPE OF REACTION AFTER HANDLING LATEX PRODUCTS SUCH RUBBER GLOVES, CONDOMS, DIAPHRAGMS, BALLOONS, SOCKS, OR UNDERWEAR?NO LATEX ALLERGY : HAVE YOU EVER DEVELOPED ANY TYPE OF REACTION DURING OR AFTER DENTAL APPOINTMENT, VAGINAL/RECTAL EXAMINATION, SURGICAL PROCEDURE, OR ANY OTHER EXPOSURE?NO LATEX RISK : HAVE YOU EVER HAD ANY DIFFICULTY BREATHING OR HIVES AFTER EATING OR HANDLING ANY FRUITS, OR VEGETABLES; SUCH KIWI, BANANAS, STONE FRUITS, OR CHESTNUTSNO LATEX RISK : DO YOU HAVE A PREVIOUS PERSONAL HISTORY OF MORE THAN NINE SURGERIES, SPINA BIFIDA, OR REPEATED CATHERIZATIONS? NO LATEX RISK : ARE YOU FREQUENTLY EXPOSED TO LATEX PRODUCTS IN YOUR OCCUPATION?NO DATE ASKED : 05/19/2019 ADVANCE DIRECTIVE ADVANCE DIRECTIVE DISCUSSED WITH PATIENT:YES HCP - DAUGHTER MELITON MUSLIM [id number] PENTECOSTAL LANGUAGE LANGUAGES SPOKEN:SYRIAN ALCOHOL SCREENING DID YOU HAVE A DRINK CONTAINING ALCOHOL IN THE PAST YEAR?YES HOW OFTEN DID YOU HAVE SIX OR MORE DRINKS ON ONE OCCASION IN THE PAST YEAR?MONTHLY (2 POINTS) HOW MANY DRINKS DID YOU HAVE ON A TYPICAL DAY WHEN YOU WERE DRINKING IN THE PAST YEAR?3 OR 4 (1 POINT) HOW OFTEN DID YOU HAVE A DRINK CONTAINING ALCOHOL IN THE PAST YEAR?FOUR OR MORE TIMES A WEEK (4 POINTS) POINTS7 INTERPRETATIONPOSITIVE RECREATIONAL DRUG USE DRUG USE?NO OCCUPATION: DISABLED. LEARNING BARRIERS / SPECIAL NEEDS BARRIERS TO LEARNING?NO HEARING IMPAIRED?NO VISION IMPAIRED?YES COGNITIVELY IMPAIRED?NO :CORRECTIVE LENSES READINESS TO LEARN?YES LEARNING PREFERENCES?YES :DEMONSTRATION/VERBAL INSTRUCTION LEARNING CAPABILITIES PRESENT?YES EMOTIONAL BARRIERS?NO REVIEWED WITH PATIENT 12/07/18 0937 NLJREVIEWED WITH PATIENT 03/10/19 1154 JS. HOSPITALIZATION/MAJOR DIAGNOSTIC PROCEDURE SURGERY CHILDBIRTH X3 ANEMIA 02/18/2016 CHEST PAIN 04/2016 PNEUMONIA 10/23/18-10/28/18 REVIEW OF SYSTEMS REVIEWED BY: PROVIDER: HILLARY KNOX RIBBON BLOCKMAKER-C . CONSTITUTIONAL: ANY CHANGE IN YOUR MEDICAL CONDITION? NO . CHILLS NO . FEVER NO . INFECTION: DO YOU HAVE NEW INFECTIONS? NO . DO YOU HAVE HISTORY OF MRSA? NO . MUSCULOSKELETAL: ANY NEW PATTERNS OF PAIN OR NUMBNESS? YES . GASTROENTEROLOGY: ANY NEW CHANGE IN BOWEL CONTROL? NO . GENITOURINARY: ANY NEW CHANGE IN BLADDER CONTROL? NO . IS THERE A CHANCE YOU COULD BE ? NO . HEMATOLOGY/LYMPH: DO YOU TAKE ANY BLOOD THINNERS? (FOR EXAMPLE- COUMADIN, PLAVIX, AGGRENOX, PLATEL, PRADAXA, OR XARELTO) NO . WHEN WAS YOUR LAST DOSE? DATE: TIME: . NEUROLOGY: HAVE YOU FALLEN IN THE PAST 12 MONTHS? NO . ANY NEW EXTREMITY NUMBNESS OR WEAKNESS? YES . CARDIOLOGY: DO YOU HAVE A PACEMAKER OR DEFIBRILLATOR? NO . RESPIRATORY: HAVE YOU BEEN SICK IN THE PAST WEEK? NO . FEVER NO . FLU LIKE SYMPTOMS? NO . COUGH NO . INTEGUMENTARY: DO YOU HAVE ANY RASHES OR OPEN SORES? NO . ALLERGIC/IMMUNO: ARE YOU ALLERGIC TO IV DYE? NO . ANY NEW ALLERGIES? NO . PSYCHIATRIC: DO YOU HAVE THOUGHTS OF HURTING YOURSELF OR SOMEONE ELSE? NO . ARE YOU ABUSED, NEGLECTED, OR IN AN UNSAFE ENVIRONMENT? NO . ENDOCRINOLOGY: ARE YOU DIABETIC? NO . OTHER: DO YOU NEED ANY PRESCRIPTIONS? YES . IF YES, PLEASE LIST: ____ . ANY NEW PROBLEMS WITH YOUR MEDICATIONS? OXYCODONE, YES . WHEN DID YOU LAST EAT? ____ . WHEN DID YOU LAST DRINK? ____ . WHAT DID YOU LAST DRINK? ____ . NAME OF PERSON DRIVING YOU HOME? ____ . DO YOU HAVE ANY OTHER QUESTIONS OR CONCERNS YES,SPINE ANDTOP OF LEGS HURT REALLY MUCH MORE . VITAL SIGNS WT 140 LBS, HT 5'2 1/2", BMI 25.20 INDEX, BP 135/71 MM HG, HR 82 /MIN, RR 18 /MIN, TEMP 97.0 F, OXYGEN SAT % 94%, SAFE IN ENV? (Y/N) YES, NA INITIALS AW 1311, REVIEWED BY: DANA. EXAMINATION GENERAL EXAMINATION: GENERALNO ACUTE DISTRESS, WELL NOURISHED AND HYDRATED. PSYCHAPPROPRIATE MOOD AND AFFECT . LUNGS:BILATERAL WHEEZE NOTED . HEART:NO MURMURS, REGULAR RATE AND RHYTHM. ASSESSMENTS SPONDYLOSIS WITHOUT MYELOPATHY OR RADICULOPATHY, LUMBOSACRAL REGION - M47.817 (PRIMARY) CERVICAL DISC DISORDER WITH RADICULOPATHY - M50.10 TREATMENT SPONDYLOSIS WITHOUT MYELOPATHY OR RADICULOPATHY, LUMBOSACRAL REGION INCREASE LYRICA CAPSULE, 150 MG, 1 CAPSULE, ORALLY, THREE TIMES DAILY, 30 DAY(S), 90, REFILLS 5 REFILL OXYCODONE HCL TABLET, 10 MG, 1 TABLET NEEDED, ORALLY, BID PRN PAIN MDD=2, 30 DAY(S), 60, REFILLS 0 CLINICAL NOTES: 64-YEAR-OLD FEMALE IN FOR CHRONIC PAIN FOLLOW-UP. GIVEN PRESENTING SYMPTOMS AND RESULTS OF PHYSICAL EXAMINATION RECOMMENDED INCREASING LYRICA TO 150 MG 3 TIMES A DAY WITH FOLLOW-UP IN 2 MONTHS TO DETERMINE EFFICACY OF TREATMENT. PATIENT HAS EXPRESSED UNDERSTANDING OF AND WAS IN AGREEMENT WITH TREATMENT PLAN. GIVEN TIME TO ASK QUESTIONS AND EXPECT CONCERNS., ISTOP REGISTRY REVIEWED AND DEMONSTRATES COMPLLIANCE. (REF # [id number] ) BRINGS IN MEDICATIONS WHICH IS APPROPRIATE FOR WHAT WAS DISPENSED. RECENT URINE TOXICOLOGY REVIEWED. NO UNAUTHORIZED MEDICATIONS. NO ILLICIT SUBSTANCES AND PRESCRIBED MEDICATIONS WERE PRESENT. PROCEDURE CODES FA211 ESTABILISHED PATIENT [facility] FACILITY CHARGE DISPOSITION & COMMUNICATION FOLLOW UP 2 MONTHS (REASON: BACK AND NECK PAIN INCREASE MEDICATION) ELECTRONICALLY SIGNED BY COLE LUCERO ON 05/20/2019 AT 10:26 AM EST DISCLAIMER : THIS IS A VISIT SUMMARY EXTRACTED FROM THE [employer] CHART. IT IS NOT A COPY OF THE [employer] PROGRESS NOTE. RHETT
== END ==
LOC: M PAIN 13:00
PROVIDERS: ATTEND Family Medicine
DX: M47.817 Spondylosis without myelopathy or radiculopathy, lumbosacral region (principal); M50.10 Cervical disc disorder with radiculopathy, unspecified cervical region; G89.29 Other chronic pain; M79.7 Fibromyalgia; E78.5 Hyperlipidemia, unspecified; I10 Essential (primary) hypertension; Z86.59 Personal history of other mental and behavioral disorders; E03.9 Hypothyroidism, unspecified; K21.9 Gastro-esophageal reflux disease without esophagitis; D50.9 Iron deficiency anemia, unspecified; F17.210 Nicotine dependence, cigarettes, uncomplicated; Z88.1 Allergy status to other antibiotic agents; Z88.2 Allergy status to sulfonamides; Z88.5 Allergy status to narcotic agent; Z88.6 Allergy status to analgesic agent; Z79.82 Long term (current) use of aspirin; Z79.891 Long term (current) use of opiate analgesic; Z79.899 Other long term (current) drug therapy

== ENCOUNTER 2019-05-24 15:00 | Outpatient (RCR) | payer MEDICARE, MEDICAID ==
[2019-05-26] MEDS ORDERED: PRED20TA PO (23:14)
== END 2019-05-27 ==
LOC: M OUTALCOH 15:00
PROVIDERS: ATTEND Psychiatry & Neurology Psychiatry
DX: F10.10 Alcohol abuse, uncomplicated (principal); F17.200 Nicotine dependence, unspecified, uncomplicated

== ENCOUNTER 2019-05-26 19:53 | Emergency (ER) | payer MEDICARE, MEDICAID ==
[~2019-05-26] VITALS: Ht 162.6 cm; Wt 65.3 kg
[2019-05-26 20:57] LABS: BASO # 0.1 10^3/uL (0.0-0.2); BASO % 0.7 % (0.0-1.0); EOS # 0.4 10^3/uL (0.0-0.5); EOS % 5.3 % (0.0-3.0); HEMATOCRIT 42.5 % (36.0-47.0); HEMOGLOBIN 13.6 g/dl (12.0-15.5); LYMPH # 2.4 10^3/uL (1.5-5.0); LYMPH % 34.9 % (24.0-44.0); MEAN CORPUSCULAR VOLUME 93.6 fl (80.0-96.0); MONO # 0.7 10^3/uL (0.0-0.8); MONO % 9.5 % (0.0-5.0); NEUTROPHILS # 3.4 10^3/uL (1.5-8.5); NEUTROPHILS % 49.3 % (36.0-66.0); PLATELET COUNT, AUTOMATED 183 10^3/uL (150-450); RED BLOOD COUNT 4.54 10^6/uL (4.00-5.40); WHITE BLOOD COUNT 6.8 10^3/uL (4.0-10.0)
[2019-05-26 21:33] LABS: BLOOD UREA NITROGEN 13 MG/DL (7-18); CALCIUM LEVEL 8.4 MG/DL (8.8-10.2); CARBON DIOXIDE LEVEL 29 MEQ/L (21-32); CHLORIDE LEVEL 106 MEQ/L (98-107); CK-MB VALUE MASS 2.6 NG/ML (<3.6); CPK CREATINE PHOSPHOKINASE 107 U/L (26-192); CREATININE FOR GFR 0.73 MG/DL (0.55-1.30); GLOMERULAR FILTRATION RATE > 60.0 (>45); GLUCOSE, FASTING 82 MG/DL (70-100); MB/CK RELATIVE INDEX 2.43 (< OR =4); POTASSIUM SERUM 3.7 MEQ/L (3.5-5.1); SODIUM LEVEL 140 MEQ/L (136-145); TROPONIN I < 0.02 NG/ML (< 0.10)
[2019-05-26] MEDS ORDERED: methylPREDNISolone INJ 125 MG/2 ML VIAL (J2930) IV ONE (21:45)
[2019-05-26] MEDS ORDERED: IPRATROPIUM 0.5MG/ALBUTEROL 2.5MG INH SOL UD 3ML (DUONEB)(J7620) NEB PRN (21:45)
[2019-05-26 22:24] LABS: ABG BASE EXCESS 2.6 (-2.0-2.0); ABG HCO3 29.4 MEQ/L (22.0-26.0); ABG O2 SATURATION 93.6 % (95.0-99.0); ABG PARTIAL PRESSURE CO2 53.8 mmHg (35.0-45.0); ABG PARTIAL PRESSURE O2 66.8 mmHg (75.0-100.0); ABG STANDARD HCO3 26.7 MEQ/L (22.0-26.0); ABG pH (ARTERIAL) 7.355 UNITS (7.350-7.450)
[2019-05-26 23:00] VITALS: BP 90/53
[2019-05-26] MEDS ORDERED: PRED20TA PO (23:14)
[2019-05-26 23:23] LABS: INFLUENZA A AMPLIFICATION NEGATIVE (NEGATIVE); INFLUENZA B AMPLIFICATION NEGATIVE (NEGATIVE)
--- NOTE | 2019-05-27 01:06 | REP ---
Clinical: Chest pain . Comparison: 10/27/2018 . Findings: The mediastinum and cardiac silhouette are stable and within normal limits for portable technique. The lung guerrero are clear without acute consolidation, effusion, or pneumothorax. Skeletal structures are intact. Impression: No acute cardiopulmonary process appreciated. Electronically Signed by Rupesh Kelley MD 05/27/2019 12:57 A
--- NOTE | 2019-05-27 13:25 | ECGEPIP ---
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
== END 2019-05-26 23:58 | disposition home or self-care (01) ==
LOC: M ED 19:53
DX: J44.1 Chronic obstructive pulmonary disease with (acute) exacerbation (principal); I10 Essential (primary) hypertension; E78.5 Hyperlipidemia, unspecified; Z79.899 Other long term (current) drug therapy; Z79.890 Hormone replacement therapy; Z79.82 Long term (current) use of aspirin; Z88.1 Allergy status to other antibiotic agents; Z88.2 Allergy status to sulfonamides; Z88.5 Allergy status to narcotic agent; Z88.8 Allergy status to other drugs, medicaments and biological substances; F17.210 Nicotine dependence, cigarettes, uncomplicated
CPT/HCPCS: 36600; 71045; 80048; 82550; 82553; 82803; 84484; 85025; 87502; 93005; 93041; 96374; 99285; J2930

== ENCOUNTER 2019-06-07 14:47 | Outpatient (RCR) | payer MEDICARE, MEDICAID ==
[~2019-06-07 14:47] MED LIST changes: +PRED20TA PO
== END 2019-06-25 ==
LOC: M OUTALCOH 14:47
PROVIDERS: ATTEND Psychiatry & Neurology Psychiatry
DX: F10.10 Alcohol abuse, uncomplicated (principal); F17.200 Nicotine dependence, unspecified, uncomplicated

== ENCOUNTER → 2019-07-26 | Outpatient (RCR) | payer MEDICARE, MEDICAID | LOC: M OUTALCOH 07-05 15:45 | PROVIDERS: ATTEND Psychiatry & Neurology Addiction Medicine | DX: F10.10 Alcohol abuse, uncomplicated (principal); F17.200 Nicotine dependence, unspecified, uncomplicated ==

== ENCOUNTER → 2019-08-18 | Outpatient (CLI) | payer MEDICARE, MEDICAID ==
[~2019-08-18] MED LIST changes: +CYCL-707 PO; -CYCL10TA PO
--- NOTE | 2019-08-20 01:49 | ECWPNPC ---
PATIENT NAME: STEPHAN DICKINSON : 1955 GENDER: FEMALE VISIT DATE: 08/18/2019 DISCHARGE DATE: 08/18/19 1318 VISIT LOCKED DATE TIME: PHYSICIAN: ZIA KNOX RESOURCE: ZIA KNOX REASON FOR APPOINTMENT 1. BACK/NECK/MED HISTORY OF PRESENT ILLNESS HISTORY OF PRESENT ILLNESS: PAIN THE PATIENT DESCRIBES THE PAIN... PERMISSION REQUESTED AND RECEIVED FROM PATIENT TO PERFORM TELEPHONE VISIT. 64-YEAR-OLD FEMALE IN FOR CHRONIC PAIN FOLLOW-UP. SHE RATES HER PAIN CURRENTLY AT A 10 OUT OF 10 AND DESCRIBES IT CONSTANT. SHE FEELS HER MEDS MEDICATIONS ARE HELPFUL AND DENIES MED SIDE EFFECTS AT THIS TIME. FALL RISK SCREENING: SCREENING :NO FALLS REPORTED IN THE LAST YEAR CURRENT MEDICATIONS TAKING VITAMIN D3 1000 UNIT TABLET 2 TABLET ORALLY ONCE A DAY TAKING CITALOPRAM HYDROBROMIDE 40 MG TABLET 1 TABLET ORALLY ONCE A DAY TAKING OMEPRAZOLE 20 MG CAPSULE DELAYED RELEASE 1 CAPSULE ORALLY TWICE A DAY TAKING THIAMINE HCL 100 MG TABLET 1 TABLET ORALLY ONCE A DAY TAKING HYDROCORTISONE 1 % CREAM 1 APPLICATION TO AFFECTED AREA EXTERNALLY TWICE DAILY NEEDED TAKING ALBUTEROL SULFATE HFA 108 (90 BASE) MCG/ACT AEROSOL SOLUTION 2 PUFFS NEEDED INHALATION FOUR TIMES DAILY NEEDED TAKING FERROUS GLUCONATE 240 (27 FE) MG TABLET DIRECTED ORALLY ONCE A DAY TAKING SYMBICORT 160-4.5 MCG/ACT AEROSOL 2 PUFFS INHALATION TWICE A DAY TAKING COMBIVENT RESPIMAT 20-100 MCG/ACT AEROSOL SOLUTION 1 PUFF INHALATION TWICE DAILY TAKING LEVOTHYROXINE SODIUM 75 MCG TABLET 1 TABLET ORALLY ONCE A DAY TAKING SIMVASTATIN 40 MG TABLET 1/2 TABLET IN THE EVENING ORALLY ONCE A DAY TAKING ASPIR-81 81 MG TABLET DELAYED RELEASE 1 TABLET ORALLY ONCE A DAY TAKING SERTRALINE HCL 25 MG TABLET 2 TABS ORALLY ONCE A DAY TAKING TIZANIDINE HCL 4 MG TABLET 1 TABLET NEEDED ORALLY THREE TIMES A DAY TAKING LYRICA 150 MG CAPSULE 1 CAPSULE ORALLY THREE TIMES DAILY TAKING OXYCODONE HCL 10 MG TABLET 1 TABLET NEEDED ORALLY BID PRN PAIN MDD=2 TAKING NUCYNTA ER 100 MG TABLET EXTENDED RELEASE 12 HOUR 1 TABLET ORALLY EVERY 12 HRS CHRONIC PAIN MDD=2 MEDICATION LIST REVIEWED AND RECONCILED WITH THE PATIENT PAST MEDICAL HISTORY SEVERE COPD BRONCHITIS, GOLD 3, SPIROMETRY 12/25/16 FIBROMYALGIA HYPERLIPIDEMIA HYPERTENSION CHRONIC LOW BACK PAIN - PREVIOUSLY ON OPIATE MEDICATIONS - DC'D DUE TO URINE TOX INCONSISTENCIES ANXIETY AND DEPRESSION HYPOTHYROIDISM [facility]OWS WITH [facility] 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 CHEST PAIN GERD CAD S/P PCI FOLLOWS DR. HIGGINBOTHAM IRON DEFICIENCY ANEMIA FOLLOWS [place] GI BLEED ANEMIA SMOKING HX OF ALCOHOL ABUSE PNEUMONIA 10/23/18 ALLERGIES CODEINE PHOSPHATE: NAUSEA/VOMITING TETRACYCLINE HCL: PT UNSURE - ALLERGY SULFA (FOR ALLERGY USE ONLY): PT UNSURE - ALLERGY NSAIDS: GI BLEED - CONTRAINDICATION SURGICAL HISTORY GALL BLADDER KIDNEY STONE HYSTERECTOMY CARPAL TUNNEL RELEASE X2 KNEE SURGERY X 4 TONSILLECTOMY LEFT FOOT BUNIONECTOMY, BRIT IN TOES 2016 CARDIAC CATH 04/2016 RIGHT FOOT BUNIONECTOMY 04/2018 FAMILY HISTORY FATHER: , STROKE MOTHER: , COPD 1 SISTER(S) - HEALTHY. 1DAUGHTER(S) - HEALTHY. SOCIAL HISTORY GENERAL: TOBACCO USE ARE YOU A:CURRENT SMOKER ARE YOU INTERESTED IN QUITTING?NOT READY TO QUIT WOULD LIKE TO QUIT IF SHE COULD GET THE PATCHES PATIENT IS TRYING TO QUIT HOW MANY CIGARETTES A DAY DO YOU SMOKE?6-10 PATIENT COUNSELED ON THE DANGERS OF TOBACCO USE AND URGED TO QUIT:08/18/2019 LATEX QUESTIONNAIRE LATEX ALLERGY : HAVE YOU EVER DEVELOPED ANY TYPE OF REACTION AFTER HANDLING LATEX PRODUCTS SUCH RUBBER GLOVES, CONDOMS, DIAPHRAGMS, BALLOONS, SOCKS, OR UNDERWEAR?NO LATEX ALLERGY : HAVE YOU EVER DEVELOPED ANY TYPE OF REACTION DURING OR AFTER DENTAL APPOINTMENT, VAGINAL/RECTAL EXAMINATION, SURGICAL PROCEDURE, OR ANY OTHER EXPOSURE?NO LATEX RISK : HAVE YOU EVER HAD ANY DIFFICULTY BREATHING OR HIVES AFTER EATING OR HANDLING ANY FRUITS, OR VEGETABLES; SUCH KIWI, BANANAS, STONE FRUITS, OR CHESTNUTSNO LATEX RISK : DO YOU HAVE A PREVIOUS PERSONAL HISTORY OF MORE THAN NINE SURGERIES, SPINA BIFIDA, OR REPEATED CATHERIZATIONS? YES - PLEASE INDICATE : > 9 SURGERIES LATEX RISK : ARE YOU FREQUENTLY EXPOSED TO LATEX PRODUCTS IN YOUR OCCUPATION?NO DATE ASKED : 08/18/2019 ALCOHOL SCREENING DID YOU HAVE A DRINK CONTAINING ALCOHOL IN THE PAST YEAR?YES HOW OFTEN DID YOU HAVE SIX OR MORE DRINKS ON ONE OCCASION IN THE PAST YEAR?MONTHLY (2 POINTS) HOW MANY DRINKS DID YOU HAVE ON A TYPICAL DAY WHEN YOU WERE DRINKING IN THE PAST YEAR?3 OR 4 (1 POINT) HOW OFTEN DID YOU HAVE A DRINK CONTAINING ALCOHOL IN THE PAST YEAR?FOUR OR MORE TIMES A WEEK (4 POINTS) POINTS7 INTERPRETATIONPOSITIVE RECREATIONAL DRUG USE DRUG USE?NO BAPTISM [id number] JEW LANGUAGE LANGUAGES SPOKEN:[place]ORE[place] LEARNING BARRIERS / SPECIAL NEEDS BARRIERS TO LEARNING?NO HEARING IMPAIRED?NO VISION IMPAIRED?YES :CORRECTIVE LENSES COGNITIVELY IMPAIRED?NO READINESS TO LEARN?YES LEARNING PREFERENCES?YES :DEMONSTRATION/VERBAL INSTRUCTION LEARNING CAPABILITIES PRESENT?YES EMOTIONAL BARRIERS?NO SPECIAL DEVICES?NO WIRE COMMUNICATIONS ENGINEER NEEDED?NO DOMESTIC VIOLENCE DO YOU FEEL SAFE IN YOUR ENVIRONMENT?YES OCCUPATION: DISABLED. NEW PATIENT PAIN DIARY TODAY'S VISIT 08/18/19 PATIENT DESCRIBES PAIN :HAVE IT ALL THE TIME, SHARP, STABBING, TENDER, THROBBING, SHOOTING FROM 0-10, WHAT LEVEL IS YOUR PAIN TODAY?10 PRECIPITATING FACTORS JUST SEVERE PAIN ALL THE TIME ALLEVIATING FACTORS NOTHING IMPACT ON FUNCTION LIMITS HER ABILITY TO DO THINGS. SHE DOES SOME THINGS BECAUSE SHE HAS TO. PAIN CLINIC PFS, CLERGY, PUBLIC HEALTH REFERRALS PFS REFERRAL NEEDED?NO CLERGY REFERRAL NEEDED?NO PUBLIC HEALTH REFERRAL NEEDED?NO HAS THE PATIENT BEEN EDUCATED REGARDING HIS/HER PLAN OF CARE?YES HAS THE PATIENT BEEN EDUCATED REGARDING PAIN, THE RISK FOR PAIN, THE IMPORTANCE OF EFFECTIVE PAIN MANAGEMENT, AND THE PAIN ASSESSMENT PROCESS?YES ADVANCE DIRECTIVE ADVANCE DIRECTIVE DISCUSSED WITH PATIENT:YES HCP - DAUGHTER, MELITON 08/18/19 REVIEWED WITH PT. AD. 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 CONSTITUTIONAL: ANY CHANGE IN YOUR MEDICAL CONDITION? NO . CHILLS NO . FEVER NO . INFECTION: DO YOU HAVE NEW INFECTIONS? NO . DO YOU HAVE HISTORY OF MRSA? NO . MUSCULOSKELETAL: ANY NEW PATTERNS OF PAIN OR NUMBNESS? YES, PAIN HAS BEEN GETTING MORE INTENSE OVER THE PAST 2 MONTHS . GASTROENTEROLOGY: ANY NEW CHANGE IN BOWEL CONTROL? NO . GENITOURINARY: ANY NEW CHANGE IN BLADDER CONTROL? NO . IS THERE A CHANCE YOU COULD BE ? NO . HEMATOLOGY/LYMPH: DO YOU TAKE ANY BLOOD THINNERS? (FOR EXAMPLE- COUMADIN, PLAVIX, AGGRENOX, PLATEL, PRADAXA, OR XARELTO) NO . WHEN WAS YOUR LAST DOSE? DATE: TIME: . NEUROLOGY: HAVE YOU FALLEN IN THE PAST 12 MONTHS? NO . ANY NEW EXTREMITY NUMBNESS OR WEAKNESS? NO . CARDIOLOGY: DO YOU HAVE A PACEMAKER OR DEFIBRILLATOR? NO . RESPIRATORY: HAVE YOU BEEN SICK IN THE PAST WEEK? NO . FEVER NO . FLU LIKE SYMPTOMS? NO . COUGH NO . INTEGUMENTARY: DO YOU HAVE ANY RASHES OR OPEN SORES? NO . ALLERGIC/IMMUNO: ARE YOU ALLERGIC TO IV DYE? NO . ANY NEW ALLERGIES? NO . PSYCHIATRIC: DO YOU HAVE THOUGHTS OF HURTING YOURSELF OR SOMEONE ELSE? NO . ARE YOU ABUSED, NEGLECTED, OR IN AN UNSAFE ENVIRONMENT? NO . ENDOCRINOLOGY: ARE YOU DIABETIC? NO . OTHER: DO YOU NEED ANY PRESCRIPTIONS? YES . IF YES, PLEASE LIST: OXYCODONE . ANY NEW PROBLEMS WITH YOUR MEDICATIONS? NO . WHEN DID YOU LAST EAT? ____ . WHEN DID YOU LAST DRINK? ____ . WHAT DID YOU LAST DRINK? ____ . NAME OF PERSON DRIVING YOU HOME? ____ . DO YOU HAVE ANY OTHER QUESTIONS OR CONCERNS NO . EXAMINATION GENERAL EXAMINATION: PSYCHAPPROPRIATE MOOD AND AFFECT , ORIENTED X 3. ASSESSMENTS SPONDYLOSIS WITHOUT MYELOPATHY OR RADICULOPATHY, LUMBOSACRAL REGION - M47.817 (PRIMARY) TREATMENT SPONDYLOSIS WITHOUT MYELOPATHY OR RADICULOPATHY, LUMBOSACRAL REGION REFILL OXYCODONE HCL TABLET, 10 MG, 1 TABLET NEEDED, ORALLY, BID PRN PAIN MDD=2, 30 DAY(S), 60, REFILLS 0 CLINICAL NOTES: 64-YEAR-OLD FEMALE IN FOR CHRONIC PAIN FOLLOW-UP. GIVEN PRESENTING SYMPTOMS RECOMMENDED CONTINUATION OF CURRENT MEDICATION REGIMEN WITH FOLLOW-UP IN ONE MONTH IN CLINIC. DISCUSSED POTENTIAL PROCEDURES WITH PATIENT AND SHE DECLINES AT THIS TIME STATING SHE'S HAD THE MIDDLE PAST AND THEY WERE INEFFECTIVE. PATIENT HAS EXPRESSED UNDERSTANDING OF AND WAS IN AGREEMENT WITH TREATMENT PLAN. GIVEN TIME TO ASK QUESTIONS AND EXPRESS CONCERNS. , ISTOP REGISTRY REVIEWED AND DEMONSTRATES COMPLLIANCE. (REF # [id number] ) BRINGS IN MEDICATIONS WHICH IS APPROPRIATE FOR WHAT WAS DISPENSED. RECENT URINE TOXICOLOGY REVIEWED. NO UNAUTHORIZED MEDICATIONS. NO ILLICIT SUBSTANCES AND PRESCRIBED MEDICATIONS WERE PRESENT. VISIT TO BILLED BASED ON TIME SPENT WITH PATIENT. TIME SPENT WITH PATIENT 11 MINUTES. OTHERS NOTES: DUE TO TELEPHONE ENCOUNTER UNBLE TO DO V/S. DISPOSITION & COMMUNICATION FOLLOW UP 4 WEEKS (REASON: BACK PAIN) ELECTRONICALLY SIGNED BY COLE LUCERO ON 08/19/2019 AT 01:03 PM EDT DISCLAIMER : THIS IS A VISIT SUMMARY EXTRACTED FROM THE [employer] CHART. IT IS NOT A COPY OF THE [employer] PROGRESS NOTE. RHETT
== END ==
LOC: M PAIN 13:15
PROVIDERS: ATTEND Family Medicine
DX: M47.817 Spondylosis without myelopathy or radiculopathy, lumbosacral region (principal); G89.29 Other chronic pain; M79.7 Fibromyalgia; E78.5 Hyperlipidemia, unspecified; I10 Essential (primary) hypertension; Z86.59 Personal history of other mental and behavioral disorders; E03.9 Hypothyroidism, unspecified; K21.9 Gastro-esophageal reflux disease without esophagitis; D50.9 Iron deficiency anemia, unspecified; F17.210 Nicotine dependence, cigarettes, uncomplicated; Z88.1 Allergy status to other antibiotic agents; Z88.2 Allergy status to sulfonamides; Z88.5 Allergy status to narcotic agent; Z88.6 Allergy status to analgesic agent; Z79.82 Long term (current) use of aspirin; Z79.891 Long term (current) use of opiate analgesic; Z79.899 Other long term (current) drug therapy

== ENCOUNTER 2019-08-23 15:00 | Outpatient (RCR) | payer MEDICARE, MEDICAID | END 2019-08-25 | LOC: M OUTALCOH 15:00 | PROVIDERS: ATTEND Psychiatry & Neurology Addiction Medicine | DX: F10.10 Alcohol abuse, uncomplicated (principal); F17.200 Nicotine dependence, unspecified, uncomplicated ==

== ENCOUNTER → 2019-09-15 | Outpatient (CLI) | payer MEDICARE, MEDICAID ==
--- NOTE | 2019-09-23 03:14 | ECWPNPC ---
PATIENT NAME: STEPHAN DICKINSON : 1955 GENDER: FEMALE VISIT DATE: 09/15/2019 DISCHARGE DATE: 09/15/19 1412 VISIT LOCKED DATE TIME: PHYSICIAN: ZIA KNOX RESOURCE: ZAI KNOX REASON FOR APPOINTMENT 1. BACK PAIN [phone] PAT DONE HISTORY OF PRESENT ILLNESS HISTORY OF PRESENT ILLNESS: PAIN THE PATIENT DESCRIBES THE PAINDURING THE LAST MONTH SEVERITY - PAIN SCORE OF8/10, 9/10 LOCATIONSLOWER BACK QUALITYSHARP, STABBING DURATIONCONTINUOUS, CONSTANT, ALL DAY PAIN IS INCREASED BY:ACTIVITIES, PROLONGED STANDING PAIN IS DECREASED BY:USE OF PAIN MEDICATIONS PERMISSION REQUESTED AND RECEIVED FROM PATIENT TO PERFORM TELEPHONE VISIT. 64-YEAR-OLD FEMALE IN FOR CHRONIC PAIN FOLLOW-UP. SHE RATES HER PAIN CURRENTLY AT A 9 OUT OF 10. SHE DOES ADMIT TO STRAINING HER NECK RECENTLY. SHE FEELS THE MEDICATIONS ARE HELPFUL AND DENIES MED SIDE EFFECTS AT THIS TIME. FALL RISK SCREENING: SCREENING :ONE FALL WITHOUT INJURY IN THE PAST YEAR MISSED A STEP AND FELL CURRENT MEDICATIONS TAKING VITAMIN D3 1000 UNIT TABLET 2 TABLET ORALLY ONCE A DAY TAKING CITALOPRAM HYDROBROMIDE 40 MG TABLET 1 TABLET ORALLY ONCE A DAY TAKING OMEPRAZOLE 20 MG CAPSULE DELAYED RELEASE 1 CAPSULE ORALLY TWICE A DAY TAKING THIAMINE HCL 100 MG TABLET 1 TABLET ORALLY ONCE A DAY TAKING HYDROCORTISONE 1 % CREAM 1 APPLICATION TO AFFECTED AREA EXTERNALLY TWICE DAILY NEEDED TAKING ALBUTEROL SULFATE HFA 108 (90 BASE) MCG/ACT AEROSOL SOLUTION 2 PUFFS NEEDED INHALATION FOUR TIMES DAILY NEEDED TAKING FERROUS GLUCONATE 240 (27 FE) MG TABLET DIRECTED ORALLY ONCE A DAY TAKING SYMBICORT 160-4.5 MCG/ACT AEROSOL 2 PUFFS INHALATION TWICE A DAY TAKING COMBIVENT RESPIMAT 20-100 MCG/ACT AEROSOL SOLUTION 1 PUFF INHALATION TWICE DAILY TAKING LEVOTHYROXINE SODIUM 75 MCG TABLET 1 TABLET ORALLY ONCE A DAY TAKING SIMVASTATIN 40 MG TABLET 1/2 TABLET IN THE EVENING ORALLY ONCE A DAY TAKING ASPIR-81 81 MG TABLET DELAYED RELEASE 1 TABLET ORALLY ONCE A DAY TAKING SERTRALINE HCL 25 MG TABLET 2 TABS ORALLY ONCE A DAY TAKING TIZANIDINE HCL 4 MG TABLET 1 TABLET NEEDED ORALLY THREE TIMES A DAY TAKING LYRICA 150 MG CAPSULE 1 CAPSULE ORALLY THREE TIMES DAILY TAKING OXYCODONE HCL 10 MG TABLET 1 TABLET NEEDED ORALLY BID PRN PAIN MDD=2 TAKING NUCYNTA ER 100 MG TABLET EXTENDED RELEASE 12 HOUR 1 TABLET ORALLY EVERY 12 HRS CHRONIC PAIN MDD=2 MEDICATION LIST REVIEWED AND RECONCILED WITH THE PATIENT PAST MEDICAL HISTORY SEVERE COPD BRONCHITIS, GOLD 3, SPIROMETRY 12/25/16 FIBROMYALGIA HYPERLIPIDEMIA HYPERTENSION CHRONIC LOW BACK PAIN - PREVIOUSLY ON OPIATE MEDICATIONS - DC'D DUE TO URINE TOX INCONSISTENCIES ANXIETY AND DEPRESSION HYPOTHYROIDISM FOLLOWS WITH 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 CHEST PAIN GERD CAD S/P PCI FOLLOWS DR. HIGGINBOTHAM IRON DEFICIENCY ANEMIA FOLLOWS CT GI BLEED ANEMIA SMOKING HX OF ALCOHOL ABUSE PNEUMONIA 10/23/18 ALLERGIES CODEINE PHOSPHATE: NAUSEA/VOMITING TETRACYCLINE HCL: PT UNSURE - ALLERGY SULFA (FOR ALLERGY USE ONLY): PT UNSURE - ALLERGY NSAIDS: GI BLEED - CONTRAINDICATION SURGICAL HISTORY GALL BLADDER KIDNEY STONE HYSTERECTOMY CARPAL TUNNEL RELEASE X2 KNEE SURGERY X 4 TONSILLECTOMY LEFT FOOT BUNIONECTOMY, BRIT IN TOES 2015 CARDIAC CATH 04/2016 RIGHT FOOT BUNIONECTOMY 04/2018 FAMILY HISTORY FATHER: , STROKE MOTHER: , COPD 1 SISTER(S) - HEALTHY. 1DAUGHTER(S) - HEALTHY. SOCIAL HISTORY GENERAL: TOBACCO USE ARE YOU A:CURRENT SMOKER ARE YOU INTERESTED IN QUITTING?NOT READY TO QUIT WOULD LIKE TO QUIT IF SHE COULD GET THE PATCHES PATIENT IS TRYING TO QUIT COUNSELED THE PATIENT ON SMOKING EFFECTS, EDUCATION [id number] HOW MANY CIGARETTES A DAY DO YOU SMOKE?6-10 PATIENT COUNSELED ON THE DANGERS OF TOBACCO USE AND URGED TO QUIT:09/14/2019 SMOKING CESSATION INFORMATION GIVEN09/14/2019 LATEX QUESTIONNAIRE LATEX ALLERGY : HAVE YOU EVER DEVELOPED ANY TYPE OF REACTION AFTER HANDLING LATEX PRODUCTS SUCH RUBBER GLOVES, CONDOMS, DIAPHRAGMS, BALLOONS, SOCKS, OR UNDERWEAR?NO LATEX ALLERGY : HAVE YOU EVER DEVELOPED ANY TYPE OF REACTION DURING OR AFTER DENTAL APPOINTMENT, VAGINAL/RECTAL EXAMINATION, SURGICAL PROCEDURE, OR ANY OTHER EXPOSURE?NO DATE ASKED : 08/18/2019 LATEX RISK : HAVE YOU EVER HAD ANY DIFFICULTY BREATHING OR HIVES AFTER EATING OR HANDLING ANY FRUITS, OR VEGETABLES; SUCH KIWI, BANANAS, STONE FRUITS, OR CHESTNUTSNO LATEX RISK : DO YOU HAVE A PREVIOUS PERSONAL HISTORY OF MORE THAN NINE SURGERIES, SPINA BIFIDA, OR REPEATED CATHERIZATIONS? YES - PLEASE INDICATE : > 9 SURGERIES LATEX RISK : ARE YOU FREQUENTLY EXPOSED TO LATEX PRODUCTS IN YOUR OCCUPATION?NO ALCOHOL SCREENING DID YOU HAVE A DRINK CONTAINING ALCOHOL IN THE PAST YEAR?YES HOW OFTEN DID YOU HAVE SIX OR MORE DRINKS ON ONE OCCASION IN THE PAST YEAR?MONTHLY (2 POINTS) HOW MANY DRINKS DID YOU HAVE ON A TYPICAL DAY WHEN YOU WERE DRINKING IN THE PAST YEAR?3 OR 4 (1 POINT) HOW OFTEN DID YOU HAVE A DRINK CONTAINING ALCOHOL IN THE PAST YEAR?FOUR OR MORE TIMES A WEEK (4 POINTS) POINTS7 INTERPRETATIONPOSITIVE RECREATIONAL DRUG USE DRUG USE?NO CHURCH [id number] HINDU LANGUAGE LANGUAGES SPOKEN:THAI LEARNING BARRIERS / SPECIAL NEEDS BARRIERS TO LEARNING?NO HEARING IMPAIRED?NO VISION IMPAIRED?YES COGNITIVELY IMPAIRED?NO :CORRECTIVE LENSES READINESS TO LEARN?YES LEARNING PREFERENCES?YES :DEMONSTRATION/VERBAL INSTRUCTION LEARNING CAPABILITIES PRESENT?YES EMOTIONAL BARRIERS?NO SPECIAL DEVICES?NO WEIGHT RECORDER NEEDED?NO DOMESTIC VIOLENCE DO YOU FEEL SAFE IN YOUR ENVIRONMENT?YES OCCUPATION: DISABLED. NEW PATIENT PAIN DIARY TODAY'S VISIT 08/18/19 PATIENT DESCRIBES PAIN :HAVE IT ALL THE TIME, SHARP, STABBING, TENDER, THROBBING, SHOOTING FROM 0-10, WHAT LEVEL IS YOUR PAIN TODAY?10 PRECIPITATING FACTORS JUST SEVERE PAIN ALL THE TIME ALLEVIATING FACTORS NOTHING IMPACT ON FUNCTION LIMITS HER ABILITY TO DO THINGS. SHE DOES SOME THINGS BECAUSE SHE HAS TO. PAIN CLINIC PFS, CLERGY, PUBLIC HEALTH REFERRALS PFS REFERRAL NEEDED?NO CLERGY REFERRAL NEEDED?NO PUBLIC HEALTH REFERRAL NEEDED?NO HAS THE PATIENT BEEN EDUCATED REGARDING HIS/HER PLAN OF CARE?YES HAS THE PATIENT BEEN EDUCATED REGARDING PAIN, THE RISK FOR PAIN, THE IMPORTANCE OF EFFECTIVE PAIN MANAGEMENT, AND THE PAIN ASSESSMENT PROCESS?YES ADVANCE DIRECTIVE ADVANCE DIRECTIVE DISCUSSED WITH PATIENT:YES HCP - DAUGHTERMELITON 08/18/19 REVIEWED WITH PT. AD. HOSPITALIZATION/MAJOR DIAGNOSTIC PROCEDURE SURGERY CHILDBIRTH X3 ANEMIA 02/18/2016 CHEST PAIN 04/2016 PNEUMONIA 10/23/18-10/28/18 REVIEW OF SYSTEMS REVIEWED BY: PROVIDER: HILLARY HENDRICKS . CONSTITUTIONAL: ANY CHANGE IN YOUR MEDICAL CONDITION? NO . CHILLS NO . FEVER NO . INFECTION: DO YOU HAVE NEW INFECTIONS? NO . DO YOU HAVE HISTORY OF MRSA? NO . MUSCULOSKELETAL: ANY NEW PATTERNS OF PAIN OR NUMBNESS? NO . GASTROENTEROLOGY: ANY NEW CHANGE IN BOWEL CONTROL? NO . GENITOURINARY: ANY NEW CHANGE IN BLADDER CONTROL? NO . IS THERE A CHANCE YOU COULD BE ? NO . HEMATOLOGY/LYMPH: DO YOU TAKE ANY BLOOD THINNERS? (FOR EXAMPLE- COUMADIN, PLAVIX, AGGRENOX, PLATEL, PRADAXA, OR XARELTO) NO . WHEN WAS YOUR LAST DOSE? DATE: TIME: . NEUROLOGY: HAVE YOU FALLEN IN THE PAST 12 MONTHS? NO . ANY NEW EXTREMITY NUMBNESS OR WEAKNESS? NO . CARDIOLOGY: DO YOU HAVE A PACEMAKER OR DEFIBRILLATOR? NO . RESPIRATORY: HAVE YOU BEEN SICK IN THE PAST WEEK? NO . FEVER NO . FLU LIKE SYMPTOMS? NO . COUGH NO . INTEGUMENTARY: DO YOU HAVE ANY RASHES OR OPEN SORES? NO . ALLERGIC/IMMUNO: ARE YOU ALLERGIC TO IV DYE? NO . ANY NEW ALLERGIES? NO . PSYCHIATRIC: DO YOU HAVE THOUGHTS OF HURTING YOURSELF OR SOMEONE ELSE? NO . ARE YOU ABUSED, NEGLECTED, OR IN AN UNSAFE ENVIRONMENT? NO . ENDOCRINOLOGY: ARE YOU DIABETIC? NO . OTHER: DO YOU NEED ANY PRESCRIPTIONS? YES,REFILL OXYCODONE . IF YES, PLEASE LIST: ____ . ANY NEW PROBLEMS WITH YOUR MEDICATIONS? NO . WHEN DID YOU LAST EAT? ____ . WHEN DID YOU LAST DRINK? ____ . WHAT DID YOU LAST DRINK? ____ . NAME OF PERSON DRIVING YOU HOME? ____ . DO YOU HAVE ANY OTHER QUESTIONS OR CONCERNS NO . EXAMINATION GENERAL EXAMINATION: PSYCHAPPROPRIATE MOOD AND AFFECT , ORIENTED X 3. ASSESSMENTS SPONDYLOSIS WITHOUT MYELOPATHY OR RADICULOPATHY, LUMBOSACRAL REGION - M47.817 (PRIMARY) TREATMENT SPONDYLOSIS WITHOUT MYELOPATHY OR RADICULOPATHY, LUMBOSACRAL REGION REFILL OXYCODONE HCL TABLET, 10 MG, 1 TABLET NEEDED, ORALLY, BID PRN PAIN MDD=2, 30 DAY(S), 60, REFILLS 0 CLINICAL NOTES: 64-YEAR-OLD FEMALE IN FOR CHRONIC PAIN FOLLOW-UP. GIVEN PRESENTING SYMPTOMS RECOMMENDED CONTINUATION CURRENT MEDICATION REGIMEN WITH FOLLOW-UP IN 3 MONTHS. DISCUSSED NECK STRAIN WITH PATIENT AND ENCOURAGED THE USE OF A SOFT COLLAR PATIENT STATES SHE HAS HAD THIS LOOKED AT BY A PROVIDER. PATIENT HAS EXPRESSED UNDERSTANDING OF AND WAS IN AGREEMENT WITH TREATMENT PLAN. GIVEN TIME TO ASK QUESTIONS AND EXPRESS CONCERNS. , ISTOP REGISTRY REVIEWED AND DEMONSTRATES COMPLLIANCE. (REF #[id number] ) BRINGS IN MEDICATIONS WHICH IS APPROPRIATE FOR WHAT WAS DISPENSED. RECENT URINE TOXICOLOGY REVIEWED. NO UNAUTHORIZED MEDICATIONS. NO ILLICIT SUBSTANCES AND PRESCRIBED MEDICATIONS WERE PRESENT. VISIT TO BE BILLED BASED ON TIME SPENT WITH PATIENT. TIME SPENT WITH PATINENT 11 MINUTES. OTHERS NOTES: VITALS NOT OBTAINED DUE TO VIRTUAL VISIT , PRE-SCREENING COMPLETED, 09/14/19, NA. DISPOSITION & COMMUNICATION FOLLOW UP 3 MONTHS (REASON: BACK PAIN) ELECTRONICALLY SIGNED BY COLE LUCERO ON 09/22/2019 AT 08:17 AM EDT DISCLAIMER : THIS IS A VISIT SUMMARY EXTRACTED FROM THE [employer] CHART. IT IS NOT A COPY OF THE [employer] PROGRESS NOTE. RHETT
== END ==
LOC: M PAIN 13:30
PROVIDERS: ATTEND Family Medicine
DX: M47.817 Spondylosis without myelopathy or radiculopathy, lumbosacral region (principal)

== ENCOUNTER 2019-09-23 13:18 | Outpatient (RCR) | payer MEDICARE, MEDICAID | END 2019-09-25 | LOC: M OUTALCOH 13:18 | PROVIDERS: ATTEND Psychiatry & Neurology Addiction Medicine | DX: F10.10 Alcohol abuse, uncomplicated (principal); F17.200 Nicotine dependence, unspecified, uncomplicated ==

== ENCOUNTER 2019-10-19 13:01 | Outpatient (RCR) | payer MEDICARE, MEDICAID | END 2019-10-25 | LOC: M OUTALCOH 13:01 | PROVIDERS: ATTEND Counselor Addiction (Substance Use Disorder) | DX: F10.10 Alcohol abuse, uncomplicated (principal); F17.200 Nicotine dependence, unspecified, uncomplicated ==

== ENCOUNTER → 2019-10-25 | Outpatient (CLI) | payer MEDICARE, MEDICAID ==
[2019-10-25 14:27] LABS: APPEARANCE, URINE CLEAR (CLEAR); BACTERIA, URINE AUTO NEGATIVE (NEGATIVE); BILIRUBIN, URINE AUTO NEGATIVE (NEGATIVE); BLOOD, URINE BLOOD NEGATIVE (NEGATIVE); COLOR, URINE YELLOW (YELLOW); GLUCOSE, URINE (UA) AUTO NEGATIVE (NEGATIVE); KETONE, URINE AUTO TRACE mg/dL (NEGATIVE); LEUKOCYTE ESTERASE, URINE AUTO TRACE (NEGATIVE); MUCUS, URINE SMALL (NEGATIVE); NITRITE, URINE AUTO NEGATIVE (NEGATIVE); PROTEIN, URINE AUTO NEGATIVE (NEGATIVE); RBC, URINE AUTO 1 /HPF (0-3); SPECIFIC GRAVITY URINE AUTO 1.009 (1.002-1.035); SQUAMOUS EPITHELIAL CELL UR AU 0 /HPF (0-6); UROBILINOGEN, URINE AUTO 0.2 mg/dL (0.0-2.0); WBC, URINE AUTO 2 /HPF (0-3)
[2019-10-25 14:30] LABS: BASO % 0.4 % (0.0-1.0); EOS % 0.7 % (0.0-3.0); HEMATOCRIT 44.1 % (36.0-47.0); HEMOGLOBIN 14.4 g/dl (12.0-15.5); LYMPH # 1.3 10^3/uL (1.5-5.0); LYMPH % 22.6 % (24.0-44.0); MEAN CORPUSCULAR HEMOGLOBIN 30.8 pg (27.0-33.0); MEAN CORPUSCULAR HGB CONC 32.7 g/dl (32.0-36.5); MEAN CORPUSCULAR VOLUME 94.2 fl (80.0-96.0); MONO # 0.6 10^3/uL (0.0-0.8); MONO % 10.9 % (0.0-5.0); NEUTROPHILS # 3.6 10^3/uL (1.5-8.5); NEUTROPHILS % 65.2 % (36.0-66.0); PLATELET COUNT, AUTOMATED 271 10^3/uL (150-450); RED BLOOD COUNT 4.68 10^6/uL (4.00-5.40); WHITE BLOOD COUNT 5.6 10^3/uL (4.0-10.0)
[2019-10-25 14:46] LABS: ALBUMIN 3.1 GM/DL (3.2-5.2); ALT/SGPT 27 U/L (12-78); BILIRUBIN,TOTAL 0.4 MG/DL (0.2-1.0); BLOOD UREA NITROGEN 4 MG/DL (7-18); CALCIUM LEVEL 8.9 MG/DL (8.8-10.2); CARBON DIOXIDE LEVEL 30 MEQ/L (21-32); CHLORIDE LEVEL 109 MEQ/L (98-107); CHOLESTEROL LEVEL 164 MG/DL (<200); CHOLESTEROL RISK RATIO 2.246 (<5); CREATININE FOR GFR 0.53 MG/DL (0.55-1.30); GLOMERULAR FILTRATION RATE > 60.0 (>45); GLUCOSE, FASTING 112 MG/DL (70-100); HDL CHOLESTEROL 73 MG/DL (>40); LDL CHOLESTEROL 77 MG/DL (<100); NON-HDL-C 91 MG/DL; POTASSIUM SERUM 4.1 MEQ/L (3.5-5.1); SODIUM LEVEL 142 MEQ/L (136-145); TOTAL PROTEIN 6.5 GM/DL (6.4-8.2); TRIGLYCERIDES LEVEL 69 MG/DL (<150)
[2019-10-26 09:08] LABS: HEPATITIS C VIRUS ABY INDEX 0.1 INDEX (<0.8)
== END ==
LOC: M WUC 11:06
PROVIDERS: ATTEND Family Medicine
DX: D64.9 Anemia, unspecified (principal); R94.5 Abnormal results of liver function studies; Z79.899 Other long term (current) drug therapy

== ENCOUNTER 2019-11-08 14:00 | Outpatient (RCR) | payer MEDICARE, MEDICAID ==
[~2019-11-08 14:00] MED LIST changes: -AMLO10TA5 PO; +AMLO1TAB25 PO
== END 2019-11-25 ==
LOC: M OUTALCOH 14:00
PROVIDERS: ATTEND Psychiatry & Neurology Addiction Medicine
DX: F10.10 Alcohol abuse, uncomplicated (principal); F17.200 Nicotine dependence, unspecified, uncomplicated

== ENCOUNTER 2019-11-28 13:00 | Outpatient (RCR) | payer MEDICARE, MEDICAID | END 2019-12-26 | LOC: M OUTALCOH 13:00 | PROVIDERS: ATTEND Psychiatry & Neurology Addiction Medicine | DX: F10.10 Alcohol abuse, uncomplicated (principal); F17.200 Nicotine dependence, unspecified, uncomplicated ==

== ENCOUNTER → 2020-02-06 | Outpatient (CLI) | payer MEDICARE, MEDICAID ==
--- NOTE | 2020-02-07 13:39 | ECWPNPC ---
PATIENT NAME: STEPHAN DICKINSON : 1955 GENDER: FEMALE VISIT DATE: 02/06/2020 DISCHARGE DATE: 02/06/20 1413 VISIT LOCKED DATE TIME: PHYSICIAN: ZIA KNOX RESOURCE: ZIA KNOX REASON FOR APPOINTMENT 1. CHRONIC PAIN HISTORY OF PRESENT ILLNESS DEPRESSION SCREENING: PHQ-2 (2015 EDITION) LITTLE INTEREST OR PLEASURE IN DOING THINGS?NOT AT ALL FEELING DOWN, DEPRESSED, OR HOPELESS?NOT AT ALL TOTAL SCORE0 65-YEAR-OLD FEMALE IN FOR CHRONIC PAIN FOLLOW-UP. SHE RATES HER PAIN CURRENTLY AT AN 8 AND HALF OUT OF 10. PATIENT ADMITS TO AN UPCOMING MRI HAS BEEN ORDERED BY THE [place]. SHE FURTHER STATES THAT SHE HAS BEEN OVERTAKING HER MEDICATION SHE HAS EXPERIENCED AN INCREASE IN HER NECK PAIN STATUS POST FALL IN MAY. GENERAL: -. FALL RISK SCREENING: SCREENING :TWO OR MORE FALLS WITHOUT INJURY IN THE PAST YEAR PATIENT FELL TWO SEPARATE OCCASIONS, AND ONLY SAUGHT MEDICAL TREATMENT ONCE. PAIN SCREENING: PATIENT HAS A COMPLAINT OF ACUTE OR CHRONIC PAIN :YES LOCATION OF PAIN:NECK, LEFT HIP, RIGHT HIP, KNEES INTENSITY OF PAIN (SCALE OF 1 TO 10):8.5 WHAT DOES YOUR PAIN FEEL LIKE:ACHING, TENDER, SORE, SHOOTING DURATION:CONSTANT, AWAKENS FROM SLEEP PAIN IS INCREASED BY:ACTIVITIES NURSING NOTE: -. PAIN CENTER INTAKE QUESTIONS: DO YOU HAVE A HISTORY OF MRSA? :YES DO YOU TAKE A BLOOD THINNERS? :NO DO YOU HAVE ANY BLEEDING DISORDERS? :NO ANY NEW NUMBNESS OR WEAKNESS IN YOUR LEGS OR ARMS? :NO ANY PACEMAKER,DEFIBRILLATOR, OR DORSAL COLUMN STIMULATOR? :NO DO YOU HAVE ANY RASHES OR OPEN SORES? :NO ARE YOU ALLERGIC TO IV DYE? :NO ARE YOU DIABETIC? :NO ANY NEW PROBLEMS WITH YOUR MEDICATIONS? :NO HAVE YOU RECEIVED A VACCINE IN THE PAST 30 DAYS? :YES PATIENT GOT THE FLU SHOT TWO WEEKS AGO. DO YOU PLAN TO RECEIVE A VACCINE IN THE NEXT 21 DAYS? :NO DO YOU NEED ANY PRESCRIPTION? :YES OXYCODONE, NUCYNTA DO YOU TAKE ANY IMMUNOSUPPRESSIVE MEDICATIONS? :NO IS THERE A CHANCE YOU COULD BE ? :NO ARE YOU BREAST FEEDING? :NO CURRENT MEDICATIONS TAKING VITAMIN D3 1000 UNIT TABLET 2 TABLET ORALLY ONCE A DAY TAKING CITALOPRAM HYDROBROMIDE 40 MG TABLET 1 TABLET ORALLY ONCE A DAY TAKING OMEPRAZOLE 20 MG CAPSULE DELAYED RELEASE 1 CAPSULE ORALLY TWICE A DAY TAKING THIAMINE HCL 100 MG TABLET 1 TABLET ORALLY ONCE A DAY TAKING HYDROCORTISONE 1 % CREAM 1 APPLICATION TO AFFECTED AREA EXTERNALLY TWICE DAILY NEEDED TAKING ALBUTEROL SULFATE HFA 108 (90 BASE) MCG/ACT AEROSOL SOLUTION 2 PUFFS NEEDED INHALATION FOUR TIMES DAILY NEEDED TAKING FERROUS GLUCONATE 240 (27 FE) MG TABLET DIRECTED ORALLY ONCE A DAY TAKING SYMBICORT 160-4.5 MCG/ACT AEROSOL 2 PUFFS INHALATION TWICE A DAY TAKING COMBIVENT RESPIMAT 20-100 MCG/ACT AEROSOL SOLUTION 1 PUFF INHALATION TWICE DAILY TAKING LEVOTHYROXINE SODIUM 75 MCG TABLET 1 TABLET ORALLY ONCE A DAY TAKING SIMVASTATIN 40 MG TABLET 1/2 TABLET IN THE EVENING ORALLY ONCE A DAY TAKING ASPIR-81 81 MG TABLET DELAYED RELEASE 1 TABLET ORALLY ONCE A DAY TAKING SERTRALINE HCL 25 MG TABLET 2 TABS ORALLY ONCE A DAY TAKING TIZANIDINE HCL 4 MG TABLET 1 TABLET NEEDED ORALLY THREE TIMES A DAY TAKING LYRICA 150 MG CAPSULE 1 CAPSULE ORALLY THREE TIMES DAILY TAKING OXYCODONE HCL 10 MG TABLET 1 TABLET NEEDED ORALLY BID PRN PAIN MDD=2 TAKING NUCYNTA ER 100 MG TABLET EXTENDED RELEASE 12 HOUR 1 TABLET ORALLY EVERY 12 HRS CHRONIC PAIN MDD=2 NOT-TAKING FUTURO SOFT CERVICAL COLLAR - MISCELLANEOUS DIRECTED MEDICATION LIST REVIEWED AND RECONCILED WITH THE PATIENT PAST MEDICAL HISTORY SEVERE COPD BRONCHITIS, GOLD 3, SPIROMETRY 12/25/16 FIBROMYALGIA HYPERLIPIDEMIA HYPERTENSION CHRONIC LOW BACK PAIN - PREVIOUSLY ON OPIATE MEDICATIONS - DC'D DUE TO URINE TOX INCONSISTENCIES ANXIETY AND DEPRESSION HYPOTHYROIDISM FOLLOWS WITH THE [place] FOR ROUTINE LABS AND 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 CHEST PAIN GERD CAD S/P PCI FOLLOWS DR. HIGGINBOTHAM IRON DEFICIENCY ANEMIA FOLLOWS [facility] BLEED ANEMIA SMOKING HX OF ALCOHOL ABUSE PNEUMONIA 10/23/18 ALLERGIES CODEINE PHOSPHATE: NAUSEA/VOMITING TETRACYCLINE HCL: PT UNSURE - ALLERGY SULFA (FOR ALLERGY USE ONLY): PT UNSURE - ALLERGY NSAIDS: GI BLEED - CONTRAINDICATION SURGICAL HISTORY GALL BLADDER KIDNEY STONE HYSTERECTOMY CARPAL TUNNEL RELEASE X2 KNEE SURGERY X 4 TONSILLECTOMY LEFT FOOT BUNIONECTOMY, BRIT IN TOES 2015 CARDIAC CATH 04/2016 RIGHT FOOT BUNIONECTOMY 04/2018 FAMILY HISTORY FATHER: , STROKE MOTHER: , COPD 1 SISTER(S) - HEALTHY. 1DAUGHTER(S) - HEALTHY. SOCIAL HISTORY GENERAL: TOBACCO USE ARE YOU A:CURRENT SMOKER ARE YOU INTERESTED IN QUITTING?NOT READY TO QUIT WOULD LIKE TO QUIT IF SHE COULD GET THE PATCHES PATIENT IS TRYING TO QUIT COUNSELED THE PATIENT ON SMOKING EFFECTS, EDUCATION [id number]/12/2020 HOW MANY CIGARETTES A DAY DO YOU SMOKE?- PATIENT COUNSELED ON THE DANGERS OF TOBACCO USE AND URGED TO QUIT:02/06/2020 SMOKING CESSATION INFORMATION GIVEN09/14/2019 LATEX QUESTIONNAIRE LATEX ALLERGY : HAVE YOU EVER DEVELOPED ANY TYPE OF REACTION AFTER HANDLING LATEX PRODUCTS SUCH RUBBER GLOVES, CONDOMS, DIAPHRAGMS, BALLOONS, SOCKS, OR UNDERWEAR?NO LATEX ALLERGY : HAVE YOU EVER DEVELOPED ANY TYPE OF REACTION DURING OR AFTER DENTAL APPOINTMENT, VAGINAL/RECTAL EXAMINATION, SURGICAL PROCEDURE, OR ANY OTHER EXPOSURE?NO LATEX RISK : HAVE YOU EVER HAD ANY DIFFICULTY BREATHING OR HIVES AFTER EATING OR HANDLING ANY FRUITS, OR VEGETABLES; SUCH KIWI, BANANAS, STONE FRUITS, OR CHESTNUTSNO LATEX RISK : DO YOU HAVE A PREVIOUS PERSONAL HISTORY OF MORE THAN NINE SURGERIES, SPINA BIFIDA, OR REPEATED CATHERIZATIONS? YES - PLEASE INDICATE : > 9 SURGERIES LATEX RISK : ARE YOU FREQUENTLY EXPOSED TO LATEX PRODUCTS IN YOUR OCCUPATION?NO DATE ASKED : 02/06/2020 ALCOHOL SCREENING DID YOU HAVE A DRINK CONTAINING ALCOHOL IN THE PAST YEAR?YES HOW OFTEN DID YOU HAVE A DRINK CONTAINING ALCOHOL IN THE PAST YEAR?FOUR OR MORE TIMES A WEEK (4 POINTS) HOW MANY DRINKS DID YOU HAVE ON A TYPICAL DAY WHEN YOU WERE DRINKING IN THE PAST YEAR?3 OR 4 (1 POINT) HOW OFTEN DID YOU HAVE SIX OR MORE DRINKS ON ONE OCCASION IN THE PAST YEAR?MONTHLY (2 POINTS) POINTS7 INTERPRETATIONPOSITIVE RECREATIONAL DRUG USE DRUG USE?NO QUAKER [id number] RESTORATION LANGUAGE LANGUAGES SPOKEN:[place] LEARNING BARRIERS / SPECIAL NEEDS BARRIERS TO LEARNING?NO HEARING IMPAIRED?NO VISION IMPAIRED?YES COGNITIVELY IMPAIRED?NO :CORRECTIVE LENSES READINESS TO LEARN?YES LEARNING PREFERENCES?YES :DEMONSTRATION/VERBAL INSTRUCTION LEARNING CAPABILITIES PRESENT?YES EMOTIONAL BARRIERS?NO SPECIAL DEVICES?NO MANAGING 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 NEW PATIENT PAIN DIARY TODAY'S VISIT 08/18/19 PATIENT DESCRIBES PAIN :HAVE IT ALL THE TIME, SHARP, STABBING, TENDER, THROBBING, SHOOTING FROM 0-10, WHAT LEVEL IS YOUR PAIN TODAY?10 PRECIPITATING FACTORS JUST SEVERE PAIN ALL THE TIME ALLEVIATING FACTORS NOTHING IMPACT ON FUNCTION LIMITS HER ABILITY TO DO THINGS. SHE DOES SOME THINGS BECAUSE SHE HAS TO. PAIN CLINIC PFS, CLERGY, PUBLIC HEALTH REFERRALS PFS REFERRAL NEEDED?NO CLERGY REFERRAL NEEDED?NO PUBLIC HEALTH REFERRAL NEEDED?NO HAS THE PATIENT BEEN EDUCATED REGARDING HIS/HER PLAN OF CARE?YES HAS THE PATIENT BEEN EDUCATED REGARDING PAIN, THE RISK FOR PAIN, THE IMPORTANCE OF EFFECTIVE PAIN MANAGEMENT, AND THE PAIN ASSESSMENT PROCESS?YES ADVANCE DIRECTIVE ADVANCE DIRECTIVE DISCUSSED WITH PATIENT:YES HCP - DAUGHTERMELITON 08/18/19 REVIEWED WITH PT. AD. HOSPITALIZATION/MAJOR DIAGNOSTIC PROCEDURE SURGERY CHILDBIRTH X3 ANEMIA 02/18/2016 CHEST PAIN 04/2016 PNEUMONIA 10/23/18-10/28/18 REVIEW OF SYSTEMS CONSTITUTIONAL: ANY RECENT FEVER NO . CHILLS NO . WEIGHT CHANGE OF UNKNOWN REASONS NO . GASTROENTEROLOGY: NEW UNEXPLAINABLE CHANGES IN BOWEL CONTROL NO . CONSTIPATION NO . GENITOURINARY: ANY NEW CHANGE IN BLADDER CONTROL? NO . NEUROLOGY: NEW ONSET DIZZINESS OR NEUROLOGICAL CHANGES NOT MENTIONED NO . NEW NUMBNESS OR PAIN PATTERNS NOT MENTIONED AND PERTINENT TO TODAY'S VISIT NO . CARDIOLOGY: NEW CHEST PRESSURE NO . NEW CHEST PAIN NO . RESPIRATORY: UNEXPLAINABLE COUGH NO . NEW SHORTNESS OF BREATH NO . VITAL SIGNS WT 132.4 LBS, HT 5'2 1/2", BMI 23.83 INDEX, BP 138/81 MM HG, HR 77 /MIN, RR 18 /MIN, TEMP 97.8 F, OXYGEN SAT % 96, REVIEWED BY: [employer]. EXAMINATION GENERAL EXAMINATION: GENERALNO ACUTE DISTRESS, WELL NOURISHED AND HYDRATED. PSYCHAPPROPRIATE MOOD AND AFFECT . LUNGS:CLEAR TO AUSCULTATION BILATERALLY, NO WHEEZES, RHONCHI, RALES. HEART:NO MURMURS, REGULAR RATE AND RHYTHM. ASSESSMENTS SPONDYLOSIS WITHOUT MYELOPATHY OR RADICULOPATHY, LUMBOSACRAL REGION - M47.817 (PRIMARY) TREATMENT SPONDYLOSIS WITHOUT MYELOPATHY OR RADICULOPATHY, LUMBOSACRAL REGION CLINICAL NOTES: 65-YEAR-OLD FEMALE IN FOR CHRONIC PAIN FOLLOW-UP. GIVEN PRESENTING SYMPTOMS RECOMMENDED CONTINUATION OF CURRENT MEDICATION REGIMEN WITH FOLLOW-UP IN 3 MONTHS. PATIENT WAS INSTRUCTED NOT TO INCREASE HER DOSAGE UNLESS SHE HAS DISCUSSED THIS WITH HER PROVIDER. PATIENT HAS EXPRESSED UNDERSTANDING OF AND WAS IN AGREEMENT WITH TREATMENT PLAN. GIVEN TIME TO ASK QUESTIONS AND EXPRESS CONCERNS. , ISTOP REGISTRY REVIEWED AND DEMONSTRATES COMPLLIANCE. (REF # [id number] ) BRINGS IN MEDICATIONS WHICH IS APPROPRIATE FOR WHAT WAS DISPENSED. RECENT URINE TOXICOLOGY REVIEWED. NO UNAUTHORIZED MEDICATIONS. NO ILLICIT SUBSTANCES AND PRESCRIBED MEDICATIONS WERE PRESENT. PREVENTIVE MEDICINE PAIN CLINIC TEACHING: THE PATIENT HAS BEEN EDUCATED REGARDING PAIN, THE RISK FOR PAIN, THE IMPORTANCE OF EFFECTIVE PAIN MANAGEMENT, AND THE PAIN ASSESSMENT PROCESS. : DISCUSSED CARE PLAN WITH PATIENT, PATIENT VERBALIZES UNDERSTANDING PROCEDURE CODES FA211 ESTABILISHED PATIENT [facility] CHARGE DISPOSITION & COMMUNICATION FOLLOW UP 2 MONTHS (REASON: BACK AND NECK PAIN) ELECTRONICALLY SIGNED BY COLE LUCERO ON 02/07/2020 AT 01:02 PM EDT DISCLAIMER : THIS IS A VISIT SUMMARY EXTRACTED FROM THE [employer] CHART. IT IS NOT A COPY OF THE [employer] PROGRESS NOTE. RHETT
== END ==
LOC: M PAIN 14:00
PROVIDERS: ATTEND Family Medicine
DX: M47.817 Spondylosis without myelopathy or radiculopathy, lumbosacral region (principal); J44.9 Chronic obstructive pulmonary disease, unspecified; M79.7 Fibromyalgia; I10 Essential (primary) hypertension; E78.5 Hyperlipidemia, unspecified; F41.9 Anxiety disorder, unspecified; F32.9 Major depressive disorder, single episode, unspecified; E03.9 Hypothyroidism, unspecified; K21.9 Gastro-esophageal reflux disease without esophagitis; I25.10 Atherosclerotic heart disease of native coronary artery without angina pectoris; D50.9 Iron deficiency anemia, unspecified; F17.210 Nicotine dependence, cigarettes, uncomplicated; Z79.82 Long term (current) use of aspirin; Z79.891 Long term (current) use of opiate analgesic; Z79.899 Other long term (current) drug therapy; Z88.2 Allergy status to sulfonamides; Z88.5 Allergy status to narcotic agent; Z88.6 Allergy status to analgesic agent; Z88.8 Allergy status to other drugs, medicaments and biological substances

== ENCOUNTER → 2020-03-09 | Outpatient (CLI) | payer OTHER ==
[2020-03-09 18:16] LABS: BLOOD UREA NITROGEN 14 MG/DL (7-18); CALCIUM LEVEL 9.3 MG/DL (8.8-10.2); CARBON DIOXIDE LEVEL 30 MEQ/L (21-32); CHLORIDE LEVEL 105 MEQ/L (98-107); CREATININE FOR GFR 0.72 MG/DL (0.55-1.30); GLOMERULAR FILTRATION RATE > 60.0 (>45); GLUCOSE, FASTING 91 MG/DL (70-100); POTASSIUM SERUM 3.6 MEQ/L (3.5-5.1); SODIUM LEVEL 141 MEQ/L (136-145)
--- NOTE | 2020-03-09 18:49 | REPVR ---
PROCEDURE INFORMATION: Exam: MR Cervical Spine Without Contrast Exam date and time: 03/09/2020 6:21 PM Age: 65 years old Clinical indication: Neck pain; Additional info: Cervicalgia/see order labs first TECHNIQUE: Imaging protocol: Multiplanar magnetic resonance images of the cervical spine without contrast. COMPARISON: MRI-Spine,Cervical without con 03/16/2019 12:54 PM FINDINGS: Nonspecific straightening. Grade 1 anterolisthesis of C3 on C4. Vertebral body heights are preserved. Multilevel disc desiccation and disc space narrowing. There is degenerative endplate signal. No evidence of discitis/osteomyelitis. Reactive edema involving the left C3-C4 facet joint. No abnormal cord signal or cord expansion. No epidural fluid collection. C2-C3: Minimal disc osteophyte complex without significant central or foraminal stenosis. C3-C4: Moderate disc osteophyte complex with left greater than right uncinate spurring and facet joint arthropathy. There is moderate central canal stenosis, mild right foraminal stenosis and severe left foraminal stenosis. C4-C5: Mild disc osteophyte complex with bilateral uncinate spurring and facet joint arthropathy. There is mild central canal stenosis and moderate to severe bilateral foraminal stenosis. C5-C6: Jlry-[id number]-[id number] disc osteophyte complex with bilateral uncinate spurring. Mild to moderate central canal stenosis and moderate to severe bilateral foraminal stenosis. C6-C7: Mild disc osteophyte complex with left greater than right uncinate spurring. There is mild central canal stenosis, mild right foraminal stenosis and moderate to severe left foraminal stenosis. C7-T1: Mild disc osteophyte complex without significant central or foraminal stenosis. IMPRESSION: 1. Degenerative change most prominent at C3-C4 where there is moderate central canal stenosis, mild right foraminal stenosis and severe left foraminal stenosis. 2. Reactive edema involving the left C3-C4 facet joint. Finding can be pain generating. Electronically signed by: Joseluis Dooley On 03/09/2020 18:48:21 PM
== END ==
LOC: M RAD 16:52
PROVIDERS: ATTEND Family Medicine
DX: M50.31 Other cervical disc degeneration, high cervical region (principal); M48.02 Spinal stenosis, cervical region; I10 Essential (primary) hypertension; E03.9 Hypothyroidism, unspecified

== ENCOUNTER → 2020-05-07 | Outpatient (CLI) | payer MEDICARE, MEDICAID ==
--- NOTE | 2020-05-10 07:38 | ECWPNPC ---
PATIENT NAME: STEPHAN DICKINSON : 1955 GENDER: FEMALE VISIT DATE: 05/07/2020 DISCHARGE DATE: 05/07/20 1517 VISIT LOCKED DATE TIME: PHYSICIAN: ZIA KNOX RESOURCE: ZIA KNOX REASON FOR APPOINTMENT 1. CHRONIC [id number] HISTORY OF PRESENT ILLNESS DEPRESSION SCREENING: PHQ-2 (2015 EDITION) LITTLE INTEREST OR PLEASURE IN DOING THINGS?NOT AT ALL FEELING DOWN, DEPRESSED, OR HOPELESS?NOT AT ALL TOTAL SCORE0 65-YEAR-OLD FEMALE IN FOR CHRONIC PAIN FOLLOW-UP. SHE RATES HER PAIN CURRENTLY AT A 10 OUT OF 10 AND DESCRIBES IT SHARP AND THROBBING. SHE DOES ADMIT TO A MIGRAINE CURRENTLY. SHE FEELS HER MEDICATIONS ARE HELPFUL AND DENIES MED SIDE EFFECTS AT THIS TIME. GENERAL: -. FALL RISK SCREENING: SCREENING :NO FALLS REPORTED IN THE LAST YEAR PAIN SCREENING: PATIENT HAS A COMPLAINT OF ACUTE OR CHRONIC PAIN :YES LOCATION OF PAIN:NECK, BOTH SHOULDERS, LOW BACK TEMPLES AND HEAD INTENSITY OF PAIN (SCALE OF 1 TO 10):10 WHAT DOES YOUR PAIN FEEL LIKE:SHARP, THROBBING DURATION:CONSTANT, AWAKENS FROM SLEEP PAIN IS INCREASED BY:ACTIVITIES, OTHERS LIGHT PAIN IS DECREASED BY: NOTHING HELPS PAIN TREATMENT/MEDICATIONS USED TO MANAGE PAIN:OPIOIDS NOTHING HELPS LEVEL OF RELIEF FROM PAIN TREATMENTS IN THE PAST:0% NURSING NOTE: -. PAIN CENTER INTAKE QUESTIONS: DO YOU HAVE A HISTORY OF MRSA? :NO DO YOU TAKE A BLOOD THINNERS? :NO DO YOU HAVE ANY BLEEDING DISORDERS? :NO ANY NEW NUMBNESS OR WEAKNESS IN YOUR LEGS OR ARMS? :NO ANY PACEMAKER,DEFIBRILLATOR, OR DORSAL COLUMN STIMULATOR? :NO DO YOU HAVE ANY RASHES OR OPEN SORES? :NO ARE YOU ALLERGIC TO IV DYE? :NO ARE YOU DIABETIC? :NO ANY NEW PROBLEMS WITH YOUR MEDICATIONS? :NO HAVE YOU RECEIVED A VACCINE IN THE PAST 30 DAYS? :NO DO YOU PLAN TO RECEIVE A VACCINE IN THE NEXT 21 DAYS? :YES IF SO WHAT VACCINE AND WHEN? WOULD LIKE COVID VACCINATION WHEN AVAILABLE. DO YOU NEED ANY PRESCRIPTION? :YES OXYCODONE, LYRICA, NUCINTA DO YOU TAKE ANY IMMUNOSUPPRESSIVE MEDICATIONS? :NO IS THERE A CHANCE YOU COULD BE ? :NO ARE YOU BREAST FEEDING? :NO CURRENT MEDICATIONS TAKING VITAMIN D3 1000 UNIT TABLET 2 TABLET ORALLY ONCE A DAY TAKING CITALOPRAM HYDROBROMIDE 40 MG TABLET 1 TABLET ORALLY ONCE A DAY TAKING OMEPRAZOLE 20 MG CAPSULE DELAYED RELEASE 1 CAPSULE ORALLY TWICE A DAY TAKING THIAMINE HCL 100 MG TABLET 1 TABLET ORALLY ONCE A DAY TAKING HYDROCORTISONE 1 % CREAM 1 APPLICATION TO AFFECTED AREA EXTERNALLY TWICE DAILY NEEDED TAKING ALBUTEROL SULFATE HFA 108 (90 BASE) MCG/ACT AEROSOL SOLUTION 2 PUFFS NEEDED INHALATION FOUR TIMES DAILY NEEDED TAKING FERROUS GLUCONATE 240 (27 FE) MG TABLET DIRECTED ORALLY ONCE A DAY TAKING SYMBICORT 160-4.5 MCG/ACT AEROSOL 2 PUFFS INHALATION TWICE A DAY TAKING COMBIVENT RESPIMAT 20-100 MCG/ACT AEROSOL SOLUTION 1 PUFF INHALATION TWICE DAILY TAKING LEVOTHYROXINE SODIUM 75 MCG TABLET 1 TABLET ORALLY ONCE A DAY TAKING SIMVASTATIN 40 MG TABLET 1/2 TABLET IN THE EVENING ORALLY ONCE A DAY TAKING ASPIR-81 81 MG TABLET DELAYED RELEASE 1 TABLET ORALLY ONCE A DAY TAKING SERTRALINE HCL 25 MG TABLET 2 TABS ORALLY ONCE A DAY TAKING TIZANIDINE HCL 4 MG TABLET 1 TABLET NEEDED ORALLY THREE TIMES A DAY TAKING LYRICA 150 MG CAPSULE 1 CAPSULE ORALLY THREE TIMES DAILY TAKING OXYCODONE HCL 10 MG TABLET 1 TABLET NEEDED ORALLY BID PRN PAIN MDD=2 TAKING NUCYNTA ER 100 MG TABLET EXTENDED RELEASE 12 HOUR 1 TABLET ORALLY EVERY 12 HRS CHRONIC PAIN MDD=2 NOT-TAKING FUTURO SOFT CERVICAL COLLAR - MISCELLANEOUS DIRECTED MEDICATION LIST REVIEWED AND RECONCILED WITH THE PATIENT PAST MEDICAL HISTORY SEVERE COPD BRONCHITIS, GOLD 3, SPIROMETRY 12/25/16 FIBROMYALGIA HYPERLIPIDEMIA HYPERTENSION CHRONIC LOW BACK PAIN - PREVIOUSLY ON OPIATE MEDICATIONS - DC'D DUE TO URINE TOX INCONSISTENCIES ANXIETY AND DEPRESSION HYPOTHYROIDISM [facility]OWS WITH [facility] FOR ROUTINE LABS AND 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 CHEST PAIN GERD CAD S/P PCI FOLLOWS DR. HIGGINBOTHAM IRON DEFICIENCY ANEMIA FOLLOWS [facility] GI BLEED ANEMIA SMOKING HX OF ALCOHOL ABUSE PNEUMONIA 10/23/18 ALLERGIES CODEINE PHOSPHATE: NAUSEA/VOMITING TETRACYCLINE HCL: PT UNSURE - ALLERGY SULFA (FOR ALLERGY USE ONLY): PT UNSURE - ALLERGY NSAIDS: GI BLEED - CONTRAINDICATION SURGICAL HISTORY GALL BLADDER KIDNEY STONE HYSTERECTOMY CARPAL TUNNEL RELEASE X2 KNEE SURGERY X 4 TONSILLECTOMY LEFT FOOT BUNIONECTOMY, BRIT IN TOES 2015 CARDIAC CATH 04/2016 RIGHT FOOT BUNIONECTOMY 04/2018 FAMILY HISTORY FATHER: , STROKE MOTHER: , COPD 1 SISTER(S) - HEALTHY. 1DAUGHTER(S) - HEALTHY. SOCIAL HISTORY GENERAL: TOBACCO USE ARE YOU A:CURRENT SMOKER HOW MANY CIGARETTES A DAY DO YOU SMOKE?11-20 ARE YOU INTERESTED IN QUITTING?NOT READY TO QUIT WOULD LIKE TO QUIT IF SHE COULD GET THE PATCHES PATIENT IS TRYING TO QUIT PATIENT COUNSELED ON THE DANGERS OF TOBACCO USE AND URGED TO QUIT:02/06/2020 COUNSELED THE PATIENT ON SMOKING EFFECTS, EDUCATION [id number]/12/2020 SMOKING CESSATION INFORMATION GIVEN09/14/2019 LATEX QUESTIONNAIRE LATEX ALLERGY : HAVE YOU EVER DEVELOPED ANY TYPE OF REACTION AFTER HANDLING LATEX PRODUCTS SUCH RUBBER GLOVES, CONDOMS, DIAPHRAGMS, BALLOONS, SOCKS, OR UNDERWEAR?NO LATEX ALLERGY : HAVE YOU EVER DEVELOPED ANY TYPE OF REACTION DURING OR AFTER DENTAL APPOINTMENT, VAGINAL/RECTAL EXAMINATION, SURGICAL PROCEDURE, OR ANY OTHER EXPOSURE?NO DATE ASKED : 02/06/2020 LATEX RISK : HAVE YOU EVER HAD ANY DIFFICULTY BREATHING OR HIVES AFTER EATING OR HANDLING ANY FRUITS, OR VEGETABLES; SUCH KIWI, BANANAS, STONE FRUITS, OR CHESTNUTSNO LATEX RISK : DO YOU HAVE A PREVIOUS PERSONAL HISTORY OF MORE THAN NINE SURGERIES, SPINA BIFIDA, OR REPEATED CATHERIZATIONS? YES - PLEASE INDICATE : > 9 SURGERIES LATEX RISK : ARE YOU FREQUENTLY EXPOSED TO LATEX PRODUCTS IN YOUR OCCUPATION?NO ALCOHOL SCREENING DID YOU HAVE A DRINK CONTAINING ALCOHOL IN THE PAST YEAR?YES HOW OFTEN DID YOU HAVE SIX OR MORE DRINKS ON ONE OCCASION IN THE PAST YEAR?MONTHLY (2 POINTS) HOW MANY DRINKS DID YOU HAVE ON A TYPICAL DAY WHEN YOU WERE DRINKING IN THE PAST YEAR?3 OR 4 (1 POINT) HOW OFTEN DID YOU HAVE A DRINK CONTAINING ALCOHOL IN THE PAST YEAR?FOUR OR MORE TIMES A WEEK (4 POINTS) POINTS7 INTERPRETATIONPOSITIVE RECREATIONAL DRUG USE DRUG USE?NO MOSQUE [id number] SAMARITAN LANGUAGE LANGUAGES SPOKEN:CYMRO LEARNING BARRIERS / SPECIAL NEEDS CHANGE FROM LAST VISIT?NO BARRIERS TO LEARNING?NO HEARING IMPAIRED?NO VISION IMPAIRED?YES :CORRECTIVE LENSES COGNITIVELY IMPAIRED?NO READINESS TO LEARN?YES LEARNING PREFERENCES?YES :DEMONSTRATION/VERBAL INSTRUCTION LEARNING CAPABILITIES PRESENT?YES EMOTIONAL BARRIERS?NO SPECIAL DEVICES?NO ORDERLY NEEDED?NO DOMESTIC VIOLENCE DO YOU FEEL SAFE IN YOUR ENVIRONMENT?YES OCCUPATION: DISABLED. TODAY'S VISIT 08/18/19 PATIENT DESCRIBES PAIN :HAVE IT ALL THE TIME, SHARP, STABBING, TENDER, THROBBING, SHOOTING FROM 0-10, WHAT LEVEL IS YOUR PAIN TODAY?10 PRECIPITATING FACTORS JUST SEVERE PAIN ALL THE TIME ALLEVIATING FACTORS NOTHING IMPACT ON FUNCTION LIMITS HER ABILITY TO DO THINGS. SHE DOES SOME THINGS BECAUSE SHE HAS TO. PAIN CLINIC PFS, CLERGY, PUBLIC HEALTH REFERRALS PFS REFERRAL NEEDED?NO CLERGY REFERRAL NEEDED?NO PUBLIC HEALTH REFERRAL NEEDED?NO HAS THE PATIENT BEEN EDUCATED REGARDING HIS/HER PLAN OF CARE?YES HAS THE PATIENT BEEN EDUCATED REGARDING PAIN, THE RISK FOR PAIN, THE IMPORTANCE OF EFFECTIVE PAIN MANAGEMENT, AND THE PAIN ASSESSMENT PROCESS?YES ADVANCE DIRECTIVE ADVANCE DIRECTIVE DISCUSSED WITH PATIENT:YES HCP - DAUGHTERMELITON 05/07/20 08/18/19 REVIEWED WITH PT. AD. HOSPITALIZATION/MAJOR DIAGNOSTIC PROCEDURE SURGERY CHILDBIRTH X3 ANEMIA 02/18/2016 CHEST PAIN 04/2016 PNEUMONIA 10/23/18-10/28/18 REVIEW OF SYSTEMS CONSTITUTIONAL: ANY RECENT FEVER NO, NO . CHILLS NO, NO . WEIGHT CHANGE OF UNKNOWN REASONS NO, NO . GASTROENTEROLOGY: NEW UNEXPLAINABLE CHANGES IN BOWEL CONTROL NO, NO . CONSTIPATION NO, NO . GENITOURINARY: ANY NEW CHANGE IN BLADDER CONTROL? NO, NO . NEUROLOGY: NEW ONSET DIZZINESS OR NEUROLOGICAL CHANGES NOT MENTIONED NO, NO . NEW NUMBNESS OR PAIN PATTERNS NOT MENTIONED AND PERTINENT TO TODAY'S VISIT NO, NO . CARDIOLOGY: NEW CHEST PRESSURE NO, NO . NEW CHEST PAIN NO, NO . RESPIRATORY: UNEXPLAINABLE COUGH NO, NO . NEW SHORTNESS OF BREATH NO, NO . EXAMINATION GENERAL EXAMINATION: PSYCHAPPROPRIATE MOOD AND AFFECT , ORIENTED X 3 . ASSESSMENTS SPONDYLOSIS WITHOUT MYELOPATHY OR RADICULOPATHY, LUMBOSACRAL REGION - M47.817 (PRIMARY) LUMBAR FACET ARTHROPATHY - M12.88 TREATMENT SPONDYLOSIS WITHOUT MYELOPATHY OR RADICULOPATHY, LUMBOSACRAL REGION REFILL OXYCODONE HCL TABLET, 10 MG, 1 TABLET NEEDED, ORALLY, BID PRN PAIN MDD=2, 30 DAY(S), 60, REFILLS 0 REFILL LYRICA CAPSULE, 150 MG, 1 CAPSULE, ORALLY, THREE TIMES DAILY, 30 DAY(S), 90, REFILLS 5 NOTES: 65-YEAR-OLD FEMALE IN FOR CHRONIC PAIN FOLLOW-UP. GIVEN PRESENTING SYMPTOMS RECOMMEND CONTINUATION OF CURRENT MEDICATION REGIMEN WITH FOLLOW-UP IN 3 MONTHS. PATIENT EXPRESSED UNDERSTANDING OF AND WAS IN AGREEMENT WITH TREATMENT PLAN. GIVEN TIME TO ASK QUESTIONS AND EXPRESS CONCERNS. , ISTOP REGISTRY REVIEWED AND DEMONSTRATES COMPLLIANCE. (REF # [id number] ) BRINGS IN MEDICATIONS WHICH IS APPROPRIATE FOR WHAT WAS DISPENSED. RECENT URINE TOXICOLOGY REVIEWED. NO UNAUTHORIZED MEDICATIONS. NO ILLICIT SUBSTANCES AND PRESCRIBED MEDICATIONS WERE PRESENT. VISIT CONDUCTED VIA TELEPHONE. TIME SPENT WITH PATIENT 11 MINUTES. LUMBAR FACET ARTHROPATHY REFILL NUCYNTA ER TABLET EXTENDED RELEASE 12 HOUR, 100 MG, 1 TABLET, ORALLY, EVERY 12 HRS CHRONIC PAIN MDD=2, 30 DAY(S), 60, REFILLS 0 DISPOSITION & COMMUNICATION FOLLOW UP 3 MONTHS (REASON: BACK PAIN) ELECTRONICALLY SIGNED BY COLE LUCERO ON 05/09/2020 AT 10:07 AM EST DISCLAIMER : THIS IS A VISIT SUMMARY EXTRACTED FROM THE [employer] CHART. IT IS NOT A COPY OF THE [employer] PROGRESS NOTE. RHETT
== END ==
LOC: M PAIN 13:45
PROVIDERS: ATTEND Family Medicine
DX: M47.817 Spondylosis without myelopathy or radiculopathy, lumbosacral region (principal); M12.88 Other specific arthropathies, not elsewhere classified, other specified site; G89.29 Other chronic pain; J44.9 Chronic obstructive pulmonary disease, unspecified; M79.7 Fibromyalgia; E03.9 Hypothyroidism, unspecified; K21.9 Gastro-esophageal reflux disease without esophagitis; D50.9 Iron deficiency anemia, unspecified; F17.210 Nicotine dependence, cigarettes, uncomplicated; Z86.59 Personal history of other mental and behavioral disorders; Z88.1 Allergy status to other antibiotic agents; Z88.2 Allergy status to sulfonamides; Z88.5 Allergy status to narcotic agent; Z88.6 Allergy status to analgesic agent; Z79.82 Long term (current) use of aspirin; Z79.891 Long term (current) use of opiate analgesic; Z79.899 Other long term (current) drug therapy

== ENCOUNTER 2020-05-18 12:47 | Emergency (ER) | payer MEDICARE, MEDICAID ==
[~2020-05-18] VITALS: Ht 162.6 cm; Wt 64.2 kg
[~2020-05-18 12:47] MED LIST changes: +HYDR-3490 PO; -HYDR25TAB PO
[2020-05-18] MEDS ORDERED: NORCO, ANEXSIA 5/325MG TABLET (HYDROcodone/ACETAMINOPHEN) PO ONE (15:15)
[2020-05-18] MEDS ORDERED: ONDANSETRON 4 MG ORAL DISINTEGRATING TAB PO ONE (15:30)
[2020-05-18 16:29] LABS: HEMATOCRIT 47.4 % (36.0-47.0); HEMOGLOBIN 15.4 g/dl (12.0-15.5); MEAN CORPUSCULAR HEMOGLOBIN 30.4 pg (27.0-33.0); MEAN CORPUSCULAR HGB CONC 32.5 g/dl (32.0-36.5); MEAN CORPUSCULAR VOLUME 93.7 fl (80.0-96.0); PLATELET COUNT, AUTOMATED 176 10^3/uL (150-450); RED BLOOD COUNT 5.06 10^6/uL (4.00-5.40); WHITE BLOOD COUNT 6.3 10^3/uL (4.0-10.0)
[2020-05-18 16:47] LABS: BLOOD UREA NITROGEN 18 MG/DL (7-18); CALCIUM LEVEL 9.2 MG/DL (8.8-10.2); CARBON DIOXIDE LEVEL 28 MEQ/L (21-32); CHLORIDE LEVEL 105 MEQ/L (98-107); CREATININE FOR GFR 0.68 MG/DL (0.55-1.30); GLOMERULAR FILTRATION RATE > 60.0 (>45); GLUCOSE, FASTING 96 MG/DL (70-100); POTASSIUM SERUM 3.6 MEQ/L (3.5-5.1); SODIUM LEVEL 142 MEQ/L (136-145)
[2020-05-18 16:52] LABS: INR 0.88; PROTHROMBIN TIME 12.1 SECONDS (12.5-14.3)
[2020-05-18] MEDS ORDERED: AUGM875T28 PO (17:25)
[2020-05-18 17:44] VITALS: BP 144/82
--- NOTE | 2020-05-20 10:48 | CR ---
CONSULTATION DATE: 05/18/2020 CHIEF COMPLAINT: Epistaxis. HISTORY OF PRESENT ILLNESS: A 65-year-old woman presented to the [facility] emergency department today with acute onset of right-sided epistaxis. She denies recent history of trauma to the nose or the face. She has no known bleeding disorder. She has no prior surgery done to the nasal cavity or the sinuses. While in the emergency department, a Rhino Rocket was inserted. Temporary hemostasis was achieved with some oozing from the backside of the posterior pharyngeal wall. The Rhino Rocket was then inflated using the saline solution, which resulted in much improved hemostasis. I was asked to assess the patient to see if there was any additional intervention required at this time. PAST MEDICAL HISTORY: 1. Cardiac catheterization 2017. 2. Lithotripsy. 3. Carpal tunnel surgery. 4. Bunionectomy. 5. Hysterectomy. 6. Tubal ligation. 7. Hypertension. 8. Hypothyroidism. 9. Depression. SOCIAL HISTORY: Current smoker. Drinker who uses 6 beers a day on an occasional basis. MEDICATIONS TAKEN AT HOME: - albuterol - oxycodone - hydroxyzine - vitamin D - folic acid - thiamine - simvastatin - amlodipine - sertraline - Combivent - baby aspirin - levothyroxine - omeprazole - hydrochlorothiazide - Lyrica - Symbicort PHYSICAL EXAMINATION: The patient appears in no acute distress. No active bleeding noted from the left or right nasal cavity. A Rhino Rocket is inserted in the right nares, which is stable and free of any fresh blood or new clot. Oral examination shows moist oral mucosa. Tongue in midline. No fresh blood in the oral cavity. Posterior pharyngeal wall is free of active bleeding or fresh clots. NECK: No palpable cervical lymphadenopathy. Trachea midline. No thyromegaly. LABORATORIES: CBC 15.4. PT/INR pending. IMPRESSION: This 65-year-old woman presented to the emergency department with acute onset of right epistaxis. PLAN: At this time, the patient's epistaxis is under good hemostasis with the use of the Rhino Rocket as placed by the emergency department. There is no need for further intervention on my part at this time. The Rhino Rocket should remain in situ for the next 4-5 days. Prophylaxis against sinusitis with oral antibiotic, is advised. The emergency department will provide the antibiotic prescription to the patient. The patient is to contact my office first thing on Thursday morning to arrange for a follow up for Rhino Rocket removal sometime in the middle of next week. RHETT
== END 2020-05-18 17:47 | disposition home or self-care (01) ==
LOC: EDBD 12:47 → M ED 12:47
DX: R04.0 Epistaxis (principal); J44.9 Chronic obstructive pulmonary disease, unspecified; I25.10 Atherosclerotic heart disease of native coronary artery without angina pectoris; E03.9 Hypothyroidism, unspecified; F33.9 Major depressive disorder, recurrent, unspecified; Z79.899 Other long term (current) drug therapy; Z79.890 Hormone replacement therapy; Z79.82 Long term (current) use of aspirin; Z88.1 Allergy status to other antibiotic agents; Z88.2 Allergy status to sulfonamides; Z88.5 Allergy status to narcotic agent; Z88.8 Allergy status to other drugs, medicaments and biological substances; F17.210 Nicotine dependence, cigarettes, uncomplicated
CPT/HCPCS: 36415; 80048; 85027; 85610; 87486; 87581; 87633; 87798; 99285; Q0162

== ENCOUNTER → 2020-08-29 | Outpatient (CLI) | payer MEDICARE, MEDICAID ==
[~2020-08-29] MED LIST changes: +FERR324T21 PO; -FERR325T16 PO
--- NOTE | 2020-08-31 03:44 | ECWPNPC ---
PATIENT NAME: STEPHAN DICKINSON : 1955 GENDER: FEMALE VISIT DATE: 08/29/2020 DISCHARGE DATE: 08/29/20 1415 VISIT LOCKED DATE TIME: PHYSICIAN: ZIA KNOX RESOURCE: ZIA KNOX REASON FOR APPOINTMENT 1. BACK PAIN HISTORY OF PRESENT ILLNESS GENERAL: -65-YEAR-OLD FEMALE IN FOR CHRONIC PAIN FOLLOW-UP. PATIENT DOES FEEL HER MEDICATIONS ARE HELPFUL HOWEVER ADMITS TO INCREASED PAIN AT TIMES. FALL RISK SCREENING: SCREENING ONE FALL REPORTED IN THE LAST YEAR WITHOUT INJURY.. PAIN SCREENING: PATIENT HAS A COMPLAINT OF ACUTE OR CHRONIC PAIN :NO NURSING NOTE: -. PAIN CENTER INTAKE QUESTIONS: DO YOU HAVE A HISTORY OF MRSA? :NO DO YOU TAKE A BLOOD THINNERS? :NO DO YOU HAVE ANY BLEEDING DISORDERS? :NO ANY NEW NUMBNESS OR WEAKNESS IN YOUR LEGS OR ARMS? :YES INCREASED PAIN IN NECK AND ARMS ANY PACEMAKER,DEFIBRILLATOR, OR DORSAL COLUMN STIMULATOR? :NO DO YOU HAVE ANY RASHES OR OPEN SORES? :NO ARE YOU ALLERGIC TO IV DYE? :NO ARE YOU DIABETIC? :NO ANY NEW PROBLEMS WITH YOUR MEDICATIONS? :NO HAVE YOU RECEIVED A VACCINE IN THE PAST 30 DAYS? :NO DO YOU PLAN TO RECEIVE A VACCINE IN THE NEXT 21 DAYS? :NO DO YOU NEED ANY PRESCRIPTION? :YES OXYCODONE,NUCINTA DO YOU TAKE ANY IMMUNOSUPPRESSIVE MEDICATIONS? :NO IS THERE A CHANCE YOU COULD BE ? :NO ARE YOU BREAST FEEDING? :NO CURRENT MEDICATIONS TAKING VITAMIN D3 1000 UNIT TABLET 2 TABLET ORALLY ONCE A DAY TAKING CITALOPRAM HYDROBROMIDE 40 MG TABLET 1 TABLET ORALLY ONCE A DAY TAKING OMEPRAZOLE 20 MG CAPSULE DELAYED RELEASE 1 CAPSULE ORALLY TWICE A DAY TAKING THIAMINE HCL 100 MG TABLET 1 TABLET ORALLY ONCE A DAY TAKING HYDROCORTISONE 1 % CREAM 1 APPLICATION TO AFFECTED AREA EXTERNALLY TWICE DAILY NEEDED TAKING ALBUTEROL SULFATE HFA 108 (90 BASE) MCG/ACT AEROSOL SOLUTION 2 PUFFS NEEDED INHALATION FOUR TIMES DAILY NEEDED TAKING FERROUS GLUCONATE 240 (27 FE) MG TABLET DIRECTED ORALLY ONCE A DAY TAKING SYMBICORT 160-4.5 MCG/ACT AEROSOL 2 PUFFS INHALATION TWICE A DAY TAKING COMBIVENT RESPIMAT 20-100 MCG/ACT AEROSOL SOLUTION 1 PUFF INHALATION TWICE DAILY TAKING LEVOTHYROXINE SODIUM 75 MCG TABLET 1 TABLET ORALLY ONCE A DAY TAKING SIMVASTATIN 40 MG TABLET 1/2 TABLET IN THE EVENING ORALLY ONCE A DAY TAKING SERTRALINE HCL 25 MG TABLET 2 TABS ORALLY ONCE A DAY TAKING TIZANIDINE HCL 4 MG TABLET 1 TABLET NEEDED ORALLY THREE TIMES A DAY TAKING LYRICA 150 MG CAPSULE 1 CAPSULE ORALLY THREE TIMES DAILY TAKING NUCYNTA ER 100 MG TABLET EXTENDED RELEASE 12 HOUR 1 TABLET ORALLY EVERY 12 HRS CHRONIC PAIN MDD=2 TAKING OXYCODONE HCL 10 MG TABLET 1 TABLET NEEDED ORALLY BID PRN PAIN MDD=2 TAKING MILK THISTLE 500 MG CAPSULE DIRECTED ORALLY FOUR TIMES DAILY NEEDED NOT-TAKING ASPIR-81 81 MG TABLET DELAYED RELEASE 1 TABLET ORALLY ONCE A DAY UNKNOWN FUTURO SOFT CERVICAL COLLAR - MISCELLANEOUS DIRECTED MEDICATION LIST REVIEWED AND RECONCILED WITH THE PATIENT PAST MEDICAL HISTORY SEVERE COPD BRONCHITIS, GOLD 3, SPIROMETRY 12/25/16 FIBROMYALGIA HYPERLIPIDEMIA HYPERTENSION CHRONIC LOW BACK PAIN - PREVIOUSLY ON OPIATE MEDICATIONS - DC'D DUE TO URINE TOX INCONSISTENCIES ANXIETY AND DEPRESSION HYPOTHYROIDISM FOLLOWS WITH THE SC FOR ROUTINE LABS AND 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 CHEST PAIN GERD CAD S/P PCI FOLLOWS DR. HIGGINBOTHAM IRON DEFICIENCY ANEMIA FOLLOWS SC GI BLEED ANEMIA SMOKING HX OF ALCOHOL ABUSE PNEUMONIA 10/23/18 ALLERGIES CODEINE PHOSPHATE: NAUSEA/VOMITING TETRACYCLINE HCL: PT UNSURE - ALLERGY SULFA (FOR ALLERGY USE ONLY): PT UNSURE - ALLERGY NSAIDS: GI BLEED - CONTRAINDICATION SURGICAL HISTORY GALL BLADDER KIDNEY STONE HYSTERECTOMY CARPAL TUNNEL RELEASE X2 KNEE SURGERY X 4 TONSILLECTOMY LEFT FOOT BUNIONECTOMY, BRIT IN TOES 2016 CARDIAC CATH 04/2016 RIGHT FOOT BUNIONECTOMY 04/2018 SOCIAL HISTORY GENERAL: TOBACCO USE ARE YOU A:CURRENT SMOKER ARE YOU INTERESTED IN QUITTING?NOT READY TO QUIT WOULD LIKE TO QUIT IF SHE COULD GET THE PATCHES PATIENT IS TRYING TO QUIT COUNSELED THE PATIENT ON SMOKING EFFECTS, EDUCATION [id number]/05/2021 HOW MANY CIGARETTES A DAY DO YOU SMOKE?11-20 PATIENT COUNSELED ON THE DANGERS OF TOBACCO USE AND URGED TO QUIT:02/06/2020 SMOKING CESSATION INFORMATION GIVEN09/14/2019 LATEX QUESTIONNAIRE LATEX ALLERGY : HAVE YOU EVER DEVELOPED ANY TYPE OF REACTION AFTER HANDLING LATEX PRODUCTS SUCH RUBBER GLOVES, CONDOMS, DIAPHRAGMS, BALLOONS, SOCKS, OR UNDERWEAR?NO LATEX ALLERGY : HAVE YOU EVER DEVELOPED ANY TYPE OF REACTION DURING OR AFTER DENTAL APPOINTMENT, VAGINAL/RECTAL EXAMINATION, SURGICAL PROCEDURE, OR ANY OTHER EXPOSURE?NO LATEX RISK : HAVE YOU EVER HAD ANY DIFFICULTY BREATHING OR HIVES AFTER EATING OR HANDLING ANY FRUITS, OR VEGETABLES; SUCH KIWI, BANANAS, STONE FRUITS, OR CHESTNUTSNO LATEX RISK : DO YOU HAVE A PREVIOUS PERSONAL HISTORY OF MORE THAN NINE SURGERIES, SPINA BIFIDA, OR REPEATED CATHERIZATIONS? YES - PLEASE INDICATE : > 9 SURGERIES LATEX RISK : ARE YOU FREQUENTLY EXPOSED TO LATEX PRODUCTS IN YOUR OCCUPATION?NO DATE ASKED : 08/29/2020 ALCOHOL USE: NO. ALCOHOL SCREENING DID YOU HAVE A DRINK CONTAINING ALCOHOL IN THE PAST YEAR?YES HOW OFTEN DID YOU HAVE SIX OR MORE DRINKS ON ONE OCCASION IN THE PAST YEAR?MONTHLY (2 POINTS) HOW MANY DRINKS DID YOU HAVE ON A TYPICAL DAY WHEN YOU WERE DRINKING IN THE PAST YEAR?3 OR 4 (1 POINT) HOW OFTEN DID YOU HAVE A DRINK CONTAINING ALCOHOL IN THE PAST YEAR?FOUR OR MORE TIMES A WEEK (4 POINTS) POINTS7 INTERPRETATIONPOSITIVE RECREATIONAL DRUG USE DRUG USE?NO SHINTO [id number] MOSQUE LANGUAGE LANGUAGES SPOKEN:CYPRIOT LEARNING BARRIERS / SPECIAL NEEDS CHANGE FROM LAST VISIT?NO BARRIERS TO LEARNING?NO HEARING IMPAIRED?NO VISION IMPAIRED?YES :CORRECTIVE LENSES COGNITIVELY IMPAIRED?NO READINESS TO LEARN?YES LEARNING PREFERENCES?YES :DEMONSTRATION/VERBAL INSTRUCTION LEARNING CAPABILITIES PRESENT?YES EMOTIONAL BARRIERS?NO SPECIAL DEVICES?NO MANAGER ELECTRICAL NEEDED?NO DOMESTIC VIOLENCE DO YOU FEEL SAFE IN YOUR ENVIRONMENT?YES OCCUPATION: DISABLED. TODAY'S VISIT 08/18/19 PATIENT DESCRIBES PAIN :HAVE IT ALL THE TIME, SHARP, STABBING, TENDER, THROBBING, SHOOTING FROM 0-10, WHAT LEVEL IS YOUR PAIN TODAY?10 PRECIPITATING FACTORS JUST SEVERE PAIN ALL THE TIME ALLEVIATING FACTORS NOTHING IMPACT ON FUNCTION LIMITS HER ABILITY TO DO THINGS. SHE DOES SOME THINGS BECAUSE SHE HAS TO. - PFS REFERRAL NEEDED?NO CLERGY REFERRAL NEEDED?NO PUBLIC HEALTH REFERRAL NEEDED?NO HAS THE PATIENT BEEN EDUCATED REGARDING HIS/HER PLAN OF CARE?YES HAS THE PATIENT BEEN EDUCATED REGARDING PAIN, THE RISK FOR PAIN, THE IMPORTANCE OF EFFECTIVE PAIN MANAGEMENT, AND THE PAIN ASSESSMENT PROCESS?YES ADVANCE DIRECTIVE ADVANCE DIRECTIVE DISCUSSED WITH PATIENT:YES HCP - DAUGHTERMELITON 05/07/20 08/18/19 REVIEWED WITH PT. AD. REVIEW OF SYSTEMS CONSTITUTIONAL: ANY RECENT FEVER NO . CHILLS NO . WEIGHT CHANGE OF UNKNOWN REASONS NO . GASTROENTEROLOGY: NEW UNEXPLAINABLE CHANGES IN BOWEL CONTROL NO . CONSTIPATION NO . GENITOURINARY: ANY NEW CHANGE IN BLADDER CONTROL? NO . NEUROLOGY: NEW ONSET DIZZINESS OR NEUROLOGICAL CHANGES NOT MENTIONED NO . NEW NUMBNESS OR PAIN PATTERNS NOT MENTIONED AND PERTINENT TO TODAY'S VISIT NO . CARDIOLOGY: NEW CHEST PRESSURE NO . PATIENT DENIES NO . RESPIRATORY: UNEXPLAINABLE COUGH NO . NEW SHORTNESS OF BREATH NO . VITAL SIGNS WT 133.8 LBS, HT 5'2 1/2", BMI 24.08 INDEX, BP 173/82 MM HG, HR 93 /MIN, RR 18 /MIN, TEMP 98.0 F, OXYGEN SAT % 92%, SAFE IN ENV? (Y/N) YES, NA INITIALS IL 13:31, REVIEWED BY: MILADYS AGUIRRE MA. EXAMINATION GENERAL EXAMINATION: GENERALNO ACUTE DISTRESS, WELL NOURISHED AND HYDRATED. PSYCHAPPROPRIATE MOOD AND AFFECT . LUNGS:BILATERAL WHEEZES NOTED. HEART:NO MURMURS, REGULAR RATE AND RHYTHM. ASSESSMENTS SPONDYLOSIS WITHOUT MYELOPATHY OR RADICULOPATHY, LUMBOSACRAL REGION - M47.817 (PRIMARY), RISK: (NULL) CHRONIC PRESCRIPTION OPIATE USE - Z79.891 TREATMENT SPONDYLOSIS WITHOUT MYELOPATHY OR RADICULOPATHY, LUMBOSACRAL REGION REFILL NUCYNTA ER TABLET EXTENDED RELEASE 12 HOUR, 100 MG, 1 TABLET, ORALLY, EVERY 12 HRS CHRONIC PAIN MDD=2, 30 DAY(S), 60, REFILLS 0 REFILL OXYCODONE HCL TABLET, 10 MG, 1 TABLET NEEDED, ORALLY, BID PRN PAIN MDD=2, 30 DAY(S), 60, REFILLS 0 INCREASE LYRICA CAPSULE, 200 MG, 1 CAPSULE, ORALLY, THREE TIMES DAILY, 30 DAY(S), 90, REFILLS 5 NOTES: 65-YEAR-OLD FEMALE IN FOR CHRONIC PAIN FOLLOW-UP. GIVEN PRESENTING SYMPTOMS RECOMMENDED INCREASING LYRICA TO 200 MG 3 TIMES A DAY WITH FOLLOW-UP IN 3 MONTHS. PATIENT HAS EXPRESSED UNDERSTANDING OF AND WAS IN AGREEMENT WITH TREATMENT PLAN. GIVEN TIME TO ASK QUESTIONS AND EXPRESS CONCERNS. [employer] REGISTRY REVIEWED AND DEMONSTRATES COMPLLIANCE. (REF #[id number] ) BRINGS IN MEDICATIONS WHICH IS APPROPRIATE FOR WHAT WAS DISPENSED. RECENT URINE TOXICOLOGY REVIEWED. NO UNAUTHORIZED MEDICATIONS. NO ILLICIT SUBSTANCES AND PRESCRIBED MEDICATIONS WERE PRESENT. CHRONIC PRESCRIPTION OPIATE USE LAB: URINE TEST GROUP JAYA MATHEWS 08/29/2020 2:30:50 PM > LAST DOSE: OXYCODONE 08/28/2020, LYRICA 08/29/2020, TRAMADOL 08/29/2020 PROCEDURE CODES FA211 ESTABILISHED PATIENT [facility] FACILITY CHARGE DISPOSITION & COMMUNICATION FOLLOW UP 3 MONTHS (REASON: BACK PAIN ) ELECTRONICALLY SIGNED BY COLE LUCERO ON 08/30/2020 AT 01:33 PM EDT DISCLAIMER : THIS IS A VISIT SUMMARY EXTRACTED FROM THE [facility] CHART. IT IS NOT A COPY OF THE [facility] [address] PROGRESS NOTE. RHETT
== END ==
LOC: M PAIN 13:30
PROVIDERS: ATTEND Family Medicine
DX: M47.817 Spondylosis without myelopathy or radiculopathy, lumbosacral region (principal); G89.29 Other chronic pain; J44.9 Chronic obstructive pulmonary disease, unspecified; M79.7 Fibromyalgia; E03.9 Hypothyroidism, unspecified; K21.9 Gastro-esophageal reflux disease without esophagitis; D50.9 Iron deficiency anemia, unspecified; F17.210 Nicotine dependence, cigarettes, uncomplicated; Z86.59 Personal history of other mental and behavioral disorders; Z88.1 Allergy status to other antibiotic agents; Z88.2 Allergy status to sulfonamides; Z88.5 Allergy status to narcotic agent; Z88.6 Allergy status to analgesic agent; Z79.891 Long term (current) use of opiate analgesic; Z79.899 Other long term (current) drug therapy

== ENCOUNTER → 2021-05-15 | Outpatient (CLI) | payer MEDICARE, MEDICAID ==
[~2021-05-15] MED LIST changes: -CAND4TAB PO; +CAND4TAB7 PO; -CITA40TA4 PO; +CITA40TA7 PO; +OMEP-173 PO; -OMEP-218 PO
== END ==
LOC: M PAIN 13:30
PROVIDERS: ATTEND Anesthesiology
DX: M50.10 Cervical disc disorder with radiculopathy, unspecified cervical region (principal); J44.9 Chronic obstructive pulmonary disease, unspecified; M79.7 Fibromyalgia; E78.5 Hyperlipidemia, unspecified; I10 Essential (primary) hypertension; M54.50 Low back pain, unspecified; F41.9 Anxiety disorder, unspecified; F32.A Depression, unspecified; E03.9 Hypothyroidism, unspecified; K21.9 Gastro-esophageal reflux disease without esophagitis; I25.10 Atherosclerotic heart disease of native coronary artery without angina pectoris; D50.9 Iron deficiency anemia, unspecified; F17.210 Nicotine dependence, cigarettes, uncomplicated; Z79.891 Long term (current) use of opiate analgesic; Z79.82 Long term (current) use of aspirin; Z79.899 Other long term (current) drug therapy; Z88.2 Allergy status to sulfonamides; Z88.5 Allergy status to narcotic agent; Z88.6 Allergy status to analgesic agent; Z88.8 Allergy status to other drugs, medicaments and biological substances

== ENCOUNTER → 2021-05-20 | Outpatient (CLI) | payer MEDICARE, MEDICAID ==
[2021-05-20 16:09] LABS: BASO # 0.1 10^3/uL (0.0-0.2); BASO % 0.7 % (0.0-1.0); EOS # 0.1 10^3/uL (0.0-0.5); EOS % 1.5 % (0.0-3.0); HEMATOCRIT 46.8 % (36.0-47.0); HEMOGLOBIN 15.1 g/dl (12.0-15.5); LYMPH % 29.7 % (24.0-44.0); MEAN CORPUSCULAR HEMOGLOBIN 31.9 pg (27.0-33.0); MEAN CORPUSCULAR HGB CONC 32.3 g/dl (32.0-36.5); MEAN CORPUSCULAR VOLUME 98.7 fl (80.0-96.0); MONO # 0.9 10^3/uL (0.0-0.8); NEUTROPHILS # 3.8 10^3/uL (1.5-8.5); NEUTROPHILS % 54.8 % (36.0-66.0); PLATELET COUNT, AUTOMATED 186 10^3/uL (150-450); RED BLOOD COUNT 4.74 10^6/uL (4.00-5.40); WHITE BLOOD COUNT 6.9 10^3/uL (4.0-10.0)
[2021-05-20 16:44] LABS: ALBUMIN 3.6 GM/DL (3.2-5.2); ALT/SGPT 61 U/L (12-78); BILIRUBIN,TOTAL 0.4 MG/DL (0.2-1.0); BLOOD UREA NITROGEN 8 MG/DL (7-18); CARBON DIOXIDE LEVEL 29 MEQ/L (21-32); CHLORIDE LEVEL 101 MEQ/L (98-107); CHOLESTEROL LEVEL 236 MG/DL (<200); CHOLESTEROL RISK RATIO 1.966 (<5); CREATININE FOR GFR 0.61 MG/DL (0.55-1.30); GLOMERULAR FILTRATION RATE > 60.0 (>45); GLUCOSE, FASTING 84 MG/DL (70-100); HDL CHOLESTEROL 120 MG/DL (>40); LDL CHOLESTEROL 102 MG/DL (<100); NON-HDL-C 116 MG/DL; POTASSIUM SERUM 4.6 MEQ/L (3.5-5.1); SODIUM LEVEL 136 MEQ/L (136-145); TOTAL PROTEIN 6.7 GM/DL (6.4-8.2); TRIGLYCERIDES LEVEL 71 MG/DL (<150)
[2021-05-20 17:06] LABS: HEMOGLOBIN A1c 5.2 %
== END ==
LOC: M WUC 15:05
PROVIDERS: ATTEND Family Medicine
DX: E78.5 Hyperlipidemia, unspecified (principal); D63.8 Anemia in other chronic diseases classified elsewhere; E55.9 Vitamin D deficiency, unspecified

== ENCOUNTER → 2021-07-31 | Outpatient (CLI) | payer MEDICARE, MEDICAID | LOC: M PAIN 14:30 | PROVIDERS: ATTEND Anesthesiology | DX: M50.10 Cervical disc disorder with radiculopathy, unspecified cervical region (principal); J44.9 Chronic obstructive pulmonary disease, unspecified; M79.7 Fibromyalgia; E78.5 Hyperlipidemia, unspecified; I10 Essential (primary) hypertension; M54.50 Low back pain, unspecified; F41.9 Anxiety disorder, unspecified; F32.A Depression, unspecified; E03.9 Hypothyroidism, unspecified; K21.9 Gastro-esophageal reflux disease without esophagitis; I25.10 Atherosclerotic heart disease of native coronary artery without angina pectoris; D50.9 Iron deficiency anemia, unspecified; F17.210 Nicotine dependence, cigarettes, uncomplicated; Z79.891 Long term (current) use of opiate analgesic; Z79.899 Other long term (current) drug therapy; Z88.5 Allergy status to narcotic agent; Z88.2 Allergy status to sulfonamides; Z88.6 Allergy status to analgesic agent; Z88.8 Allergy status to other drugs, medicaments and biological substances ==

== ENCOUNTER → 2021-08-02 | Outpatient (CLI) | payer MEDICARE, MEDICAID ==
[2021-08-02 15:35] LABS: APPEARANCE, URINE CLEAR (CLEAR); BACTERIA, URINE AUTO 1+ (NEGATIVE); BILIRUBIN, URINE AUTO NEGATIVE (NEGATIVE); BLOOD, URINE BLOOD NEGATIVE (NEGATIVE); COLOR, URINE YELLOW (YELLOW); GLUCOSE, URINE (UA) AUTO NEGATIVE (NEGATIVE); KETONE, URINE AUTO NEGATIVE (NEGATIVE); LEUKOCYTE ESTERASE, URINE AUTO NEGATIVE (NEGATIVE); NITRITE, URINE AUTO NEGATIVE (NEGATIVE); PROTEIN, URINE AUTO NEGATIVE (NEGATIVE); RBC, URINE AUTO 0 /HPF (0-3); SPECIFIC GRAVITY URINE AUTO 1.006 (1.002-1.035); SQUAMOUS EPITHELIAL CELL UR AU 1 /HPF (0-6); UROBILINOGEN, URINE AUTO 0.2 mg/dL (0.0-2.0); WBC, URINE AUTO 1 /HPF (0-3)
[2021-08-02 15:37] LABS: BASO # 0.1 10^3/uL (0.0-0.2); BASO % 0.6 % (0.0-1.0); EOS # 0.2 10^3/uL (0.0-0.5); HEMATOCRIT 46.2 % (36.0-47.0); HEMOGLOBIN 15.2 g/dl (12.0-15.5); LYMPH # 1.9 10^3/uL (1.5-5.0); LYMPH % 24.2 % (24.0-44.0); MEAN CORPUSCULAR HEMOGLOBIN 31.9 pg (27.0-33.0); MEAN CORPUSCULAR HGB CONC 32.9 g/dl (32.0-36.5); MEAN CORPUSCULAR VOLUME 97.1 fl (80.0-96.0); MONO # 0.9 10^3/uL (0.0-0.8); NEUTROPHILS # 4.8 10^3/uL (1.5-8.5); NEUTROPHILS % 61.1 % (36.0-66.0); PLATELET COUNT, AUTOMATED 205 10^3/uL (150-450); RED BLOOD COUNT 4.76 10^6/uL (4.00-5.40); WHITE BLOOD COUNT 7.8 10^3/uL (4.0-10.0)
[2021-08-02 15:57] LABS: HEMOGLOBIN A1c 5.2 %
[2021-08-02 16:19] LABS: ALBUMIN 3.6 GM/DL (3.2-5.2); ALT/SGPT 59 U/L (12-78); BILIRUBIN,TOTAL 0.5 MG/DL (0.2-1.0); BLOOD UREA NITROGEN 5 MG/DL (7-18); CALCIUM LEVEL 8.9 MG/DL (8.8-10.2); CARBON DIOXIDE LEVEL 28 MEQ/L (21-32); CHLORIDE LEVEL 102 MEQ/L (98-107); CHOLESTEROL LEVEL 174 MG/DL (<200); CHOLESTEROL RISK RATIO 1.611 (<5); GLOMERULAR FILTRATION RATE > 60.0 (>45); GLUCOSE, FASTING 91 MG/DL (70-100); HDL CHOLESTEROL 108 MG/DL (>40); LDL CHOLESTEROL 52 MG/DL (<100); NON-HDL-C 66 MG/DL; POTASSIUM SERUM 4.1 MEQ/L (3.5-5.1); SODIUM LEVEL 136 MEQ/L (136-145); TOTAL PROTEIN 6.6 GM/DL (6.4-8.2); TRIGLYCERIDES LEVEL 72 MG/DL (<150)
== END ==
LOC: M WUC 14:03
DX: R30.0 Dysuria (principal); Z79.51 Long term (current) use of inhaled steroids; Z79.82 Long term (current) use of aspirin; Z79.899 Other long term (current) drug therapy

== ENCOUNTER → 2021-08-19 | Outpatient (CLI) | payer OTHER | LOC: M RAD 13:53 | PROVIDERS: ATTEND Family Medicine | DX: R94.5 Abnormal results of liver function studies (principal) ==

== ENCOUNTER 2021-09-02 22:18 | Emergency (ER) | payer MEDICAID, MEDICARE ==
[~2021-09-02] VITALS: Ht 162.6 cm; Wt 61.8 kg
[2021-09-02 22:19] VITALS: BP 123/73
== END 2021-09-02 23:21 | disposition left against medical advice (07) ==
LOC: M ED 22:18
DX: Z53.21 Procedure and treatment not carried out due to patient leaving prior to being seen by health care provider (principal)

== ENCOUNTER → 2021-09-12 | Outpatient (CLI) | payer MEDICARE, MEDICAID ==
[2021-09-12 16:00] LABS: APPEARANCE, URINE CLEAR (CLEAR); BACTERIA, URINE AUTO NEGATIVE (NEGATIVE); BILIRUBIN, URINE AUTO NEGATIVE (NEGATIVE); BLOOD, URINE BLOOD NEGATIVE (NEGATIVE); COLOR, URINE YELLOW (YELLOW); GLUCOSE, URINE (UA) AUTO NEGATIVE (NEGATIVE); KETONE, URINE AUTO NEGATIVE (NEGATIVE); LEUKOCYTE ESTERASE, URINE AUTO NEGATIVE (NEGATIVE); MUCUS, URINE SMALL (NEGATIVE); NITRITE, URINE AUTO NEGATIVE (NEGATIVE); PROTEIN, URINE AUTO NEGATIVE (NEGATIVE); RBC, URINE AUTO 0 /HPF (0-3); SPECIFIC GRAVITY URINE AUTO 1.013 (1.002-1.035); SQUAMOUS EPITHELIAL CELL UR AU 2 /HPF (0-6); UROBILINOGEN, URINE AUTO 0.2 mg/dL (0.0-2.0); WBC, URINE AUTO 1 /HPF (0-3)
== END ==
LOC: M WUC 14:19
PROVIDERS: ATTEND Family Medicine
DX: R30.0 Dysuria (principal)

== ENCOUNTER 2021-10-29 22:47 | Emergency (ER) | payer MEDICARE, MEDICAID ==
[~2021-10-29] VITALS: Ht 157.5 cm; Wt 59.0 kg
[~2021-10-29 22:47] MED LIST changes: +ALBU2.5V10 NEB; -ALBU83IN NEB
[2021-10-29 23:24] LABS: VENOUS BASE EXCESS -4.2 (-2.0-2.0); VENOUS HCO3 20.8 MEQ/L (23.0-27.0); VENOUS PARTIAL PRESSURE CO2 38.5 mmHg (38.0-50.0); VENOUS PARTIAL PRESSURE O2 82.8 mmHg (30.0-50.0); VENOUS PH 7.351 UNITS (7.330-7.430)
[2021-10-29 23:33] LABS: BASO % 0.7 % (0.0-1.0); EOS % 0.3 % (0.0-3.0); HEMATOCRIT 44.4 % (36.0-47.0); HEMOGLOBIN 15.1 g/dl (12.0-15.5); LYMPH # 1.3 10^3/uL (1.5-5.0); LYMPH % 21.7 % (24.0-44.0); MEAN CORPUSCULAR HEMOGLOBIN 32.1 pg (27.0-33.0); MEAN CORPUSCULAR VOLUME 94.3 fl (80.0-96.0); MONO # 1.1 10^3/uL (0.0-0.8); MONO % 18.1 % (2.0-8.0); NEUTROPHILS # 3.5 10^3/uL (1.5-8.5); NEUTROPHILS % 58.9 % (36.0-66.0); PLATELET COUNT, AUTOMATED 132 10^3/uL (150-450); RED BLOOD COUNT 4.71 10^6/uL (4.00-5.40); WHITE BLOOD COUNT 5.9 10^3/uL (4.0-10.0)
[2021-10-29 23:44] VITALS: BP 158/74
[2021-10-29] MEDS ORDERED: ACETAMINOPHEN TAB 650MG DOSE (2X325MG) PO ONE (23:45)
[2021-10-29] MEDS ORDERED: IPRATROPIUM 0.5MG/ALBUTEROL 2.5MG INH SOL UD 3ML (DUONEB) NEB ONE (23:45)
[2021-10-29 23:56] LABS: ALT/SGPT 81 U/L (12-78); BILIRUBIN,DIRECT < 0.1 MG/DL (0.0-0.2); BILIRUBIN,TOTAL 0.5 MG/DL (0.2-1.0); BLOOD UREA NITROGEN 6 MG/DL (7-18); CARBON DIOXIDE LEVEL 22 MEQ/L (21-32); CHLORIDE LEVEL 102 MEQ/L (98-107); CREATININE FOR GFR 0.62 MG/DL (0.55-1.30); GLOMERULAR FILTRATION RATE > 60.0 (>45); GLUCOSE, FASTING 80 MG/DL (70-100); NT-PRO BNP 54 PG/ML (<125); POTASSIUM SERUM 3.7 MEQ/L (3.5-5.1); SODIUM LEVEL 136 MEQ/L (136-145); TOTAL PROTEIN 7.2 GM/DL (6.4-8.2)
[2021-10-30] MEDS ORDERED: ACETAMINOPHEN TAB 650MG DOSE (2X325MG) PO PRN (02:10)
[2021-10-30] MEDS ORDERED: IPRATROPIUM 0.5MG/ALBUTEROL 2.5MG INH SOL UD 3ML (DUONEB) NEB PRN (02:10)
[2021-10-30] MEDS ORDERED: ALBUTEROL SULFATE 2.5 MG/0.5 ML INH NEB SOLN NEB PRN (02:10)
[2021-10-30] MEDS ORDERED: LORazepam 2 MG TAB PO PRN (02:10)
[2021-10-30 02:27] LABS: ETHYL ALCOHOL (ETHANOL) 0.039 % (0.000-0.010)
[2021-10-30] MEDS ORDERED: OXYB-54 PO (02:43)
[2021-10-30] MEDS ORDERED: OXYC10TA12 PO (02:43)
[2021-10-30] MEDS ORDERED: VITA100093 PO (02:43)
[2021-10-30] MEDS ORDERED: SIMV40TA20 PO (02:43)
[2021-10-30] MEDS ORDERED: ALBU2.5V10 INH (02:43)
[2021-10-30] MEDS ORDERED: ZOLO100T PO (02:43)
[2021-10-30] MEDS ORDERED: SYMB16INH INH (02:43)
[2021-10-30] MEDS ORDERED: PREG200C PO (02:43)
[2021-10-30] MEDS ORDERED: LIDO1PAD TOP (02:43)
[2021-10-30] MEDS ORDERED: PROAAER10 INH (02:43)
[2021-10-30] MEDS ORDERED: HOME MED LIST COMPLETE! XX SCH (02:45)
[2021-10-30] MEDS ORDERED: methylPREDNISolone 40MG 1ML VIAL IV SCH (03:00)
[2021-10-30] MEDS ORDERED: FOLIC ACID 1 MG TAB PO SCH (09:00)
[2021-10-30] MEDS ORDERED: THIAMINE 100 MG TAB PO SCH (09:00)
[2021-10-30] MEDS ORDERED: MULTIVITAMINS/MINERALS THERAP 1 TAB PO SCH (09:00)
[2021-10-30] MEDS ORDERED: ENOXAPARIN 40MG/0.4ML SYRINGE (J1650 PER 10MG) SC SCH (09:00)
== END 2021-10-30 03:15 | disposition other institution (70) ==
LOC: M ED 22:47 → EDBD 22:47 → UNDOADMIN 10-30 00:53 → M ED INP 10-30 00:53 → UNDODISIN 10-30 03:14
DX: J44.1 Chronic obstructive pulmonary disease with (acute) exacerbation (principal); B34.8 Other viral infections of unspecified site; Z88.1 Allergy status to other antibiotic agents; Z88.2 Allergy status to sulfonamides; Z88.5 Allergy status to narcotic agent; Z79.899 Other long term (current) drug therapy; Z79.890 Hormone replacement therapy

== ENCOUNTER → 2021-11-01 | Outpatient (CLI) | payer MEDICARE, MEDICAID ==
[~2021-11-01] MED LIST changes: +ALBU2.5V10 INH; +LIDO1PAD TOP; +OXYB-54 PO; +PREG200C PO; +PROAAER10 INH; +SYMB16INH INH; +VITA100093 PO; +ZOLO100T PO
== END ==
LOC: M PAIN 14:30
PROVIDERS: ATTEND Nurse Practitioner Family
DX: Z53.29 Procedure and treatment not carried out because of patient's decision for other reasons (principal)

== ENCOUNTER → 2021-12-11 | Outpatient (CLI) | payer OTHER | LOC: M RAD 13:13 | PROVIDERS: ATTEND Internal Medicine Pulmonary Disease | DX: J44.9 Chronic obstructive pulmonary disease, unspecified (principal) ==

== ENCOUNTER → 2021-12-19 | Outpatient (CLI) | payer MEDICARE, MEDICAID | LOC: M PAIN 15:00 | PROVIDERS: ATTEND Anesthesiology | DX: M79.18 Myalgia, other site (principal); J44.9 Chronic obstructive pulmonary disease, unspecified; M79.7 Fibromyalgia; I10 Essential (primary) hypertension; E03.9 Hypothyroidism, unspecified; K21.9 Gastro-esophageal reflux disease without esophagitis; D50.9 Iron deficiency anemia, unspecified; F17.210 Nicotine dependence, cigarettes, uncomplicated; Z86.59 Personal history of other mental and behavioral disorders; Z88.1 Allergy status to other antibiotic agents; Z88.2 Allergy status to sulfonamides; Z88.5 Allergy status to narcotic agent; Z88.6 Allergy status to analgesic agent; Z79.890 Hormone replacement therapy; Z79.891 Long term (current) use of opiate analgesic; Z79.899 Other long term (current) drug therapy ==

== ENCOUNTER → 2022-03-24 | Outpatient (CLI) | payer MEDICARE, MEDICAID, OTHER | LOC: M CARPUL 13:39 | PROVIDERS: ATTEND Internal Medicine Cardiovascular Disease | DX: R06.00 Dyspnea, unspecified (principal); I48.92 Unspecified atrial flutter ==

== ENCOUNTER → 2022-08-15 | Outpatient (CLI) | payer MEDICARE, OTHER ==
[~2022-08-15] MED LIST changes: -POTA10CA32 PO; +POTA10CA33 PO
== END ==
LOC: M WHC 14:15
PROVIDERS: ATTEND Nurse Practitioner Family
DX: Z12.31 Encounter for screening mammogram for malignant neoplasm of breast (principal); Z53.21 Procedure and treatment not carried out due to patient leaving prior to being seen by health care provider

== ENCOUNTER → 2022-09-10 | Outpatient (CLI) | payer MEDICARE, OTHER | LOC: M WHC 13:56 | PROVIDERS: ATTEND Nurse Practitioner Family | DX: Z12.31 Encounter for screening mammogram for malignant neoplasm of breast (principal); N63.24 Unspecified lump in the left breast, lower inner quadrant | CPT/HCPCS: 77066; G0279 ==

== ENCOUNTER 2024-02-08 16:44 | Emergency (ER) | payer OTHER, MEDICAID ==
[~2024-02-08] VITALS: Ht 162.6 cm; Wt 53.6 kg
[~2024-02-08 16:44] MED LIST changes: -K-TA10TA2 PO; +POTA-165 PO; -POTA10CA33 PO; +POTA10CA70 PO; -PREG200C PO; +PREG200C2 PO
[2024-02-08 17:38] LABS: BASO % 0.5 % (0.0-1.0); EOS # 0.2 10^3/uL (0.0-0.5); EOS % 3.4 % (0.0-3.0); HEMATOCRIT 42.5 % (36.0-47.0); HEMOGLOBIN 14.1 g/dl (12.0-15.5); LYMPH # 1.5 10^3/uL (1.5-5.0); LYMPH % 33.6 % (24.0-44.0); MEAN CORPUSCULAR HEMOGLOBIN 31.2 pg (27.0-33.0); MEAN CORPUSCULAR HGB CONC 33.2 g/dl (32.0-36.5); MONO # 0.6 10^3/uL (0.0-0.8); MONO % 12.6 % (2.0-8.0); NEUTROPHILS # 2.2 10^3/uL (1.5-8.5); NEUTROPHILS % 49.7 % (36.0-66.0); PLATELET COUNT, AUTOMATED 172 10^3/uL (150-450); RED BLOOD COUNT 4.52 10^6/uL (4.00-5.40); WHITE BLOOD COUNT 4.4 10^3/uL (4.0-10.0)
[2024-02-08 17:59] LABS: CK-MB VALUE MASS < 1.0 NG/ML (<3.6)
[2024-02-08 18:01] LABS: CPK CREATINE PHOSPHOKINASE 43 U/L (34-145); MB/CK RELATIVE INDEX 2.32 (< OR =4)
[2024-02-08 18:04] LABS: ALBUMIN 2.6 G/DL (3.2-5.2); ALKALINE PHOSPHATASE 76 U/L (46-116); ALT/SGPT 20 U/L (7.0-40); AST/SGOT 13 U/L (<34); BILIRUBIN,DIRECT < 0.1 MG/DL (<0.4); BILIRUBIN,TOTAL 0.3 MG/DL (0.3-1.2); BLOOD UREA NITROGEN < 5 MG/DL (9-23); CALCIUM LEVEL 7.2 MG/DL (8.3-10.6); CARBON DIOXIDE LEVEL 20 MMOL/L (20-31); CHLORIDE LEVEL 116 MMOL/L (98-107); CREATININE FOR GFR 0.41 MG/DL (0.55-1.30); GLOMERULAR FILTRATION RATE > 60.0 (>45); GLUCOSE, FASTING 72 MG/DL (74-106); POTASSIUM SERUM 3.1 MMOL/L (3.5-5.1); SODIUM LEVEL 144 MMOL/L (136-145)
[2024-02-08] MEDS: HYDROcodone/APAP LIQUID 7.5-325MG 15ML UDC (LORTAB ELIXIR) PO ONE (18:45)
[2024-02-08] MEDS: methylPREDNISolone 125MG 2ML VIAL IV ONE (18:46)
[2024-02-08] MEDS: POTASSIUM CHLORIDE 10MEQ SR TABLET PO ONE (18:46)
[2024-02-08] MEDS ORDERED: HYDR1SOL22 PO (19:34)
[2024-02-08] MEDS ORDERED: PRED10TA2 PO (19:34)
[2024-02-08 19:36] VITALS: BP 147/77; TEMP 97.9; O2SAT 98
== END 2024-02-08 19:45 | disposition home or self-care (01) ==
LOC: M ED 16:44 → EDBD 16:44 → M ED 19:45
DX: J44.1 Chronic obstructive pulmonary disease with (acute) exacerbation (principal); B34.1 Enterovirus infection, unspecified; R05.9 Cough, unspecified; I50.22 Chronic systolic (congestive) heart failure; I11.0 Hypertensive heart disease with heart failure; E78.5 Hyperlipidemia, unspecified; Z88.1 Allergy status to other antibiotic agents; Z88.2 Allergy status to sulfonamides; Z88.8 Allergy status to other drugs, medicaments and biological substances; Z79.51 Long term (current) use of inhaled steroids; Z79.899 Other long term (current) drug therapy
CPT/HCPCS: 71045; 80048; 80076; 82550; 82553; 83880; 84484; 85025; 87486; 87581; 87633; 87798; 93005; 93041; 94760; 96374; 99284; J2919

== ENCOUNTER → 2024-05-18 | Outpatient (CLI) | payer OTHER ==
[~2024-05-18] MED LIST changes: +HYDR1SOL22 PO
== END ==
LOC: M WHC 13:36
PROVIDERS: ATTEND Internal Medicine
DX: Z13.820 Encounter for screening for osteoporosis (principal); Z12.31 Encounter for screening mammogram for malignant neoplasm of breast; M85.89 Other specified disorders of bone density and structure, multiple sites; R92.8 Other abnormal and inconclusive findings on diagnostic imaging of breast
CPT/HCPCS: 76642; 77066; 77080; G0279

== ENCOUNTER → 2024-05-25 | Outpatient (CLI) | payer OTHER ==
[~2024-05-25] MED LIST changes: +SYNT112T2 PO; +VENTAER INH
== END ==
LOC: M RAD 15:03
PROVIDERS: ATTEND Internal Medicine Pulmonary Disease
DX: J43.9 Emphysema, unspecified (principal); F17.218 Nicotine dependence, cigarettes, with other nicotine-induced disorders

== ENCOUNTER 2024-06-30 19:52 | Inpatient (IN) | payer MEDICARE, MEDICAID ==
[~2024-06-30] VITALS: Ht 162.6 cm; Wt 61.0 kg
[2024-06-30 20:28] VITALS: BP 106/76; TEMP 97.9; O2SAT 95
[2024-06-30 20:38] LABS: BASO # 0.1 10^3/uL (0.0-0.2); BASO % 0.6 % (0.0-1.0); EOS # 0.1 10^3/uL (0.0-0.5); EOS % 1.3 % (0.0-3.0); HEMATOCRIT 48.3 % (36.0-47.0); HEMOGLOBIN 16.5 g/dl (12.0-15.5); LYMPH # 3.1 10^3/uL (1.5-5.0); LYMPH % 38.7 % (24.0-44.0); MEAN CORPUSCULAR HGB CONC 34.2 g/dl (32.0-36.5); MEAN CORPUSCULAR VOLUME 93.8 fl (80.0-96.0); MONO # 0.8 10^3/uL (0.0-0.8); MONO % 10.6 % (2.0-8.0); NEUTROPHILS # 3.8 10^3/uL (1.5-8.5); PLATELET COUNT, AUTOMATED 222 10^3/uL (150-450); RED BLOOD COUNT 5.15 10^6/uL (4.00-5.40); WHITE BLOOD COUNT 7.9 10^3/uL (4.0-10.0)
[2024-06-30] MEDS ORDERED: ISOVUE-370 76% 100ML VIAL As Ordered ONE (20:46)
[2024-06-30 21:01] LABS: THYROID STIMULATING HORMONE 14.358 uIU/ML (0.55-4.78)
[2024-06-30 21:07] LABS: ALBUMIN 3.5 G/DL (3.2-5.2); ALKALINE PHOSPHATASE 84 U/L (35-104); ALT/SGPT 25 U/L (7.0-40); AST/SGOT 42 U/L (<34); BILIRUBIN,DIRECT < 0.1 MG/DL (<0.4); BILIRUBIN,TOTAL 0.5 MG/DL (0.3-1.2); BLOOD UREA NITROGEN 11 MG/DL (9-23); CALCIUM LEVEL 8.6 MG/DL (8.3-10.6); CARBON DIOXIDE LEVEL 18 MMOL/L (20-31); CHLORIDE LEVEL 104 MMOL/L (98-107); CREATININE FOR GFR 0.76 MG/DL (0.55-1.30); FREE T4 0.88 NG/DL (0.89-1.76); GLOMERULAR FILTRATION RATE > 60.0 (>45); GLUCOSE, FASTING 110 MG/DL (74-106); PHOSPHORUS LEVEL 4.4 MG/DL (2.4-5.1); POTASSIUM SERUM 4.4 MMOL/L (3.5-5.1); SODIUM LEVEL 137 MMOL/L (136-145); TOTAL PROTEIN 6.9 G/DL (5.7-8.2)
[2024-06-30 21:39] LABS: CK-MB VALUE MASS 1.2 NG/ML (<3.6); CPK CREATINE PHOSPHOKINASE 58 U/L (34-145); MB/CK RELATIVE INDEX 2.06 (< OR =4)
[2024-06-30] MEDS: LORazepam 2 MG/ML 1ML VIAL IV STA (21:47)
[2024-06-30 21:48] LABS: ETHYL ALCOHOL (ETHANOL) 0.066 % (0.000-0.010)
[2024-06-30 22:08] LABS: MB/CK RELATIVE INDEX 1.17 (< OR =4)
[2024-06-30 22:14] LABS: INR 0.88; PARTIAL THROMBOPLASTIN TIME 24.2 SECONDS (24.8-34.2); PROTHROMBIN TIME 12.3 SECONDS (12.5-14.5)
[2024-06-30] MEDS ORDERED: SPIR12.9 INH (23:33)
[2024-06-30] MEDS ORDERED: POTA-149 PO (23:45)
[2024-06-30] MEDS ORDERED: HOME MED LIST COMPLETE! XX SCH (23:50)
[2024-06-30 23:55] LABS: FOLATE > 24.0 NG/ML (>5.4); VITAMIN B12 LEVEL 1488 PG/ML (211-911)
[2024-07-01] VITALS (8 sets, daily range): BP systolic 104–119; BP diastolic 69–85; TEMP 97.3–98.1; O2SAT 92–97
[2024-07-01] MEDS ORDERED: ALBUTEROL SULFATE 2.5MG/0.5ML INH NEB SOLN NEB PRN (01:30)
[2024-07-01] MEDS: IPRATROPIUM 0.5MG/ALBUTEROL 2.5MG INH SOL UD 3ML (DUONEB) NEB SCH (01:58)
[2024-07-01] MEDS: LORazepam 2 MG TAB PO PRN (02:19)
[2024-07-01] MEDS: NORCO, ANEXSIA 5/325MG TABLET (HYDROcodone/ACETAMINOPHEN) PO ONE (02:23)
[2024-07-01] MEDS: ANALGESIC BALM CRM 3OZ TOP PRN (04:59)
[2024-07-01] MEDS ORDERED: LIDOCAINE 5% (LIDODERM) PATCH TD SCH (05:00)
[2024-07-01] MEDS: LEVOTHYROXINE 112MCG TABLET (0.112MG) PO SCH (05:25)
[2024-07-01 06:03] LABS: APPEARANCE, URINE HAZY (CLEAR); BACTERIA, URINE AUTO NEGATIVE (NEGATIVE); BILIRUBIN, URINE AUTO NEGATIVE (NEGATIVE); BLOOD, URINE BLOOD NEGATIVE (NEGATIVE); COLOR, URINE YELLOW (YELLOW); GLUCOSE, URINE (UA) AUTO NEGATIVE (NEGATIVE); KETONE, URINE AUTO NEGATIVE (NEGATIVE); LEUKOCYTE ESTERASE, URINE AUTO 3+ (NEGATIVE); MUCUS, URINE SMALL (NEGATIVE); NITRITE, URINE AUTO NEGATIVE (NEGATIVE); PROTEIN, URINE AUTO NEGATIVE (NEGATIVE); RBC, URINE AUTO 0 /HPF (0-3); SPECIFIC GRAVITY URINE AUTO 1.046 (1.002-1.035); SQUAMOUS EPITHELIAL CELL UR AU 5 /HPF (0-6); UROBILINOGEN, URINE AUTO 0.2 mg/dL (0.0-2.0); WBC, URINE AUTO 17 /HPF (0-3)
[2024-07-01 07:49] LABS: BASO % 0.7 % (0.0-1.0); EOS # 0.1 10^3/uL (0.0-0.5); HEMATOCRIT 44.8 % (36.0-47.0); HEMOGLOBIN 14.9 g/dl (12.0-15.5); LYMPH # 2.1 10^3/uL (1.5-5.0); LYMPH % 35.7 % (24.0-44.0); MEAN CORPUSCULAR HEMOGLOBIN 31.4 pg (27.0-33.0); MEAN CORPUSCULAR HGB CONC 33.3 g/dl (32.0-36.5); MEAN CORPUSCULAR VOLUME 94.3 fl (80.0-96.0); MONO # 0.8 10^3/uL (0.0-0.8); MONO % 14.2 % (2.0-8.0); NEUTROPHILS # 2.8 10^3/uL (1.5-8.5); NEUTROPHILS % 47.6 % (36.0-66.0); PLATELET COUNT, AUTOMATED 160 10^3/uL (150-450); RED BLOOD COUNT 4.75 10^6/uL (4.00-5.40); WHITE BLOOD COUNT 5.9 10^3/uL (4.0-10.0)
[2024-07-01] MEDS: TIOTROPIUM INHALER/CAPSULE (SPIRIVA) INH SCH (07:49)
[2024-07-01 08:21] LABS: ALBUMIN 3.4 G/DL (3.2-5.2); ALKALINE PHOSPHATASE 80 U/L (35-104); ALT/SGPT 20 U/L (7.0-40); AST/SGOT 14 U/L (<34); BILIRUBIN,TOTAL 0.7 MG/DL (0.3-1.2); BLOOD UREA NITROGEN 13 MG/DL (9-23); CALCIUM LEVEL 8.5 MG/DL (8.3-10.6); CARBON DIOXIDE LEVEL 26 MMOL/L (20-31); CHLORIDE LEVEL 106 MMOL/L (98-107); CREATININE FOR GFR 0.73 MG/DL (0.55-1.30); GLOMERULAR FILTRATION RATE > 60.0 (>45); GLUCOSE, FASTING 94 MG/DL (74-106); POTASSIUM SERUM 3.4 MMOL/L (3.5-5.1); SODIUM LEVEL 141 MMOL/L (136-145); TOTAL PROTEIN 6.3 G/DL (5.7-8.2)
[2024-07-01] MEDS: POTASSIUM CHLORIDE 10% LIQ 20MEQ/15ML UDC PO ONE (10:17)
[2024-07-01 10:18] LABS: LIPASE 43 U/L (12-53)
[2024-07-01] MEDS: CYANOCOBALAMIN 1,000MCG/ML 1ML VIAL IM SCH (10:18)
[2024-07-01] MEDS: ENOXAPARIN 40MG/0.4ML SYRINGE (J1650 PER 10MG) SC SCH (10:19)
[2024-07-01] MEDS: OMEPRAZOLE 20MG CAP PO SCH (10:19)
[2024-07-01] MEDS: FOLIC ACID 1MG TAB PO SCH (10:20)
[2024-07-01] MEDS: THIAMINE 100 MG TAB PO SCH (10:20)
[2024-07-01] MEDS: oxyBUTYnin *DITROPAN XL* 5 MG TABCR PO SCH (10:20)
[2024-07-01] MEDS: PREGABALIN 100 MG CAP (LYRICA) PO SCH (10:20)
[2024-07-01] MEDS: POTASSIUM CHLORIDE 10MEQ SR TABLET PO SCH (10:20)
[2024-07-01] MEDS: SERTRALINE 100 MG TAB PO SCH (10:21)
[2024-07-01] MEDS: MULTIVITAMINS/MINERALS THERAP 1 TAB PO SCH (10:21)
[2024-07-01] MEDS: ASPIRIN 325 MG TAB PO ONE (12:10)
[2024-07-01] MEDS: guaiFENesin ER TABLET 600 MG TAB PO SCH (12:10)
[2024-07-01] MEDS: THIAMINE INJection 500 MG in NS 100 ML IV SCH (16:56)
[2024-07-01] MEDS: SIMVASTATIN 40 MG TAB PO SCH (20:47)
[2024-07-01] MEDS ORDERED: PILL CUTTER 1 EACH XX ONE (20:51)
[2024-07-02 03:48] VITALS: BP 108/69; TEMP 97.5; O2SAT 97
[2024-07-02] MEDS: NORCO, ANEXSIA 5/325MG TABLET (HYDROcodone/ACETAMINOPHEN) PO ONE (03:48)
[2024-07-02 06:30] LABS: BASO % 0.5 % (0.0-1.0); EOS # 0.1 10^3/uL (0.0-0.5); EOS % 1.4 % (0.0-3.0); HEMATOCRIT 43.5 % (36.0-47.0); HEMOGLOBIN 13.9 g/dl (12.0-15.5); LYMPH # 1.7 10^3/uL (1.5-5.0); LYMPH % 27.1 % (24.0-44.0); MEAN CORPUSCULAR HEMOGLOBIN 31.4 pg (27.0-33.0); MEAN CORPUSCULAR VOLUME 98.4 fl (80.0-96.0); MONO # 0.8 10^3/uL (0.0-0.8); MONO % 12.3 % (2.0-8.0); NEUTROPHILS # 3.7 10^3/uL (1.5-8.5); NEUTROPHILS % 58.2 % (36.0-66.0); PLATELET COUNT, AUTOMATED 152 10^3/uL (150-450); RED BLOOD COUNT 4.42 10^6/uL (4.00-5.40); WHITE BLOOD COUNT 6.3 10^3/uL (4.0-10.0)
[2024-07-02 07:01] LABS: ALBUMIN 3.3 G/DL (3.2-5.2); ALKALINE PHOSPHATASE 80 U/L (35-104); ALT/SGPT 15 U/L (7.0-40); AST/SGOT 14 U/L (<34); BILIRUBIN,TOTAL 0.4 MG/DL (0.3-1.2); BLOOD UREA NITROGEN 17 MG/DL (9-23); CALCIUM LEVEL 8.8 MG/DL (8.3-10.6); CARBON DIOXIDE LEVEL 30 MMOL/L (20-31); CHLORIDE LEVEL 102 MMOL/L (98-107); CREATININE FOR GFR 0.79 MG/DL (0.55-1.30); GLOMERULAR FILTRATION RATE > 60.0 (>45); GLUCOSE, FASTING 127 MG/DL (74-106); MAGNESIUM LEVEL 2.2 MG/DL (1.8-2.4); POTASSIUM SERUM 3.3 MMOL/L (3.5-5.1); SODIUM LEVEL 138 MMOL/L (136-145); TOTAL PROTEIN 6.1 G/DL (5.7-8.2)
[2024-07-02] MEDS: ASPIRIN 81MG ENTERIC TABLET PO SCH (08:02)
[2024-07-02] MEDS: POTASSIUM CHLORIDE 10MEQ SR TABLET PO ONE (08:03)
[2024-07-02 08:05] VITALS: BP 96/69
[2024-07-02 08:33] LABS: AMPHETAMINES LEVEL URINE NEGATIVE (NEGATIVE); BARBITURATES URINE NEGATIVE (NEGATIVE); COCAINE METABOLITE URINE NEGATIVE (NEGATIVE)
[2024-07-02 08:34] LABS: CANNABINOIDS URINE NEGATIVE (NEGATIVE); METHADONE URINE NEGATIVE (NEGATIVE); PHENCYCLIDINE URINE NEGATIVE (NEGATIVE)
[2024-07-02 08:38] LABS: BENZODIAZEPINES URINE POSITIVE (NEGATIVE); OPIATES URINE POSITIVE (NEGATIVE)
[2024-07-02 11:55] LABS: CK-MB VALUE MASS 1.2 NG/ML (<3.6)
[2024-07-02 11:56] LABS: CPK CREATINE PHOSPHOKINASE 54 U/L (34-145); MB/CK RELATIVE INDEX 2.22 (< OR =4)
[2024-07-02 12:00] VITALS: BP 142/73; TEMP 98.6; O2SAT 96
[2024-07-02] MEDS: PERCOCET 5MG/325MG TAB PO PRN (13:03)
[2024-07-02] MEDS ORDERED: PROHANCE 279.3MG/ML 15ML VIAL As Ordered ONE (19:56)
[2024-07-02] MEDS: LORazepam 2 MG/ML 1ML VIAL IV STA (20:40)
[2024-07-02 20:50] VITALS: BP 130/90
[2024-07-03] MEDS: ALPRAZolam 0.5 MG TAB PO ONE (00:08)
[2024-07-03 04:36] VITALS: BP 123/76; TEMP 97.7; O2SAT 96
[2024-07-03 06:18] LABS: BASO % 0.5 % (0.0-1.0); EOS # 0.1 10^3/uL (0.0-0.5); EOS % 1.5 % (0.0-3.0); HEMATOCRIT 37.9 % (36.0-47.0); HEMOGLOBIN 12.5 g/dl (12.0-15.5); LYMPH # 1.7 10^3/uL (1.5-5.0); LYMPH % 28.6 % (24.0-44.0); MEAN CORPUSCULAR HEMOGLOBIN 32.1 pg (27.0-33.0); MEAN CORPUSCULAR VOLUME 97.4 fl (80.0-96.0); MONO # 0.7 10^3/uL (0.0-0.8); NEUTROPHILS # 3.4 10^3/uL (1.5-8.5); NEUTROPHILS % 57.1 % (36.0-66.0); PLATELET COUNT, AUTOMATED 141 10^3/uL (150-450); RED BLOOD COUNT 3.89 10^6/uL (4.00-5.40)
[2024-07-03 06:40] LABS: ALBUMIN 3.1 G/DL (3.2-5.2); ALKALINE PHOSPHATASE 71 U/L (35-104); ALT/SGPT 14 U/L (7.0-40); AST/SGOT 13 U/L (<34); BILIRUBIN,TOTAL 0.3 MG/DL (0.3-1.2); BLOOD UREA NITROGEN 13 MG/DL (9-23); CALCIUM LEVEL 8.5 MG/DL (8.3-10.6); CARBON DIOXIDE LEVEL 25 MMOL/L (20-31); CHLORIDE LEVEL 107 MMOL/L (98-107); CREATININE FOR GFR 0.72 MG/DL (0.55-1.30); GLOMERULAR FILTRATION RATE > 60.0 (>45); GLUCOSE, FASTING 95 MG/DL (74-106); MAGNESIUM LEVEL 2.1 MG/DL (1.8-2.4); POTASSIUM SERUM 3.7 MMOL/L (3.5-5.1); SODIUM LEVEL 140 MMOL/L (136-145); TOTAL PROTEIN 5.7 G/DL (5.7-8.2)
[2024-07-03] MEDS: PERCOCET 5MG/325MG TAB PO PRN (08:41)
[2024-07-03 12:00] VITALS: BP_SYST 116; BP_SYST 117; BP_DIAS 72; TEMP 98.1; O2SAT 97
[2024-07-03] MEDS ORDERED: methylPREDNISolone 125MG 2ML VIAL IV SCH (12:00)
[2024-07-03 12:05] LABS: ERYTHROCYTE SEDIMENTATION RATE 4 mm/hr (0-30)
[2024-07-03 12:08] LABS: C REACTIVE PROTEIN QUANTITATIV < 0.50 MG/DL (<1.0)
[2024-07-03 12:10] LABS: COMPLEMENT C3 110.5 MG/DL (90.0-170.0); COMPLEMENT C4 19.1 MG/DL (12-36)
[2024-07-03] MEDS: FERROUS GLUCONATE 324 MG TAB PO SCH (14:06)
[2024-07-03] MEDS: methylPREDNISolone 1,000 MG, VIAL MATE ADAPTER 1 EACH in NS 100 ML IV SCH (14:07)
[2024-07-03] MEDS: SYMBICORT 80/4.5MCG INHALER 6GM INH SCH (20:03)
[2024-07-03 20:37] VITALS: BP 112/69; TEMP 97.9; O2SAT 92
[2024-07-04] MEDS: RAMELTEON 8 MG TAB (ROZEREM) PO ONE (00:10)
[2024-07-04] MEDS: DOCUSATE SODIUM 100MG CAPSULE PO PRN (00:10)
[2024-07-04 00:19] VITALS: BP 115/70; TEMP 98.1; O2SAT 95
[2024-07-04 04:32] VITALS: BP 121/77; TEMP 97.9; O2SAT 93
[2024-07-04 05:28] LABS: HEMATOCRIT 37.5 % (36.0-47.0); HEMOGLOBIN 12.3 g/dl (12.0-15.5); LYMPH # 0.3 10^3/uL (1.5-5.0); LYMPH % 9.2 % (24.0-44.0); MEAN CORPUSCULAR HEMOGLOBIN 31.5 pg (27.0-33.0); MEAN CORPUSCULAR HGB CONC 32.8 g/dl (32.0-36.5); MEAN CORPUSCULAR VOLUME 96.2 fl (80.0-96.0); MONO # 0.1 10^3/uL (0.0-0.8); NEUTROPHILS # 3.2 10^3/uL (1.5-8.5); NEUTROPHILS % 88.5 % (36.0-66.0); PLATELET COUNT, AUTOMATED 151 10^3/uL (150-450); WHITE BLOOD COUNT 3.6 10^3/uL (4.0-10.0)
[2024-07-04] MEDS ORDERED: NORCO, ANEXSIA 5/325MG TABLET (HYDROcodone/ACETAMINOPHEN) PO ONE (06:00)
[2024-07-04 06:11] LABS: ALBUMIN 3.2 G/DL (3.2-5.2); ALKALINE PHOSPHATASE 66 U/L (35-104); ALT/SGPT 15 U/L (7.0-40); AST/SGOT 12 U/L (<34); BILIRUBIN,TOTAL 0.2 MG/DL (0.3-1.2); BLOOD UREA NITROGEN 13 MG/DL (9-23); CALCIUM LEVEL 8.6 MG/DL (8.3-10.6); CARBON DIOXIDE LEVEL 27 MMOL/L (20-31); CHLORIDE LEVEL 106 MMOL/L (98-107); CREATININE FOR GFR 0.62 MG/DL (0.55-1.30); GLOMERULAR FILTRATION RATE > 60.0 (>45); GLUCOSE, FASTING 163 MG/DL (74-106); MAGNESIUM LEVEL 2.2 MG/DL (1.8-2.4); POTASSIUM SERUM 3.4 MMOL/L (3.5-5.1); SODIUM LEVEL 142 MMOL/L (136-145)
[2024-07-04 08:00] VITALS: BP 116/64
[2024-07-04] MEDS: VITAMIN D 1,000 INTERNATIONAL UNITS TABLET PO SCH (08:21)
[2024-07-04] MEDS: POTASSIUM CHLORIDE 10MEQ SR TABLET PO ONE (08:26)
[2024-07-04 11:21] LABS: APPEARANCE, URINE CLEAR (CLEAR); BACTERIA, URINE AUTO NEGATIVE (NEGATIVE); BILIRUBIN, URINE AUTO NEGATIVE (NEGATIVE); BLOOD, URINE BLOOD 2+ (NEGATIVE); COLOR, URINE STRAW (YELLOW); GLUCOSE, URINE (UA) AUTO NEGATIVE (NEGATIVE); KETONE, URINE AUTO NEGATIVE (NEGATIVE); LEUKOCYTE ESTERASE, URINE AUTO TRACE (NEGATIVE); NITRITE, URINE AUTO NEGATIVE (NEGATIVE); PROTEIN, URINE AUTO NEGATIVE (NEGATIVE); RBC, URINE AUTO 0 /HPF (0-3); SQUAMOUS EPITHELIAL CELL UR AU 0 /HPF (0-6); UROBILINOGEN, URINE AUTO 0.2 mg/dL (0.0-2.0); WBC, URINE AUTO 0 /HPF (0-3)
[2024-07-04 12:00] VITALS: BP 119/64; TEMP 97.5; O2SAT 98
[2024-07-04 13:53] LABS: CRYOGLOBULINS NEGATIVE (NEGATIVE)
[2024-07-04 19:28] VITALS: BP 143/81; TEMP 98.8; O2SAT 93
[2024-07-04 20:56] VITALS: BP_SYST 119; BP_SYST 143; BP_DIAS 64; BP_DIAS 84
[2024-07-04] MEDS: COMBIVENT RESPIMAT 100-20MCG INHALER 4GM INH SCH (23:04)
[2024-07-05 04:17] VITALS: BP 143/80; TEMP 98.1; O2SAT 92
[2024-07-05] MEDS: SERTRALINE 100 MG TAB PO SCH (08:06)
[2024-07-05 08:19] LABS: HEMATOCRIT 35.7 % (36.0-47.0); HEMOGLOBIN 11.6 g/dl (12.0-15.5); LYMPH # 0.6 10^3/uL (1.5-5.0); MEAN CORPUSCULAR HEMOGLOBIN 31.7 pg (27.0-33.0); MEAN CORPUSCULAR HGB CONC 32.5 g/dl (32.0-36.5); MEAN CORPUSCULAR VOLUME 97.5 fl (80.0-96.0); MONO # 0.7 10^3/uL (0.0-0.8); MONO % 8.9 % (2.0-8.0); NEUTROPHILS # 6.4 10^3/uL (1.5-8.5); NEUTROPHILS % 81.9 % (36.0-66.0); PLATELET COUNT, AUTOMATED 167 10^3/uL (150-450); RED BLOOD COUNT 3.66 10^6/uL (4.00-5.40); WHITE BLOOD COUNT 7.8 10^3/uL (4.0-10.0)
[2024-07-05 08:38] LABS: ALKALINE PHOSPHATASE 68 U/L (35-104); ALT/SGPT 18 U/L (7.0-40); AST/SGOT 10 U/L (<34); BILIRUBIN,TOTAL 0.2 MG/DL (0.3-1.2); BLOOD UREA NITROGEN 16 MG/DL (9-23); CALCIUM LEVEL 8.5 MG/DL (8.3-10.6); CARBON DIOXIDE LEVEL 28 MMOL/L (20-31); CHLORIDE LEVEL 109 MMOL/L (98-107); CREATININE FOR GFR 0.54 MG/DL (0.55-1.30); GLOMERULAR FILTRATION RATE > 60.0 (>45); GLUCOSE, FASTING 150 MG/DL (74-106); MAGNESIUM LEVEL 2.3 MG/DL (1.8-2.4); POTASSIUM SERUM 3.4 MMOL/L (3.5-5.1); SODIUM LEVEL 146 MMOL/L (136-145); TOTAL PROTEIN 5.7 G/DL (5.7-8.2)
[2024-07-05 12:00] VITALS: BP 128/78; TEMP 97.7; O2SAT 98
[2024-07-05] MEDS: POTASSIUM CHLORIDE 10% LIQ 20MEQ/15ML UDC PO ONE (12:07)
[2024-07-05 20:09] VITALS: BP 128/75; TEMP 97.9; O2SAT 93
[2024-07-05 20:10] VITALS: BP 128/75
[2024-07-05] MEDS: RAMELTEON 8 MG TAB (ROZEREM) PO ONE (22:45)
[2024-07-06 03:20] VITALS: BP 117/68; TEMP 98.1; O2SAT 90
[2024-07-06 06:11] LABS: EOS % 0.1 % (0.0-3.0); HEMATOCRIT 34.8 % (36.0-47.0); HEMOGLOBIN 11.1 g/dl (12.0-15.5); LYMPH # 0.8 10^3/uL (1.5-5.0); LYMPH % 10.3 % (24.0-44.0); MEAN CORPUSCULAR HEMOGLOBIN 31.1 pg (27.0-33.0); MEAN CORPUSCULAR HGB CONC 31.9 g/dl (32.0-36.5); MEAN CORPUSCULAR VOLUME 97.5 fl (80.0-96.0); MONO # 0.6 10^3/uL (0.0-0.8); MONO % 7.8 % (2.0-8.0); NEUTROPHILS # 6.1 10^3/uL (1.5-8.5); NEUTROPHILS % 80.5 % (36.0-66.0); PLATELET COUNT, AUTOMATED 164 10^3/uL (150-450); RED BLOOD COUNT 3.57 10^6/uL (4.00-5.40); WHITE BLOOD COUNT 7.6 10^3/uL (4.0-10.0)
[2024-07-06 06:26] LABS: ALKALINE PHOSPHATASE 61 U/L (35-104); ALT/SGPT 18 U/L (7.0-40); AST/SGOT 10 U/L (<34); BILIRUBIN,TOTAL 0.2 MG/DL (0.3-1.2); BLOOD UREA NITROGEN 20 MG/DL (9-23); CALCIUM LEVEL 8.3 MG/DL (8.3-10.6); CARBON DIOXIDE LEVEL 29 MMOL/L (20-31); CHLORIDE LEVEL 107 MMOL/L (98-107); GLOMERULAR FILTRATION RATE > 60.0 (>45); GLUCOSE, FASTING 126 MG/DL (74-106); MAGNESIUM LEVEL 2.3 MG/DL (1.8-2.4); POTASSIUM SERUM 3.7 MMOL/L (3.5-5.1); SODIUM LEVEL 143 MMOL/L (136-145); TOTAL PROTEIN 5.5 G/DL (5.7-8.2)
[2024-07-06] MEDS: THIAMINE 100 MG TAB PO SCH (09:19)
[2024-07-06 12:00] VITALS: BP 120/64; TEMP 98.1; O2SAT 94
[2024-07-06 15:31] LABS: ANGIOTENSIN 1 CONVERTING ENZYM 28 U/L (9-67)
[2024-07-06 19:30] VITALS: BP 110/60; TEMP 97.9; O2SAT 92
[2024-07-06] MEDS: RAMELTEON 8 MG TAB (ROZEREM) PO ONE (22:12)
[2024-07-06 23:47] LABS: RNP ANTIBODY <1.0 NEG AI (<1.0 NEG); SM ANTIBODY <1.0 NEG AI (<1.0 NEG); SSA SJOGRENS A <1.0 NEG AI (<1.0 NEG); SSB SJOGRENS B <1.0 NEG AI (<1.0 NEG)
[2024-07-06 23:56] VITALS: BP 110/60
[2024-07-07 04:03] VITALS: BP 129/75; TEMP 97.9; O2SAT 92
[2024-07-07 06:16] LABS: BASO % 0.2 % (0.0-1.0); HEMATOCRIT 35.1 % (36.0-47.0); HEMOGLOBIN 11.4 g/dl (12.0-15.5); LYMPH # 0.6 10^3/uL (1.5-5.0); LYMPH % 10.7 % (24.0-44.0); MEAN CORPUSCULAR HEMOGLOBIN 31.9 pg (27.0-33.0); MEAN CORPUSCULAR HGB CONC 32.5 g/dl (32.0-36.5); MEAN CORPUSCULAR VOLUME 98.3 fl (80.0-96.0); MONO # 0.5 10^3/uL (0.0-0.8); MONO % 8.9 % (2.0-8.0); NEUTROPHILS # 4.7 10^3/uL (1.5-8.5); NEUTROPHILS % 79.2 % (36.0-66.0); PLATELET COUNT, AUTOMATED 165 10^3/uL (150-450); RED BLOOD COUNT 3.57 10^6/uL (4.00-5.40)
[2024-07-07 06:24] LABS: FREE T4 0.88 NG/DL (0.89-1.76); THYROID STIMULATING HORMONE 0.905 uIU/ML (0.55-4.78)
[2024-07-07 06:25] LABS: ALBUMIN 3.1 G/DL (3.2-5.2); ALKALINE PHOSPHATASE 58 U/L (35-104); ALT/SGPT 18 U/L (7.0-40); AST/SGOT 10 U/L (<34); BILIRUBIN,TOTAL 0.2 MG/DL (0.3-1.2); BLOOD UREA NITROGEN 16 MG/DL (9-23); CALCIUM LEVEL 8.3 MG/DL (8.3-10.6); CARBON DIOXIDE LEVEL 29 MMOL/L (20-31); CHLORIDE LEVEL 111 MMOL/L (98-107); CREATININE FOR GFR 0.57 MG/DL (0.55-1.30); GLOMERULAR FILTRATION RATE > 60.0 (>45); GLUCOSE, FASTING 147 MG/DL (74-106); MAGNESIUM LEVEL 2.4 MG/DL (1.8-2.4); POTASSIUM SERUM 3.8 MMOL/L (3.5-5.1); SODIUM LEVEL 147 MMOL/L (136-145); TOTAL PROTEIN 5.8 G/DL (5.7-8.2)
[2024-07-07 09:14] VITALS: BP 127/74; TEMP 97.9; O2SAT 95
[2024-07-07 09:17] VITALS: BP 127/74
[2024-07-07] MEDS: D5W 1,000 ML IV SCH (09:18)
[2024-07-07] MEDS ORDERED: SYNT112T2 PO ×2 (09:35→15:37)
[2024-07-07] MEDS ORDERED: PRED10TA2 PO ×2 (09:35→15:37)
[2024-07-07] MEDS ORDERED: PREG100CA PO ×2 (09:35→15:37)
[2024-07-07] MEDS ORDERED: THIA100T7 PO ×2 (09:35→15:37)
[2024-07-07] MEDS ORDERED: ASPI81TA26 PO (11:04)
[2024-07-07 12:00] VITALS: BP 128/77; TEMP 98.1; O2SAT 91
[2024-07-07 14:37] LABS: ANA SCREEN, IFA NEGATIVE (NEGATIVE)
[2024-07-08 18:27] LABS: LYME TOTAL ANTIBODY CIA <= 0.90 Index (<=0.90)
[2024-07-08 20:22] LABS: ANTI-GLOMERULAR BASEMENT MEMB < 1.0 AI (<1.0); Antimyeloperxidase(MPO) Abs < 1.0 AI (<1.0); Antiproteinase 3 (PR-3) Abs < 1.0 AI (<1.0)
== END 2024-07-07 18:31 | disposition home health service (06) | DRG 98 ==
LOC: M ED 19:52 → M ED INP 07-01 00:04 → M MSPAV 07-01 01:27 → OBSVTOIN 07-03 13:11
PROVIDERS: ADMIT Student in an Organized Health Care Education/Training Program; ATTEND Internal Medicine
DX: G37.3 Acute transverse myelitis in demyelinating disease of central nervous system (principal); F10.230 Alcohol dependence with withdrawal, uncomplicated; G62.1 Alcoholic polyneuropathy; J44.9 Chronic obstructive pulmonary disease, unspecified; I10 Essential (primary) hypertension; E78.5 Hyperlipidemia, unspecified; I25.10 Atherosclerotic heart disease of native coronary artery without angina pectoris; K21.9 Gastro-esophageal reflux disease without esophagitis; E03.9 Hypothyroidism, unspecified; M79.7 Fibromyalgia; F41.9 Anxiety disorder, unspecified; M47.812 Spondylosis without myelopathy or radiculopathy, cervical region; F32.A Depression, unspecified; F17.210 Nicotine dependence, cigarettes, uncomplicated; N32.81 Overactive bladder; E87.6 Hypokalemia; M48.02 Spinal stenosis, cervical region; Z79.890 Hormone replacement therapy; Z79.899 Other long term (current) drug therapy; Z88.1 Allergy status to other antibiotic agents; Z88.2 Allergy status to sulfonamides; Z88.8 Allergy status to other drugs, medicaments and biological substances; Z95.5 Presence of coronary angioplasty implant and graft; Z90.49 Acquired absence of other specified parts of digestive tract

== ENCOUNTER → 2024-08-27 | Outpatient (CLI) | payer MEDICARE, MEDICAID ==
[~2024-08-27] MED LIST changes: +ASPI81TA26 PO; +POTA-149 PO; +PREG-35 PO; -PREG100CA PO; -PREG50CA PO; +PREG50CA87 PO; +SPIR12.9 INH
== END ==
LOC: M RAD 12:31
PROVIDERS: ATTEND Student in an Organized Health Care Education/Training Program
DX: M51.26 Other intervertebral disc displacement, lumbar region (principal); M51.27 Other intervertebral disc displacement, lumbosacral region

== ENCOUNTER → 2025-01-19 | Outpatient (CLI) | payer MEDICARE, MEDICAID ==
[~2025-01-19] MED LIST changes: +ASPI-731 PO; -ASPI81CH32 PO; +OMEP40CA4 PO; +SUCR1TA PO
[2025-01-19 14:39] LABS: PLATELET COUNT, AUTOMATED 149 10^3/uL (150-450)
[2025-01-19 15:12] LABS: ALT/SGPT 83 U/L (7.0-40); AST/SGOT 112 U/L (<34); CALCIUM LEVEL 8.8 MG/DL (8.3-10.6); CARBON DIOXIDE LEVEL 27 MMOL/L (20-31); CHLORIDE LEVEL 101 MMOL/L (98-107); CREATININE FOR GFR 0.50 MG/DL (0.55-1.30); GLOMERULAR FILTRATION RATE > 90.0 (>45); POTASSIUM SERUM 4.3 MMOL/L (3.5-5.1); SODIUM LEVEL 136 MMOL/L (136-145)
[2025-01-19 15:16] LABS: VITAMIN B12 LEVEL 1192 PG/ML (211-911)
[2025-01-19 17:24] LABS: ESTIMATED AVERAGE GLUCOSE 94.0 MG/DL (60-110)
== END ==
LOC: M LAB 13:54
PROVIDERS: ATTEND Registered Nurse
DX: E03.9 Hypothyroidism, unspecified (principal); I25.119 Atherosclerotic heart disease of native coronary artery with unspecified angina pectoris; E78.5 Hyperlipidemia, unspecified; K74.60 Unspecified cirrhosis of liver; Z79.899 Other long term (current) drug therapy